=== PATIENT | male | born 1960 | race Caucasian/White ===

== ENCOUNTER 2020-05-02 09:53 | Outpatient (REF) | payer BC, SELFPAY ==
--- NOTE | 2020-05-02 09:58 | CT_ITS ---
EXAMINATION: CT CHEST SCREENING CLINICAL INFORMATION: Nicotine dependence. COMPARISON: None. TECHNIQUE: Multidetector volumetric CT imaging of the chest is performed without contrast using low dose technique. Additional 2D coronal and sagittal reformatted images and axial 3D maximum intensity projection (MIP) images are generated on the CT workstation. This CT examination was performed using dose optimization techniques as appropriate, variously including the following: *Automated exposure control *Adjustment of mA and/or kV according to patient size (this includes techniques or standardized protocols for targeted exams where dose is matched to indication/reason for exam; i.e. extremities or head) *Use of iterative reconstruction technique DLP: 80 mGy-cm FINDINGS: LUNGS: The lungs are well expanded and clear of acute pneumonic process. There is a 3 minute nodule right lower lobe axial image 362/6, punctate scattered 1 mm calcified nodules in the right upper lobe. MEDIASTINUM: The thyroid lobes are symmetrical and normal. The central trachea and bronchi are widely patent. Heart size and the great vessels are normal caliber. No abnormal size mediastinal or hilar lymph nodes seen. There is no pericardial effusion. PLEURA: There is no pleural effusion. No pleural mass or thickening. AXILLA: No lymphadenopathy. UPPER ABDOMEN: Visualized liver, spleen, pancreas and bilateral adrenal glands are unremarkable. OSSEOUS STRUCTURES: There is moderate ventral spondylosis mid and lower dorsal spine. No lytic process seen. CT/CT lung screening IMPRESSION: Small pulmonary nodules. No acute process seen. ASSESSMENT: Lung-RADS category 2: Benign. RECOMMENDATION: Low-dose annual CT chest exam.
== END 2020-05-02 09:54 | disposition home or self-care (01) ==
LOC: HO.CT 09:53
PROVIDERS: PCP Internal Medicine; Visit Provider Physician Assistant Medical
DX: Z12.2 Encounter for screening for malignant neoplasm of respiratory organs (principal); F17.210 Nicotine dependence, cigarettes, uncomplicated
CPT/HCPCS: 71271

== ENCOUNTER 2020-05-02 10:31 | Outpatient (REF) | payer BC, SELFPAY | END 2020-05-02 10:32 | disposition home or self-care (01) | LOC: HO.LAB 10:31 | PROVIDERS: Visit Provider Internal Medicine | DX: Z20.822 Contact with and (suspected) exposure to COVID-19 (principal) | CPT/HCPCS: 36415; C9803; U0003; U0005 ==

== ENCOUNTER 2020-12-09 20:12 | Emergency (ER) | payer BC, SELFPAY ==
[2020-12-09 20:15] VITALS: BP 196/96; PULSE 70; RESP 16; TEMP 37.1; O2SAT 95; BMI 38.0
--- NOTE | 2020-12-09 23:38 | PC.NURSE ---
SPOKE W/PT AT LENGTH RE:WAIT TIME. PT UNABLE TO STAY D/T TRANSPORTATION. PT A/O X 3 SPEAKS IN FULL CLEAR SENTENCES, PUPILS ARE EQUAL AND RESPONSIVE.
== END 2020-12-09 23:54 | disposition left against medical advice (07) ==
PROVIDERS: Emergency Provider Emergency Medicine; PCP Internal Medicine
DX: S00.01XA Abrasion of scalp, initial encounter (principal); G44.309 Post-traumatic headache, unspecified, not intractable; Y29.XXXA Contact with blunt object, undetermined intent, initial encounter; Y93.9 Activity, unspecified; Y92.9 Unspecified place or not applicable; Y99.9 Unspecified external cause status
CPT/HCPCS: 99281; 99282

== ENCOUNTER 2021-02-21 16:01 | Outpatient (REF) | payer BC, SELFPAY | END 2021-02-21 16:02 | disposition home or self-care (01) | LOC: HO.LNP 16:01 | PROVIDERS: Visit Provider Nurse Practitioner Family | DX: R30.0 Dysuria (principal) | CPT/HCPCS: 87086 ==

== ENCOUNTER 2021-02-22 10:49 | Outpatient (REF) | payer BC, SELFPAY ==
[2021-02-22 11:05] LABS: MANUAL DIFF FLAG NO
[2021-02-22 11:49] LABS: Basophils Absolute Auto 0.1 X10*3/uL (0.0-0.2); Eosinophils Absolute Auto 0.1 X10*3/uL (0.0-0.4); Eosinophils Percent Auto 1.8 % (0-4); Hematocrit 36.2 % (42.0-52.0); Hemoglobin 11.7 g/dl (14.0-18.0); Imm Gran Abs Auto 0.01 X10*3/uL (0.00-0.03); Imm Gran Pct Auto 0.2 % (0.0-0.4); Lymphocytes Absolute Auto 1.8 X10*3/uL (1.2-4.9); Lymphocytes Percent Auto 35.3 % (20-40); Mean Corpuscular HGB Conc 32.3 g/dl (31.0-36.0); Mean Corpuscular Hemoglobin 28.3 pg (27.0-33.0); Mean Corpuscular Volume 87.4 fL (80.0-98.0); Mean Platelet Volume 10.1 fL (9.4-12.4); Monocytes Absolute Auto 0.5 X10*3/uL (0.1-1.2); Monocytes Percent Auto 10.5 % (2-11); Neutrophils Absolute Auto 2.6 x10*3/uL (2.0-8.3); Neutrophils Percent Auto 50.2 % (45-73); Platelet Count 186 X10*3/uL (160-400); Red Blood Count 4.14 X10*6/uL (4.60-5.80); Red Cell Distribution Width 18.4 % (11.0-16.0); White Blood Count 5.1 X10*3/uL (4.8-10.8)
[2021-02-22 11:52] LABS: Estimated Average Glucose 103 mg/dL; Hemoglobin A1c % 5.2 %
[2021-02-22 12:29] LABS: INTERNATIONAL NORM RATIO 1.2 (0.9-1.1); Prothrombin Time 13.2 SEC (9.9-13.0)
[2021-02-22 12:31] LABS: Thyroid Stimulating Hormone 5.49 uIU/mL (0.32-4.0); Vitamin D 25-OH Total 10.5 ng/mL (>30)
[2021-02-22 12:43] LABS: Alanine Aminotransferase 76 U/L (0-40); Albumin Level 4.2 g/dL (3.5-5.0); Alkaline Phosphatase 61 U/L (39-117); Anion Gap 16 (12-20); Aspartate Amino Transferase 132 U/L (5-37); Bilirubin Total 1.6 mg/dL (0.0-1.0); Blood Urea Nitrogen 6 mg/dL (9-16); Calcium 9.3 mg/dL (8.4-10.2); Carbon Dioxide 23 mmol/L (22-29); Chloride 100 mmol/L (96-108); Cholesterol 231 mg/dL; Estimated Glomerular Filt Rate > 60; Glucose Random 112 mg/dL (60-115); HDL Cholesterol 14 mg/dL; LDL Cholesterol Calculated 186 mg/dl; Potassium 4.3 mmol/L (3.3-5.1); Sodium 135 mmol/L (135-145); Total Protein 7.5 g/dL (6.5-8.0); Triglycerides 157 mg/dL
[2021-02-22 12:45] LABS: Folate 13.2 ng/mL (> or = 4.0); Vitamin B12 447 pg/mL (200-900)
== END 2021-02-22 10:50 | disposition home or self-care (01) ==
LOC: HO.LAB 10:49
PROVIDERS: PCP Internal Medicine; Visit Provider Nurse Practitioner Family
DX: Z13.29 Encounter for screening for other suspected endocrine disorder (principal); R10.9 Unspecified abdominal pain; R73.02 Impaired glucose tolerance (oral); R58 Hemorrhage, not elsewhere classified; E78.00 Pure hypercholesterolemia, unspecified
CPT/HCPCS: 36415; 80053; 80061; 82306; 82607; 82746; 83036; 84443; 85025; 85610; 85730

== ENCOUNTER 2021-03-20 16:08 | Outpatient (REF) | payer BC, SELFPAY ==
--- NOTE | ~2021-03-20 | US_ITS ---
EXAMINATION: US ABDOMEN COMPLETE CLINICAL INFORMATION: Unspecified abdominal pain. COMPARISON: Ultrasound abdomen 03/04/2018. TECHNIQUE: Real-time imaging of the abdominal viscera. FINDINGS: PANCREAS: Not well visualized due to bowel gas. ABDOMINAL AORTA: Not well visualized due to bowel gas INFERIOR VENA CAVA: Visualized portions are normal. LIVER: Liver is enlarged. Liver echotexture is increased The liver contour is normal. No focal hepatic lesion. There is no intrahepatic biliary duct dilatation seen. GALLBLADDER: Normal. The gallbladder is physiologically distended without evidence of stones, sludge, polyps, wall thickening or pericholecystic fluid. COMMON BILE DUCT: Normal in caliber measuring 0.4 cm in diameter. RIGHT KIDNEY: Normal. No hydronephrosis. No renal calculi or focal parenchymal lesions. The kidney measures 12.1 cm in maximum dimension. LEFT KIDNEY: Normal. No hydronephrosis. No renal calculi or focal parenchymal lesions. The kidney measures 11.9 cm in maximum dimension. SPLEEN: Normal. The spleen measures 10.2 cm in maximum dimension. FREE FLUID: None. US/US abdomen complete IMPRESSION: Enlarged echogenic liver probably representing fatty infiltration. Limited visualization of the pancreas.
== END 2021-03-20 16:09 | disposition home or self-care (01) ==
LOC: HO.US 16:08
PROVIDERS: PCP Internal Medicine; Visit Provider Nurse Practitioner Family
DX: R10.9 Unspecified abdominal pain (principal)
CPT/HCPCS: 76700

== ENCOUNTER 2021-04-27 12:56 | Outpatient (REF) | payer BC, SELFPAY ==
[2021-04-27 13:13] LABS: MANUAL DIFF FLAG NO
[2021-04-27 13:24] LABS: Basophils Absolute Auto 0.1 X10*3/uL (0.0-0.2); Basophils Percent Auto 1.3 % (0-2); Eosinophils Absolute Auto 0.1 X10*3/uL (0.0-0.4); Eosinophils Percent Auto 2.1 % (0-4); Hematocrit 33.7 % (42.0-52.0); Hemoglobin 10.6 g/dl (14.0-18.0); Imm Gran Abs Auto 0.01 X10*3/uL (0.00-0.03); Imm Gran Pct Auto 0.2 % (0.0-0.4); Lymphocytes Absolute Auto 2.4 X10*3/uL (1.2-4.9); Lymphocytes Percent Auto 38.6 % (20-40); Mean Corpuscular HGB Conc 31.5 g/dl (31.0-36.0); Mean Corpuscular Volume 88.9 fL (80.0-98.0); Mean Platelet Volume 9.8 fL (9.4-12.4); Monocytes Absolute Auto 0.7 X10*3/uL (0.1-1.2); Neutrophils Absolute Auto 2.8 x10*3/uL (2.0-8.3); Neutrophils Percent Auto 45.8 % (45-73); Platelet Count 200 X10*3/uL (160-400); Red Blood Count 3.79 X10*6/uL (4.60-5.80); Red Cell Distribution Width 18.4 % (11.0-16.0); White Blood Count 6.2 X10*3/uL (4.8-10.8)
[2021-04-27 13:34] LABS: Estimated Average Glucose 108 mg/dL; Hemoglobin A1c % 5.4 %
[2021-04-27 13:47] LABS: Alanine Aminotransferase 41 U/L (0-40); Albumin Level 4.1 g/dL (3.5-5.0); Alkaline Phosphatase 56 U/L (39-117); Anion Gap 15 (12-20); Aspartate Amino Transferase 73 U/L (5-37); Bilirubin Total 1.1 mg/dL (0.0-1.0); Blood Urea Nitrogen 9 mg/dL (9-16); Calcium 9.5 mg/dL (8.4-10.2); Carbon Dioxide 24 mmol/L (22-29); Chloride 103 mmol/L (96-108); Cholesterol 192 mg/dL; Estimated Glomerular Filt Rate > 60; Glucose Random 108 mg/dL (60-115); HDL Cholesterol 16 mg/dL; LDL Cholesterol Calculated 150 mg/dl; Sodium 138 mmol/L (135-145); Total Protein 7.4 g/dL (6.5-8.0); Triglycerides 133 mg/dL
[2021-04-27 14:07] LABS: Free T4 (Free Thyroxine) 0.85 ng/dL (0.71-1.85); Prostate Specific Antigen Scr 3.48 ng/mL (<0.05-4.0)
[2021-04-27 14:09] LABS: Vitamin D 25-OH Total 16.8 ng/mL (>30)
[2021-04-27 14:29] LABS: Folate 15.9 ng/mL (> or = 4.0); Vitamin B12 549 pg/mL (200-900)
[2021-04-28 08:33] LABS: HBc Num1 0.11 S/CO (0.00-0.79); HBsAGNum1 0.24 S/CO (0.00-0.99); Hepatitis A Antibody IgM 0.17 Index (0-0.79); Hepatitis B Core Antibody Nonreactive (Nonreactive); Hepatitis B Surface Antigen Negative (Negative); ~HepC Num1 0.09 S/CO (0.00-0.79); ~Hepatitis A Antibody IgM Nonreactive (Nonreactive); ~Hepatitis B Surface Antibody NONREACTIVE (Nonreactive); ~Hepatitis C Antibody Nonreactive (Nonreactive)
== END 2021-04-27 12:57 | disposition home or self-care (01) ==
LOC: HO.LAB 12:56
PROVIDERS: Absent Provider Nurse Practitioner Family; PCP Internal Medicine; Visit Provider Internal Medicine
DX: Z12.5 Encounter for screening for malignant neoplasm of prostate (principal); R73.02 Impaired glucose tolerance (oral); R79.89 Other specified abnormal findings of blood chemistry; E78.00 Pure hypercholesterolemia, unspecified
CPT/HCPCS: 36415; 80053; 80061; 82306; 82607; 82746; 83036; 84153; 84439; 84443; 85025; 86704; 86706; 86709; 86803; 87340

== ENCOUNTER 2021-10-16 09:54 | Emergency (ER) | payer BC, SELFPAY ==
--- NOTE | ~2021-10-16 | CT_ITS ---
EXAMINATION: CT ABDOMEN AND PELVIS WITHOUT CONTRAST CLINICAL INFORMATION: Abdominal distention. Ascites. COMPARISON: None TECHNIQUE: Multidetector volumetric imaging was performed from the superior aspect of the liver through the pubic symphysis. Sagittal and coronal reformatted images were obtained on the technologist's workstation. This CT examination was performed using dose optimization techniques as appropriate, variously including the following: *Automated exposure control *Adjustment of mA and/or kV according to patient size (this includes techniques or standardized protocols for targeted exams where dose is matched to indication/reason for exam; i.e. extremities or head) *Use of iterative reconstruction technique DLP: 888 mGy-cm FINDINGS: LUNG BASES: The visualized lung bases are unremarkable. LIVER, GALLBLADDER, AND BILIARY TREE: Liver is normal in size, contour and morphology. Diffuse hepatic steatosis. No focal liver lesions. No intra or extrahepatic biliary dilatation. Gallbladder unremarkable. PANCREAS: Unremarkable. SPLEEN: Unremarkable. ADRENAL GLANDS: Unremarkable. KIDNEYS AND URETERS: The kidneys are normal in size, shape, and attenuation. No hydronephrosis, hydroureter, or calculi seen. No perinephric stranding. BLADDER: Unremarkable. GASTROINTESTINAL TRACT: Scattered left colonic diverticula. No evidence of diverticulitis. Normal appendix. Stomach and small bowel unremarkable. ABDOMINAL WALL: No significant hernia is appreciated. LYMPH NODES: Normal. VASCULAR: Unremarkable. PELVIC VISCERA: Unremarkable. OSSEOUS STRUCTURES: No acute fracture or traumatic malalignment. There is grade 1 anterolisthesis of L5 over S1 related to bilateral L5 spondylolysis. Near-complete obliteration of disc space at L5-S1. CT/CT abdomen pelvis wo con IMPRESSION: * No acute findings within the abdomen or pelvis. * No ascites. * No bowel obstruction. * Diffuse hepatic steatosis. * Scattered left colonic diverticula without evidence of diverticulitis.
--- NOTE | ~2021-10-16 | US_ITS ---
EXAMINATION: US VENOUS ULTRASOUND WITH DOPPLER LOWER EXTREMITY, BILATERAL CLINICAL INFORMATION: Bilateral leg swelling COMPARISON: None TECHNIQUE: Ultrasound of the deep veins is performed from the hip to the calf with compression sonography and color and pulse Doppler assessment. Spectral analysis with color-flow imaging is performed. FINDINGS: RIGHT: There is normal venous compression and respiratory variation and augmented flow. The visualized common femoral vein, superficial femoral vein, profunda femoral vein, popliteal vein, and the trifurcation region shows no evidence of deep venous thrombosis. There is no significant popliteal fossa cyst. LEFT: There is normal venous compression and respiratory variation and augmented flow. The visualized common femoral vein, superficial femoral vein, profunda femoral vein, popliteal vein, and the trifurcation region shows no evidence of deep venous thrombosis. There is no significant popliteal fossa cyst. Left peroneal veins not well delineated but no obvious thrombosis seen If the patient's symptoms persist, followup ultrasound in 5 days 7 days might be of value to exclude proximal propagation from a non-visualized calf vein. US/US venous duplex LE BI IMPRESSION: No DVT demonstrated in the bilateral lower extremity.
--- NOTE | ~2021-10-16 | CT_ITS ---
EXAMINATION: CT HEAD WITHOUT CONTRAST CLINICAL INFORMATION: High blood pressure COMPARISON: None TECHNIQUE: Contiguous axial imaging was performed from the skull base to vertex without intravenous administration of contrast. This CT examination was performed using dose optimization techniques as appropriate, variously including the following: *Automated exposure control *Adjustment of mA and/or kV according to patient size (this includes techniques or standardized protocols for targeted exams where dose is matched to indication/reason for exam; i.e. extremities or head) *Use of iterative reconstruction technique DLP: 839 mGy-cm FINDINGS: There is no evidence of acute intracranial hemorrhage or territorial infarction. No abnormal mass effect or midline shift is seen. Junior to white matter differentiation is well preserved. No extra-axial fluid collections are identified. The ventricles are normal in size. There is no abnormal attenuation within the brain parenchyma. The osseous structures and soft tissues are normal. There is a hyperdense mucous retention cyst within the right maxillary sinus. Chronic bilateral mucoperiosteal thickening of the maxillary sinuses. Status post right medial maxillary antrostomy. Mucosal thickening present throughout the ethmoid air cells. CT/CT head/brain wo con IMPRESSION: No acute intracranial pathology. Chronic sinus disease.
[2021-10-16 10:00] VITALS: BP 185/94; PULSE 78; O2SAT 99
[2021-10-16 10:01] VITALS: BP 217/86; PULSE 80; RESP 20; TEMP 36.5; O2SAT 100; BMI 41.0
[2021-10-16 10:45] LABS: COVID-19 Test Negative (Negative); IDNOW Serial# 16C4AD1C
[2021-10-16 11:00] LABS: MANUAL DIFF FLAG NO
[2021-10-16 11:03] LABS: Basophils Absolute Auto 0.1 X10*3/uL (0.0-0.2); Basophils Percent Auto 1.8 % (0-2); Eosinophils Absolute Auto 0.2 X10*3/uL (0.0-0.4); Hemoglobin 8.6 g/dl (14.0-18.0); Imm Gran Abs Auto 0.02 X10*3/uL (0.00-0.03); Imm Gran Pct Auto 0.3 % (0.0-0.4); Lymphocytes Absolute Auto 2.7 X10*3/uL (1.2-4.9); Lymphocytes Percent Auto 36.9 % (20-40); Mean Corpuscular HGB Conc 28.7 g/dl (31.0-36.0); Mean Corpuscular Hemoglobin 22.3 pg (27.0-33.0); Mean Corpuscular Volume 77.7 fL (80.0-98.0); Mean Platelet Volume 9.4 fL (9.4-12.4); Monocytes Absolute Auto 0.8 X10*3/uL (0.1-1.2); Monocytes Percent Auto 10.1 % (2-11); Neutrophils Absolute Auto 3.6 x10*3/uL (2.0-8.3); Neutrophils Percent Auto 48.9 % (45-73); Platelet Count 154 X10*3/uL (160-400); Red Blood Count 3.86 X10*6/uL (4.60-5.80); Red Cell Distribution Width 18.6 % (11.0-16.0); White Blood Count 7.4 X10*3/uL (4.8-10.8)
[2021-10-16 11:19] LABS: Alanine Aminotransferase 39 U/L (0-40); Albumin Level 4.2 g/dL (3.5-5.0); Alkaline Phosphatase 61 U/L (39-117); Anion Gap 13 (12-20); Aspartate Amino Transferase 52 U/L (5-37); Bilirubin Total 0.5 mg/dL (0.0-1.0); Blood Urea Nitrogen 5 mg/dL (9-16); Calcium 8.6 mg/dL (8.4-10.2); Carbon Dioxide 26 mmol/L (22-29); Chloride 105 mmol/L (96-108); Creatinine Clr Calc Pharmacy 135.4; Estimated Glomerular Filt Rate > 60; Glucose Random 106 mg/dL (60-115); Potassium 4.3 mmol/L (3.3-5.1); Sodium 140 mmol/L (135-145); Total Protein 7.5 g/dL (6.5-8.0)
[2021-10-16 11:22] LABS: B Type Natriuretic Peptide 63 pg/mL (<100)
--- NOTE | 2021-10-16 15:42 | ED_ITS ---
HPI - General Adult General Chief complaint: Abdominal Pain Stated complaint: R FLANK/ABD PAIN X'S MONTHS PER EMS Time Seen by Provider: 10/16/21 13:56 Source: patient Mode of arrival: ambulatory Limitations: no limitations History of Present Illness HPI narrative: 60-year-old male presents to the ED for abdominal distention for the past 6 months and also bilateral lower leg swelling for the past 3-4 weeks. Patient admits to drinking heavy amount of alcohol per day. Patient admits to history of alcohol abuse. She denies any chest pain, shortness of breath, blood in stool, weakness, or dizziness. Patient states he was supposed to get tested for hepatitis for possible cirrhosis, but patient never follow-up with his aeronautical products sales engineer. Related Data Home Medications Medication Instructions Recorded Confirmed omeprazole 20 mg capsule,delayed 20 mg PO BID 04/15/20 02/21/21 release Previous Rx's Medication Instructions Recorded atenolol 50 mg tablet 50 mg PO DAILY #90 tabs 07/11/20 levofloxacin 500 mg tablet 500 mg PO DAILY 7 days #7 tabs 02/21/21 triamcinolone acetonide 0.1 % 1 appl topical DAILY PRN itching 03/01/21 topical cream 14 days #30 grams blood pressure monitor #1 ea 03/07/21 cholecalciferol (vitamin D3) 25 25 mcg PO DAILY #90 tabs 05/22/21 mcg (1,000 unit) tablet pravastatin 10 mg tablet 10 mg PO BEDTIME 90 days #90 tabs 05/22/21 lisinopril 20 mg tablet 20 mg PO DAILY #90 tabs 06/27/21 Allergies Allergy/AdvReac Type Severity Reaction Status Date / Time acetaminophen [From TYLENOL] Allergy Unknown HIVES Verified 05/04/21 14:49 apple [APPLES] Allergy Unknown HIVES Verified 05/04/21 14:49 Review of Systems Review of Systems: Abdominal distension for the past 6 months. bilateral leg swelling. [facility] Past Medical History Medical History Alcohol abuse Anxiety and depression GERD (gastroesophageal reflux disease) Hypercholesterolemia Hypertension Impaired glucose tolerance Obesity (BMI 30-39.9) Post traumatic stress disorder (PTSD) Tobacco abuse Vitamin D deficiency Surgical History History of tonsillectomy Family History Family History Father Renal cancer Other Substance use disorder Social History Social History Housing: House Alcohol intake: current Alcohol intake frequency: 0-2 drinks per day Patient Tobacco Use Status: Current everyday Tobacco user Tobacco use type: Cigarette Cigarette Packs Per Day: 1 Cigarettes Per Day: 20 e-Cigarette/Vaping Use: Never Used Second Hand Smoke Exposure: Yes Substance Use Type: Marijuana Advance Directives: No Advance Directives Information Provided: Yes service: No Current occupational status: retired Cognitive needs: No Hearing needs: No Vision needs: Yes (Reading glasses) Physical Exam ED Vital Signs: Vital Signs - 24 hr 10/16/21 10:01 10/16/21 17:32 Temperature 97.7 F 98.0 F Pulse Rate 80 80 Respiratory Rate 20 18 Blood Pressure 217/86 H 212/105 H Pulse Oximetry 100 99 Oxygen Delivery Method Room Air Room Air BMI result Body Mass Index 41.0 Const General: cooperative, healthy appearing, comfortable, no acute distress, well developed, alert, awake and Physically active Orientation/consciousness: oriented to time and patient oriented x3 HENMT Head: Yes normal to inspection, Yes No palpable skull fracture present, Yes normocephalic, Yes atraumatic and No abrasion Eyes General: appearance normal, both eyes and all related structures Neck Neck: Yes normal visual inspection, Yes full ROM, Yes no lymphadenopathy, Yes no meningeal signs, Yes trachea midline, Yes supple, No anterior neck swelling and No tender Chest Chest palpation & inspection: normal inspection of the chest and normal palpation of entire chest wall Resp Effort & Inspection: normal respiratory effort and able to speak in complete sentences Auscultation: clear to auscultation bilaterally Cardio Jugular venous distension: no JVD Heart sounds: S1 normal heart sound present and S2 normal heart sound present GI Inspection: Yes normal to inspection and Yes distended Palpation (GI): Soft to palpation, not firm, nontender, no guarding and not rigid General: No CVA tenderness and Yes no CVA tenderness Back/Spine/Pelvis Back: no CVA tenderness, No CVA tenderness and No back tenderness Skin General skin exam: no rashes or lesions noted and elasticity normal Neuro General: oriented to time, patient oriented x3, gait normal and no meningeal signs Cranial nerves: Yes CN's II-XII intact bilaterally Extrem Ankle/foot/toe images: 1. positive for ankle swelling but negative for any erythema, tenderness, upper leg swelling, or calf tenderness. Motor/nose/vascular exam intact 2. positive for ankle swelling but negative for any erythema, tenderness, upper leg swelling, or calf tenderness. Motor/nose/vascular exam intact Psych Appearance: grossly normal, well kempt and not disheveled Course Course Course Narrative: patient had labs drawn. BNP was negative. History of alcohol abuse and continuous abdominal distension will send patient for CT scan to check for ascites. Lower extremity does not indicate DVT but suspecting early anasarca from ascites and liver issues. Reevaluation(s) Reevaluation #1: Patient history of high blood pressure and elevated blood pressure in the ED visit. patient alcohol abuse sibling concerned this may be early withdrawal Ativan given. Patient alert oriented x3 mild tremors. Patient is slightly anemic last visit will do rectal exam. Time: 15:54 Reevaluation #2: abdomen negative for ascites. positive for fatty liver. We will do ultrasound of legs to to ensure there is no blood clot. Patient had a drop in H&H so occult stool rectal exam was done and negative for any blood. Stool is brown. Negative for any melena or black stool. Patient anemia and lower plates due to alcohol abuse. Not suspecting GI bleed. Time: 17:25 Reevaluation #3: ultrasound negative for DVT. Repeat blood pressure troponin pending. No need for diuretic. Patient informed to follow-up with primary care and aeronautical products sales engineer. Patient educated on the importance of receiving treatment for alcohol abuse and affects on the liver. Patient informed to get his hepat itis testing done and follow-up with primary care doctor. SIgn out to LILLIAM Time: 19:46 Medical Decision Making MDM Narrative Medical decision making narrative: fatty liver. hypertension Lab Data Result diagrams: 10/16/21 10:56 10/16/21 10:56 Labs: Lab Results 10/16/21 10/16/21 10/16/21 Range/Units 10:13 10:56 10:56 WBC 7.4 (4.8-10.8) X10*3/uL RBC 3.86 L (4.60-5.80) X10*6/uL Hgb 8.6 L (14.0-18.0) g/dl Hct 30.0 L (42.0-52.0) % MCV 77.7 L (80.0-98.0) fL MCH 22.3 L (27.0-33.0) pg MCHC 28.7 L (31.0-36.0) g/dl RDW 18.6 H (11.0-16.0) % Plt Count 154 L (160-400) X10*3/uL MPV 9.4 (9.4-12.4) fL Immature Gran % (Auto) 0.3 (0.0-0.4) % Neut % (Auto) 48.9 (45-73) % Lymph % (Auto) 36.9 (20-40) % [place] % (Auto) 10.1 (2-11) % Eos % (Auto) 2.0 (0-4) % Baso % (Auto) 1.8 (0-2) % Lymph # (Auto) 2.7 (1.2-4.9) X10*3/uL [place] # (Auto) 0.8 (0.1-1.2) X10*3/uL Eos # (Auto) 0.2 (0.0-0.4) X10*3/uL Baso # (Auto) 0.1 (0.0-0.2) X10*3/uL Abs Immat Gran (auto) 0.02 (0.00-0.03) X10*3/uL Absolute Neuts (auto) 3.6 (2.0-8.3) x10*3/uL Absolute Nucleated RBC 0.000 (0.0-0.012) X10*3/uL Nucleated RBC % (auto) 0.0 (0.0-0.2) /100WBC PT (10.0-13.1) SEC INR (0.9-1.1) APTT (24.1-38.0) SEC Sodium 140 (135-145) mmol/L Potassium 4.3 (3.3-5.1) mmol/L Chloride 105 (96-108) mmol/L Carbon Dioxide 26 (22-29) mmol/L Anion Gap 13 (12-20) BUN 5 L (9-16) mg/dL Creatinine 0.72 (0.5-1.4) mg/dL Estim Creat Clear Calc 135.4 Estimated GFR > 60 Random Glucose 106 (60-115) mg/dL Calcium 8.6 D (8.4-10.2) mg/dL Total Bilirubin 0.5 (0.0-1.0) mg/dL AST 52 H (5-37) U/L ALT 39 (0-40) U/L Alkaline Phosphatase 61 (39-117) U/L Troponin I High Sens (<3.5-35.0) ng/L B-Natriuretic Peptide (<100) pg/mL Total Protein 7.5 (6.5-8.0) g/dL Albumin 4.2 (3.5-5.0) g/dL Stool Occult Blood (NEGATIVE) COVID-19 (SANG) Negative (Negative) COVID-19 Clin Com See Note 10/16/21 10/16/21 10/16/21 Range/Units 10:56 16:06 18:16 WBC (4.8-10.8) X10*3/uL RBC (4.60-5.80) X10*6/uL Hgb (14.0-18.0) g/dl Hct (42.0-52.0) % MCV (80.0-98.0) fL MCH (27.0-33.0) pg MCHC (31.0-36.0) g/dl RDW (11.0-16.0) % Plt Count (160-400) X10*3/uL MPV (9.4-12.4) fL Immature Gran % (Auto) (0.0-0.4) % Neut % (Auto) (45-73) % Lymph % (Auto) (20-40) % [place] % (Auto) (2-11) % Eos % (Auto) (0-4) % Baso % (Auto) (0-2) % Lymph # (Auto) (1.2-4.9) X10*3/uL [place] # (Auto) (0.1-1.2) X10*3/uL Eos # (Auto) (0.0-0.4) X10*3/uL Baso # (Auto) (0.0-0.2) X10*3/uL Abs Immat Gran (auto) (0.00-0.03) X10*3/uL Absolute Neuts (auto) (2.0-8.3) x10*3/uL Absolute Nucleated RBC (0.0-0.012) X10*3/uL Nucleated RBC % (auto) (0.0-0.2) /100WBC PT 12.2 (10.0-13.1) SEC INR 1.1 (0.9-1.1) APTT 33.3 (24.1-38.0) SEC Sodium (135-145) mmol/L Potassium (3.3-5.1) mmol/L Chloride (96-108) mmol/L Carbon Dioxide (22-29) mmol/L Anion Gap (12-20) BUN (9-16) mg/dL Creatinine (0.5-1.4) mg/dL Estim Creat Clear Calc Estimated GFR Random Glucose (60-115) mg/dL Calcium (8.4-10.2) mg/dL Total Bilirubin (0.0-1.0) mg/dL AST (5-37) U/L ALT (0-40) U/L Alkaline Phosphatase (39-117) U/L Troponin I High Sens (<3.5-35.0) ng/L B-Natriuretic Peptide 63 (<100) pg/mL Total Protein (6.5-8.0) g/dL Albumin (3.5-5.0) g/dL Stool Occult Blood NEGATIVE (NEGATIVE) COVID-19 ([facility]) (Negative) COVID-19 Clin Com 10/16/21 Range/Units 18:16 WBC (4.8-10.8) X10*3/uL RBC (4.60-5.80) X10*6/uL Hgb (14.0-18.0) g/dl Hct (42.0-52.0) % MCV (80.0-98.0) fL MCH (27.0-33.0) pg MCHC (31.0-36.0) g/dl RDW (11.0-16.0) % Plt Count (160-400) X10*3/uL MPV (9.4-12.4) fL Immature Gran % (Auto) (0.0-0.4) % Neut % (Auto) (45-73) % Lymph % (Auto) (20-40) % [place] % (Auto) (2-11) % Eos % (Auto) (0-4) % Baso % (Auto) (0-2) % Lymph # (Auto) (1.2-4.9) X10*3/uL [place] # (Auto) (0.1-1.2) X10*3/uL Eos # (Auto) (0.0-0.4) X10*3/uL Baso # (Auto) (0.0-0.2) X10*3/uL Abs Immat Gran (auto) (0.00-0.03) X10*3/uL Absolute Neuts (auto) (2.0-8.3) x10*3/uL Absolute Nucleated RBC (0.0-0.012) X10*3/uL Nucleated RBC % (auto) (0.0-0.2) /100WBC PT (10.0-13.1) SEC INR (0.9-1.1) APTT (24.1-38.0) SEC Sodium (135-145) mmol/L Potassium (3.3-5.1) mmol/L Chloride (96-108) mmol/L Carbon Dioxide (22-29) mmol/L Anion Gap (12-20) BUN (9-16) mg/dL Creatinine (0.5-1.4) mg/dL Estim Creat Clear Calc Estimated GFR Random Glucose (60-115) mg/dL Calcium (8.4-10.2) mg/dL Total Bilirubin (0.0-1.0) mg/dL AST (5-37) U/L ALT (0-40) U/L Alkaline Phosphatase (39-117) U/L Troponin I High Sens 8.3 (<3.5-35.0) ng/L B-Natriuretic Peptide (<100) pg/mL Total Protein (6.5-8.0) g/dL Albumin (3.5-5.0) g/dL Stool Occult Blood (NEGATIVE) COVID-19 ([facility]ANG) (Negative) COVID-19 Clin Com ECG Data Interpretation: normal sinus rhythm. Ventricular rate 77. Pr interval 170. QRS 80. QTC 457. Negative STEMI Discharge Plan Discharge Clinical Impression: Fatty liver, Alcoholic fatty liver Patient Disposition: Still a Patient Instructions: Liver Disease Diet (DC), Hypertension (ED) Additional Instructions: recommend follow-up with primary care provider and aeronautical products sales engineer. Recommend receiving treatment for alcohol abuse. Return to the ED for any a bdominal pain, nausea, vomiting, leg swelling, calf pain, coughing up blood, chest pain, shortness of breath, blood in stool, weakness, dizziness, slurred speech, facial droop, paralysis of extremities, loss of vision, or any other concerning symptoms. Prescriptions: No Action atenolol 50 mg tablet 50 mg PO DAILY Qty: 90 3RF levofloxacin 500 mg tablet 500 mg PO DAILY 7 Days Qty: 7 0RF triamcinolone acetonide 0.1 % cream 1 appl topical DAILY PRN (Reason: itching) 14 Days Qty: 30 0RF (DME) blood pressure monitor Kit See Rx Instructions .Route Qty: 1 0RF Rx Instructions: As directed pravastatin 10 mg tablet 10 mg PO BEDTIME 90 Days Qty: 90 1RF cholecalciferol (vitamin D3) 25 mcg (1,000 unit) tablet 25 mcg PO DAILY Qty: 90 3RF lisinopril 20 mg tablet 20 mg PO DAILY Qty: 90 3RF omeprazole 20 mg capsule,delayed release(DR/EC) 20 mg PO BID
[2021-10-16] MEDS: LORazepam 1 MG TABLET 2 MG PO (15:46)
[2021-10-16 16:12] LABS: OBS Int Ctl Valid YES; OBS1 NEGATIVE (NEGATIVE)
--- NOTE | 2021-10-16 16:13 | ECG_ITS ---
Test Reason : abd pain Blood Pressure : / mmHG Vent. Rate : 077 BPM Atrial Rate : 077 BPM P-R Int : 170 ms QRS Dur : 084 ms QT Int : 404 ms P-R-T Axes : 022 003 016 degrees QTc Int : 457 ms Normal sinus rhythm Normal ECG When compared with ECG of 10-MAY-2019 10:31, No significant change was found Referred By: Rc Hood Electronically Signed By:Arvind Jade
[2021-10-16 17:32] VITALS: BP 212/105; PULSE 80; RESP 18; TEMP 36.7; O2SAT 99
[2021-10-16] MEDS: cloNIDine HCL 0.2 MG TABLET PO (18:07)
[2021-10-16 18:31] LABS: INTERNATIONAL NORM RATIO 1.1 (0.9-1.1); Prothrombin Time 12.2 SEC (10.0-13.1)
[2021-10-16 18:33] LABS: Partial Thromboplastin Time 33.3 SEC (24.1-38.0)
[2021-10-16 18:49] LABS: Troponin-I High Sensitivity 8.3 ng/L (<3.5-35.0)
--- NOTE | 2021-10-16 20:21 | PC.NURSE ---
resting comfortably on stretcher, repeat trop to be drawn at 20:56. Denies pain at present, speaking in full sentences. Given food
[2021-10-16 20:22] VITALS: BP 165/72; PULSE 67; RESP 18; O2SAT 96
[2021-10-16 21:34] LABS: Troponin-I High Sensitivity 9.7 ng/L (<3.5-35.0)
== END 2021-10-16 21:57 | disposition home or self-care (01) ==
PROVIDERS: Physician Assistant; Student in an Organized Health Care Education/Training Program; Emergency Provider Emergency Medicine; PCP Internal Medicine
DX: K70.0 Alcoholic fatty liver (principal); R60.0 Localized edema; R10.9 Unspecified abdominal pain; R51.9 Headache, unspecified; R06.02 Shortness of breath; K76.0 Fatty (change of) liver, not elsewhere classified; F17.210 Nicotine dependence, cigarettes, uncomplicated; Z20.822 Contact with and (suspected) exposure to COVID-19; Z71.6 Tobacco abuse counseling; Z79.899 Other long term (current) drug therapy
CPT/HCPCS: 36415; 70450; 74176; 80053; 82272; 83880; 84484; 85025; 85610; 85730; 87635; 93005; 93970; 99284

== ENCOUNTER 2021-10-19 09:26 | Outpatient (REF) | payer BC, SELFPAY ==
[2021-10-19 09:53] LABS: MANUAL DIFF FLAG NO
[2021-10-19 09:58] LABS: Basophils Absolute Auto 0.1 X10*3/uL (0.0-0.2); Basophils Percent Auto 1.8 % (0-2); Eosinophils Absolute Auto 0.2 X10*3/uL (0.0-0.4); Eosinophils Percent Auto 2.9 % (0-4); Hematocrit 29.2 % (42.0-52.0); Hemoglobin 8.4 g/dl (14.0-18.0); Imm Gran Abs Auto 0.03 X10*3/uL (0.00-0.03); Imm Gran Pct Auto 0.5 % (0.0-0.4); Immature Retic Fraction 38.8 % (2.3-13.4); Lymphocytes Absolute Auto 1.9 X10*3/uL (1.2-4.9); Lymphocytes Percent Auto 30.6 % (20-40); Mean Corpuscular HGB Conc 28.8 g/dl (31.0-36.0); Mean Corpuscular Hemoglobin 22.5 pg (27.0-33.0); Mean Corpuscular Volume 78.1 fL (80.0-98.0); Monocytes Absolute Auto 0.8 X10*3/uL (0.1-1.2); Monocytes Percent Auto 12.1 % (2-11); Neutrophils Absolute Auto 3.3 x10*3/uL (2.0-8.3); Neutrophils Percent Auto 52.1 % (45-73); Platelet Count 179 X10*3/uL (160-400); Red Blood Count 3.74 X10*6/uL (4.60-5.80); Red Cell Distribution Width 18.7 % (11.0-16.0); Retic HGB Equivalent 28.5 pg (30.0-35.0); Reticulocyte Percent 1.4 % (0.5-1.8); Reticulocytes Absolute 0.051 X10*6/uL (0.026-0.095); White Blood Count 6.3 X10*3/uL (4.8-10.8)
[2021-10-19 10:03] LABS: Ammonia 28 umol/L (13-55)
[2021-10-19 11:17] LABS: Alanine Aminotransferase 38 U/L (0-40); Albumin Level 4.1 g/dL (3.5-5.0); Alkaline Phosphatase 73 U/L (39-117); Anion Gap 13 (12-20); Aspartate Amino Transferase 52 U/L (5-37); Bilirubin Total 0.4 mg/dL (0.0-1.0); Blood Urea Nitrogen 8 mg/dL (9-16); Carbon Dioxide 26 mmol/L (22-29); Chloride 106 mmol/L (96-108); Estimated Glomerular Filt Rate > 60; Glucose Random 120 mg/dL (60-115); Iron 17 mcg/dL (45-160); Potassium 4.6 mmol/L (3.3-5.1); Sodium 140 mmol/L (135-145); Total Protein 7.4 g/dL (6.5-8.0)
[2021-10-19 11:34] LABS: Ferritin 15 ng/mL (20-250); Free T4 (Free Thyroxine) 0.86 ng/dL (0.71-1.85); Thyroid Stimulating Hormone 3.03 uIU/mL (0.32-4.0)
[2021-10-19 11:36] LABS: Percent Iron Saturation 3 % (15-50); Total Iron Binding Capacity 570 mcg/dL (228-428); Unsaturated Iron Binding 553 ug/dL
[2021-10-19 11:42] LABS: Folate 11.6 ng/mL (> or = 4.0); Vitamin B12 249 pg/mL (200-900)
== END 2021-10-19 09:27 | disposition home or self-care (01) ==
LOC: HO.LAB 09:26
PROVIDERS: PCP Internal Medicine; Visit Provider Internal Medicine
DX: E03.9 Hypothyroidism, unspecified (principal); D64.9 Anemia, unspecified
CPT/HCPCS: 36415; 80053; 82140; 82607; 82728; 82746; 83540; 84439; 84443; 85025; 85045

== ENCOUNTER 2022-02-02 08:41 | Outpatient (REF) | payer BC, SELFPAY ==
[2022-02-02 08:50] LABS: MANUAL DIFF FLAG NO
[2022-02-02 09:45] LABS: Alanine Aminotransferase 49 U/L (0-40); Albumin Level 4.1 g/dL (3.5-5.0); Alkaline Phosphatase 59 U/L (39-117); Anion Gap 20 (12-20); Aspartate Amino Transferase 58 U/L (5-37); Bilirubin Total 2.3 mg/dL (0.0-1.0); Blood Urea Nitrogen 6 mg/dL (9-16); Carbon Dioxide 25 mmol/L (22-29); Chloride 100 mmol/L (96-108); Estimated Glomerular Filt Rate > 60; Glucose Random 171 mg/dL (60-115); Sodium 141 mmol/L (135-145); Total Protein 7.1 g/dL (6.5-8.0)
[2022-02-02 09:48] LABS: Ferritin 395 ng/mL (20-250); Free T4 (Free Thyroxine) 0.97 ng/dL (0.71-1.85)
[2022-02-02 10:03] LABS: Iron 352 mcg/dL (45-160); Total Iron Binding Capacity < 369 mcg/dL (228-428); Unsaturated Iron Binding < 17 ug/dL
[2022-02-02 10:08] LABS: Folate > 20.0 ng/mL (> or = 4.0); Vitamin B12 557 pg/mL (200-900)
[2022-02-02 12:36] LABS: Basophils Absolute Auto 0.1 X10*3/uL (0.0-0.2); Basophils Percent Auto 1.5 % (0-2); Eosinophils Absolute Auto 0.1 X10*3/uL (0.0-0.4); Eosinophils Percent Auto 1.9 % (0-4); Hematocrit 42.1 % (42.0-52.0); Imm Gran Abs Auto 0.01 X10*3/uL (0.00-0.03); Imm Gran Pct Auto 0.1 % (0.0-0.4); Immature Retic Fraction 11.5 % (2.3-13.4); Lymphocytes Percent Auto 28.2 % (20-40); Mean Corpuscular HGB Conc 35.6 g/dl (31.0-36.0); Mean Corpuscular Hemoglobin 35.9 pg (27.0-33.0); Mean Corpuscular Volume 100.7 fL (80.0-98.0); Mean Platelet Volume 9.6 fL (9.4-12.4); Monocytes Absolute Auto 0.7 X10*3/uL (0.1-1.2); Monocytes Percent Auto 9.2 % (2-11); Neutrophils Absolute Auto 4.2 x10*3/uL (2.0-8.3); Neutrophils Percent Auto 59.1 % (45-73); Platelet Count 166 X10*3/uL (160-400); Red Blood Count 4.18 X10*6/uL (4.60-5.80); Red Cell Distribution Width 12.8 % (11.0-16.0); Retic HGB Equivalent 42.1 pg (30.0-35.0); Reticulocyte Percent 1.6 % (0.5-1.8); Reticulocytes Absolute 0.066 X10*6/uL (0.026-0.095); White Blood Count 7.2 X10*3/uL (4.8-10.8)
== END 2022-02-02 08:42 | disposition home or self-care (01) ==
LOC: HO.LAB 08:41
PROVIDERS: PCP Internal Medicine; Visit Provider Internal Medicine
DX: Z13.29 Encounter for screening for other suspected endocrine disorder (principal); I10 Essential (primary) hypertension; E03.9 Hypothyroidism, unspecified; D64.9 Anemia, unspecified
CPT/HCPCS: 36415; 80053; 82607; 82728; 82746; 83540; 84439; 85025; 85045

== ENCOUNTER 2022-04-10 12:51 | Outpatient (REF) | payer BC, SELFPAY ==
--- NOTE | ~2022-04-10 | CT_ITS ---
EXAMINATION: CT SINUS WITHOUT CONTRAST CLINICAL INFORMATION: Recurrent sinusitis. COMPARISON: CT scan of the head 10/16/2021. TECHNIQUE: Multidetector helical imaging was performed in the axial plane with generation of coronal and sagittal reformatted images. This CT examination was performed using dose optimization techniques as appropriate, variously including the following: *Automated exposure control *Adjustment of mA and/or kV according to patient size (this includes techniques or standardized protocols for targeted exams where dose is matched to indication/reason for exam; i.e. extremities or head) *Use of iterative reconstruction technique DLP: 201 mGy-cm. FINDINGS: FRONTAL SINUSES AND DRAINAGE PATHWAYS: The frontal sinuses are well-developed bilaterally. There is moderate mucoperiosteal thickening in the anteromedial frontal sinuses and frontoethmoidal ethmoidal recesses. MAXILLARY SINUSES AND DRAINAGE PATHWAYS: The maxillary sinuses are well-developed bilaterally. There are sequelae of bilateral uncinectomies. There is extensive mucoperiosteal thickening in the maxillary sinuses bilaterally, and there are aerosolized secretions on the right. This is more severe when compared to the prior study. Both maxillary sinuses are patent to the nasal cavities through the uncinectomies. There is opacification of the ostiomeatal complexes bilaterally. ETHMOID SINUSES: The ethmoid sinuses are well-developed bilaterally. There is moderate to severe mucoperiosteal thickening of the bilateral ethmoid sinuses. SPHENOID SINUSES AND DRAINAGE PATHWAYS: Both sphenoid sinuses are relatively small. They both demonstrate circumferential mucoperiosteal thickening. The sphenoethmoidal recesses are patent bilaterally. NASAL CAVITY AND NASAL SEPTUM: As described above there have been bilateral maxillary antrostomies. The nasal septum is slightly deviated to the right and there is a small right-sided bony nasal septal spur. ADDITIONAL RELEVANT FINDINGS: There is a defect in the right lamina papyracea, consistent with sequelae of prior trauma which is unchanged. The carotid canals are normally covered by bone. The ethmoid roofs are symmetric. No periapical disease is seen. The TMJs and orbits are normal. There is trace fluid at the left mastoid tip. There are no acute intracranial findings. CT/CT sinus wo IV con IMPRESSION: 1. There is pansinus opacification, most severe in the bilateral maxillary sinuses. 2. There are sequelae of prior bilateral maxillary uncinectomies. 3. The nasal septum is deviated to the left and there is a left-sided bony nasal septal spur. 4. There is a defect in the right lamina papyracea, most consistent with sequelae of prior trauma.
== END 2022-04-10 12:52 | disposition home or self-care (01) ==
LOC: HO.CT 12:51
PROVIDERS: PCP Internal Medicine; Visit Provider Otolaryngology
DX: J33.0 Polyp of nasal cavity (principal); J01.91 Acute recurrent sinusitis, unspecified
CPT/HCPCS: 70486

== ENCOUNTER 2022-10-02 20:06 | Emergency (ER) | payer BC, SELFPAY | END 2022-10-02 21:05 | disposition left against medical advice (07) | LOC: HO.ED 20:59 | PROVIDERS: Emergency Provider Emergency Medicine; PCP Internal Medicine | DX: Z53.21 Procedure and treatment not carried out due to patient leaving prior to being seen by health care provider (principal) ==

== ENCOUNTER 2022-11-26 13:10 | Outpatient (REF) | payer BC, SELFPAY ==
[2022-11-26 13:21] LABS: MANUAL DIFF FLAG NO
[2022-11-26 13:38] LABS: Basophils Absolute Auto 0.2 X10*3/uL (0.0-0.2); Basophils Percent Auto 1.7 % (0-2); Eosinophils Absolute Auto 0.1 X10*3/uL (0.0-0.4); Eosinophils Percent Auto 1.1 % (0-4); Hematocrit 40.1 % (42.0-52.0); Hemoglobin 14.6 g/dl (14.0-18.0); Imm Gran Abs Auto 0.03 X10*3/uL (0.00-0.03); Imm Gran Pct Auto 0.3 % (0.0-0.4); Lymphocytes Absolute Auto 3.6 X10*3/uL (1.2-4.9); Mean Corpuscular HGB Conc 36.4 g/dl (31.0-36.0); Mean Corpuscular Hemoglobin 36.7 pg (27.0-33.0); Mean Corpuscular Volume 100.8 fL (80.0-98.0); Mean Platelet Volume 9.3 fL (9.4-12.4); Monocytes Absolute Auto 0.9 X10*3/uL (0.1-1.2); Monocytes Percent Auto 9.2 % (2-11); Neutrophils Absolute Auto 4.6 x10*3/uL (2.0-8.3); Neutrophils Percent Auto 48.7 % (45-73); Platelet Count 148 X10*3/uL (160-400); Red Blood Count 3.98 X10*6/uL (4.60-5.80); Red Cell Distribution Width 12.9 % (11.0-16.0); White Blood Count 9.3 X10*3/uL (4.8-10.8)
[2022-11-26 14:11] LABS: Alanine Aminotransferase 30 U/L (0-40); Albumin Level 4.1 g/dL (3.5-5.0); Alkaline Phosphatase 67 U/L (39-117); Amylase 30 U/L (28-100); Aspartate Amino Transferase 44 U/L (5-37); Bilirubin Direct 0.4 mg/dL (0.0-0.5); Bilirubin Total 1.1 mg/dL (0.0-1.0); Lipase 23 U/L (8-78); Total Protein 7.3 g/dL (6.5-8.0)
== END 2022-11-26 13:11 | disposition home or self-care (01) ==
LOC: HO.LAB 13:10
PROVIDERS: PCP Internal Medicine; Visit Provider Internal Medicine
DX: K21.9 Gastro-esophageal reflux disease without esophagitis (principal); R10.84 Generalized abdominal pain
CPT/HCPCS: 36415; 80076; 82150; 83690; 85025

== ENCOUNTER 2023-02-11 10:09 | Day surgery (SDC) | payer BC, SELFPAY ==
[2023-02-07 14:30] VITALS: BMI 35.1
[2023-02-11 10:15] VITALS: BP 186/93; PULSE 65; RESP 20; TEMP 36.9; O2SAT 95
[2023-02-11 10:33] VITALS: BP 174/89
[2023-02-11] MEDS: Lactated Ringers 1,000 ML 50 ML IVCONT (10:43)
--- NOTE | 2023-02-11 11:00 | P.CONAN_ITS ---
[facility] Active Problems Active Problems: All Active Problems (Updated 02/02/22 @ 09:42 by Za Cotton MD) Constipation (Acute) Hemorrhoid (Acute) Epistaxis (Acute) Alcohol abuse (Acute) Anemia (Acute) Elevated LFTs (Acute) Low vitamin D level (Acute) Palpitations (Acute) Impaired glucose tolerance (Acute) Tobacco abuse (Acute) Post traumatic stress disorder (PTSD) (Acute) Obesity (BMI 30-39.9) (Acute) Hypercholesterolemia (Acute) GERD (gastroesophageal reflux disease) (Acute) Hypertension (Acute) Past Medical History Medical History Impaired glucose tolerance Vitamin D deficiency Anxiety and depression Alcohol abuse Tobacco abuse Post traumatic stress disorder (PTSD) Obesity (BMI 30-39.9) Hypercholesterolemia GERD (gastroesophageal reflux disease) Hypertension Functional capacity: independent ambulation Family History Family History Father Renal cancer Other Substance use disorder Family history of problems with anesthesia: Yes Surgical History Surgical History History of esophagogastroduodenoscopy (EGD) Hx of colonoscopy History of tonsillectomy Social History Social History Housing: House Alcohol intake: current Alcohol intake frequency: does not drink Patient Tobacco Use Status: Current everyday Tobacco user Tobacco use type: Cigarette Cigarette Packs Per Day: 1 Cigarettes Per Day: 20 e-Cigarette/Vaping Use: Never Used Second Hand Smoke Exposure: Yes Substance Use Type: Marijuana Are you DNR?: No Advance Directives: No Advance Directives Information Provided: Yes Nutrition Risks: No Nutritional Risk service: No Current occupational status: retired Cognitive needs: No Hearing needs: No Vision needs: Yes (Reading glasses) Meds Allergies Allergy/AdvReac Type Severity Reaction Status Date / Time acetaminophen [From TYLENOL] Allergy Intermediate HIVES Verified 02/07/23 14:28 apple [APPLES] Allergy Intermediate HIVES Verified 02/07/23 14:28 Active Medications: Current Medications Lactated Ringer's (Lr) 1,000 mls @ 50 mls/hr IVCONT .Q20H CECI Last Admin: 02/11/23 10:43 Dose: 50 mls/hr Home Medications Medication Instructions Recorded Confirmed Last Taken Type omeprazole 20 mg capsule,delayed 20 mg PO BID 04/15/20 02/07/23 Unknown History release Exam Exam Date and Time: February 11, 2023 1100 Height,Weight and Vital Signs: Height 5 ft 8 in Weight 104.78 kg Last Vital Signs Temp 98.5 F 02/11/23 10:15 Pulse 65 02/11/23 10:15 Resp 20 02/11/23 10:15 BP 174/89 H 02/11/23 10:33 Pulse Ox 95 02/11/23 10:15 O2 Del Method Room Air 02/11/23 10:15 Airway Mallampati Class: IV TM Dist: >3cm Neck ROM: Full Heart: RRR Lungs: CTA Assessment and Plan Assessment Anesthesia Assessment: Anesthesia Plan Discussed Final Anesthetic Review Family History of Problems with Anesthesia: Yes ASA Class: III Final Preanesthetic Review: Meds/Allgs Chart Reviewed, Consent Obtained/Reviewed and Anes Risks/Benef Reviewed Patient Risk: Intermediate Procedure Risk: Low Anesthetic Plan Anesthetic Plan: MAC: Disposition: Standard PACU
--- NOTE | 2023-02-11 11:25 | HO.ANESPROP2 ---
[facility] Active Problems Active Problems: All Active Problems (Updated 02/02/22 @ 09:42 by Za Cotton MD) Constipation (Acute) Hemorrhoid (Acute) Epistaxis (Acute) Alcohol abuse (Acute) Anemia (Acute) Elevated LFTs (Acute) Low vitamin D level (Acute) Palpitations (Acute) Impaired glucose tolerance (Acute) Tobacco abuse (Acute) Post traumatic stress disorder (PTSD) (Acute) Obesity (BMI 30-39.9) (Acute) Hypercholesterolemia (Acute) GERD (gastroesophageal reflux disease) (Acute) Hypertension (Acute) Past Medical History Medical History Impaired glucose tolerance Vitamin D deficiency Anxiety and depression Alcohol abuse Tobacco abuse Post traumatic stress disorder (PTSD) Obesity (BMI 30-39.9) Hypercholesterolemia GERD (gastroesophageal reflux disease) Hypertension Functional capacity: independent ambulation Family History Family History Father Renal cancer Other Substance use disorder Family history of problems with anesthesia: Yes Surgical History Surgical History History of esophagogastroduodenoscopy (EGD) Hx of colonoscopy History of tonsillectomy Social History Social History Housing: House Alcohol intake: current Alcohol intake frequency: does not drink Patient Tobacco Use Status: Current everyday Tobacco user Tobacco use type: Cigarette Cigarette Packs Per Day: 1 Cigarettes Per Day: 20 e-Cigarette/Vaping Use: Never Used Second Hand Smoke Exposure: Yes Substance Use Type: Marijuana Are you DNR?: No Advance Directives: No Advance Directives Information Provided: Yes Nutrition Risks: No Nutritional Risk service: No Current occupational status: retired Cognitive needs: No Hearing needs: No Vision needs: Yes (Reading glasses) Meds Allergies Allergy/AdvReac Type Severity Reaction Status Date / Time acetaminophen [From TYLENOL] Allergy Intermediate HIVES Verified 02/07/23 14:28 apple [APPLES] Allergy Intermediate HIVES Verified 02/07/23 14:28 Active Medications: Current Medications Lactated Ringer's (Lr) 1,000 mls @ 50 mls/hr IVCONT .Q20H CECI Last Admin: 02/11/23 10:43 Dose: 50 mls/hr Home Medications Medication Instructions Recorded Confirmed Last Taken Type omeprazole 20 mg capsule,delayed 20 mg PO BID 04/15/20 02/07/23 Unknown History release Exam Exam Date and Time: February 11, 2023 1125 Height,Weight and Vital Signs: Height 5 ft 8 in Weight 104.78 kg Last Vital Signs Temp 98.5 F 02/11/23 10:15 Pulse 65 02/11/23 10:15 Resp 20 02/11/23 10:15 BP 174/89 H 02/11/23 10:33 Pulse Ox 95 02/11/23 10:15 O2 Del Method Room Air 02/11/23 10:15 Airway Mallampati Class: IV TM Dist: >3cm Heart: RRR Lungs: CT Assessment and Plan Assessment Anesthesia Assessment: Anesthesia Plan Discussed and Smoking Cess. Discussed Final Anesthetic Review Family History of Problems with Anesthesia: Yes ASA Class: III Final Preanesthetic Review: Meds/Allgs Chart Reviewed, Consent Obtained/Reviewed and Anes Risks/Benef Reviewed Patient Risk: Intermediate Procedure Risk: Low Anesthetic Plan Anesthetic Plan: MAC: Disposition: Standard PACU
--- NOTE | 2023-02-11 11:57 | PM.OP ---
Brief Operative Note Date of Service: 02/11/23 Pre-op diagnosis: GERD Post-op diagnosis: other (Gastritis, R/O Bell's, Gastric antral polyp) Procedure: EGD with biopsies Surgeon: Ryan Norton MD Anesthesia: MAC Was an Warehouse Delivery Manager used for this Procedure?: No Estimated blood loss (mL): 2.0 Pathology: other (A. Gastric antrum B. EG Junction at 38cm C. Gastric antral polyp) Condition: stable Disposition: PACU
[2023-02-11 11:58] VITALS: BP 147/88; PULSE 73; RESP 16; TEMP 36.5; O2SAT 97
[2023-02-11 12:13] VITALS: BP 156/81; PULSE 67; RESP 16; TEMP 36.3; O2SAT 99
--- NOTE | 2023-02-11 12:32 | OP_ITS ---
DATE OF SERVICE: 02/11/2023 SURGEON: Ryan Norton MD INDICATIONS: The patient presents for evaluation of abdominal pain and reflux. Full consent has been obtained from him for this, including risks of bleeding and perforation. PREOPERATIVE DIAGNOSIS: POSTOPERATIVE DIAGNOSIS: PROCEDURE PERFORMED: Esophagogastroduodenoscopy with biopsies. ESTIMATED BLOOD LOSS: COMPLICATIONS: ANESTHESIA: Monitored anesthesia care. ASSISTANTS: SPECIMENS: PREOPERATIVE DIAGNOSES: Abdominal pain and reflux. POSTOPERATIVE DIAGNOSES: Abdominal pain and reflux, gastritis, inflammatory gastric antral polyp, hiatal hernia, and rule out Bell's esophagus. DESCRIPTION OF PROCEDURE: The patient was placed in the left lateral decubitus position. The Olympus video gastroscope was passed in the posterior oropharynx and upper esophagus under direct vision. The scope was passed slowly to the distal esophagus. The gastroesophageal junction appeared at 38 cm. There was evidence of some irregularity and small areas of possible Bell's mucosa. There was no evidence of any esophagitis nor any lesions. The scope entered the stomach. There was a small hiatal hernia. The scope was advanced to the pylorus, and the duodenum was cannulated to the descending portion. The duodenum including the bulb appeared normal without mass or ulceration. The scope was withdrawn back to the stomach. The gastric antrum had areas of erythema, edema, and a single inflammatory appearing gastric polyp along the greater curvature. The scope was retroflexed visualizing the proximal stomach carefully, which appeared normal, without any sign of mass, ulceration, nor varices. The scope was straightened. Biopsies were obtained from the gastric antrum and from the gastric polyp itself. The scope was withdrawn back in the esophagus. Biopsies were obtained from the EG junction at 38 cm. There was no evidence of any esophageal varices. The scope was withdrawn through the esophagus, which otherwise appeared normal. The scope was withdrawn from the patient. He tolerated the procedure well and was returned to the recovery area in stable condition. IMPRESSION: 1. Gastritis. 2. Inflammatory gastric polyp. 3. Hiatal hernia. 4. Gastroesophageal reflux, rule out Bell's esophagus. PLAN: The results of the biopsies will be checked. I did advise him to continue his current regimen of omeprazole twice a day. I did advise him, as well as his sister who I spoke with, of the need for him to eliminate alcohol and tobacco from his lifestyle. He was instructed to avoid all aspirin and NSAIDs long-term as well. He was advised to make an appointment to see me in followup. He was advised not to eat for several hours before bedtime given his history of intermittent vomiting in the middle of the night, as he does describe eating close to bedtime. MD CHOCO Ellison/ALTHEA / [phone] MTDD
--- NOTE | 2023-02-11 12:54 | HO.POSTANES ---
Post Anesthesia Evaluation Post Anesthesia Evaluation Date of Service: 02/11/23 Vital Signs: Vital Signs Temp Pulse Resp BP Pulse Ox O2 Del Method 02/11/23 12:13 97.4 F 67 16 156/81 H 99 Room Air 02/11/23 11:58 97.7 F 73 16 147/88 H 97 Room Air 02/11/23 10:33 174/89 H 02/11/23 10:15 98.5 F 65 20 186/93 H 95 Room Air Anesthesia: Monitored Mental Status: Awake Pain Control: Satisfactory Nausea/Vomiting: None Hydration: Adequate Anesthesia-Related Issues: No Anes. Related Issues
== END 2023-02-11 12:44 | disposition home or self-care (01) ==
PROVIDERS: PCP Internal Medicine; Visit Provider Internal Medicine
PROC: 0DJ08ZZ Inspection of Upper Intestinal Tract, Via Natural or Artificial Opening Endoscopic (ICD-10-PCS; CPT 43235; principal; 2023-02-11 11:30)
DX: K31.7 Polyp of stomach and duodenum (principal); K29.70 Gastritis, unspecified, without bleeding; K44.9 Diaphragmatic hernia without obstruction or gangrene; K21.9 Gastro-esophageal reflux disease without esophagitis; R79.89 Other specified abnormal findings of blood chemistry; F10.10 Alcohol abuse, uncomplicated; I10 Essential (primary) hypertension; E78.00 Pure hypercholesterolemia, unspecified; D64.9 Anemia, unspecified; F17.210 Nicotine dependence, cigarettes, uncomplicated; Z87.442 Personal history of urinary calculi
CPT/HCPCS: 43239; 88305; 88342; J2250; J2704

== ENCOUNTER 2023-06-28 14:03 | Outpatient (AMB) | payer BC, SELFPAY ==
[2023-06-28 14:05] VITALS: BP 160/92; PULSE 62; O2SAT 98; BMI 34.7
--- NOTE | 2023-06-28 14:05 | A.OFFPC_ITS ---
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 Required: No Allergies acetaminophen [From TYLENOL] Allergy (Intermediate, Verified 06/28/23 14:17) HIVES apple [APPLES] Allergy (Intermediate, Verified 06/28/23 14:17) HIVES Medication List - Last Reconciled 06/28/23 by Za Cotton MD ascorbate calcium (vitamin C) 500 mg PO BID 30 days atenolol 100 mg PO DAILY blood pressure monitor As directed cyanocobalamin (vitamin B-12) 1,000 mcg PO DAILY ferrous sulfate 325 mg PO BID folic acid 1 mg PO DAILY hydrochlorothiazide 25 mg PO DAILY hydrocortisone 2.5% (Proctosol HC) 1 appl MO BID-QID PRN lisinopril 40 mg PO DAILY 90 days omeprazole 20 mg PO BID sennosides-docusate sodium 8.6-50 mg (Senna-S) 2 tab-caps (2 x 8.6-50 mg) PO BEDTIME Tobacco use date assessed: 06/28/23 Fall risk assessment: No Falls in past year Last assessed Fall Risk: 06/28/23 Dental Screening Dental Screen Date: 06/28/23 Did you have a dental visit in the last 12 months?: No Did you have a dental problem in the last 6 months where you did not have access to dental care?: No HPI Follow up HTN HPI Details 62-year-old obese male smoker with hyper tension GERD hyperchole sterolemia PTSD coming in for follow-up. Last seen in January 2022. Patient's colonoscopy is up-to-date March 2020. Noted EGD done by Dr. Norton showing gastritis with a gastric polyp and GERD placed on omeprazole this was done in January 2023. April [address] scan of the head showing pansinus opacification most severe in the bilateral maxillary sinuses deviated septum. smoking cigarettes and pot now PFSH Medical History Impaired glucose tolerance Vitamin D deficiency Anxiety and depression Alcohol abuse Tobacco abuse Post traumatic stress disorder (PTSD) Obesity (BMI 30-39.9) Hypercholesterolemia GERD (gastroesophageal reflux disease) Hypertension Surgical History History of esophagogastroduodenoscopy (EGD) Hx of colonoscopy History of tonsillectomy Family History Father Renal cancer Other Substance use disorder Social History Housing: House Alcohol intake: current Alcohol intake frequency: does not drink Patient Tobacco Use Status: Current everyday Tobacco user Tobacco use type: Cigarette Cigarette Packs Per Day: 1 Cigarettes Per Day: 20 e-Cigarette/Vaping Use: Never Used Second Hand Smoke Exposure: Yes Substance Use Type: Marijuana service: No Current occupational status: retired Cognitive needs: No Hearing needs: No Vision needs: Yes (Reading glasses) Questionnaire PHQ-9 Over the last 2 weeks, how often have you been bothered by any of the following problems? 1. Little interest or pleasure in doing things: not at all 2. Feeling down, depressed, or hopeless: not at all 3. Trouble falling or staying asleep, or sleeping too much: not at all 4. Feeling tired or having little energy: not at all 5. Poor appetite or overeating: not at all 6. Feeling bad about yourself - or that you are a failure or have let yourself or your family down: not at all 7. Trouble concentrating on things, such as reading the newspaper or watching television: not at all 8. Moving or speaking so slowly that other people could have noticed. Or the opposite - being so fidgety or restless that you have been moving around a lot more than usual: not at all 9. Thoughts that you would be better off or of hurting yourself in some way: not at all Total score: 0 Depression Screening Interpretation: Negative Depression Screening Done: Yes 20382 - PHQ-9 Billing: Yes Source: Developed by Drs. Ryan Garnica, Kamala Loyola, Joshua Lopez and colleagues, with an educational bridgette from [employer]. Thrive Questionnaire Date Thrive assessed: 06/28/23 AUDIT C Alcohol Use Questionnaire (AUDIT-C) 1. How often do you have a drink containing alcohol?: 4 or more times a week 2. How many drinks containing alcohol do you have on a typical day when you are drinking?: 1 or 2 Total Score: 4 Score Reviewed/Action Taken: No OBINNA-7 AMB Questionnaire OBINNA-7 Date OBINNA - 7 assessed: 06/28/23 Feeling nervous, anxious, or on edge: 0 = Not at all Not being able to stop or control worryin = Not at all Worrying too much about different things: 0 = Not at all Trouble relaxin = Not at all Being so restless that it is hard to sit still: 0 = Not at all Becoming easily annoyed or irritable: 0 = Not at all Feeling afraid as if something awful might happen: 0 = Not at all Total OBINNA-7 score (0-4 normal; 5-9 mild; 10-14 moderate; 15-21 severe): 0 Source: Developed by Drs. Ryan Garnica, Kamala Loyola, Joshua Lopez and colleagues, with an educational bridgette from [employer]. OBINNA-7 Assessment Billing OBINNA-7 Assessment Tool: OBINNA-7 Assessment 46999 Physical exam (Primary Care) Vital Signs: Last Vital Signs Pulse 62 06/28/23 14:05 BP 160/92 H 06/28/23 14:05 Pulse Ox 98 06/28/23 14:05 Oxygen Delivery Method Room Air 06/28/23 14:05 BMI result Body Mass Index 34.7 Tobacco/Smoking Status: Tobacco use Status Tobacco use date assessed 06/28/23 06/28/23 14:06 Patient Tobacco Use Status Current everyday Tobacco 06/28/23 14:06 Tobacco use type Cigarette 06/28/23 14:06 e-Cigarette/Vaping Use Never Used 06/28/23 14:06 PHQ-9: PHQ-9 Score PHQ-9: Total score 0 06/28/23 14:20 Depression Screening Interpretation: Negative Thrive Assessment: Date of Thrive Assessment Date Thrive assessed 06/28/23 06/28/23 14:06 Const General: alert; No acute distress Eyes Conjunctivae: conjunctivae normal Resp Auscultation: clear to auscultation bilaterally Cardio Rate: regular rate Rhythm: regular rhythm GI Inspection: Yes normal to inspection Extrem General: Yes normal to inspection and No edema Assessment and Plan Assessment & Plan (1) Obesity (BMI 30-39.9): Code(s): E66.9 - Obesity, unspecified Plan: Diet and exercise (2) Tobacco abuse: Comment: CT chest May 2020 Code(s): Z72.0 - Tobacco use Plan: Patient is strongly advised to stop smoking! (3) Hypertension: Code(s): I10 - Essential (primary) hypertension Qualifiers: Hypertension type: essential hypertension Qualified Code(s): I10 - Essential (primary) hypertension Plan: Continue with blood pressure medication. Decrease salt intake and exercise presently on atenolol 100 mg once a day lisinopril 40 mg once (4) Hypercholesterolemia: Code(s): E78.00 - Pure hypercholesterolemia, unspecified Plan: Avoid fried foods, chicken skin, eggs, butter margarine, pastries and meat. Be it pork or beef they have a lot of cholesterol LDL goal of less than 130 and triglyceride of less than 150 (5) GERD (gastroesophageal reflux disease): Code(s): K21.9 - Gastro-esophageal reflux disease without esophagitis Qualifiers: Esophagitis presence: without esophagitis Qualified Code(s): K21.9 - Gastro-esophageal reflux disease without esophagitis Plan: Avoid the foods that causes that usually spicy foods, tomato products, juices, coffee, soda and foods that your sensitive to. After eating do not lie down, allow 3-4 hours before in lie down. And keep the head of bed above 30 degrees to avoid the acid from going up. (6) Post traumatic stress disorder (PTSD): Comment: private counsellor presently 01/2022 Code(s): F43.10 - Post-traumatic stress disorder, unspecified Plan: Continue to have counseling and therapy (7) Impaired glucose tolerance: Code(s): R73.02 - Impaired glucose tolerance (oral) Plan: Decrease the amount of carbohydrate intake, pasta, bread, rice and potatoes are all sugar and that is aside from all the sweet stuff, remember that fruits are good but they are Sweet also. (8) Alcohol abuse: Code(s): F10.10 - Alcohol abuse, uncomplicated (9) Left hip pain: Code(s): M25.552 - Pain in left hip Orders: Orders XR hip LT min 2V Today M25.552 - Pain in left hip Lipid Panel Today E78.00 - Pure hypercholesterolemia, unspecified Thyroid Stimulating Hormone Today E78.00 - Pure hypercholesterolemia, unspecified Vitamin B12 and Folate Today E78.00 - Pure hypercholesterolemia, unspecified Prostate Specific Antigen Scr Today E78.00 - Pure hypercholesterolemia, unspecified Complete Blood Count Auto Diff Today E78.00 - Pure hypercholesterolemia, unspecified Comprehensive Met. Panel Today E78.00 - Pure hypercholesterolemia, unspecified Free T4 (Free Thyroxine) Today E78.00 - Pure hypercholesterolemia, unspecified Hemoglobin A1c Today E78.00 - Pure hypercholesterolemia, unspecified Medications: New hydrochlorothiazide 25 mg PO DAILY 30 tabs 5RF I10 - Essential (primary) hypertension Coding Level of Care Code Est Pt Level 4 (96771) Diagnoses Obesity (BMI 30-39.9) E66.9 Tobacco abuse Z72.0 Essential hypertension I10 Hypertension type: essential hypertension Hypercholesterolemia E78.00 Gastroesophageal reflux disease without esophagitis K21.9 Esophagitis presence: without esophagitis Post traumatic stress disorder (PTSD) F43.10 Impaired glucose tolerance R73.02 Alcohol abuse F10.10 Left hip pain M25.552 Additional Codes OBINNA-7 Assessment Billing - OBINNA-7 Assessment Tool: OBINNA-7 Assessment [id number] ([id number])
[2023-06-28 14:43] VITALS: BP 148/80
== END 2023-06-28 14:57 | disposition home or self-care (01) ==
PROVIDERS: PCP Internal Medicine; Visit Provider Internal Medicine
DX: I10 Essential (primary) hypertension (principal); E66.9 Obesity, unspecified; Z72.0 Tobacco use; Z68.34 Body mass index [BMI] 34.0-34.9, adult; E78.00 Pure hypercholesterolemia, unspecified; K21.9 Gastro-esophageal reflux disease without esophagitis; F43.10 Post-traumatic stress disorder, unspecified; R73.02 Impaired glucose tolerance (oral); F10.10 Alcohol abuse, uncomplicated; M25.552 Pain in left hip
CPT/HCPCS: 99214

== ENCOUNTER 2023-12-20 16:22 | Inpatient (IN) | payer MEDICARE, SELFPAY ==
[2023-12-20] VITALS (17 sets, daily range): BP systolic 78–103; BP diastolic 37–57; PULSE 60–67; RESP 12–18; TEMP 36.6–36.9; O2SAT 97–100; BMI 29.3
--- NOTE | ~2023-12-20 | XR_ITS ---
EXAMINATION: XR CHEST 1 VIEW CLINICAL INFORMATION: rule out infection COMPARISON: 2019 TECHNIQUE: Single portable frontal view. Tubes and lines: None Lungs and pleura: Crowding of lung markings at the left base, cannot rule out mild infiltrate and/or atelectasis. Heart and mediastinum: The mediastinum is within normal limits.. Bones/soft tissue: Skeletal structures included are normal for patient's age. XR/XR chest 1V IMPRESSION: 1. Crowding of lung markings at the left base, cannot rule out mild infiltrate and/or atelectasis. Please correlate with patient's clinical symptoms. 2. No pleural effusion. 3. No dense consolidation. Electronically signed by: Kaelyn Patel MD 12/21/2023 12:57 PM EDT
--- NOTE | ~2023-12-20 | NM_ITS ---
EXAMINATION: BILIARY TRACT IMAGING STUDY CLINICAL INDICATION: Abdominal pain. Suspected acute cholecystitis. COMPARISON: Right upper quadrant abdominal ultrasound done on 12/24/[address] of the abdomen and pelvis done also on 12/24/2023. TECHNIQUE: Scintillation camera images were obtained over the abdomen for an observation of 60 minutes following the intravenous administration of 5.0 millicuries technetium 99m mebrofenin. Subsequent delayed images at 4 hours post injection were also obtained. FINDINGS: There is good concentration of activity in the liver by 10 minutes post injection. However, no evidence of any biliary activity or bowel activity on visualization of the gallbladder is seen up to 4 hours post injection images. NM/NM hepatobiliary wo pharm IMPRESSION: Persistent hepatogram and nonvisualization of biliary tree up to 4 hours post injection images, highly suspicious for high-grade biliary obstruction. Correlation with liver function test, follow-up MRCP/ERCP and/or 24 hours delayed images as appropriate may be considered for further clarification. Electronically signed by: Jen Lowery MD 12/25/2023 03:39 PM EDT
--- NOTE | ~2023-12-20 | CT_ITS ---
EXAMINATION: CT HEAD WITHOUT CONTRAST CLINICAL INFORMATION: Headache. COMPARISON: CT head 10/16/2021. TECHNIQUE: Contiguous axial imaging was performed from the skull base to vertex without intravenous administration of contrast. This CT examination was performed using dose optimization techniques as appropriate, variously including the following: *Automated exposure control *Adjustment of mA and/or kV according to patient size (this includes techniques or standardized protocols for targeted exams where dose is matched to indication/reason for exam; i.e. extremities or head) *Use of iterative reconstruction technique DLP: 1328 mGy-cm FINDINGS: There is no acute intracranial hemorrhage or abnormal extra-axial collection. No intracranial mass effect or midline shift. Lateral and third ventricles are normal. No hydrocephalus. Junior-white matter differentiation is preserved and there is no evidence of an acute territorial infarct. The calvarium and skull base are intact. There is a trace right mastoid tip effusion. There is mild mucosal thickening within the maxillary sinuses and ethmoid air cells. A few retention cysts are also visualized within the right maxillary sinus cavity. CT/CT head/brain wo IV con IMPRESSION: Unremarkable examination. No evidence of acute territorial infarct or hemorrhage. Electronically signed by: Ryan Martin MD 12/20/2023 08:12 PM EDT RP
--- NOTE | ~2023-12-20 | MR_ITS ---
EXAMINATION: MRI of abdomen. MR cholangiopancreatography INDICATION: Abdominal pain, bile duct obstruction. COMPARISON: Nuclear medicine hepatobiliary scan on 12/25/2023, ultrasound of abdomen on 12/24/2023 TECHNIQUE: Examination was performed in a high field strength MRI scanner. Multiplanar multisequence MR imaging of the abdomen was performed without IV contrast enhancement. MR cholangiopancreatography was performed with heavily T2 weighted sequences. 3-dimensional reconstruction of image data was performed. This was performed under concurrent direct supervision and monitoring by radiologist. Maximum intensity projection images were constructed. FINDINGS: MR CHOLANGIOPANCREATOGRAPHY: Gallbladder is filled with tumefactive sludge. Cystic duct is unremarkable. Bilateral intra hepatic bile ducts, common hepatic duct and common bile duct are normal in size without filling defects. Pancreatic duct is normal in size, measuring 0.48 cm in diameter. LIVER: The liver shows no focal lesion. Periportal edema is present. The calculated hepatic fat percentage is 4.5%, compatible with normal. PANCREAS: No focal pancreatic lesion with abnormal signal can be seen. SPLEEN: Spleen is normal in size without focal lesion. ADRENAL: Bilateral adrenal glands are normal in shape and size. KIDNEYS: Bilateral kidneys are normal in size without focal lesion. [place] shaped bilateral posterior lung bases dependent atelectasis is present. MR/MR MRCP IMPRESSION: 1. Gallbladder is filled with tumefactive sludge. 2. No evidence of common bile duct dilatation or choledocholithiasis. 3. Periportal edema is present. 4. Bilateral posterior lung bases dependent atelectasis. Electronically signed by: Easton Lora MD 12/27/2023 08:08 AM EDT
--- NOTE | ~2023-12-20 | US_ITS ---
EXAMINATION: US ABDOMEN LIMITED CLINICAL INFORMATION: I epigastric pain. COMPARISON: None available. TECHNIQUE: Real-time imaging of the right upper quadrant abdominal viscera. FINDINGS: LIVER: Diffuse increased echogenicity to the liver parenchyma.. No focal hepatic lesion. There is no intrahepatic biliary duct dilatation seen. GALLBLADDER: Gallbladder is distended measuring 12.6 cm containing sludge versus thickened posterior wall. Tenderness was elicited during study. No gallstones or pericholecystic fluid. COMMON BILE DUCT: Normal in caliber measuring 0.5 cm in diameter. PANCREAS and RIGHT KIDNEY not evaluated. FREE FLUID: None. US/US abdomen limited IMPRESSION: 1. Distended gallbladder with sludge versus thickened posterior wall and positive sonographic Miner's sign. Consider HIDA scan. 2. Hepatic steatosis. Electronically signed by: Brandi Jaimes MD 12/24/2023 10:59 AM EDT
--- NOTE | ~2023-12-20 | CT_ITS ---
EXAMINATION: CT ABDOMEN AND PELVIS WITHOUT CONTRAST CLINICAL INFORMATION: Rule out obstructive uropathy COMPARISON: 10/16/2021 TECHNIQUE: Multidetector volumetric imaging was performed from the superior aspect of the liver through the pubic symphysis. Sagittal and coronal reformatted images were obtained on the technologist's workstation. This CT examination was performed using dose optimization techniques as appropriate, variously including the following: *Automated exposure control *Adjustment of mA and/or kV according to patient size (this includes techniques or standardized protocols for targeted exams where dose is matched to indication/reason for exam; i.e. extremities or head) *Use of iterative reconstruction technique DLP: 573 mGy-cm FINDINGS: LUNG BASES: Unremarkable. ABDOMINAL AND PELVIC WALL: Unremarkable. LIVER AND BILIARY TREE: Hepatic steatosis. GALLBLADDER: Unremarkable. PANCREAS: Unremarkable. SPLEEN: Unremarkable. ADRENAL GLANDS: Unremarkable. KIDNEYS AND URETERS: No hydronephrosis or nephrolithiasis. GASTROINTESTINAL TRACT: Unremarkable. Appendix is not visualized, however no inflammatory changes are seen in the right lower quadrant. VASCULAR: Scattered atherosclerotic calcifications. LYMPH NODES/PERITONEUM: No lymphadenopathy. FREE FLUID: None. BLADDER: Just superficial to the anterolateral aspect of the urinary bladder is a circumscribed hypoechoic focus with central fat likely reflecting a small mesenteric lymph node versus old fat necrosis. PELVIC VISCERA: Mild prostatomegaly. OSSEOUS STRUCTURES: Unremarkable. CT/CT abdomen pelvis wo IV con IMPRESSION: * No hydronephrosis or nephrolithiasis. * Hepatic steatosis. Electronically signed by: Mi Forbes MD 12/20/2023 08:01 PM EDT
--- NOTE | ~2023-12-20 | CT_ITS ---
EXAMINATION: CT ABDOMEN AND PELVIS WITH CONTRAST CLINICAL INFORMATION: Hypotension, Abdominal Pain COMPARISON: 12/20/2023 TECHNIQUE: Multidetector volumetric images were obtained from the superior aspect of the liver through the pubic symphysis following administration 85 mL of Omnipaque 350 intravenous contrast. Sagittal and coronal reformatted images were obtained on the technologist's workstation. Oral contrast: No This CT examination was performed using dose optimization techniques as appropriate, variously including the following: *Automated exposure control *Adjustment of mA and/or kV according to patient size (this includes techniques or standardized protocols for targeted exams where dose is matched to indication/reason for exam; i.e. extremities or head) *Use of iterative reconstruction technique DLP: 975 mGy-cm FINDINGS: LUNG BASES: Small bilateral pleural effusions with adjacent dependent atelectasis. Interlobular septal thickening at the bases. Atherosclerotic calcifications in the coronary arteries. LIVER, GALLBLADDER, AND BILIARY TREE: The liver is normal in size and contour. Hepatic steatosis. No focal hepatic lesion or biliary ductal dilatation is present. The gallbladder is thickened with dependently layering hyperdense material, potentially corresponding to sludge or gallstones. Surrounding pericholecystic fluid is noted. PANCREAS: Unremarkable. SPLEEN: Unremarkable. ADRENAL GLANDS: Unremarkable. KIDNEYS AND URETERS: The kidneys are normal in size, shape, and attenuation. No hydronephrosis, hydroureter, or calculi seen. Mild bilateral perinephric stranding. BLADDER: Bladder is decompressed with wall thickening. GASTROINTESTINAL TRACT: Stomach, small bowel, and colon are normal in caliber. Mild to moderate colonic diverticulosis. No evidence of acute diverticulitis. Appendix is normal. Trace intraperitoneal free fluid. ABDOMINAL WALL: Mild subcutaneous edema at the flanks. No hernias LYMPH NODES: Numerous subcentimeter retroperitoneal lymph nodes are noted. No appreciable pathologic adenopathy by size criteria. VASCULAR: Atherosclerotic calcifications are present in the abdominal aorta and iliac arteries. No aneurysmal dilatation. PELVIC VISCERA: Dystrophic central calcifications in the prostate . Prostate gland is normal in size. OSSEOUS STRUCTURES: Grade 2 anterolisthesis of L5 on S1 with severe degenerative disc disease and bilateral pars defects. Mild multilevel degenerative disc disease cephalad to this. Diffuse etiopathic skeletal hyperostosis in the lower thoracic spine. Severe osteoarthritis in the left hip and more moderate osteoarthritis in the right. Ankylosis is evident at the SI joints. CT/CT abdomen pelvis w IV con IMPRESSION: 1. Thickened gallbladder with pericholecystic fluid and dependently layering hyperdense material, potentially corresponding to sludge or small gallstones. Acute cholecystitis remains possible. 2. Small bilateral pleural effusions with mild interstitial pulmonary edema, new as compared to prior.. 3. Mild to moderate colonic diverticulosis without evidence of acute diverticulitis. 4. Grade 2 anterolisthesis of L5 on S1 with severe degenerative disc disease and bilateral pars defects. Fleischner guidelines were followed. Electronically signed by: Cornelio Robert MD 12/24/2023 05:16 PM EDT RP
--- NOTE | 2023-12-20 16:56 | ECG_ITS ---
Test Reason : weakness Blood Pressure : / mmHG Vent. Rate : 064 BPM Atrial Rate : 064 BPM P-R Int : 216 ms QRS Dur : 096 ms QT Int : 452 ms P-R-T Axes : -14 003 -60 degrees QTc Int : 466 ms Poor data quality, interpretation may be adversely affected Sinus rhythm with 1st degree A-V block Nonspecific T wave abnormality Cannot rule out Anterior infarct , age undetermined Abnormal ECG When compared with ECG of 16-OCT-2021 17:24, WA interval has increased Minimal criteria for Anterior infarct are now Present Nonspecific T wave abnormality, worse in Inferior leads Nonspecific T wave abnormality now evident in Lateral leads Referred By: Donnie Hardy Electronically Signed By:SILVANO VALENTINE
[2023-12-20] MEDS: 0.9 % Sodium Chloride 1,000 ML 999 ML IV (17:25)
[2023-12-20 17:31] LABS: MANUAL DIFF FLAG NO
[2023-12-20 17:47] LABS: Prothrombin Time 11.9 SEC (10.9-12.4)
[2023-12-20 17:53] LABS: Alanine Aminotransferase 13 U/L (0-40); Albumin Level 3.5 g/dL (3.5-5.0); Alkaline Phosphatase 68 U/L (39-117); Anion Gap 22 (12-20); Aspartate Amino Transferase 25 U/L (5-37); Bilirubin Direct 0.7 mg/dL (0.0-0.5); Bilirubin Total 1.2 mg/dL (0.0-1.0); Blood Urea Nitrogen 57 mg/dL (9-16); Carbon Dioxide 19 mmol/L (22-29); Chloride 84 mmol/L (96-108); Creatinine Clr Calc Pharmacy 13.4; Estimated Glomerular Filt Rate 10; Ethanol 31 mg/dL; Glucose Random 93 mg/dL (60-115); Sodium 122 mmol/L (135-145); Total Protein 6.7 g/dL (6.5-8.0)
[2023-12-20 17:55] LABS: Troponin-I High Sensitivity 20.9 ng/L (<3.5-35.0)
[2023-12-20 18:05] LABS: Lactic Acid 2.1 mmol/L (0.5-2.0)
--- NOTE | 2023-12-20 18:26 | PC.NURSE ---
Provider Jc asked to hold off on NS fluids until labs resulted, Patient got 1L from EMS, 50ccs from ordered 2nd liter. Rest of 2nd liter wasted per Jc. TOTAL IV INTAKE 1050ccs.
[2023-12-20 18:29] LABS: Venous Blood Gas Refer to POC result
[2023-12-20 18:30] LABS: VBG Base Excess -1.4 mmol/L; VBG HCO3 22 mmol/L (22-26); VBG pCO2 33 mmHg; VBG pH 7.43 (7.32-7.43); VBG pO2 31 mmHg
[2023-12-20 18:38] LABS: Basophils Absolute Auto 0.1 X10*3/uL (0.0-0.2); Basophils Percent Auto 0.8 % (0-2); Eosinophils Absolute Auto 0.1 X10*3/uL (0.0-0.4); Eosinophils Percent Auto 1.1 % (0-4); Hematocrit 24.9 % (42.0-52.0); Hemoglobin 9.3 g/dl (14.0-18.0); Imm Gran Abs Auto 0.02 X10*3/uL (0.00-0.03); Imm Gran Pct Auto 0.3 % (0.0-0.4); Lymphocytes Percent Auto 32.2 % (20-40); Mean Corpuscular HGB Conc 37.3 g/dl (31.0-36.0); Mean Corpuscular Hemoglobin 36.6 pg (27.0-33.0); Mean Platelet Volume 9.7 fL (9.4-12.4); Monocytes Absolute Auto 0.7 X10*3/uL (0.1-1.2); Monocytes Percent Auto 10.9 % (2-11); Neutrophils Absolute Auto 3.4 x10*3/uL (2.0-8.3); Neutrophils Percent Auto 54.7 % (45-73); Platelet Count 135 X10*3/uL (160-400); Red Blood Count 2.54 X10*6/uL (4.60-5.80); Red Cell Distribution Width 11.1 % (11.0-16.0); White Blood Count 6.2 X10*3/uL (4.8-10.8)
--- NOTE | 2023-12-20 18:45 | ED_ITS ---
HPI - General Adult General Chief complaint: Weakness Stated complaint: weakness,blurred vision earlier today Time Seen by Provider: 12/20/23 16:51 Source: patient, family (Sister), RN notes reviewed and old records reviewed Mode of arrival: EMS Limitations: no limitations History of Present Illness ED Provider: Antony HPI narrative: 63-year-old male past medical history significant for active alcohol abuse, obesity, GERD, hypertension, PTSD, presents for evaluation of weakness and dizziness. Patient reports that he has been feeling weak and dizzy for about 3 weeks now. He reports at least 3 falls in the last 3 weeks due to ?feeling unsteady when walking. ? He denies any pain. He reports he occasionally gets headaches Patient reports drinking a pt of vodka daily but only had about a half a pint this morning around noon was his last drink Patient complains of generalized weakness and ?I am dehydrated. ? The patient reports he has had poor oral intake over last few days because he has not been feeling well. He denies any chest pain, shortness of breath He does not believe he is on any anticoagulation Related Data Home Medications ?Medication ?Instructions ?Recorded ?Confirmed omeprazole 40 mg capsule,delayed 40 mg PO DAILY@0630 12/21/23 12/21/23 release Previous Rx's ?Medication ?Instructions ?Recorded blood pressure monitor #1 ea 10/19/21 ascorbate calcium (vitamin C) 500 500 mg PO BID 30 days #180 tabs 01/15/22 mg tablet ferrous sulfate 325 mg (65 mg 325 mg PO BID #180 tabs 09/10/22 iron) tablet cyanocobalamin (vitamin B-12) 1,000 mcg PO DAILY #90 caps 02/22/23 1,000 mcg capsule hydrochlorothiazide 25 mg tablet 25 mg PO DAILY #30 tabs 06/28/23 lisinopril 40 mg tablet 40 mg PO DAILY 90 days #90 tabs 08/28/23 folic acid 1 mg tablet 1 mg PO DAILY #90 tabs 10/27/23 atenolol 100 mg tablet 100 mg PO DAILY #90 tabs 11/06/23 Allergies Allergy/AdvReac Type Severity Reaction Status Date / Time acetaminophen [From TYLENOL] Allergy Intermediate HIVES Verified 12/20/23 16:40 apple [APPLES] Allergy Intermediate HIVES Verified 12/20/23 16:40 Review of Systems 2 Constitutional: Constitutional: Denies body ache(s), Denies chills, Denies fever(s), Reports frequent falls, Reports lethargy, Reports malaise and Reports weakness Eyes: Eyes: Denies blurry vision ENT: Reports dizziness and Denies sore throat Cardiovascular: Cardiovascular: Denies chest pain, Denies syncope and Denies dyspnea Respiratory: Respiratory: Denies cough and Denies dyspnea Gastrointestinal: Gastrointestinal: Denies abdominal pain, Reports diarrhea, Reports nausea and Reports vomiting Musculoskeletal: Musculoskeletal: Denies back pain Integumentary/Breasts: Skin/Breast: Denies rash Neurologic: Reports dizziness, Denies syncope, Reports frequent falls and Reports weakness Psychiatric: Psychiatric: Denies anxiety PMFSH Past Medical History Medical History Impaired glucose tolerance Vitamin D deficiency Anxiety and depression Alcohol abuse Tobacco abuse Post traumatic stress disorder (PTSD) Obesity (BMI 30-39.9) Hypercholesterolemia GERD (gastroesophageal reflux disease) Hypertension Surgical History History of esophagogastroduodenoscopy (EGD) Hx of colonoscopy History of tonsillectomy Family History Family History Father Renal cancer Other Substance use disorder Social History Social History Household Members: None Housing: House Do you presently have visiting nurse or other home services: No Alcohol intake: current Alcohol intake frequency: 3 or more drinks per day Alcohol type: hard liquor Patient Tobacco Use Status: Current everyday Tobacco user Tobacco use type: Cigarette Cigarette Packs Per Day: 1 Cigarettes Per Day: 15 Years Smoked: 50 Smoked in Last 30 Days: Yes e-Cigarette/Vaping Use: Never Used Patient Interested in Nicotine Replacement: No Patient Given Instructions on How to Stop Smoking: No Second Hand Smoke Exposure: Yes Use of substances other than those prescribed or required for medical reasons: No Substance Use Type: Marijuana Currently Displaying Signs/Symptoms of Drug Intoxication Withdrawal: No Any prior treatment program specific to substance use: No Have you been hit, kicked, punched, or otherwise hurt by someone within the past year? If so, by whom?: No Do you feel safe in your current relationship?: No Current Relationship Is there a partner from a previous relationship who is making you feel unsafe now?: No Are you made to feel afraid or neglected: No [employer] Healthcare Practices: [facility] Advance Directives: No Advance Directives Information Provided: No Do you have a plan to hurt others: No Plan Recently lost weight without trying: Yes How much weight loss: 34pounds or more Eating poorly because of decreased appetite: Yes Nutrition screen score: 7 Nutrition Risks: Poor intake 0-25% >4 days service: No Current occupational status: retired Cognitive needs: No Hearing needs: No Vision needs: Yes (Reading glasses) Physical Exam ED Vital Signs: Vital Signs - 24 hr 12/20/23 16:34 12/20/23 17:26 12/20/23 18:40 Temperature 98.0 F Pulse Rate 67 63 61 Respiratory Rate 18 14 16 Blood Pressure 85/51 L 90/37 L 83/45 L Pulse Oximetry 100 100 Oxygen Delivery Method Room Air Room Air 12/20/23 19:00 12/20/23 19:58 12/20/23 20:36 Temperature 98.4 F Pulse Rate 61 61 65 Respiratory Rate 12 14 16 Blood Pressure 90/40 L 79/39 L 79/38 L Pulse Oximetry 100 98 100 Oxygen Delivery Method Room Air Room Air Room Air 12/20/23 21:01 12/20/23 21:37 12/20/23 21:54 Temperature 98.1 F Pulse Rate 63 64 64 Respiratory Rate 14 14 Blood Pressure 82/42 L 78/50 L 78/50 L Pulse Oximetry 97 Oxygen Delivery Method Room Air 12/20/23 22:05 12/20/23 22:22 12/20/23 22:33 Temperature Pulse Rate 64 66 65 Respiratory Rate 16 14 Blood Pressure 94/53 L 96/40 L 87/43 L Pulse Oximetry 99 100 Oxygen Delivery Method Room Air Room Air 12/20/23 22:37 12/20/23 22:53 12/20/23 23:14 Temperature Pulse Rate 64 64 64 Respiratory Rate 14 14 Blood Pressure 94/52 L 100/55 L 96/57 L Pulse Oximetry 100 100 Oxygen Delivery Method Room Air Room Air 12/20/23 23:42 Temperature 97.9 F Pulse Rate 65 Respiratory Rate 14 Blood Pressure 103/56 L Pulse Oximetry 100 Oxygen Delivery Method Room Air BMI result Body Mass Index 29.3 Const Other: Patient is pale-appearing, but awake and answering questions General: comfortable, no acute distress, alert, awake and ill appearing Nutritional Appearance: well nourished Orientation/consciousness: patient oriented x3 HENMT Head: Yes normocephalic and Yes atraumatic Eyes Eyelids: Yes eyelids normal Conjunctivae: conjunctivae normal Sclerae: sclerae normal Corneas: corneas normal Pupils: Equal, round and reactive pupils present EOM: EOMs intact bilaterally Neck Neck: Yes full ROM Resp Effort & Inspection: normal respiratory effort, able to speak in complete sentences, no audible wheezes and not labored Auscultation: clear to auscultation bilaterally Cardio Rate: regular rate Rhythm: regular rhythm GI Inspection: No distended Palpation (GI): Soft to palpation, not firm, nontender, no guarding and not rigid Skin General skin exam: elasticity normal Neuro General: patient oriented x3 Cranial nerves: Yes CN's II-XII intact bilaterally, Yes Equal, round and reactive pupils present and Yes Bilaterally intact EOM present Cognition (Neuro): normal cognition Motor exam (neuro): 5/5 motor strength present throughout and no tremor noted Extrem Other: Moving all extremities well without any obvious deformities Course Reevaluation(s) Reevaluation #1: The patient remains hypotensive currently 79/39. At this time I think this is most likely due to hypovolemia, I do not suspect sepsis. The patient has no source of infection, no white count, no fever. His VBG shows no evidence of acidosis. We will continue gentle hydration given his hyponatremia Time: 20:11 Reevaluation #2: Patient remains hypotensive at 79 over 40. He is mentating appropriately on re- evaluation. We will administer albumin 25 g to help with oncotic pressure and hopefully increased blood pressure. His heart rate is 66 Time: 20:40 Reevaluation #3: Patient's blood pressure is not responding to gentle hydration at this time. We will start peripheral vasoactive medication with Levophed while he is receiving gentle hydration Time: 21:45 Additional Reevaluation(s): 10:41 p.m.. The patient is on peripheral Levophed at 0.07 mcg per kg per hour. I discussed with ICU attending, Dr. Mancuso, he agrees with current management but also recommends lactated ringer 500 cc bolus and like to see if we can wean the patient off the pressors after this. The patient has so far received a total of 1.5 L of normal saline, 1 L pre-hospital and 500 cc in the ER Medications Administered Generic Name Dose Route Start Last Admin Trade Name Lito PRN Reason Stop Dose Admin Folic Acid 1 mg 12/21/23 09:00 12/22/23 08:23 Folic Acid 1 Mg Tablet PO 1 mg DAILY CECI Administration Heparin Sodium (Porcine) 5,000 unit 12/21/23 09:00 12/21/23 22:08 Heparin Sodium,Porcine 5,000 Unit/Ml Vial SUBCUT 5,000 unit TID CECI Administration Norepinephrine Bitartrate 8 mg in 250 mls @ 0 mls/hr 12/20/23 21:45 12/23/23 01:32 Levophed IVCONT 0.03 mcg/kg/min .Q0M CECI 4.92 mls/hr Titration Protocol Per Protocol Dextrose 1,000 mls @ 80 mls/hr 12/22/23 02:45 12/22/23 11:18 D5w IVCONT Infused .[id number] CECI Infusion Midodrine 5 mg 12/21/23 21:00 12/22/23 20:04 Midodrine Hcl 5 Mg Tablet PO 5 mg TID CECI Administration Phenobarbital 45 mg 12/21/23 21:00 12/22/23 20:04 Phenobarbital 15 Mg Tablet PO 12/23/23 09:01 45 mg BID CECI Administration Sodium Chloride 3 ml 12/21/23 08:00 12/22/23 20:10 0.9 % Sodium Chloride Flush 3 Ml Syringe IVFLUSH 3 ml QSHIFT CECI Administration Thiamine HCl 100 mg 12/21/23 09:00 12/22/23 20:04 Thiamine Hcl 100 Mg Tablet PO 100 mg BID CECI Administration Discontinued Medications Generic Name Dose Route Start Last Admin Trade Name Lito PRN Reason Stop Dose Admin Folic Acid 1 mg 12/20/23 18:53 12/20/23 19:40 Folic Acid 1 Mg/0.2 Ml Syringe SUBCUT 12/20/23 18:54 Not Given ONCE ONE Folic Acid 1 mg 12/20/23 19:45 12/20/23 19:43 Folic Acid 1 Mg Tablet PO 12/20/23 19:46 1 mg ONCE ONE Administration Sodium Chloride 1,000 mls @ 999 mls/hr 12/20/23 17:30 12/20/23 18:20 Ns IV 12/20/23 18:30 Infused .Q1H1M CECI Infusion Sodium Chloride 1,000 mls @ 125 mls/hr 12/20/23 19:00 12/21/23 02:19 Ns IVCONT Infused .Q8H CECI Infusion Albumin Human 100 mls @ 100 mls/hr 12/20/23 20:40 12/20/23 21:44 Kedbumin 25 % IV 12/20/23 21:39 Infused ONCE ONE Infusion Magnesium Sulfate 2 gm in 50 mls @ 25 mls/hr 12/20/23 22:32 12/21/23 01:00 Magnesium Sulfate/H2o IV 12/21/23 00:31 Infused ONCE ONE Infusion Lactated Ringer's 500 mls @ 999 mls/hr 12/20/23 22:45 12/20/23 23:39 Lr IV 12/20/23 23:15 Infused .Q31M CECI Infusion Potassium Chloride/Sodium Chloride 40 meq in 1,000 mls @ 150 mls/hr 12/21/23 02:00 12/21/23 17:00 Kcl 40 Meq In 0.9 % Sodium Chl IVCONT Infused .Q6H40M CECI Infusion Albumin Human 100 mls @ 133.333 mls/hr 12/21/23 11:15 12/21/23 13:34 Kedbumin 25 % IV 12/21/23 12:59 Infused Q1H CECI Infusion Potassium Phosphate 15 mmol in 250 mls @ 62.5 mls/hr 12/21/23 22:47 12/22/23 03:17 Kphos IV 12/22/23 02:46 Infused ONCE ONE Infusion Albumin Human 100 mls @ 100 mls/hr 12/21/23 23:00 12/22/23 06:24 Kedbumin 25 % IV 12/22/23 05:59 Infused Q6H CECI Infusion Lactated Ringer's 1,000 mls @ 999 mls/hr 12/22/23 11:00 12/22/23 12:19 Lr IV 12/22/23 12:00 Infused .Q1H1M CECI Infusion Albumin Human 100 mls @ 100 mls/hr 12/22/23 20:54 12/22/23 22:24 Kedbumin 25 % IV 12/22/23 21:53 Infused ONCE ONE Infusion Influenza Virus Vaccine 0.5 ml 12/21/23 01:20 12/21/23 02:09 Flu Vacc [id number](6mos Up)/Pf 0.5 Ml Syringe IM 12/21/23 01:21 0.5 ml .ONCE ONE Administration Ondansetron HCl 4 mg 12/20/23 18:53 12/20/23 19:23 Ondansetron Hcl 4 Mg/2 Ml Vial IVPUSH 12/20/23 18:54 4 mg ONCE ONE Administration Phenobarbital 2 mg/ 5 mg 12/21/23 01:15 12/21/23 02:06 Phenobarbital 2 mg/ PO 12/21/23 01:16 Not Given Phenobarbital 1 mg ONCE ONE Phenobarbital 100 mg/ 205 mg 12/21/23 04:45 12/21/23 09:01 Phenobarbital 90 mg/ PO 12/21/23 07:46 205 mg Phenobarbital 15 mg Q3H CECI Administration Phenobarbital 200 mg/ 275 mg 12/21/23 01:45 12/21/23 02:06 Phenobarbital 60 mg/ PO 12/21/23 01:46 275 mg Phenobarbital 15 mg ONCE ONE Administration Phenobarbital 200 mg 12/21/23 02:00 12/21/23 02:20 Phenobarbital 100 Mg Tablet PO 12/21/23 02:01 Not Given ONCE ONE Potassium Chloride 40 meq 12/20/23 18:52 12/20/23 19:23 Potassium Chloride Er 20 Meq Tab.Er.Prt PO 12/20/23 18:53 40 meq ONCE ONE Administration Potassium Chloride 40 meq 12/20/23 22:42 12/20/23 22:47 Potassium Chloride Er 20 Meq Tab.Er.Prt PO 12/20/23 22:43 40 meq ONCE ONE Administration Potassium Chloride 60 meq 12/21/23 01:48 12/21/23 02:08 Potassium Chloride Er 20 Meq Tab.Er.Prt PO 12/21/23 01:49 60 meq ONCE ONE Administration Potassium Phos/Sodium Phos 2 packet 12/22/23 20:48 12/22/23 21:21 Sodium,Potassium Phosphates Powd.Pack PO 12/22/23 20:49 2 packet ONCE ONE Administration Thiamine HCl 100 mg 12/20/23 18:53 12/20/23 19:23 Thiamine Hcl 100 Mg Tablet PO 12/20/23 18:54 100 mg ONCE ONE Administration Medical Decision Making Medical Decision Making [facility] Narrative: 63-year-old male with past medical history as documented above presents for evaluation of weakness and dizziness over the last few weeks. The patient received 1 L of IV fluids prior to arrival the ED from EMS. I received a call from the lab the patient's creatinine was critical at 5.88. Additionally, he was found to be hyponatremic at 1:22 a.m., his potassium was 3.0, chloride of 84, CO2 of 19 and an anion gap of 22. These electrolytes are likely multifactorial due to alcohol abuse, poor oral intake and he reports diarrhea on and off over the last 3 weeks. I discussed with renal, Dr. Chavarria who recommends continuing normal saline at 125cc an hour given the patient's hypovolemic state. He recommends replaced with oral potassium. I did order a CT brain given the recent falls and reported dizziness. I ordered a CT abdomen pelvis to evaluate for obstructive uropathy given the new onset renal failure Differential Diagnosis Differential Diagnoses: The differential diagnosis associated with the presentation includes Hypovolemia Alcohol intoxication Alcoholic acidosis Hyponatremia Hypokalemia Dehydration Alcohol withdrawal Admission/Observation Consideration of admission/observation: Escalation of care including admission/observation considered Consult Healthcare Provider Management of the patient was discussed with: [employer] (Nephrology, Dr. Chavarria) Dr Mancuso, ICU Lab Data [facility] Lab Attestation statement: I reviewed the patient's lab results. Please see above 12/22/23 20:09 12/22/23 20:09 Labs: Lab Results 12/20/23 12/20/23 12/20/23 Range/Units 17:22 17:45 18:25 WBC 6.2 (4.8-10.8) X10*3/uL RBC 2.54 L D (4.60-5.80) X10*6/uL Hgb 9.3 L D (14.0-18.0) g/dl Hct 24.9 L D (42.0-52.0) % MCV 98.0 (80.0-98.0) fL MCH 36.6 H (27.0-33.0) pg MCHC 37.3 H (31.0-36.0) g/dl RDW 11.1 (11.0-16.0) % Plt Count 135 L (160-400) X10*3/uL MPV 9.7 (9.4-12.4) fL Immature Gran % (Auto) 0.3 (0.0-0.4) % Neut % (Auto) 54.7 (45-73) % Lymph % (Auto) 32.2 (20-40) % [place] % (Auto) 10.9 (2-11) % Eos % (Auto) 1.1 (0-4) % Baso % (Auto) 0.8 (0-2) % Lymph # (Auto) 2.0 (1.2-4.9) X10*3/uL [place] # (Auto) 0.7 (0.1-1.2) X10*3/uL Eos # (Auto) 0.1 (0.0-0.4) X10*3/uL Baso # (Auto) 0.1 (0.0-0.2) X10*3/uL Abs Immat Gran (auto) 0.02 (0.00-0.03) X10*3/uL Absolute Neuts (auto) 3.4 (2.0-8.3) x10*3/uL Absolute Nucleated RBC 0.000 (0.0-0.012) X10*3/uL Nucleated RBC % (auto) 0.0 (0.0-0.2) /100WBC PT 11.9 (10.9-12.4) SEC INR 1.0 (0.9-1.1) VBG pH 7.43 (7.32-7.43) VBG pCO2 33 mmHg VBG pO2 31 mmHg VBG HCO3 22 (22-26) mmol/L VBG O2 Saturation 46.0 % VBG Base Excess -1.4 mmol/L Sodium 122 L (135-145) mmol/L Potassium 3.0 L (3.3-5.1) mmol/L Chloride 84 L (96-108) mmol/L Carbon Dioxide 19 L (22-29) mmol/L Anion Gap 22 H (12-20) BUN 57 H (9-16) mg/dL Creatinine 5.88 H* (0.5-1.4) mg/dL Estim Creat Clear Calc 13.4 Estimated GFR 10 Random Glucose 93 (60-115) mg/dL Lactic Acid 2.1 H* (0.5-2.0) mmol/L Lactic Acid F/U @ 2Hr (0.5-2.0) mmol/L Calcium 9.0 (8.4-10.2) mg/dL Magnesium 2.0 (1.6-2.6) mg/dL Total Bilirubin 1.2 H (0.0-1.0) mg/dL Direct Bilirubin 0.7 H (0.0-0.5) mg/dL AST 25 (5-37) U/L ALT 13 (0-40) U/L Alkaline Phosphatase 68 (39-117) U/L Troponin I High Sens 20.9 (<3.5-35.0) ng/L Total Protein 6.7 (6.5-8.0) g/dL Albumin 3.5 (3.5-5.0) g/dL Urine Color Urine Appearance Urine pH (5.0-9.0) Ur Specific [place] (1.005-1.025) Urine Protein (Neg-Trace) mg/dL Urine Glucose (UA) (Negative) mg/dL Urine Ketones (Negative) mg/dL Urine Blood (Negative) Urine Nitrite (Negative) Ur Leukocyte Esterase (Negative) Urine RBC (0-2) /HPF Urine WBC (0-5) /HPF Ur Squamous Epith Cells (0-2) /HPF Urine Bacteria (None Seen) Hyaline Casts (0-2) /LPF Urine Osmolality (373-1093) mosm/kg Ur Random Sodium mmol/L Urine Creatinine mg/dL Stl C. cayetanensis PCR (Not Detect.) Stool Rotavirus A PCR (Not Detect.) Stl Adenov F 40/41 PCR (Not Detect.) Stool Astrovirus (PCR) (Not Detect.) Stool Campylobacter PCR (Not Detect.) Stool Cryptosporidium PCR (Not Detect.) Stl Sh Tox Pr E STEC PCR (Not Detect.) Stool E coli O157 PCR (Not Detect.) Stl Enterotoxigenic E PCR (Not Detect.) Stool EPEC (PCR) (Not Detect.) Stool EAEC (PCR) (Not Detect.) Stl E. histolytica PCR (Not Detect.) Stool Giardia Lamblia PCR (Not Detect.) Stl P. shigelloides PCR (Not Detect.) Stool Salmonella PCR (Not Detect.) Stool Sapovirus (PCR) (Not Detect.) Stl Shigella/EIEC PCR (Not Detect.) St Y.enterocolitica PCR (Not Detect.) Stool Vibrio (PCR) (Not Detect.) Stl Vibrio cholerae PCR (Not Detect.) Stl Norovirus GI/GII PCR (Not Detect.) Ethyl Alcohol 31 mg/dL C. difficile Tox B Gene (Negative) 12/20/23 12/20/23 12/20/23 Range/Units 18:41 19:12 19:55 WBC (4.8-10.8) X10*3/uL RBC (4.60-5.80) X10*6/uL Hgb (14.0-18.0) g/dl Hct (42.0-52.0) % MCV (80.0-98.0) fL MCH (27.0-33.0) pg MCHC (31.0-36.0) g/dl RDW (11.0-16.0) % Plt Count (160-400) X10*3/uL MPV (9.4-12.4) fL Immature Gran % (Auto) (0.0-0.4) % Neut % (Auto) (45-73) % Lymph % (Auto) (20-40) % [place] % (Auto) (2-11) % Eos % (Auto) (0-4) % Baso % (Auto) (0-2) % Lymph # (Auto) (1.2-4.9) X10*3/uL [place] # (Auto) (0.1-1.2) X10*3/uL Eos # (Auto) (0.0-0.4) X10*3/uL Baso # (Auto) (0.0-0.2) X10*3/uL Abs Immat Gran (auto) (0.00-0.03) X10*3/uL Absolute Neuts (auto) (2.0-8.3) x10*3/uL Absolute Nucleated RBC (0.0-0.012) X10*3/uL Nucleated RBC % (auto) (0.0-0.2) /100WBC PT (10.9-12.4) SEC INR (0.9-1.1) VBG pH (7.32-7.43) VBG pCO2 mmHg VBG pO2 mmHg VBG HCO3 (22-26) mmol/L VBG O2 Saturation % VBG Base Excess mmol/L Sodium (135-145) mmol/L Potassium (3.3-5.1) mmol/L Chloride (96-108) mmol/L Carbon Dioxide (22-29) mmol/L Anion Gap (12-20) BUN (9-16) mg/dL Creatinine (0.5-1.4) mg/dL Estim Creat Clear Calc Estimated GFR Random Glucose (60-115) mg/dL Lactic Acid (0.5-2.0) mmol/L Lactic Acid F/U @ 2Hr 1.5 (0.5-2.0) mmol/L Calcium (8.4-10.2) mg/dL Magnesium (1.6-2.6) mg/dL Total Bilirubin (0.0-1.0) mg/dL Direct Bilirubin (0.0-0.5) mg/dL AST (5-37) U/L ALT (0-40) U/L Alkaline Phosphatase (39-117) U/L Troponin I High Sens (<3.5-35.0) ng/L Total Protein (6.5-8.0) g/dL Albumin (3.5-5.0) g/dL Urine Color Dark Yellow Urine Appearance Clear Urine pH 5.5 (5.0-9.0) Ur Specific [place] 1.010 (1.005-1.025) Urine Protein 30 (1+) H (Neg-Trace) mg/dL Urine Glucose (UA) Negative (Negative) mg/dL Urine Ketones Trace (Negative) mg/dL Urine Blood Negative (Negative) Urine Nitrite Negative (Negative) Ur Leukocyte Esterase Negative (Negative) Urine RBC 0-2 (0-2) /HPF Urine WBC 0-5 (0-5) /HPF Ur Squamous Epith Cells 0-2 (0-2) /HPF Urine Bacteria None Seen (None Seen) Hyaline Casts 3-5 (0-2) /LPF Urine Osmolality 242 L (373-1093) mosm/kg Ur Random Sodium 20.0 mmol/L Urine Creatinine 199.59 mg/dL Stl C. cayetanensis PCR (Not Detect.) Stool Rotavirus A PCR (Not Detect.) Stl Adenov F 40/41 PCR (Not Detect.) Stool Astrovirus (PCR) (Not Detect.) Stool Campylobacter PCR (Not Detect.) Stool Cryptosporidium PCR (Not Detect.) Stl Sh Tox Pr E STEC PCR (Not Detect.) Stool E coli O157 PCR (Not Detect.) Stl Enterotoxigenic E PCR (Not Detect.) Stool EPEC (PCR) (Not Detect.) Stool EAEC (PCR) (Not Detect.) Stl E. histolytica PCR (Not Detect.) Stool Giardia Lamblia PCR (Not Detect.) Stl P. shigelloides PCR (Not Detect.) Stool Salmonella PCR (Not Detect.) Stool Sapovirus (PCR) (Not Detect.) Stl Shigella/EIEC PCR (Not Detect.) St Y.enterocolitica PCR (Not Detect.) Stool Vibrio (PCR) (Not Detect.) Stl Vibrio cholerae PCR (Not Detect.) Stl Norovirus GI/GII PCR (Not Detect.) Ethyl Alcohol mg/dL C. difficile Tox B Gene (Negative) 12/20/23 12/20/23 Range/Units 21:58 23:33 WBC (4.8-10.8) X10*3/uL RBC (4.60-5.80) X10*6/uL Hgb (14.0-18.0) g/dl Hct (42.0-52.0) % MCV (80.0-98.0) fL MCH (27.0-33.0) pg MCHC (31.0-36.0) g/dl RDW (11.0-16.0) % Plt Count (160-400) X10*3/uL MPV (9.4-12.4) fL Immature Gran % (Auto) (0.0-0.4) % Neut % (Auto) (45-73) % Lymph % (Auto) (20-40) % [place] % (Auto) (2-11) % Eos % (Auto) (0-4) % Baso % (Auto) (0-2) % Lymph # (Auto) (1.2-4.9) X10*3/uL [place] # (Auto) (0.1-1.2) X10*3/uL Eos # (Auto) (0.0-0.4) X10*3/uL Baso # (Auto) (0.0-0.2) X10*3/uL Abs Immat Gran (auto) (0.00-0.03) X10*3/uL Absolute Neuts (auto) (2.0-8.3) x10*3/uL Absolute Nucleated RBC (0.0-0.012) X10*3/uL Nucleated RBC % (auto) (0.0-0.2) /100WBC PT (10.9-12.4) SEC INR (0.9-1.1) VBG pH (7.32-7.43) VBG pCO2 mmHg VBG pO2 mmHg VBG HCO3 (22-26) mmol/L VBG O2 Saturation % VBG Base Excess mmol/L Sodium 122 L (135-145) mmol/L Potassium 2.8 L* (3.3-5.1) mmol/L Chloride 85 L (96-108) mmol/L Carbon Dioxide 20 L (22-29) mmol/L Anion Gap 20 (12-20) BUN 56 H (9-16) mg/dL Creatinine 5.05 H* (0.5-1.4) mg/dL Estim Creat Clear Calc 15.6 Estimated GFR 12 Random Glucose 91 (60-115) mg/dL Lactic Acid (0.5-2.0) mmol/L Lactic Acid F/U @ 2Hr (0.5-2.0) mmol/L Calcium 8.4 D (8.4-10.2) mg/dL Magnesium (1.6-2.6) mg/dL Total Bilirubin (0.0-1.0) mg/dL Direct Bilirubin (0.0-0.5) mg/dL AST (5-37) U/L ALT (0-40) U/L Alkaline Phosphatase (39-117) U/L Troponin I High Sens (<3.5-35.0) ng/L Total Protein (6.5-8.0) g/dL Albumin (3.5-5.0) g/dL Urine Color Urine Appearance Urine pH (5.0-9.0) Ur Specific [place] (1.005-1.025) Urine Protein (Neg-Trace) mg/dL Urine Glucose (UA) (Negative) mg/dL Urine Ketones (Negative) mg/dL Urine Blood (Negative) Urine Nitrite (Negative) Ur Leukocyte Esterase (Negative) Urine RBC (0-2) /HPF Urine WBC (0-5) /HPF Ur Squamous Epith Cells (0-2) /HPF Urine Bacteria (None Seen) Hyaline Casts (0-2) /LPF Urine Osmolality (373-1093) mosm/kg Ur Random Sodium mmol/L Urine Creatinine mg/dL Stl C. cayetanensis PCR Not Detected (Not Detect.) Stool Rotavirus A PCR Not Detected (Not Detect.) Stl Adenov F 40/41 PCR Not Detected (Not Detect.) Stool Astrovirus (PCR) Not Detected (Not Detect.) Stool Campylobacter PCR Not Detected (Not Detect.) Stool Cryptosporidium PCR Not Detected (Not Detect.) Stl Sh Tox Pr E STEC PCR Not Detected (Not Detect.) Stool E coli O157 PCR Not applicable (Not Detect.) Stl Enterotoxigenic E PCR Not Detected (Not Detect.) Stool EPEC (PCR) Not Detected (Not Detect.) Stool EAEC (PCR) Not Detected (Not Detect.) Stl E. histolytica PCR Not Detected (Not Detect.) Stool Giardia Lamblia PCR Not Detected (Not Detect.) Stl P. shigelloides PCR Not Detected (Not Detect.) Stool Salmonella PCR Not Detected (Not Detect.) Stool Sapovirus (PCR) Not Detected (Not Detect.) Stl Shigella/EIEC PCR Not Detected (Not Detect.) St Y.enterocolitica PCR Not Detected (Not Detect.) Stool Vibrio (PCR) Not Detected (Not Detect.) Stl Vibrio cholerae PCR Not Detected (Not Detect.) Stl Norovirus GI/GII PCR Not Detected (Not Detect.) Ethyl Alcohol mg/dL C. difficile Tox B Gene NEGATIVE (Negative) Critical Care Time Critical Care Time Critical Care Time: Yes Total Critical Care Time: 60 Attestation: 63-year-old male presents for evaluation of dizziness, falls. He had an extensive workup finding numerous electrolyte abnormalities, the patient remained hypotensive upon vasoactive medications. He required multiple specialist consultations including Nephrology, cash management officer. The patient ultimately be admitted to the ICU Discharge Plan Discharge Clinical Impression: Acute renal failure, Alcohol abuse, Acute hyponatremia, Acute hypotension Patient Disposition: Still a Patient Interventions: Admission Worksheet (ED) Last Done: 12/21/23 01:07 Discharge Date/Time: 12/21/23 01:09
[2023-12-20 18:48] LABS: Appearance Urine Clear; Color Urine Dark Yellow; Glucose Urine UA Negative (Negative); Leukocyte Esterase Urine Negative (Negative); Nitrite Urine Negative (Negative); PH 5.5 (5.0-9.0); UMIC TRIGGER UACC YES; Urine Blood Negative (Negative); Urine Ketones Trace mg/dL (Negative); Urine Protein 30 (1+) mg/dL (Neg-Trace)
[2023-12-20 18:58] LABS: Bacteria Urine None Seen (None Seen); RBC Urine 0-2 /HPF (0-2); Squamous Epithelial Cell Urine 0-2 /HPF (0-2); WBC Urine 0-5 /HPF (0-5)
[2023-12-20] MEDS: ondansetron HCL 4 MG/2 ML VIAL IVPUSH (19:23)
[2023-12-20] MEDS: Potassium Chloride ER 20 MEQ TAB.ER.PRT 40 MEQ PO ×2 (19:23→22:47)
[2023-12-20] MEDS: Thiamine HCL 100 MG TABLET PO (19:23)
--- NOTE | 2023-12-20 19:30 | PC.NURSE ---
Addendum entered by Trinidad Mack RN 12/20/23 19:33: Pharmacy called back, subq not stocked, will reach out to provider for alternate order Original Note: Folic acid not available in pyxis, pharmacy called, will send down dose.
[2023-12-20 19:36] LABS: Creatinine Urine 199.59 mg/dL
[2023-12-20] MEDS: 0.9 % Sodium Chloride 1,000 ML 125 ML IVCONT (19:43)
[2023-12-20] MEDS: Folic Acid 1 MG TABLET PO (19:43)
[2023-12-20 19:48] LABS: Reflex Lactate? Lactic Acid Added
[2023-12-20 19:56] LABS: Osmolality Urine 242 mosm/kg (373-1093)
--- NOTE | 2023-12-20 19:59 | MHC.EDTECH ---
This tech took over care of patient at 1900,repeat lactic drawn and sent to lab,vitals and rounds completed,BP is low 79/39,RN is aware,patient was repositioned to comfort,call croft in reach
[2023-12-20 20:15] LABS: ~Lactic Acid-LAB USE ONLY 1.5 mmol/L (0.5-2.0)
--- NOTE | 2023-12-20 20:37 | MHC.EDTECH ---
Vitals taken and is 79/38,RN/provider/charge are aware
--- NOTE | 2023-12-20 20:38 | PC.NURSE ---
T/w speaking to GALLO regarding hypotension @ 78/34, reports difficulty fluid resuscitating due to hypovolemia and a sodium level of 122. T/w suggesting to try vasopressors as pt has been hypotensive since 1629. Per GALLO, pt is mentating well at this time, reports no need for vasopressors unless pt becomes altered.
--- NOTE | 2023-12-20 20:38 | PC.NURSE ---
Patient's BP continues to trend low. NS running @ 125/hr per order. Provider Jc aware, reassess patient at bedside. Plan to start pressors if patient's mentation status changes, patient alert and oriented at this time, complaining about being in trendelenburg. Requested patient stay trended for a few more minutes to try and have BP improved. certified lactation educator Trista also aware.
[2023-12-20] MEDS: Albumin Human 25 % 100 ML IV (20:47)
--- NOTE | 2023-12-20 21:03 | PC.NURSE ---
Spoke with patient's sister Kim, updated on plan of care, Kim will call again in the AM for update on patient's admission status.
--- NOTE | 2023-12-20 21:39 | MHC.EDTECH ---
Hourly rounds and vitals completed,manual BP taking and is 78/50,RN/PA are aware,belongings list completed and copy placed in chart.
[2023-12-20] MEDS: Norepinephrine Bitartrate/D5W 8 MG/250 ML PLAST..BAG 8.19 MG IVCONT (21:54)
--- NOTE | 2023-12-20 22:10 | PC.NURSE ---
Spoke w/ patient's sister Meeta [phone], plan of care updated, informed Meeta pressors have been started, will be admitted to ICU, all questions answered.
[2023-12-20 22:30] LABS: Anion Gap 20 (12-20); Blood Urea Nitrogen 56 mg/dL (9-16); Calcium 8.4 mg/dL (8.4-10.2); Carbon Dioxide 20 mmol/L (22-29); Chloride 85 mmol/L (96-108); Creatinine Clr Calc Pharmacy 15.6; Estimated Glomerular Filt Rate 12; Glucose Random 91 mg/dL (60-115); Potassium 2.8 mmol/L (3.3-5.1); Sodium 122 mmol/L (135-145)
[2023-12-20] MEDS: Lactated Ringers 500 ML 999 ML IV (22:43)
[2023-12-20] MEDS: Magnesium Sulfate/H2O 2 GM/50 ML PIGGYBACK IV (22:47)
--- NOTE | 2023-12-20 23:19 | PC.NURSE ---
GALLO contacting ICU @ [phone]. Pt not accepted at this time. Per ICU to infuse 500 of LR and to call back.
--- NOTE | 2023-12-20 23:41 | PC.NURSE ---
This headline writer assumed care of this Pt at 2300. Pt A&Ox3, denies any pain. Levo running per MAY, BP 96/57, levo increased to 0.09 mcg/kg. Pt reports having diarrhea for a while . Pt was able to give us a sample using the bedpan. Sample collected and sent to lab. Plan of care ongoing.
--- NOTE | 2023-12-20 23:47 | MHC.EDTECH ---
Hourly rounds and vitals completed,patient urinated 175MLS in urinal,patient is resting quietly,call croft in reach
[2023-12-21] VITALS (34 sets, daily range): BP systolic 86–131; BP diastolic 15–79; PULSE 55–67; RESP 12–19; TEMP 36.2–36.8; O2SAT 94–100; BMI 29.4
--- NOTE | 2023-12-21 00:38 | PC.NURSE ---
Reports given to Addis LAND, Pt will be transported to [facility]. Pt aware of plan.
[2023-12-21 00:40] LABS: CDiff Gene PCR NEGATIVE (Negative)
--- NOTE | 2023-12-21 00:51 | P.HPCC_ITS ---
History of Present Illness Date of Service: 12/21/23 Attending physician on admission: Roscoe Mancuso Chief Complaint: Weakness The patient is a 63? year old male with a past medical history of alcohol abuse, hypertension, GERD, hypercholesteremia, obesity,? PTSD, anxiety, and tobacco use who presented to the emergency department? via EMS with weakness. Patient reported feeling weak and dizzy for about 3 weeks,? has reported multiple falls due to feeling ? unsteady when walking?,? denied hitting his head, headaches or any pain.? He reports drinking a pt of vodka daily, but only had? half a pint around 6 hours prior to going to the emergency department. He also reports multiple episodes of diarrhea.? In the emergency department, ? patient hypotensive? to 79/38,? mentating well, all other vital signs stable. Laboratory data was significant for? platelets of 135, serum sodium 122, potassium 3, chloride 84, serum bicarb 19, anion gap 22, BUN 57, creatinine 5.88, lactic 2.1 IMAGING:? ?Head CT:? no acute findings ?Abdominal/pelvis CT:? no acute findings ED Course:? ?Patient received a 1L bolus of normal saline prior to arrival to the emergency department,? and received an additional 500 mL on arrival to ED.? Nephrology,? Dr. Chavarria, was consulted by ED provider, who advised? potassium replacement and continue normal saline at 125 mL/hour.? ?Patient also received a total of 80 mEq of potassium, folic acid 1 mg,? thiamine 100mg, and albumin? 100 mL and additional 500Ml LR bolus.? ? Despite fluid administration and due to underlying hyponatremia patient continued to be hypotensive requiring initiation of vasopressors.? ? Patient will be admitted to ICU for management of acute hyponatremia? and hypotension requiring pressors Review of Systems 2 Review of Systems: Yes all other systems are reviewed and are negative PMFSH Past Medical History Medical History Impaired glucose tolerance Vitamin D deficiency Anxiety and depression Alcohol abuse Tobacco abuse Post traumatic stress disorder (PTSD) Obesity (BMI 30-39.9) Hypercholesterolemia GERD (gastroesophageal reflux disease) Hypertension Family History Family History Father Renal cancer Other Substance use disorder Surgical History Surgical History History of esophagogastroduodenoscopy (EGD) Hx of colonoscopy History of tonsillectomy Social History Social History Household Members: None Housing: House Do you presently have visiting nurse or other home services: No Alcohol intake: current Alcohol intake frequency: 3 or more drinks per day Alcohol type: hard liquor Patient Tobacco Use Status: Current everyday Tobacco user Tobacco use type: Cigarette Cigarette Packs Per Day: 1 Cigarettes Per Day: 15 Years Smoked: 50 Smoked in Last 30 Days: Yes e-Cigarette/Vaping Use: Never Used Patient Interested in Nicotine Replacement: No Patient Given Instructions on How to Stop Smoking: No Second Hand Smoke Exposure: Yes Use of substances other than those prescribed or required for medical reasons: No Substance Use Type: Marijuana Currently Displaying Signs/Symptoms of Drug Intoxication Withdrawal: No Any prior treatment program specific to substance use: No Have you been hit, kicked, punched, or otherwise hurt by someone within the past year? If so, by whom?: No Do you feel safe in your current relationship?: No Current Relationship Is there a partner from a previous relationship who is making you feel unsafe now?: No Are you made to feel afraid or neglected: No Adventism Healthcare Practices: Jainism Advance Directives: No Advance Directives Information Provided: No Do you have a plan to hurt others: No Plan Recently lost weight without trying: Yes How much weight loss: 34pounds or more Eating poorly because of decreased appetite: Yes Nutrition screen score: 7 Nutrition Risks: Poor intake 0-25% >4 days service: No Current occupational status: retired Cognitive needs: No Hearing needs: No Vision needs: Yes (Reading glasses) Meds Allergies Allergy/AdvReac Type Severity Reaction Status Date / Time acetaminophen [From TYLENOL] Allergy Intermediate HIVES Verified 12/20/23 16:40 apple [APPLES] Allergy Intermediate HIVES Verified 12/20/23 16:40 Active Medications: Current Medications Folic Acid (Folic Acid 1 Mg Tablet) 1 mg PO DAILY CECI Heparin Sodium (Porcine) (Heparin Sodium,Porcine 5,000 Unit/Ml Vial) 5,000 unit SUBCUT TID CECI Sodium Chloride (Ns) 1,000 mls @ 125 mls/hr IVCONT .Q8H [facility] Last Admin: 12/20/23 19:43 Dose: 125 mls/hr Norepinephrine Bitartrate (Levophed) 8 mg in 250 mls @ 0 mls/hr IVCONT .Q0M [facility]; Protocol Last Titration: 12/20/23 23:14 Dose: 0.09 mcg/kg/min, 14.75 mls/hr Pharmacy Consult (Consult Rx Etoh Phenob Po Only) 1 each MISCELLANE ONCE PRN; Protocol PRN Reason: Consult order Thiamine HCl (Thiamine Hcl 100 Mg Tablet) 100 mg PO BID [facility] Home Medications ?Medication ?Instructions ?Recorded ?Confirmed ?Last Taken ?Type omeprazole 40 mg capsule,delayed 40 mg PO DAILY@0630 12/21/23 12/21/23 12/20/23 History release Physical Exam 2 Vital Signs: Vital Signs: Last Vital Signs Temp 97.9 F 12/20/23 23:42 Pulse 59 12/21/23 00:21 Resp 14 12/21/23 00:21 BP 99/58 L 12/21/23 00:21 Pulse Ox 100 12/21/23 00:21 O2 Del Method Room Air 12/21/23 00:21 BMI result Body Mass Index 29.3 ?General:? Alert oriented x3 no acute distress.? Speaking full sentences.? Speech is well articulated, thought process is coherent.? Following all commands. ?HEENT:? Head is normocephalic, atraumatic, pupils equal round reactive to light accommodation bilaterally.? Extraocular movements appear intact.? Buccal mucosa is dry, Neck is supple ?Cardiac:? Clear S1-S2, no murmurs rubs or gallops. ?Pulmonary:? Clear to auscultation, no wheezes, rales or rhonchi. ?Abdomen:? ?Abdomen soft, non-tender, non-distended. Normal bowel sounds. No pulsatile mass. No hepatosplenomegaly. ?Musculoskeletal:? Moving all 4 extremities upon request a major joints, there is no crepitus or tenderness.? The strength is 5/5 bilaterally and throughout all 4 extremities.? Gait not assessed at this point. ?Neurologic:? No focal deficits noted.Motor strength as above.?? ?Skin:? Intact, very dry, no lesions, edema, erythema, clubbing or cyanosis.? No ulcers. Vascular:? 2+ pulses upper and lower extremities distally.? Results Labs 12/21/23 06:43 12/21/23 06:43 Labs: Laboratory Results - last 24 hr 12/20/23 12/20/23 12/20/23 17:22 17:45 18:25 MCV 98.0 MCH 36.6 H MCHC 37.3 H RDW 11.1 Plt Count 135 L MPV 9.7 Immature Gran % (Auto) 0.3 Neut % (Auto) 54.7 Lymph % (Auto) 32.2 Burt % (Auto) 10.9 Eos % (Auto) 1.1 Baso % (Auto) 0.8 Lymph # (Auto) 2.0 Burt # (Auto) 0.7 Eos # (Auto) 0.1 Baso # (Auto) 0.1 Abs Immat Gran (auto) 0.02 Absolute Neuts (auto) 3.4 Absolute Nucleated RBC 0.000 Nucleated RBC % (auto) 0.0 PT 11.9 INR 1.0 VBG pH 7.43 VBG pCO2 33 VBG pO2 31 VBG HCO3 22 VBG O2 Saturation 46.0 VBG Base Excess -1.4 Anion Gap 22 H Estim Creat Clear Calc 13.4 Estimated GFR 10 Random Glucose 93 Lactic Acid 2.1 H* Lactic Acid F/U @ 2Hr Calcium 9.0 Magnesium 2.0 Total Bilirubin 1.2 H Direct Bilirubin 0.7 H AST 25 ALT 13 Alkaline Phosphatase 68 Troponin I High Sens 20.9 Total Protein 6.7 Albumin 3.5 Urine Color Urine Appearance Urine pH Ur Specific Troy Urine Protein Urine Glucose (UA) Urine Ketones Urine Blood Urine Nitrite Ur Leukocyte Esterase Urine RBC Urine WBC Ur Squamous Epith Cells Urine Bacteria Hyaline Casts Urine Osmolality Ur Random Sodium Urine Creatinine Ethyl Alcohol 31 C. difficile Tox B Gene 12/20/23 12/20/23 12/20/23 18:41 19:12 19:55 MCV MCH MCHC RDW Plt Count MPV Immature Gran % (Auto) Neut % (Auto) Lymph % (Auto) Burt % (Auto) Eos % (Auto) Baso % (Auto) Lymph # (Auto) Burt # (Auto) Eos # (Auto) Baso # (Auto) Abs Immat Gran (auto) Absolute Neuts (auto) Absolute Nucleated RBC Nucleated RBC % (auto) PT INR VBG pH VBG pCO2 VBG pO2 VBG HCO3 VBG O2 Saturation VBG Base Excess Anion Gap Estim Creat Clear Calc Estimated GFR Random Glucose Lactic Acid Lactic Acid F/U @ 2Hr 1.5 Calcium Magnesium Total Bilirubin Direct Bilirubin AST ALT Alkaline Phosphatase Troponin I High Sens Total Protein Albumin Urine Color Dark Yellow Urine Appearance Clear Urine pH 5.5 Ur Specific Troy 1.010 Urine Protein 30 (1+) H Urine Glucose (UA) Negative Urine Ketones Trace Urine Blood Negative Urine Nitrite Negative Ur Leukocyte Esterase Negative Urine RBC 0-2 Urine WBC 0-5 Ur Squamous Epith Cells 0-2 Urine Bacteria None Seen Hyaline Casts 3-5 Urine Osmolality 242 L Ur Random Sodium 20.0 Urine Creatinine 199.59 Ethyl Alcohol C. difficile Tox B Gene 12/20/23 12/20/23 21:58 23:33 MCV MCH MCHC RDW Plt Count MPV Immature Gran % (Auto) Neut % (Auto) Lymph % (Auto) Burt % (Auto) Eos % (Auto) Baso % (Auto) Lymph # (Auto) Burt # (Auto) Eos # (Auto) Baso # (Auto) Abs Immat Gran (auto) Absolute Neuts (auto) Absolute Nucleated RBC Nucleated RBC % (auto) PT INR VBG pH VBG pCO2 VBG pO2 VBG HCO3 VBG O2 Saturation VBG Base Excess Anion Gap 20 Estim Creat Clear Calc 15.6 Estimated GFR 12 Random Glucose 91 Lactic Acid Lactic Acid F/U @ 2Hr Calcium 8.4 D Magnesium Total Bilirubin Direct Bilirubin AST ALT Alkaline Phosphatase Troponin I High Sens Total Protein Albumin Urine Color Urine Appearance Urine pH Ur Specific Troy Urine Protein Urine Glucose (UA) Urine Ketones Urine Blood Urine Nitrite Ur Leukocyte Esterase Urine RBC Urine WBC Ur Squamous Epith Cells Urine Bacteria Hyaline Casts Urine Osmolality Ur Random Sodium Urine Creatinine Ethyl Alcohol C. difficile Tox B Gene NEGATIVE Imaging Radiologist's Impressions: Impressions Head CT 12/20/23 17:36 IMPRESSION: Unremarkable examination. No evidence of acute territorial infarct or hemorrhage. Electronically signed by: Ryan Martin MD 12/20/2023 08:12 PM [employer] Abdomen/Pelvis CT 12/20/23 17:54 IMPRESSION: * No hydronephrosis or nephrolithiasis. * Hepatic steatosis. Electronically signed by: Mi Forbes MD 12/20/2023 08:01 PM [employer]T [employer] Assessment and Plan (1) Acute hyponatremia: Status: Acute (2) Acute hypotension: Status: Acute (3) Alcohol abuse: Status: Acute (4) Acute renal failure: Status: Acute (5) Hypokalemia: Status: Acute (6) Diarrhea: Status: Acute Plan 63 year old male with a past medical history of alcohol abuse, hypertension, GERD, hypercholesterolemia, obesity,? PTSD, anxiety, and tobacco use admitted to ICU for management of acute hyponatremia and hypotension requiring vasopressors.? ? Plan:? Neuro:? ?No acute issues Cardiac:? ?Hypotension:? no evidence of septic shock,? lactate was slightly elevated? initially but quickly trended down, no elevated white count and no signs of infection.? Hypotension is likely related to severe dehydration,? as patient admits to? not having an appetite lately, multiple episodes diarrhea and only been drinking alcohol.? Received? a total of 2 L bolus, due to underlying hyponatremia,? unable to give more.? Will wean off levophed as tolerated? Underlying HTN hx:? hold hypertensive medications Pulmonary:? No acute issues Renal:? Acute hyponatremia? -? patient admits to drinking a pint of vodka daily,? reports in the past few weeks he has had lack of appetite and has had couple episodes of diarrhea.? This is likely the cause of acute hyponatremia.? Nephrology,? Dr. Chavarria, was consulted by ED provider, who recommended? potassium replacement and continue normal saline at 125 mL/hour.? Cont NS at 125ml/Hr, Water restriction.? Frequent neuro checks. Serial serum sodiums.? ?Acute kidney injury: ? nonoliguric, patient?s BUN 57 and creatinine 5.88 has a normal baseline creatinine.? This is likely due to severe dehydration,? patient is making urine.? We will continue to monitor renal indices.? Closely monitor? intake and output Hypokalemia:? potassium down to 2.8,? no acute changes on EKG.? we will continue to replace Endo:? No acute issues.?? GI:?? Diarrhea:? GI panel sent and pending.? Abdominal CT with no acute findings.? ID: no acute issues Heme/Onc:? No acute issues. Psych:? Alcohol abuse:? ? patient reports he has not gone long without alcohol consumption,? on my exam already reports mild withdrawal symptoms . ? will initiate phenobarb protocol. Will start folic/thiamine Miscellaneous: ? no acute issues Diet: Cardiac Prophylaxis:? subcut Heparin Critical care time:? X 90 minutes of critical care time Code? status:? FULL CODE? Case discussed with attending Dr Mancuso
[2023-12-21 01:40] LABS: Anion Gap 18 (12-20)
[2023-12-21 01:47] LABS: Blood Urea Nitrogen 57 mg/dL (9-16); Calcium 8.4 mg/dL (8.4-10.2); Carbon Dioxide 18 mmol/L (22-29); Chloride 84 mmol/L (96-108); Creatinine Clr Calc Pharmacy 15.7; Estimated Glomerular Filt Rate 12; Glucose Random 309 mg/dL (60-115); Magnesium 2.6 mg/dL (1.6-2.6); Phosphorus 3.8 mg/dL (2.7-4.5); Potassium 2.9 mmol/L (3.3-5.1); Sodium 117 mmol/L (135-145)
[2023-12-21] MEDS: PHENobarbitaL 200 MG, PHENobarbitaL 60 MG, PHENobarbitaL 15 MG 275 MG PO (02:06)
[2023-12-21] MEDS: Potassium Chloride ER 20 MEQ TAB.ER.PRT 60 MEQ PO (02:08)
[2023-12-21] MEDS: Flu Vacc TS2024-25(6mos up)/PF 0.5 ML SYRINGE IM (02:09)
[2023-12-21] MEDS: KCl 40 mEq in 0.9 % Sodium Chl 40 MEQ/1,000 ML IV.SOLN 150 MEQ IVCONT ×3 (02:15→14:46)
[2023-12-21 06:48] LABS: MANUAL DIFF FLAG NO
[2023-12-21 07:06] LABS: Basophils Absolute Auto 0.1 X10*3/uL (0.0-0.2); Eosinophils Absolute Auto 0.1 X10*3/uL (0.0-0.4); Eosinophils Percent Auto 0.8 % (0-4); Hematocrit 24.3 % (42.0-52.0); Hemoglobin 9.1 g/dl (14.0-18.0); Imm Gran Abs Auto 0.05 X10*3/uL (0.00-0.03); Imm Gran Pct Auto 0.7 % (0.0-0.4); Lymphocytes Absolute Auto 1.7 X10*3/uL (1.2-4.9); Lymphocytes Percent Auto 23.8 % (20-40); Mean Corpuscular HGB Conc 37.4 g/dl (31.0-36.0); Mean Corpuscular Hemoglobin 37.6 pg (27.0-33.0); Mean Corpuscular Volume 100.4 fL (80.0-98.0); Monocytes Percent Auto 13.1 % (2-11); Neutrophils Absolute Auto 4.4 x10*3/uL (2.0-8.3); Neutrophils Percent Auto 60.6 % (45-73); Platelet Count 115 X10*3/uL (160-400); Red Blood Count 2.42 X10*6/uL (4.60-5.80); White Blood Count 7.3 X10*3/uL (4.8-10.8)
[2023-12-21 07:22] LABS: Alanine Aminotransferase 11 U/L (0-40); Albumin Level 3.4 g/dL (3.5-5.0); Alkaline Phosphatase 61 U/L (39-117); Anion Gap 19 (12-20); Aspartate Amino Transferase 23 U/L (5-37); Bilirubin Total 1.1 mg/dL (0.0-1.0); Blood Urea Nitrogen 56 mg/dL (9-16); Calcium 8.6 mg/dL (8.4-10.2); Carbon Dioxide 16 mmol/L (22-29); Chloride 94 mmol/L (96-108); Creatinine Clr Calc Pharmacy 17.2; Estimated Glomerular Filt Rate 13; Glucose Random 146 mg/dL (60-115); Magnesium 2.4 mg/dL (1.6-2.6); Potassium 4.5 mmol/L (3.3-5.1); Sodium 124 mmol/L (135-145); Total Protein 6.1 g/dL (6.5-8.0)
[2023-12-21] MEDS: Heparin Sodium,Porcine 5,000 UNIT/ML VIAL 5000 UNIT SUBCUT ×3 (08:30→22:08)
[2023-12-21] MEDS: Thiamine HCL 100 MG TABLET PO ×2 (08:30→22:08)
[2023-12-21] MEDS: Folic Acid 1 MG TABLET PO (08:31)
[2023-12-21] MEDS: 0.9 % Sodium Chloride Flush 3 ML SYRINGE IVFLUSH ×3 (08:35→23:08)
--- NOTE | 2023-12-21 09:37 | PHA.MEDREC ---
Addendum entered by Lauren Flores RPh 12/21/23 10:57: checked by [facility] Original Note: Pharmacy Consult ? Medication Reconciliation Pharmacy has completed the medication reconciliation. Spoke to family member (Loida).
[2023-12-21] MEDS: Albumin Human 25 % 100 ML 133.33 ML IV ×2 (11:35→12:46)
--- NOTE | 2023-12-21 11:42 | MHC.CM.PN ---
EMR REVIEWED, PT ADMITTED TO ICU HYPONATREMIA/HYPOTENSIVE,CM MET W/PT WHO IS A&OX3, PT REPORTS HE LIVES ALONE AT [address] [place] [address] IN [place] HOWEVER ADDRESS ON FILE IS PT'S MAILING ADDRESS, PT DENIES USE OF DME/HOME SERVICES, PT MAY BE AGREEABLE TO [facility] WHEN MEDICALLY CLEARED. PT VERIFIES PCP ON FILE AND WILL COMPLETE A HCP NAMING HIS SISTER GUY SOLIZ [phone] HIS [facility] AND HIS SON REHAN MARIA [phone] HIS ALTERNATE, COPY UPLOADED TO [facility] AND PLACED IN CHART.
[2023-12-21 11:47] LABS: Adenovirus F 40/41 Not Detected (Not Detect.); Astrovirus Not Detected (Not Detect.); Campylobacter Not Detected (Not Detect.); Cryptosporidium Not Detected (Not Detect.); Cyclospora cayetanensis Not Detected (Not Detect.); E. coli EAEC Not Detected (Not Detect.); E. coli EPEC Not Detected (Not Detect.); E. coli ETEC Not Detected (Not Detect.); E. coli STEC Not Detected (Not Detect.); Entamoeba histolytica Not Detected (Not Detect.); Giardia lamblia Not Detected (Not Detect.); Norovirus GI/GII Not Detected (Not Detect.); Plesiomonas shigelloides Not Detected (Not Detect.); Rotavirus A Not Detected (Not Detect.); Salmonella Not Detected (Not Detect.); Sapovirus Not Detected (Not Detect.); Shigella sp./EIEC Not Detected (Not Detect.); Vibrio Not Detected (Not Detect.); Vibrio Cholerae Not Detected (Not Detect.); Yersinia enterocolitica Not Detected (Not Detect.)
[2023-12-21 12:14] LABS: Anion Gap 15 (12-20); Blood Urea Nitrogen 50 mg/dL (9-16); Calcium 8.3 mg/dL (8.4-10.2); Carbon Dioxide 21 mmol/L (22-29); Chloride 96 mmol/L (96-108); Creatinine Clr Calc Pharmacy 18.7; Estimated Glomerular Filt Rate 14; Glucose Random 184 mg/dL (60-115); Potassium 4.2 mmol/L (3.3-5.1); Sodium 128 mmol/L (135-145)
--- NOTE | 2023-12-21 12:46 | ECG_ITS ---
Test Reason : HR maintaining 40's Blood Pressure : / mmHG Vent. Rate : 050 BPM Atrial Rate : 050 BPM P-R Int : 242 ms QRS Dur : 094 ms QT Int : 464 ms P-R-T Axes : 037 013 011 degrees QTc Int : 423 ms Sinus bradycardia with marked sinus arrhythmia with 1st degree A-V block Otherwise normal ECG When compared with ECG of 20-DEC-2023 16:57, Nonspecific T wave abnormality, improved in Inferior leads Nonspecific T wave abnormality no longer evident in Anterolateral leads Referred By: Roscoe Mancuso Electronically Signed By:SILVANO VALENTINE
[2023-12-21] MEDS: Norepinephrine Bitartrate/D5W 8 MG/250 ML PLAST..BAG 14.75 MG IVCONT (16:57)
[2023-12-21 17:11] LABS: Anion Gap 19 (12-20); Blood Urea Nitrogen 52 mg/dL (9-16); Calcium 8.8 mg/dL (8.4-10.2); Carbon Dioxide 15 mmol/L (22-29); Chloride 101 mmol/L (96-108); Estimated Glomerular Filt Rate 16; Glucose Random 141 mg/dL (60-115); Potassium 5.5 mmol/L (3.3-5.1); Sodium 129 mmol/L (135-145)
[2023-12-21] MEDS: Midodrine HCl 5 MG TABLET PO (22:08)
[2023-12-21] MEDS: PHENobarbitaL 15 MG TABLET 45 MG PO (22:08)
[2023-12-21 22:45] LABS: Anion Gap 15 (12-20); Blood Urea Nitrogen 44 mg/dL (9-16); Calcium 8.3 mg/dL (8.4-10.2); Carbon Dioxide 16 mmol/L (22-29); Chloride 101 mmol/L (96-108); Creatinine Clr Calc Pharmacy 24.3; Estimated Glomerular Filt Rate 19; Glucose Random 140 mg/dL (60-115); Magnesium 2.3 mg/dL (1.6-2.6); Phosphorus 1.4 mg/dL (2.7-4.5); Potassium 4.9 mmol/L (3.3-5.1); Sodium 127 mmol/L (135-145)
[2023-12-21] MEDS: Potassium Phosphate/NS 15 MMOL/250 ML PLAST..BAG 62.5 MMOL IV (23:07)
[2023-12-21] MEDS: Albumin Human 25 % 100 ML IV (23:07)
[2023-12-22] VITALS (33 sets, daily range): BP systolic 78–130; BP diastolic 43–79; PULSE 53–78; RESP 12–20; TEMP 36.1–36.8; O2SAT 92–100; BMI 30.7
[2023-12-22 02:34] LABS: Anion Gap 15 (12-20); Blood Urea Nitrogen 47 mg/dL (9-16); Calcium 8.9 mg/dL (8.4-10.2); Carbon Dioxide 20 mmol/L (22-29); Chloride 100 mmol/L (96-108); Creatinine Clr Calc Pharmacy 25.4; Estimated Glomerular Filt Rate 20; Glucose Random 122 mg/dL (60-115); Potassium 4.9 mmol/L (3.3-5.1); Sodium 130 mmol/L (135-145)
[2023-12-22] MEDS: Dextrose 5 % 1,000 ML 80 ML IVCONT (02:51)
[2023-12-22] MEDS: Albumin Human 25 % 100 ML IV ×2 (04:50→21:21)
[2023-12-22 05:26] LABS: VBG Base Excess -4.5 mmol/L; VBG HCO3 18 mmol/L (22-26); VBG pCO2 28 mmHg; VBG pH 7.42 (7.32-7.43); VBG pO2 38 mmHg
[2023-12-22 05:28] LABS: Venous Blood Gas Refer to POC result
[2023-12-22 06:09] LABS: Basophils Absolute Auto 0.1 X10*3/uL (0.0-0.2); Basophils Percent Auto 1.3 % (0-2); Eosinophils Absolute Auto 0.1 X10*3/uL (0.0-0.4); Hematocrit 22.2 % (42.0-52.0); Hemoglobin 7.3 g/dl (14.0-18.0); Imm Gran Abs Auto 0.04 X10*3/uL (0.00-0.03); Imm Gran Pct Auto 0.6 % (0.0-0.4); Lymphocytes Absolute Auto 2.4 X10*3/uL (1.2-4.9); Lymphocytes Percent Auto 34.2 % (20-40); MANUAL DIFF FLAG SCAN; Mean Corpuscular HGB Conc 32.9 g/dl (31.0-36.0); Mean Corpuscular Hemoglobin 37.1 pg (27.0-33.0); Mean Corpuscular Volume 112.7 fL (80.0-98.0); Mean Platelet Volume 10.7 fL (9.4-12.4); Monocytes Absolute Auto 0.8 X10*3/uL (0.1-1.2); Monocytes Percent Auto 11.6 % (2-11); Neutrophils Absolute Auto 3.7 x10*3/uL (2.0-8.3); Neutrophils Percent Auto 51.3 % (45-73); PLT CLUMP 1; Red Blood Count 1.97 X10*6/uL (4.60-5.80); Red Cell Distribution Width 11.7 % (11.0-16.0); SCAN SMEAR FLAG 1
[2023-12-22 06:11] LABS: Platelet Count 72 X10*3/uL (160-400); White Blood Count 7.1 X10*3/uL (4.8-10.8)
[2023-12-22 06:25] LABS: Alanine Aminotransferase 10 U/L (0-40); Albumin Level 3.8 g/dL (3.5-5.0); Alkaline Phosphatase 54 U/L (39-117); Anion Gap 16 (12-20); Aspartate Amino Transferase 17 U/L (5-37); Blood Urea Nitrogen 45 mg/dL (9-16); Calcium 8.7 mg/dL (8.4-10.2); Carbon Dioxide 16 mmol/L (22-29); Chloride 101 mmol/L (96-108); Creatinine Clr Calc Pharmacy 28.3; Estimated Glomerular Filt Rate 22; Glucose Random 127 mg/dL (60-115); Magnesium 2.4 mg/dL (1.6-2.6); Phosphorus 2.5 mg/dL (2.7-4.5); Potassium 4.5 mmol/L (3.3-5.1); SLIDE REVIEW VERIFIED; Sodium 128 mmol/L (135-145); Total Protein 6.3 g/dL (6.5-8.0)
[2023-12-22 06:39] LABS: Bilirubin Total 0.7 mg/dL (0.0-1.0)
[2023-12-22] MEDS: Midodrine HCl 5 MG TABLET PO ×3 (08:23→20:04)
[2023-12-22] MEDS: Folic Acid 1 MG TABLET PO (08:23)
[2023-12-22] MEDS: PHENobarbitaL 15 MG TABLET 45 MG PO ×2 (08:23→20:04)
[2023-12-22] MEDS: Thiamine HCL 100 MG TABLET PO ×2 (08:23→20:04)
[2023-12-22] MEDS: 0.9 % Sodium Chloride Flush 3 ML SYRINGE IVFLUSH ×3 (08:25→20:10)
--- NOTE | 2023-12-22 10:26 | P.PNCC_ITS ---
Subjective Subjective Date of Service: 12/22/23 Critical Care Time (minutes): 35 Comment: Remains on a small dose of Levophed support Bedside echo showed RV normal size, IVC 1.6 cm not fluctuating Sodium had bumped up to 130 overnight was started on D5 water, repeat sodium is 128 this morning. Small amount of blood in stool noted possibly from hemorrhoids, drop in hemoglobin to 7.3 from 9 Physical Exam 2 Vital Signs: Vital Signs: Last Vital Signs Temp 98.3 F 12/22/23 08:00 Pulse 58 12/22/23 10:25 Resp 14 12/22/23 09:07 BP 79/43 L 12/22/23 10:25 Pulse Ox 99 12/22/23 09:07 O2 Del Method Room Air 12/22/23 09:07 BMI result Body Mass Index 30.7 General: Not in acute distress, ill appearing and tired appearing Nutritional Appearance: well nourished and overweight Eyes: appearance normal, both eyes and all related structures; Alignment and Position: alignment normal and position normal Neck: No lymphadenopathy, no thyromegaly Resp: bilateral air entry equal, no added sounds present Cardio: Regular rate, regular rhythm; Heart sounds: S1 normal heart sound present and S2 normal heart sound present GI: soft, nontender, no guarding, no hepatosplenomegaly : bladder normal to inspection, bladder normal to palpation, no renal angle tenderness Skin: no rashes or lesions noted and elasticity normal Neuro: oriented to person, oriented to place, oriented to time and moves all extremities Objective Data Labs 12/22/23 05:17 12/22/23 05:17 Labs: Laboratory Results - last 24 hr 12/20/23 12/21/23 12/21/23 23:33 11:30 16:49 WBC RBC Hgb Hct MCV MCH MCHC RDW Plt Count MPV Immature Gran % (Auto) Neut % (Auto) Lymph % (Auto) [place] % (Auto) Eos % (Auto) Baso % (Auto) Lymph # (Auto) [place] # (Auto) Eos # (Auto) Baso # (Auto) Abs Immat Gran (auto) Absolute Neuts (auto) Absolute Nucleated RBC Nucleated RBC % (auto) Smear Tech's Comments VBG pH VBG pCO2 VBG pO2 VBG HCO3 VBG O2 Saturation VBG Base Excess Sodium 128 L 129 L Potassium 4.2 5.5 H D Chloride 96 101 Carbon Dioxide 21 L 15 L Anion Gap 15 19 BUN 50 H 52 H Creatinine 4.22 H* 3.76 H Estim Creat Clear Calc 18.7 21.0 Estimated GFR 14 16 Random Glucose 184 H 141 H Calcium 8.3 L 8.8 D Phosphorus Magnesium Total Bilirubin AST ALT Alkaline Phosphatase Total Protein Albumin Stl C. cayetanensis PCR Not Detected Stool Rotavirus A PCR Not Detected Stl Adenov F 40/ PCR Not Detected Stool Astrovirus (PCR) Not Detected Stool Campylobacter PCR Not Detected Stool Cryptosporidium PCR Not Detected Stl Sh Tox Pr E STEC PCR Not Detected Stool E coli O157 PCR Not applicable Stl Enterotoxigenic E PCR Not Detected Stool EPEC (PCR) Not Detected Stool EAEC (PCR) Not Detected Stl E. histolytica PCR Not Detected Stool Giardia Lamblia PCR Not Detected Stl P. shigelloides PCR Not Detected Stool Salmonella PCR Not Detected Stool Sapovirus (PCR) Not Detected Stl Shigella/EIEC PCR Not Detected St Y.enterocolitica PCR Not Detected Stool Vibrio (PCR) Not Detected Stl Vibrio cholerae PCR Not Detected Stl Norovirus GI/GII PCR Not Detected 12/21/23 12/22/23 12/22/23 22:15 02:04 05:15 WBC RBC Hgb Hct MCV MCH MCHC RDW Plt Count MPV Immature Gran % (Auto) Neut % (Auto) Lymph % (Auto) [place] % (Auto) Eos % (Auto) Baso % (Auto) Lymph # (Auto) [place] # (Auto) Eos # (Auto) Baso # (Auto) Abs Immat Gran (auto) Absolute Neuts (auto) Absolute Nucleated RBC Nucleated RBC % (auto) Smear Tech's Comments VBG pH 7.42 VBG pCO2 28 VBG pO2 38 VBG HCO3 18 L VBG O2 Saturation 68.0 VBG Base Excess -4.5 Sodium 127 L 130 L Potassium 4.9 4.9 Chloride 101 100 Carbon Dioxide 16 L 20 L Anion Gap 15 15 BUN 44 H 47 H Creatinine 3.25 H 3.11 H Estim Creat Clear Calc 24.3 25.4 Estimated GFR 19 20 Random Glucose 140 H 122 H Calcium 8.3 L 8.9 D Phosphorus 1.4 L Magnesium 2.3 Total Bilirubin AST ALT Alkaline Phosphatase Total Protein Albumin Stl C. cayetanensis PCR Stool Rotavirus A PCR Stl Adenov F 40/41 PCR Stool Astrovirus (PCR) Stool Campylobacter PCR Stool Cryptosporidium PCR Stl Sh Tox Pr E STEC PCR Stool E coli O157 PCR Stl Enterotoxigenic E PCR Stool EPEC (PCR) Stool EAEC (PCR) Stl E. histolytica PCR Stool Giardia Lamblia PCR Stl P. shigelloides PCR Stool Salmonella PCR Stool Sapovirus (PCR) Stl Shigella/EIEC PCR St Y.enterocolitica PCR Stool Vibrio (PCR) Stl Vibrio cholerae PCR Stl Norovirus GI/GII PCR 12/22/23 05:17 WBC 7.1 RBC 1.97 L Hgb 7.3 L Hct 22.2 L MCV 112.7 H D MCH 37.1 H MCHC 32.9 RDW 11.7 Plt Count 72 L D MPV 10.7 Immature Gran % (Auto) 0.6 H Neut % (Auto) 51.3 Lymph % (Auto) 34.2 [place] % (Auto) 11.6 H Eos % (Auto) 1.0 Baso % (Auto) 1.3 Lymph # (Auto) 2.4 [place] # (Auto) 0.8 Eos # (Auto) 0.1 Baso # (Auto) 0.1 Abs Immat Gran (auto) 0.04 H Absolute Neuts (auto) 3.7 Absolute Nucleated RBC 0.000 Nucleated RBC % (auto) 0.0 Smear Tech's Comments VERIFIED VBG pH VBG pCO2 VBG pO2 VBG HCO3 VBG O2 Saturation VBG Base Excess Sodium 128 L Potassium 4.5 Chloride 101 Carbon Dioxide 16 L Anion Gap 16 BUN 45 H Creatinine 2.85 H Estim Creat Clear Calc 28.3 Estimated GFR 22 Random Glucose 127 H Calcium 8.7 Phosphorus 2.5 L Magnesium 2.4 Total Bilirubin 0.7 AST 17 ALT 10 Alkaline Phosphatase 54 Total Protein 6.3 L Albumin 3.8 Stl C. cayetanensis PCR Stool Rotavirus A PCR Stl Adenov F PCR Stool Astrovirus (PCR) Stool Campylobacter PCR Stool Cryptosporidium PCR Stl Sh Tox Pr E STEC PCR Stool E coli O157 PCR Stl Enterotoxigenic E PCR Stool EPEC (PCR) Stool EAEC (PCR) Stl E. histolytica PCR Stool Giardia Lamblia PCR Stl P. shigelloides PCR Stool Salmonella PCR Stool Sapovirus (PCR) Stl Shigella/EIEC PCR St Y.enterocolitica PCR Stool Vibrio (PCR) Stl Vibrio cholerae PCR Stl Norovirus GI/GII PCR Microbiology Microbiology Results: Microbiology 12/20/23 17:56 Blood - Venous Blood Culture - Preliminary No growth after 24 hours. 12/20/23 17:45 Blood - Venous Blood Culture - Preliminary No growth after 24 hours. Progress Note: A&P Assessment and plan (1) Diarrhea: Status: Acute (2) Hypokalemia: Status: Acute (3) Acute hypotension: Status: Acute (4) Acute hyponatremia: Status: Acute (5) Alcohol abuse: Status: Acute (6) Acute renal failure: Status: Acute (7) Left hip pain: Status: Acute Plan 63-year-old male with past medical history of chronic alcoholism, hypertension, hyperlipidemia presented to the ED with weakness. Apparently he is on alcohol only diet drinking vodka supplemented by multiple beers every day. In the ED he was found to be hypotensive, hyponatremic and having JC so MICU was consulted for admission. Aggressive fluid resuscitation has been hindered by hyponatremia, so hyponatremia slowly corrected and fluid resuscitation is slowly done. Hypotension: Possibly hypovolemic shock from diarrhea and very poor oral intake Continue Levophed support to keep the map above 65 mm Hg Aggressive fluid replacement has been hindered by hyponatremia, sodium is slowly improving Bedside echo showing EF close to normal, RV normal in size, IVC 1.6 cm non fluctuating We will give him 1 L of LR again today Hyponatremia: Presented with a sodium of 122 at 36 hours ago which dropped to 118 but slowly picked up to 130 this morning was started on D5 water currently is 128 Low urine sodium, low urine osmolality suggestive poor solute intake leading to hyponatremia We will stop the D5 water, we will repeat a BMP Acute kidney injury: Secondary to hypovolemia Creatinine slowly trending down, down to 2.8 this morning Acute blood loss anemia: Hemoglobin hemoglobin dropped from 9-7.2 Lower GI bleeding as we saw some streaks of fresh blood in the castro possibly from hemorrhoids We will continue to closely monitor Transfuse if hemoglobin less than 7 grams/deciliter At risk for alcohol withdrawal: On phenobarbital withdrawal protocol Prophylaxis: Pantoprazole, holding heparin due to drop in hemoglobin Quality Stroke Does the patient have a stroke diagnosis?: No VTE Prior VTE?: No VTE Risk Level:: Medical - moderate - high VTE Device Contraindication: N/A - Device Ordered VTE Drug Contraindication: N/A - Med Ordered
[2023-12-22] MEDS: Lactated Ringers 1,000 ML 999 ML IV (11:16)
[2023-12-22 11:27] LABS: Anion Gap 14 (12-20); Blood Urea Nitrogen 43 mg/dL (9-16); Calcium 8.9 mg/dL (8.4-10.2); Carbon Dioxide 21 mmol/L (22-29); Chloride 98 mmol/L (96-108); Creatinine Clr Calc Pharmacy 29.8; Estimated Glomerular Filt Rate 24; Glucose Random 146 mg/dL (60-115); Potassium 4.1 mmol/L (3.3-5.1); Sodium 129 mmol/L (135-145)
[2023-12-22] MEDS: Norepinephrine Bitartrate/D5W 8 MG/250 ML PLAST..BAG 4.92 MG IVCONT (15:46)
[2023-12-22 20:18] LABS: MANUAL DIFF FLAG NO
[2023-12-22 20:20] LABS: Basophils Absolute Auto 0.1 X10*3/uL (0.0-0.2); Basophils Percent Auto 1.4 % (0-2); Eosinophils Absolute Auto 0.1 X10*3/uL (0.0-0.4); Eosinophils Percent Auto 1.5 % (0-4); Hematocrit 24.3 % (42.0-52.0); Hemoglobin 8.6 g/dl (14.0-18.0); Imm Gran Abs Auto 0.04 X10*3/uL (0.00-0.03); Imm Gran Pct Auto 0.5 % (0.0-0.4); Lymphocytes Absolute Auto 2.3 X10*3/uL (1.2-4.9); Lymphocytes Percent Auto 31.2 % (20-40); Mean Corpuscular HGB Conc 35.4 g/dl (31.0-36.0); Mean Corpuscular Hemoglobin 37.9 pg (27.0-33.0); Mean Platelet Volume 9.7 fL (9.4-12.4); Monocytes Absolute Auto 0.7 X10*3/uL (0.1-1.2); Monocytes Percent Auto 9.7 % (2-11); Neutrophils Absolute Auto 4.1 x10*3/uL (2.0-8.3); Neutrophils Percent Auto 55.7 % (45-73); Platelet Count 121 X10*3/uL (160-400); Red Blood Count 2.27 X10*6/uL (4.60-5.80); Red Cell Distribution Width 11.7 % (11.0-16.0); White Blood Count 7.3 X10*3/uL (4.8-10.8)
[2023-12-22 20:37] LABS: Anion Gap 16 (12-20); Blood Urea Nitrogen 39 mg/dL (9-16); Calcium 9.4 mg/dL (8.4-10.2); Carbon Dioxide 20 mmol/L (22-29); Chloride 99 mmol/L (96-108); Creatinine Clr Calc Pharmacy 34.8; Estimated Glomerular Filt Rate 28; Glucose Random 105 mg/dL (60-115); Magnesium 1.8 mg/dL (1.6-2.6); Sodium 130 mmol/L (135-145)
[2023-12-22] MEDS: Sodium,Potassium Phosphates POWD.PACK 2 PACKET PO (21:21)
[2023-12-23] VITALS (31 sets, daily range): BP systolic 87–126; BP diastolic 43–88; PULSE 57–87; RESP 12–18; TEMP 36.2–36.6; O2SAT 93–100; BMI 30.7
[2023-12-23 05:07] LABS: VBG Base Excess 0.2 mmol/L; VBG HCO3 21 mmol/L (22-26); VBG pCO2 24 mmHg; VBG pH 7.54 (7.32-7.43); VBG pO2 33 mmHg
[2023-12-23 05:08] LABS: Basophils Absolute Auto 0.1 X10*3/uL (0.0-0.2); Basophils Percent Auto 1.2 % (0-2); Eosinophils Absolute Auto 0.1 X10*3/uL (0.0-0.4); Eosinophils Percent Auto 1.2 % (0-4); Hemoglobin 8.1 g/dl (14.0-18.0); Imm Gran Abs Auto 0.03 X10*3/uL (0.00-0.03); Imm Gran Pct Auto 0.5 % (0.0-0.4); Lymphocytes Absolute Auto 1.6 X10*3/uL (1.2-4.9); Lymphocytes Percent Auto 27.4 % (20-40); MANUAL DIFF FLAG SCAN; Mean Corpuscular HGB Conc 33.8 g/dl (31.0-36.0); Mean Corpuscular Hemoglobin 36.3 pg (27.0-33.0); Mean Corpuscular Volume 107.6 fL (80.0-98.0); Mean Platelet Volume 10.2 fL (9.4-12.4); Monocytes Absolute Auto 0.5 X10*3/uL (0.1-1.2); Monocytes Percent Auto 9.1 % (2-11); Neutrophils Absolute Auto 3.6 x10*3/uL (2.0-8.3); Neutrophils Percent Auto 60.6 % (45-73); PLT CLUMP 1; Red Blood Count 2.23 X10*6/uL (4.60-5.80); Red Cell Distribution Width 11.7 % (11.0-16.0); SCAN SMEAR FLAG 1
[2023-12-23 05:09] LABS: Platelet Count 92 X10*3/uL (160-400); White Blood Count 5.9 X10*3/uL (4.8-10.8)
[2023-12-23 05:14] LABS: Venous Blood Gas Refer to POC result
[2023-12-23 05:23] LABS: Alanine Aminotransferase 12 U/L (0-40); Albumin Level 4.2 g/dL (3.5-5.0); Alkaline Phosphatase 57 U/L (39-117); Anion Gap 16 (12-20); Aspartate Amino Transferase 23 U/L (5-37); Bilirubin Total 0.8 mg/dL (0.0-1.0); Blood Urea Nitrogen 35 mg/dL (9-16); Calcium 9.5 mg/dL (8.4-10.2); Carbon Dioxide 19 mmol/L (22-29); Chloride 101 mmol/L (96-108); Creatinine Clr Calc Pharmacy 41.9; Estimated Glomerular Filt Rate 35; Glucose Random 103 mg/dL (60-115); Magnesium 1.6 mg/dL (1.6-2.6); Phosphorus 2.1 mg/dL (2.7-4.5); Potassium 4.8 mmol/L (3.3-5.1); Sodium 131 mmol/L (135-145); Total Protein 6.9 g/dL (6.5-8.0)
[2023-12-23 05:26] LABS: SLIDE REVIEW VERIFIED
--- NOTE | 2023-12-23 07:40 | P.PNCC_ITS ---
Subjective Subjective Date of Service: 12/23/23 Critical Care Time (minutes): 60 Physical Exam 2 Vital Signs: Vital Signs: Last Vital Signs Temp 97.3 F 12/23/23 05:00 Pulse 68 12/23/23 07:00 Resp 14 12/23/23 07:00 BP 102/64 12/23/23 07:00 Pulse Ox 99 12/23/23 07:00 O2 Del Method Room Air 12/23/23 07:00 BMI result Body Mass Index 30.7 Const: General: cooperative, comfortable, no acute distress, well developed, alert, awake and Physically active Orientation/consciousness: patient oriented x3 HEENT: Head: Yes normal to inspection, Yes normocephalic and Yes atraumatic Eyes: General: appearance normal, both eyes and all related structures Neck: Neck: Yes normal visual inspection, Yes full ROM, Yes no meningeal signs, Yes trachea midline and Yes supple Chest: Chest palpation & inspection: normal inspection of the chest Resp: Other: no appreciable rales, rhonchi, wheezing Effort & Inspection: normal respiratory effort Cardio: Rate: regular rate Rhythm: regular rhythm GI: Inspection: Yes normal to inspection, No Abdominal wall edema and No distended Palpation (GI): Soft to palpation, not firm, nontender, no guarding and not rigid : Male General Exam: Yes normal external exam Skin: General skin exam: no rashes or lesions noted Neuro: General: patient oriented x3, tone normal, moves all extremities, no meningeal signs and no focal motor deficits Extrem: Other: appreciable 1+ pitting edema to bilateral knees General: Yes full ROM and Yes capillary refill normal Psych: Appearance: grossly normal Objective Data Labs 12/23/23 04:58 12/23/23 04:58 Labs: Laboratory Results - last 24 hr 12/22/23 12/22/23 12/23/23 10:48 20:09 04:55 WBC 7.3 RBC 2.27 L Hgb 8.6 L Hct 24.3 L MCV 107.0 H D MCH 37.9 H MCHC 35.4 RDW 11.7 Plt Count 121 L D MPV 9.7 Immature Gran % (Auto) 0.5 H Neut % (Auto) 55.7 Lymph % (Auto) 31.2 [place] % (Auto) 9.7 Eos % (Auto) 1.5 Baso % (Auto) 1.4 Lymph # (Auto) 2.3 [place] # (Auto) 0.7 Eos # (Auto) 0.1 Baso # (Auto) 0.1 Abs Immat Gran (auto) 0.04 H Absolute Neuts (auto) 4.1 Absolute Nucleated RBC 0.000 Nucleated RBC % (auto) 0.0 Smear Tech's Comments VBG pH 7.54 H VBG pCO2 24 VBG pO2 33 VBG HCO3 21 L VBG O2 Saturation 68.0 VBG Base Excess 0.2 Sodium 129 L 130 L Potassium 4.1 5.0 D Chloride 98 99 Carbon Dioxide 21 L 20 L Anion Gap 14 16 BUN 43 H 39 H Creatinine 2.71 H 2.32 H Estim Creat Clear Calc 29.8 34.8 Estimated GFR 24 28 Random Glucose 146 H 105 Calcium 8.9 9.4 Phosphorus 2.0 L Magnesium 1.8 Total Bilirubin AST ALT Alkaline Phosphatase Total Protein Albumin 12/23/23 04:58 WBC 5.9 RBC 2.23 L Hgb 8.1 L Hct 24.0 L MCV 107.6 H MCH 36.3 H MCHC 33.8 RDW 11.7 Plt Count 92 L MPV 10.2 Immature Gran % (Auto) 0.5 H Neut % (Auto) 60.6 Lymph % (Auto) 27.4 [place] % (Auto) 9.1 Eos % (Auto) 1.2 Baso % (Auto) 1.2 Lymph # (Auto) 1.6 [place] # (Auto) 0.5 Eos # (Auto) 0.1 Baso # (Auto) 0.1 Abs Immat Gran (auto) 0.03 Absolute Neuts (auto) 3.6 Absolute Nucleated RBC 0.000 Nucleated RBC % (auto) 0.0 Smear Tech's Comments VERIFIED VBG pH VBG pCO2 VBG pO2 VBG HCO3 VBG O2 Saturation VBG Base Excess Sodium 131 L Potassium 4.8 Chloride 101 Carbon Dioxide 19 L Anion Gap 16 BUN 35 H Creatinine 1.93 H Estim Creat Clear Calc 41.9 Estimated GFR 35 Random Glucose 103 Calcium 9.5 Phosphorus 2.1 L Magnesium 1.6 Total Bilirubin 0.8 AST 23 ALT 12 Alkaline Phosphatase 57 Total Protein 6.9 Albumin 4.2 Microbiology Microbiology Results: Microbiology 12/20/23 17:56 Blood - Venous Blood Culture - Preliminary No growth after 48 hours. 12/20/23 17:45 Blood - Venous Blood Culture - Preliminary No growth after 48 hours. Progress Note: A&P Assessment and plan (1) Acute hypotension: Status: Acute (2) Acute renal insufficiency: Status: Acute (3) Acute hyponatremia: Status: Acute (4) Alcohol abuse: Status: Acute Plan Patient is a 63 Y M with hypertension, hyperlipidemia, alcohol misuse, presenting initially to emergency department on 12/20 w/ diarrhea, weakness, found to be hyponatremic, hypotensive, admitted for hypovolemia; N: no acute issues CV: hypotension; likely d/t hypovolemia; norepinephrine gtt; wean as tolerated R: no acute issues GI: diarrhea; stool panel unrevealing; some appreciable bright red blood per rectum, thought to be d/t hemorrhoids; to closely monitor : hyponatremia, improved; acute renal insufficiency, improved H: anemia, thrombocytopenia; to hold chemical DVT prophylaxis; to closely monitor ID: no overt stigmata of infection; to closely monitor E: no acute issues P: no acute issues S: alcohol misuse; on phenobarbital protocol Quality Stroke Does the patient have a stroke diagnosis?: No VTE Prior VTE?: No VTE Risk Level:: Medical - moderate - high VTE Device Contraindication: N/A - Device Ordered VTE Drug Contraindication: N/A - Med Ordered
[2023-12-23] MEDS: Folic Acid 1 MG TABLET PO (09:00)
[2023-12-23] MEDS: Thiamine HCL 100 MG TABLET PO ×2 (09:00→20:16)
[2023-12-23] MEDS: Midodrine HCl 10 MG TABLET PO ×3 (09:00→17:47)
[2023-12-23] MEDS: PHENobarbitaL 15 MG TABLET 45 MG PO (09:01)
[2023-12-23] MEDS: 0.9 % Sodium Chloride Flush 3 ML SYRINGE IVFLUSH ×3 (09:01→20:16)
--- NOTE | 2023-12-23 10:54 | PHA.PROG ---
Admission Date/Time: December 21, 2023 00:16 Indication: Bacteremia Weight in k.6 kg Adjusted body weight in Kg: [place] body weight in Kg: Obesity Dosing Indication % IBW: Serum Creatinine - Last 168 Hours 12/20/23 12/20/23 12/21/23 17:22 21:58 01:24 Creatinine 5.88 H* 5.05 H* 5.05 H* 12/21/23 12/21/23 12/21/23 06:43 11:30 16:49 Creatinine 4.60 H* 4.22 H* 3.76 H 12/21/23 12/22/23 12/22/23 22:15 02:04 05:17 Creatinine 3.25 H 3.11 H 2.85 H 12/22/23 12/22/23 12/23/23 10:48 20:09 04:58 Creatinine 2.71 H 2.32 H 1.93 H Estimated CrCl and GFR - Last 168 Hours 12/20/23 12/20/23 12/21/23 17:22 21:58 01:24 Estim Creat Clear Calc 13.4 15.6 15.7 Estimated GFR 10 12 12 12/21/23 12/21/23 12/21/23 06:43 11:30 16:49 Estim Creat Clear Calc 17.2 18.7 21.0 Estimated GFR 13 14 16 12/21/23 12/22/23 12/22/23 22:15 02:04 05:17 Estim Creat Clear Calc 24.3 25.4 28.3 Estimated GFR 19 20 22 12/22/23 12/22/23 12/23/23 10:48 20:09 04:58 Estim Creat Clear Calc 29.8 34.8 41.9 Estimated GFR 24 28 35 Vancomycin Loading Dose: 2g x1 Current Vancomycin Dosing Regimen: 1.25g Q24H Vancomycin Monitoring using AUC goal of 400 - 600 range with trough as surrogate marker: 527 mg/L, trough of 16.9 mg/L Date and Time for next Vancomycin Level to be drawn: 12/24 @0900 Pharmacist Comments on Vancomycin Plan: Will give a 2g load x 1 (21 mg/kg), tomorrow 12/23 start 1.25g q24h and check a trough on 12/24 before 3rd infusion. Vancomycin dosing will take advantage of [employer] as a clinical decision support tool that uses Bayesian modeling to calculate individual patient's pharmacokinetic parameters and forecast the patient's drug concentration time course with the target goal AUC 24 range of 400 - 600 mg/L/hr.
[2023-12-23] MEDS: vancomycin/NS 2,000 MG/500 ML PLAST..BAG 250 MG IV (11:41)
--- NOTE | 2023-12-23 14:40 | MHC.CM.PN ---
Met w/pt in ICU to review d/c planning needs: pt not forthcoming with information and kept eyes closed during assessment: Pt resides alone, has no DME or services and declines needing medical oversight. Pt verified PCP and declined HCP completion. Pt states he may call family for transportation to home but may need assistance. CM to follow up when pt is feeling improved.
[2023-12-23 15:04] LABS: Appearance Urine Clear; Color Urine Yellow; Glucose Urine UA Negative (Negative); Leukocyte Esterase Urine Trace (Negative); Nitrite Urine Negative (Negative); PH 5.5 (5.0-9.0); UMIC TRIGGER UACC YES; Urine Blood Negative (Negative); Urine Ketones Negative (Negative); Urine Protein Trace mg/dL (Neg-Trace)
[2023-12-23 15:07] LABS: Bacteria Urine None Seen (None Seen); Hyaline Casts Urine 0-2 /LPF (0-2); RBC Urine 0-2 /HPF (0-2); Squamous Epithelial Cell Urine 0-2 /HPF (0-2); WBC Urine 0-5 /HPF (0-5)
[2023-12-23 18:48] LABS: Cortisol Random 11.9 ug/dL; TSH reflex Free T4 4.61 uIU/mL (0.32-4.0)
--- NOTE | 2023-12-23 19:12 | PC.NURSE ---
Pt alert, oriented and appropriate. VS as noted. Levophed drip changed from R/U arm to R a/c as after site flushed and checked for blood return which was good. It was reflushed and started leaking with second flush. Flushing was immediately stopped and pt denied symptoms. Line was removed and saline soak applied. site checked and no redness, swelling, pain noted. Positive blood culture result immediately reported to Dr. Anna in her office. Vanco given as ordered once 2nd line placed by U/S. Pt denied any complaint most of day. He did move his bowels x4 small, soft. Pt reports hemorrhoids and barrier cream applied. ROAD PACKER OPERATOR Lesli tenorio and oncoming RN aware.
[2023-12-23 20:05] LABS: Free T4 (Free Thyroxine) 0.97 ng/dL (0.71-1.85)
[2023-12-23] MEDS: PHENobarbitaL 15 MG TABLET PO (20:16)
--- NOTE | 2023-12-23 20:46 | PC.NURSE ---
Addendum entered by Zuly Mcgee RN 12/24/23 06:06: 06:00 hour: BP trend discussed with SUPERVISOR GLYCERIN. SUPERVISOR GLYCERIN orders to continue levophed gtt at current rate. Magnesium back critical at 1.4 per lab this morning. SUPERVISOR GLYCERIN notified, verbalized plan for repletion to sheet writer. Addendum entered by Zuly Mcgee RN 12/24/23 03:08: Levophed gtt restarted for map less than 65 per SUPERVISOR GLYCERIN Yash verbal orders. Gtt titrated per MAR parameters with +effect. See MAR and associated vitals for full details. Original Note: Assumed care of patient at 19:00. Pt continues/seen in ICU. Attempting to wean/discontinue levo gtt as tolerated. Pt continues on CIWA protocol. Seizure precautions in place. Pt on scheduled phenobarbital. Pt with frequent BMs per report. Pt had BM on commode for sheet writer brown, mushy soft tonight. External hemorrhoids visible and palpable on providing toileting care. Pt has hx of hemorrhoids, known to MD per chart review, as well as to covering SUPERVISOR GLYCERIN per discussion. [employer] asked patient if they are currently bothering him or causing discomfort, and if he uses any topical treatments or other interventions at home. [employer] offered to speak with SUPERVISOR GLYCERIN for orders though patient denies using anything for hemorrhoids at home and declined sheet writer offer to speak with SUPERVISOR GLYCERIN for prn interventions. No bleeding noted. This was discussed with SUPERVISOR GLYCERIN. Pt continues with in-room camera, bed and chair alarms in addition to other high fall measures. Call croft within reach and frequently educated on use. Plan of care continues.
[2023-12-23] MEDS: Melatonin 3 MG TABLET 6 MG PO (22:05)
[2023-12-24] VITALS (32 sets, daily range): BP systolic 90–133; BP diastolic 40–78; PULSE 58–88; RESP 14–22; TEMP 36.9–37.8; O2SAT 91–100; BMI 31.4
[2023-12-24] MEDS: Norepinephrine Bitartrate/D5W 8 MG/250 ML PLAST..BAG 3.28 MG IVCONT (00:25)
[2023-12-24 06:01] LABS: Anion Gap 16 (12-20); Blood Urea Nitrogen 26 mg/dL (9-16); Calcium 9.5 mg/dL (8.4-10.2); Carbon Dioxide 19 mmol/L (22-29); Chloride 103 mmol/L (96-108); Creatinine Clr Calc Pharmacy 55.6; Estimated Glomerular Filt Rate 48; Glucose Random 104 mg/dL (60-115); Magnesium 1.4 mg/dL (1.6-2.6); Phosphorus 2.6 mg/dL (2.7-4.5); Potassium 4.7 mmol/L (3.3-5.1); Sodium 133 mmol/L (135-145)
[2023-12-24 06:13] LABS: Basophils Absolute Auto 0.1 X10*3/uL (0.0-0.2); Basophils Percent Auto 1.2 % (0-2); Eosinophils Absolute Auto 0.1 X10*3/uL (0.0-0.4); Eosinophils Percent Auto 1.7 % (0-4); Hematocrit 21.9 % (42.0-52.0); Hemoglobin 7.6 g/dl (14.0-18.0); Imm Gran Abs Auto 0.02 X10*3/uL (0.00-0.03); Imm Gran Pct Auto 0.3 % (0.0-0.4); Lymphocytes Absolute Auto 1.6 X10*3/uL (1.2-4.9); Lymphocytes Percent Auto 26.1 % (20-40); Mean Corpuscular HGB Conc 34.7 g/dl (31.0-36.0); Mean Corpuscular Hemoglobin 37.1 pg (27.0-33.0); Mean Corpuscular Volume 106.8 fL (80.0-98.0); Mean Platelet Volume 9.5 fL (9.4-12.4); Monocytes Absolute Auto 0.7 X10*3/uL (0.1-1.2); Monocytes Percent Auto 11.2 % (2-11); Neutrophils Absolute Auto 3.6 x10*3/uL (2.0-8.3); Neutrophils Percent Auto 59.5 % (45-73); Platelet Count 125 X10*3/uL (160-400); Red Blood Count 2.05 X10*6/uL (4.60-5.80); Red Cell Distribution Width 11.8 % (11.0-16.0)
[2023-12-24] MEDS: Magnesium Sulfate/H2O 2 GM/50 ML PIGGYBACK IV (06:19)
[2023-12-24 06:27] LABS: MANUAL DIFF FLAG NO
--- NOTE | 2023-12-24 07:47 | P.PNCC_ITS ---
Subjective Subjective Date of Service: 12/24/23 Interval History: no significant overnight events Critical Care Time (minutes): 60 Physical Exam 2 Vital Signs: Vital Signs: Last Vital Signs Temp 98.5 F 12/24/23 03:46 Pulse 69 12/24/23 07:00 Resp 15 12/24/23 07:00 BP 114/78 12/24/23 07:00 Pulse Ox 99 12/24/23 07:00 O2 Del Method Room Air 12/24/23 07:00 BMI result Body Mass Index 31.4 Const: General: cooperative, healthy appearing, comfortable, no acute distress, well developed, alert, awake and Physically active O rientation/consciousness: patient oriented x3 HEENT: Head: Yes normal to inspection, Yes normocephalic and Yes atraumatic Eyes: General: appearance normal, both eyes and all related structures Neck: Neck: Yes normal visual inspection, Yes full ROM, Yes no meningeal signs, Yes trachea midline and Yes supple Chest: Chest palpation & inspection: normal inspection of the chest Resp: Other: no appreciable rales, rhonchi, wheezing Effort & Inspection: normal respiratory effort Cardio: Rate: regular rate Rhythm: regular rhythm GI: Inspection: Yes normal to inspection, No Abdominal wall edema and No distended Palpation (GI): Soft to palpation, not firm, nontender, no guarding and not rigid Skin: General skin exam: no rashes or lesions noted Neuro: General: patient oriented x3, tone normal, moves all extremities, no meningeal signs and no focal motor deficits Extrem: General: Yes normal to inspection, Yes full ROM, Yes capillary refill normal and Yes no clubbing, cyanosis or edema Psych: Appearance: grossly normal Objective Data Labs 12/24/23 06:06 12/24/23 05:01 Labs: Laboratory Results - last 24 hr 12/23/23 12/23/23 12/23/23 08:23 17:55 18:05 WBC RBC Hgb Hct MCV MCH MCHC RDW Plt Count MPV Immature Gran % (Auto) Neut % (Auto) Lymph % (Auto) [place] % (Auto) Eos % (Auto) Baso % (Auto) Lymph # (Auto) [place] # (Auto) Eos # (Auto) Baso # (Auto) Abs Immat Gran (auto) Absolute Neuts (auto) Absolute Nucleated RBC Nucleated RBC % (auto) Hold Purple Top SEE NOTE Sodium Potassium Chloride Carbon Dioxide Anion Gap BUN Creatinine Estim Creat Clear Calc Estimated GFR Random Glucose Lactic Acid 2.0 Calcium Phosphorus Magnesium TSH 4.61 H Free T4 0.97 Random Cortisol 11.9 Urine Color Urine Appearance Urine pH Ur Specific [place] Urine Protein Urine Glucose (UA) Urine Ketones Urine Blood Urine Nitrite Ur Leukocyte Esterase Urine RBC Urine WBC Ur Squamous Epith Cells Urine Bacteria Hyaline Casts Blood Type O Positive Antibody Screen NEGATIVE 12/23/23 12/24/23 12/24/23 Unknown 05:01 06:06 WBC 6.0 RBC 2.05 L Hgb 7.6 L Hct 21.9 L MCV 106.8 H MCH 37.1 H MCHC 34.7 RDW 11.8 Plt Count 125 L D MPV 9.5 Immature Gran % (Auto) 0.3 Neut % (Auto) 59.5 Lymph % (Auto) 26.1 [place] % (Auto) 11.2 H Eos % (Auto) 1.7 Baso % (Auto) 1.2 Lymph # (Auto) 1.6 [place] # (Auto) 0.7 Eos # (Auto) 0.1 Baso # (Auto) 0.1 Abs Immat Gran (auto) 0.02 Absolute Neuts (auto) 3.6 Absolute Nucleated RBC 0.000 Nucleated RBC % (auto) 0.0 Hold Purple Top Sodium 133 L Potassium 4.7 Chloride 103 Carbon Dioxide 19 L Anion Gap 16 BUN 26 H Creatinine 1.47 H Estim Creat Clear Calc 55.6 Estimated GFR 48 Random Glucose 104 Lactic Acid Calcium 9.5 Phosphorus 2.6 L Magnesium 1.4 L* TSH Free T4 Random Cortisol Urine Color Yellow Urine Appearance Clear Urine pH 5.5 Ur Specific [place] 1.010 Urine Protein Trace Urine Glucose (UA) Negative Urine Ketones Negative Urine Blood Negative Urine Nitrite Negative Ur Leukocyte Esterase Trace H Urine RBC 0-2 Urine WBC 0-5 Ur Squamous Epith Cells 0-2 Urine Bacteria None Seen Hyaline Casts 0-2 Blood Type Antibody Screen Microbiology Microbiology Results: Microbiology 12/20/23 17:45 Blood - Venous Blood Culture - Preliminary Prelim: GPC Gram Stain only 12/20/23 17:56 Blood - Venous Blood Culture - Preliminary No growth after 48 hours. Progress Note: A&P Assessment and plan (1) Diarrhea: Status: Acute (2) Acute hypotension: Status: Acute (3) Acute hyponatremia: Status: Acute (4) Alcohol abuse: Status: Acute Plan Patient is a 63 Y M with hypertension, hyperlipidemia, alcohol misuse, presenting initially to emergency department on 12/20 w/ diarrhea, weakness, found to be hyponatremic, hypotensive, admitted for hypovolemia; N: no acute issues CV: hypotension; likely d/t hypovolemia; norepinephrine gtt; wean as tolerated; stated midodrine, fludrocortisone R: no acute issues GI: diarrhea, resolved; stool panel unrevealing; some appreciable bright red blood per rectum, thought to be d/t hemorrhoids; to closely monitor : hyponatremia, improved; acute renal insufficiency, improved H: anemia, thrombocytopenia; to hold chemical DVT prophylaxis; to closely monitor ID: no overt stigmata of infection; to closely monitor; BCx demonstrating gram positive cocci; empiric vancomycin; to follow-up BCx E: no acute issues P: no acute issues S: alcohol misuse; on phenobarbital protocol Quality Stroke Does the patient have a stroke diagnosis?: No VTE Prior VTE?: No VTE Risk Level:: Medical - moderate - high VTE Device Contraindication: N/A - Device Ordered VTE Drug Contraindication: Treatment Not Tolerated
[2023-12-24] MEDS: Potassium Phosphate/NS 15 MMOL/250 ML PLAST..BAG 62.5 MMOL IV (08:04)
[2023-12-24] MEDS: 0.9 % Sodium Chloride Flush 3 ML SYRINGE IVFLUSH ×3 (08:04→20:42)
[2023-12-24] MEDS: Folic Acid 1 MG TABLET PO (08:05)
[2023-12-24] MEDS: PHENobarbitaL 15 MG TABLET PO ×2 (08:05→20:42)
[2023-12-24] MEDS: Thiamine HCL 100 MG TABLET PO ×2 (08:05→20:42)
[2023-12-24] MEDS: Midodrine HCl 10 MG TABLET PO ×3 (08:05→16:00)
[2023-12-24] MEDS: Fludrocortisone Acetate 0.1 MG TABLET PO (10:23)
[2023-12-24 11:20] LABS: Lipase 140 U/L (8-78)
--- NOTE | 2023-12-24 14:28 | MHC.CM.PN ---
Pt remains on vasopressors: med adjustment for BP optimization: D/C plan remains for pt to return to home - referred to [facility] for BP monitoring and medication teaching upon d/c. Family to transport. CM to follow for d/c planning needs.
[2023-12-24] MEDS: iohexoL 350 MG/ML 75 ML INFUS..BTL 85 ML IV (15:07)
[2023-12-24 22:10] LABS: MANUAL DIFF FLAG NO
[2023-12-24 22:11] LABS: Basophils Percent Auto 0.2 % (0-2); Eosinophils Percent Auto 0.1 % (0-4); Hematocrit 23.5 % (42.0-52.0); Hemoglobin 8.2 g/dl (14.0-18.0); Imm Gran Abs Auto 0.03 X10*3/uL (0.00-0.03); Imm Gran Pct Auto 0.3 % (0.0-0.4); Lymphocytes Absolute Auto 0.7 X10*3/uL (1.2-4.9); Lymphocytes Percent Auto 8.5 % (20-40); Mean Corpuscular HGB Conc 34.9 g/dl (31.0-36.0); Mean Corpuscular Hemoglobin 37.3 pg (27.0-33.0); Mean Corpuscular Volume 106.8 fL (80.0-98.0); Mean Platelet Volume 8.8 fL (9.4-12.4); Monocytes Absolute Auto 0.5 X10*3/uL (0.1-1.2); Monocytes Percent Auto 6.1 % (2-11); Neutrophils Absolute Auto 7.4 x10*3/uL (2.0-8.3); Neutrophils Percent Auto 84.8 % (45-73); Platelet Count 112 X10*3/uL (160-400); Red Cell Distribution Width 12.1 % (11.0-16.0); White Blood Count 8.8 X10*3/uL (4.8-10.8)
[2023-12-25] VITALS (28 sets, daily range): BP systolic 86–135; BP diastolic 47–74; PULSE 63–91; RESP 12–20; TEMP 36.6–38.8; O2SAT 95–100; BMI 29.9
--- NOTE | 2023-12-25 05:01 | PC.NURSE ---
Pt AOx3, forgetful at times. He has been incontinent at times of urine. Pt has been lethargic/drowsy. He has been NPO since midnight for HIDA scan. He denies any pain at this time. His sister, Kim called earlier in this RN's shift and spoke to the provider. Kim was concerned about pt's labs, provider had labs drawn see lab results. Around 1999 pt's temp was 99.1f, at 0152 it was 101.8f. Provider notified, lactic and blood cultures drawn. Lactic came back at 1.0. At 0455 temp was 100.0f. Call croft within reach, bed alarm on, camera on.
[2023-12-25 05:54] LABS: MANUAL DIFF FLAG NO
[2023-12-25 05:57] LABS: Basophils Percent Auto 0.3 % (0-2); Eosinophils Percent Auto 0.3 % (0-4); Hematocrit 21.2 % (42.0-52.0); Hemoglobin 7.5 g/dl (14.0-18.0); Imm Gran Abs Auto 0.04 X10*3/uL (0.00-0.03); Imm Gran Pct Auto 0.6 % (0.0-0.4); Lymphocytes Absolute Auto 0.9 X10*3/uL (1.2-4.9); Lymphocytes Percent Auto 13.5 % (20-40); Mean Corpuscular HGB Conc 35.4 g/dl (31.0-36.0); Mean Corpuscular Hemoglobin 37.7 pg (27.0-33.0); Mean Corpuscular Volume 106.5 fL (80.0-98.0); Mean Platelet Volume 9.5 fL (9.4-12.4); Monocytes Absolute Auto 0.5 X10*3/uL (0.1-1.2); Monocytes Percent Auto 8.1 % (2-11); Neutrophils Absolute Auto 5.2 x10*3/uL (2.0-8.3); Neutrophils Percent Auto 77.2 % (45-73); Platelet Count 119 X10*3/uL (160-400); Red Blood Count 1.99 X10*6/uL (4.60-5.80); Red Cell Distribution Width 12.1 % (11.0-16.0); White Blood Count 6.7 X10*3/uL (4.8-10.8)
[2023-12-25 06:40] LABS: Anion Gap 15 (12-20); Blood Urea Nitrogen 21 mg/dL (9-16); Calcium 9.2 mg/dL (8.4-10.2); Carbon Dioxide 21 mmol/L (22-29); Chloride 104 mmol/L (96-108); Creatinine Clr Calc Pharmacy 55.4; Estimated Glomerular Filt Rate 49; Glucose Random 97 mg/dL (60-115); Magnesium 1.4 mg/dL (1.6-2.6); Sodium 136 mmol/L (135-145)
[2023-12-25] MEDS: Magnesium Sulfate/H2O 2 GM/50 ML PIGGYBACK IV (07:23)
--- NOTE | 2023-12-25 07:24 | PM.CCPN ---
Subjective Subjective Date of Service: 12/25/23 Interval History: intermittent hypotension overnight, though clincially stable; lactic reassuring; blood cultures repeated; upon assessment, patient hemodynamically, clinically stable; abdominal pain resolved Critical Care Time (minutes): 0 Physical Exam Vital Signs: Vital Signs: Last Vital Signs Temp 101.0 F H 12/25/23 05:00 Pulse 74 12/25/23 05:55 Resp 15 12/25/23 05:55 BP 97/58 L 12/25/23 05:55 Pulse Ox 98 12/25/23 05:55 O2 Del Method Room Air 12/25/23 05:55 BMI result Body Mass Index 29.9 Const: General: cooperative, healthy appearing, comfortable, no acute distress, well developed, alert, awake and Physically active Orientation/consciousness: patient oriented x3 HEENT: Head: Yes normal to inspection, Yes normocephalic and Yes atraumatic Eyes: General: appearance normal, both eyes and all related structures Neck: Neck: Yes normal visual inspection, Yes full ROM, Yes no meningeal signs, Yes trachea midline and Yes supple Chest: Chest palpation & inspection: normal inspection of the chest Resp: Other: no appreciable rales, rhonchi, wheezing Effort & Inspection: normal respiratory effort Cardio: Rate: regular rate Rhythm: regular rhythm GI: Other: no appreciable guarding, rebound; no appreciable tenderness to palpation throughout Inspection: Yes normal to inspection, No Abdominal wall edema and No distended Palpation (GI): Soft to palpation, not firm, nontender, no guarding and not rigid Skin: General skin exam: no rashes or lesions noted Neuro: General: patient oriented x3, tone normal, moves all extremities, no meningeal signs and no focal motor deficits Extrem: Other: appreciable trace pitting edema to bilateral shins General: Yes normal to inspection, Yes full ROM and Yes capillary refill normal Psych: Appearance: grossly normal Objective Data Labs 12/25/23 05:24 12/25/23 05:24 Labs: Laboratory Results - last 24 hr 12/24/23 12/24/23 12/25/23 10:59 22:05 02:35 WBC 8.8 RBC 2.20 L Hgb 8.2 L Hct 23.5 L MCV 106.8 H MCH 37.3 H MCHC 34.9 RDW 12.1 Plt Count 112 L MPV 8.8 L Immature Gran % (Auto) 0.3 Neut % (Auto) 84.8 H Lymph % (Auto) 8.5 L [place] % (Auto) 6.1 Eos % (Auto) 0.1 Baso % (Auto) 0.2 Lymph # (Auto) 0.7 L [place] # (Auto) 0.5 Eos # (Auto) 0.0 Baso # (Auto) 0.0 Abs Immat Gran (auto) 0.03 Absolute Neuts (auto) 7.4 Absolute Nucleated RBC 0.000 Nucleated RBC % (auto) 0.0 Hold Purple Top SEE NOTE Sodium Potassium Chloride Carbon Dioxide Anion Gap BUN Creatinine Estim Creat Clear Calc Estimated GFR Random Glucose Lactic Acid Calcium Phosphorus Magnesium Lipase 140 H 12/25/23 12/25/23 02:37 05:24 WBC 6.7 RBC 1.99 L Hgb 7.5 L Hct 21.2 L MCV 106.5 H MCH 37.7 H MCHC 35.4 RDW 12.1 Plt Count 119 L MPV 9.5 Immature Gran % (Auto) 0.6 H Neut % (Auto) 77.2 H Lymph % (Auto) 13.5 L [place] % (Auto) 8.1 Eos % (Auto) 0.3 Baso % (Auto) 0.3 Lymph # (Auto) 0.9 L [place] # (Auto) 0.5 Eos # (Auto) 0.0 Baso # (Auto) 0.0 Abs Immat Gran (auto) 0.04 H Absolute Neuts (auto) 5.2 Absolute Nucleated RBC 0.000 Nucleated RBC % (auto) 0.0 Hold Purple Top Sodium 136 Potassium 4.0 Chloride 104 Carbon Dioxide 21 L Anion Gap 15 BUN 21 H Creatinine 1.44 H Estim Creat Clear Calc 55.4 Estimated GFR 49 Random Glucose 97 Lactic Acid 1.0 Calcium 9.2 Phosphorus 4.0 Magnesium 1.4 L* Lipase Microbiology Microbiology Results: Microbiology 12/20/23 17:45 Blood - Venous Blood Culture - Final Coag negative Staphylococcus 12/20/23 17:56 Blood - Venous Blood Culture - Preliminary No growth after 48 hours. Progress Note: A&P Assessment and plan (1) Diarrhea: Status: Acute (2) Acute hypotension: Status: Acute (3) Acute renal insufficiency: Status: Acute (4) Acute hyponatremia: Status: Acute Plan Patient is a 63 Y M with hypertension, hyperlipidemia, alcohol misuse, presenting initially to emergency department on 12/20 w/ diarrhea, weakness, found to be hyponatremic, hypotensive, admitted for hypovolemia; N: no acute issues CV: hypotension, improved; likely d/t hypovolemia; s/p norepinephrine gtt; started on midodrine, fludrocortisone R: no acute issues GI: diarrhea, resolved; stool panel unrevealing; some appreciable bright red blood per rectum, thought to be d/t hemorrhoids; to closely monitor : hyponatremia, improved; acute renal insufficiency, improved H: anemia, thrombocytopenia; to hold chemical DVT prophylaxis; to closely monitor ID: abdominal pain, resolved; US A, CT A/P demonstrating possible cholecystitis; to follow-up HIDA today E: no acute issues P: no acute issues S: alcohol misuse; on phenobarbital protocol Quality Stroke Does the patient have a stroke diagnosis?: No VTE Prior VTE?: No VTE Risk Level:: Medical - moderate - high VTE Device Contraindication: N/A - Device Ordered VTE Drug Contraindication: Treatment Not Tolerated
[2023-12-25] MEDS: 0.9 % Sodium Chloride Flush 3 ML SYRINGE IVFLUSH ×3 (07:28→23:38)
--- NOTE | 2023-12-25 07:44 | PC.NURSE ---
Patient off the unit for Hida scan
[2023-12-25] MEDS: Fludrocortisone Acetate 0.1 MG TABLET PO (10:10)
[2023-12-25] MEDS: Thiamine HCL 100 MG TABLET PO ×2 (10:10→20:20)
[2023-12-25] MEDS: Midodrine HCl 10 MG TABLET PO ×3 (10:10→17:08)
[2023-12-25] MEDS: PHENobarbitaL 15 MG TABLET PO (10:10)
[2023-12-25] MEDS: Folic Acid 1 MG TABLET PO (10:10)
[2023-12-25] MEDS: Lactated Ringers 500 ML IVCONT (12:47)
[2023-12-25 13:53] LABS: Vancomycin Random 9.2 mcg/mL (15-20)
--- NOTE | 2023-12-25 15:00 | MHC.CM.PN ---
Pt may transfer to medical floor: broad [facility] referrals made - [facility] accepted pt should he return to home. CM to follow.
--- NOTE | 2023-12-25 15:31 | P.CONGS_ITS ---
History of Present Illness Consult details Consult date: 12/25/23 Narrative: 63-year-old male with multiple medical problems including morbid obesity, alcohol abuse, tobacco abuse, impaired glucose tolerance, admitted 5 days ago because of weakness, and overall sense of being ill. He has had multiple falls at home as well. He describes being dizzy at that time. He had a lot of diarrhea as well prior to admission. He was noted to be very hypotensive with a systolic in the 70s so he was admitted the the ICU. He was hyponatremic as well He had been slowly improving. Stool panel was unremarkable. He complained of some transient abdominal pain yesterday afternoon. This has since resolved. He also had another episode of some hypotension last night. He was therefore sent for a CT scan of the abdomen. This was suggestive of acute cholecystitis with thickening of the gallbladder wall. He currently denies abdominal pain. He says he feels better. Review of Systems 2 Constitutional: Constitutional: Denies chills, Denies fever(s) and Reports weakness Cardiovascular: Cardiovascular: Denies chest pain Respiratory: Respiratory: Denies cough Gastrointestinal: Gastrointestinal: Reports diarrhea Genitourinary: Genitourinary: Denies difficulty urinating Neurologic: Reports weakness PMFSH Past Medical History Medical History (Updated 12/25/23 @ 15:37 by Carlton Glynn MD) Cholecystitis Impaired glucose tolerance Vitamin D deficiency Anxiety and depression Alcohol abuse Tobacco abuse Post traumatic stress disorder (PTSD) Obesity (BMI 30-39.9) Hypercholesterolemia GERD (gastroesophageal reflux disease) Hypertension Family History Family History Father Renal cancer Other Substance use disorder Surgical History Surgical History History of esophagogastroduodenoscopy (EGD) Hx of colonoscopy History of tonsillectomy Social History Social History Household Members: None Housing: House Do you presently have visiting nurse or other home services: No Alcohol intake: current Alcohol intake frequency: 3 or more drinks per day Alcohol type: hard liquor Patient Tobacco Use Status: Current everyday Tobacco user Tobacco use type: Cigarette Cigarette Packs Per Day: 1 Cigarettes Per Day: 15 Years Smoked: 50 Smoked in Last 30 Days: Yes e-Cigarette/Vaping Use: Never Used Patient Interested in Nicotine Replacement: No Patient Given Instructions on How to Stop Smoking: No Second Hand Smoke Exposure: Yes Use of substances other than those prescribed or required for medical reasons: No Substance Use Type: Marijuana Currently Displaying Signs/Symptoms of Drug Intoxication Withdrawal: No Any prior treatment program specific to substance use: No Have you been hit, kicked, punched, or otherwise hurt by someone within the past year? If so, by whom?: No Do you feel safe in your current relationship?: No Current Relationship Is there a partner from a previous relationship who is making you feel unsafe now?: No Are you made to feel afraid or neglected: No Christianity Healthcare Practices: Christian Advance Directives: No Advance Directives Information Provided: No Do you have a plan to hurt others: No Plan Recently lost weight without trying: Yes How much weight loss: 34pounds or more Eating poorly because of decreased appetite: Yes Nutrition screen score: 7 Nutrition Risks: Poor intake 0-25% >4 days service: No Current occupational status: retired Cognitive needs: No Hearing needs: No Vision needs: Yes (Reading glasses) Meds Allergies Allergy/AdvReac Type Severity Reaction Status Date / Time acetaminophen [From TYLENOL] Allergy Intermediate HIVES Verified 12/20/23 16:40 apple [APPLES] Allergy Intermediate HIVES Verified 12/20/23 16:40 Active Medications: Current Medications Fludrocortisone Acetate (Fludrocortisone Acetate 0.1 Mg Tablet) 0.1 mg PO DAILY [facility] Last Admin: 12/25/23 10:10 Dose: 0.1 mg Folic Acid (Folic Acid 1 Mg Tablet) 1 mg PO DAILY [facility] Last Admin: 12/25/23 10:10 Dose: 1 mg Heparin Sodium (Porcine) (Heparin Sodium,Porcine 5,000 Unit/Ml Vial) 5,000 unit SUBCUT TID [facility] Last Admin: 12/21/23 22:08 Dose: 5,000 unit Piperacillin Sod/Tazobactam (Sod 3.375 gm/ Sodium Chloride) 50 mls @ 100 mls/hr IV Q6H [facility] Norepinephrine Bitartrate (Levophed) 8 mg in 250 mls @ 0 mls/hr IVCONT .Q0M [facility]; Protocol Midodrine (Midodrine Hcl 10 Mg Tablet) 10 mg PO TID@0900,1300,1700 [facility] Last Admin: 12/25/23 12:47 Dose: 10 mg Pharmacy Consult (Consult Rx Etoh Phenob Po Only) 1 each MISCELLANE ONCE PRN; Protocol PRN Reason: Consult order Phenobarbital (Phenobarbital 15 Mg Tablet) 15 mg PO DAILY [facility] Stop: 12/27/23 09:01 Sodium Chloride (0.9 % Sodium Chloride Flush 3 Ml Syringe) 3 ml IVFLUSH QSHIFT [facility] Last Admin: 12/25/23 07:28 Dose: 3 ml Thiamine HCl (Thiamine Hcl 100 Mg Tablet) 100 mg PO BID [facility] Last Admin: 12/25/23 10:10 Dose: 100 mg Home Medications ?Medication ?Instructions ?Recorded ?Confirmed ?Last Taken ?Type omeprazole 40 mg capsule,delayed 40 mg PO DAILY@0630 12/21/23 12/21/23 12/20/23 History release Physical Exam 2 Vital Signs: Vital Signs: Last Vital Signs Temp 98.7 F 12/25/23 13:18 Pulse 74 12/25/23 15:00 Resp 14 12/25/23 15:00 BP 120/62 12/25/23 15:00 Pulse Ox 100 12/25/23 15:00 O2 Del Method Room Air 12/25/23 15:00 BMI result Body Mass Index 29.9 Const: General: comfortable and no acute distress Eyes: Other: Nonicteric Resp: Effort & Inspection: normal respiratory effort Cardio: Rate: regular rate GI: Palpation (GI): Soft to palpation, not firm, nontender and no guarding Results Labs 12/27/23 06:32 12/27/23 06:32 Labs: Abnormal lab results 12/23/23 12/24/23 12/25/23 Range/Units 08:23 22:05 05:24 RBC 2.20 L 1.99 L (4.60-5.80) X10*6/uL Hgb 8.2 L 7.5 L (14.0-18.0) g/dl Hct 23.5 L 21.2 L (42.0-52.0) % MCV 106.8 H 106.5 H (80.0-98.0) fL MCH 37.3 H 37.7 H (27.0-33.0) pg Plt Count 112 L 119 L (160-400) X10*3/uL MPV 8.8 L (9.4-12.4) fL Immature Gran % (Auto) 0.6 H (0.0-0.4) % Neut % (Auto) 84.8 H 77.2 H (45-73) % Lymph % (Auto) 8.5 L 13.5 L (20-40) % Lymph # (Auto) 0.7 L 0.9 L (1.2-4.9) X10*3/uL Abs Immat Gran (auto) 0.04 H (0.00-0.03) X10*3/uL Carbon Dioxide 21 L (22-29) mmol/L BUN 21 H (9-16) mg/dL Creatinine 1.44 H (0.5-1.4) mg/dL Magnesium 1.4 L* (1.6-2.6) mg/dL Random Vancomycin (15-20) mcg/mL Crossmatch See Detail 12/25/23 Range/Units 13:26 RBC (4.60-5.80) X10*6/uL Hgb (14.0-18.0) g/dl Hct (42.0-52.0) % MCV (80.0-98.0) fL MCH (27.0-33.0) pg Plt Count (160-400) X10*3/uL MPV (9.4-12.4) fL Immature Gran % (Auto) (0.0-0.4) % Neut % (Auto) (45-73) % Lymph % (Auto) (20-40) % Lymph # (Auto) (1.2-4.9) X10*3/uL Abs Immat Gran (auto) (0.00-0.03) X10*3/uL Carbon Dioxide (22-29) mmol/L BUN (9-16) mg/dL Creatinine (0.5-1.4) mg/dL Magnesium (1.6-2.6) mg/dL Random Vancomycin 9.2 L (15-20) mcg/mL Crossmatch Short CBC 12/24/23 12/25/23 Range/Units 22:05 05:24 WBC 8.8 6.7 (4.8-10.8) X10*3/uL Hgb 8.2 L 7.5 L (14.0-18.0) g/dl Hct 23.5 L 21.2 L (42.0-52.0) % Plt Count 112 L 119 L (160-400) X10*3/uL BMP 12/25/23 05:24 Sodium 136 Potassium 4.0 Chloride 104 Carbon Dioxide 21 L BUN 21 H Creatinine 1.44 H Calcium 9.2 Urine 12/20/23 12/23/23 Range/Units 18:41 Unknown Urine Color Dark Yellow Yellow Urine Appearance Clear Clear Urine pH 5.5 5.5 (5.0-9.0) Ur Specific Humble 1.010 1.010 (1.005-1.025) Urine Protein 30 (1+) H Trace (Neg-Trace) mg/dL Urine Glucose (UA) Negative Negative (Negative) mg/dL All other labs normal. Laboratory Results WBC 6.7 X10*3/uL (4.8-10.8) 12/25/23 05:24 RBC 1.99 X10*6/uL (4.60-5.80) L 12/25/23 05:24 Hgb 7.5 g/dl (14.0-18.0) L 12/25/23 05:24 Hct 21.2 % (42.0-52.0) L 12/25/23 05:24 MCV 106.5 fL (80.0-98.0) H 12/25/23 05:24 MCH 37.7 pg (27.0-33.0) H 12/25/23 05:24 MCHC 35.4 g/dl (31.0-36.0) 12/25/23 05:24 RDW 12.1 % (11.0-16.0) 12/25/23 05:24 Plt Count 119 X10*3/uL (160-400) L 12/25/23 05:24 MPV 9.5 fL (9.4-12.4) 12/25/23 05:24 Immature Gran % (Auto) 0.6 % (0.0-0.4) H 12/25/23 05:24 Neut % (Auto) 77.2 % (45-73) H 12/25/23 05:24 Lymph % (Auto) 13.5 % (20-40) L 12/25/23 05:24 Rolette % (Auto) 8.1 % (2-11) 12/25/23 05:24 Eos % (Auto) 0.3 % (0-4) 12/25/23 05:24 Baso % (Auto) 0.3 % (0-2) 12/25/23 05:24 Lymph # (Auto) 0.9 X10*3/uL (1.2-4.9) L 12/25/23 05:24 Rolette # (Auto) 0.5 X10*3/uL (0.1-1.2) 12/25/23 05:24 Eos # (Auto) 0.0 X10*3/uL (0.0-0.4) 12/25/23 05:24 Baso # (Auto) 0.0 X10*3/uL (0.0-0.2) 12/25/23 05:24 Abs Immat Gran (auto) 0.04 X10*3/uL (0.00-0.03) H 12/25/23 05:24 Absolute Neuts (auto) 5.2 x10*3/uL (2.0-8.3) 12/25/23 05:24 Absolute Nucleated RBC 0.000 X10*3/uL (0.0-0.012) 12/25/23 05:24 Nucleated RBC % (auto) 0.0 /100WBC (0.0-0.2) 12/25/23 05:24 Smear Tech's Comments VERIFIED 12/23/23 04:58 Hold Purple Top SEE NOTE 12/25/23 02:35 PT 11.9 SEC (10.9-12.4) 12/20/23 17:22 INR 1.0 (0.9-1.1) 12/20/23 17:22 VBG pH 7.54 (7.32-7.43) H 12/23/23 04:55 VBG pCO2 24 mmHg 12/23/23 04:55 VBG pO2 33 mmHg 12/23/23 04:55 VBG HCO3 21 mmol/L (22-26) L 12/23/23 04:55 VBG O2 Saturation 68.0 % 12/23/23 04:55 VBG Base Excess 0.2 mmol/L 12/23/23 04:55 Sodium 136 mmol/L (135-145) 12/25/23 05:24 Potassium 4.0 mmol/L (3.3-5.1) 12/25/23 05:24 Chloride 104 mmol/L (96-108) 12/25/23 05:24 Carbon Dioxide 21 mmol/L (22-29) L 12/25/23 05:24 Anion Gap 15 (12-20) 12/25/23 05:24 BUN 21 mg/dL (9-16) H 12/25/23 05:24 Creatinine 1.44 mg/dL (0.5-1.4) H 12/25/23 05:24 Estim Creat Clear Calc 55.4 12/25/23 05:24 Estimated GFR 49 12/25/23 05:24 Random Glucose 97 mg/dL (60-115) 12/25/23 05:24 Lactic Acid 1.0 mmol/L (0.5-2.0) 12/25/23 02:37 Lactic Acid F/U @ 2Hr 1.5 mmol/L (0.5-2.0) 12/20/23 19:55 Calcium 9.2 mg/dL (8.4-10.2) 12/25/23 05:24 Phosphorus 4.0 mg/dL (2.7-4.5) 12/25/23 05:24 Magnesium 1.4 mg/dL (1.6-2.6) L* 12/25/23 05:24 Total Bilirubin 0.8 mg/dL (0.0-1.0) 12/23/23 04:58 Direct Bilirubin 0.7 mg/dL (0.0-0.5) H 12/20/23 17:22 AST 23 U/L (5-37) 12/23/23 04:58 ALT 12 U/L (0-40) 12/23/23 04:58 Alkaline Phosphatase 57 U/L (39-117) 12/23/23 04:58 Troponin I High Sens 20.9 ng/L (<3.5-35.0) 12/20/23 17:22 Total Protein 6.9 g/dL (6.5-8.0) 12/23/23 04:58 Albumin 4.2 g/dL (3.5-5.0) 12/23/23 04:58 Lipase 140 U/L (8-78) H 12/24/23 10:59 TSH 4.61 uIU/mL (0.32-4.0) H 12/23/23 17:55 Free T4 0.97 ng/dL (0.71-1.85) 12/23/23 17:55 Random Cortisol 11.9 ug/dL 12/23/23 17:55 Urine Color Yellow 12/23/23 Unknown Urine Appearance Clear 12/23/23 Unknown Urine pH 5.5 (5.0-9.0) 12/23/23 Unknown Ur Specific Humble 1.010 (1.005-1.025) 12/23/23 Unknown Urine Protein Trace mg/dL (Neg-Trace) 12/23/23 Unknown Urine Glucose (UA) Negative mg/dL (Negative) 12/23/23 Unknown Urine Ketones Negative mg/dL (Negative) 12/23/23 Unknown Urine Blood Negative (Negative) 12/23/23 Unknown Urine Nitrite Negative (Negative) 12/23/23 Unknown Ur Leukocyte Esterase Trace (Negative) H 12/23/23 Unknown Urine RBC 0-2 /HPF (0-2) 12/23/23 Unknown Urine WBC 0-5 /HPF (0-5) 12/23/23 Unknown Ur Squamous Epith Cells 0-2 /HPF (0-2) 12/23/23 Unknown Urine Bacteria None Seen (None Seen) 12/23/23 Unknown Hyaline Casts 0-2 /LPF (0-2) 12/23/23 Unknown Urine Osmolality 242 mosm/kg (373-1093) L 12/20/23 18:41 Ur Random Sodium 20.0 mmol/L 12/20/23 19:12 Urine Creatinine 199.59 mg/dL 12/20/23 19:12 Stl C. cayetanensis PCR Not Detected (Not Detect.) 12/20/23 23:33 Stool Rotavirus A PCR Not Detected (Not Detect.) 12/20/23 23:33 Stl Adenov F 40/41 PCR Not Detected (Not Detect.) 12/20/23 23:33 Stool Astrovirus (PCR) Not Detected (Not Detect.) 12/20/23 23:33 Stool Campylobacter PCR Not Detected (Not Detect.) 12/20/23 23:33 Stool Cryptosporidium PCR Not Detected (Not Detect.) 12/20/23 23:33 Stl Sh Tox Pr E STEC PCR Not Detected (Not Detect.) 12/20/23 23:33 Stool E coli O157 PCR Not applicable (Not Detect.) 12/20/23 23:33 Stl Enterotoxigenic E PCR Not Detected (Not Detect.) 12/20/23 23:33 Stool EPEC (PCR) Not Detected (Not Detect.) 12/20/23 23:33 Stool EAEC (PCR) Not Detected (Not Detect.) 12/20/23 23:33 Stl E. histolytica PCR Not Detected (Not Detect.) 12/20/23 23:33 Stool Giardia Lamblia PCR Not Detected (Not Detect.) 12/20/23 23:33 Stl P. shigelloides PCR Not Detected (Not Detect.) 12/20/23 23:33 Stool Salmonella PCR Not Detected (Not Detect.) 12/20/23 23:33 Stool Sapovirus (PCR) Not Detected (Not Detect.) 12/20/23 23:33 Stl Shigella/EIEC PCR Not Detected (Not Detect.) 12/20/23 23:33 St Y.enterocolitica PCR Not Detected (Not Detect.) 12/20/23 23:33 Stool Vibrio (PCR) Not Detected (Not Detect.) 12/20/23 23:33 Stl Vibrio cholerae PCR Not Detected (Not Detect.) 12/20/23 23:33 Stl Norovirus GI/GII PCR Not Detected (Not Detect.) 12/20/23 23:33 Random Vancomycin 9.2 mcg/mL (15-20) L 12/25/23 13:26 Ethyl Alcohol 31 mg/dL 12/20/23 17:22 C. difficile Tox B Gene NEGATIVE (Negative) 12/20/23 23:33 Blood Type O Positive 12/23/23 08:23 Antibody Screen NEGATIVE 12/23/23 08:23 Crossmatch See Detail 12/23/23 08:[address] 12/20/23 17:36 IMPRESSION: Unremarkable examination. No evidence of acute territorial infarct or hemorrhage. Electronically signed by: Ryan Martin MD 12/20/2023 08:12 PM EDT Chest X-Ray 12/21/23 11:15 IMPRESSION: 1. Crowding of lung markings at the left base, cannot rule out mild infiltrate and/or atelectasis. Please correlate with patient's clinical symptoms. 2. No pleural effusion. 3. No dense consolidation. Electronically signed by: Kaelyn Patel MD 12/21/2023 12:57 PM EDT RP Abdomen Ultrasound 12/24/23 08:53 IMPRESSION: 1. Distended gallbladder with sludge versus thickened posterior wall and positive sonographic Miner's sign. Consider HIDA scan. 2. Hepatic steatosis. Electronically signed by: Brandi Jaimes MD 12/24/2023 10:59 AM EDT RP Abdomen/Pelvis CT 12/24/23 15:01 IMPRESSION: 1. Thickened gallbladder with pericholecystic fluid and dependently layering hyperdense material, potentially corresponding to sludge or small gallstones. Acute cholecystitis remains possible. 2. Small bilateral pleural effusions with mild interstitial pulmonary edema, new as compared to prior.. 3. Mild to moderate colonic diverticulosis without evidence of acute diverticulitis. 4. Grade 2 anterolisthesis of L5 on S1 with severe degenerative disc disease and bilateral pars defects. Fleischner guidelines were followed. Electronically signed by: Cornelio Robert MD 12/24/2023 05:16 PM EDT RP Imaging Abdomen CT scan report/results: report reviewed and image reviewed CT scan - pelvis: report reviewed and image reviewed Assessment and Plan (1) Cholecystitis: Status: Acute He had been admitted for multiple vague symptoms along with hypotension as described in the H and P. He had an episode of abdominal pain yesterday. Therefore had a CT scan this morning which suggested acute cholecystitis. There were no gallstones seen on ultrasound. Acute cholecystitis may be secondary to his hypotension. He has abdominal exam is currently benign. He is nontender His LFTs have been normal He does have multiple medical issues at this time that appears to be still unclear with regards to etiology. He has anemia currently as well I would recommend proceeding with IR tube cholecystostomy for now. He is otherwise hemodynamically stable and does not appear to be septic. His lactate is within normal I had discussed the above with the nutrition director. We will follow along while he is in the hospital. Procedures Date of Service Date of Service: 12/27/23
[2023-12-25] MEDS: Piperacillin Sodium/Tazobactam 3.375 GM in 0.9 % Sodium Chloride 50 ML IV ×2 (15:33→20:20)
[2023-12-25] MEDS: Omeprazole 40 MG CAPSULE.DR PO (16:00)
[2023-12-25 17:24] LABS: Alanine Aminotransferase 75 U/L (0-40); Alkaline Phosphatase 88 U/L (39-117); Aspartate Amino Transferase 135 U/L (5-37)
[2023-12-25] MEDS: Simethicone 80 MG TAB.CHEW PO (20:57)
[2023-12-26] VITALS (24 sets, daily range): BP systolic 108–141; BP diastolic 55–99; PULSE 53–82; RESP 12–20; TEMP 36.6–37.6; O2SAT 95–100; BMI 30.1
[2023-12-26 06:12] LABS: MANUAL DIFF FLAG NO
[2023-12-26] MEDS: Piperacillin Sodium/Tazobactam 3.375 GM in 0.9 % Sodium Chloride 50 ML IV ×4 (06:28→20:32)
[2023-12-26 06:32] LABS: Anion Gap 14 (12-20); Blood Urea Nitrogen 18 mg/dL (9-16); Calcium 8.8 mg/dL (8.4-10.2); Carbon Dioxide 20 mmol/L (22-29); Chloride 103 mmol/L (96-108); Creatinine Clr Calc Pharmacy 65.7; Estimated Glomerular Filt Rate 60; Glucose Random 94 mg/dL (60-115); Magnesium 1.5 mg/dL (1.6-2.6); Phosphorus 4.1 mg/dL (2.7-4.5); Potassium 3.4 mmol/L (3.3-5.1); Sodium 134 mmol/L (135-145)
[2023-12-26] MEDS: Omeprazole 40 MG CAPSULE.DR PO (06:46)
[2023-12-26 07:10] LABS: Basophils Percent Auto 0.5 % (0-2); Eosinophils Absolute Auto 0.1 X10*3/uL (0.0-0.4); Hematocrit 23.4 % (42.0-52.0); Hemoglobin 8.3 g/dl (14.0-18.0); Imm Gran Abs Auto 0.02 X10*3/uL (0.00-0.03); Imm Gran Pct Auto 0.5 % (0.0-0.4); Lymphocytes Absolute Auto 0.7 X10*3/uL (1.2-4.9); Lymphocytes Percent Auto 15.9 % (20-40); Mean Corpuscular HGB Conc 35.5 g/dl (31.0-36.0); Mean Corpuscular Hemoglobin 35.8 pg (27.0-33.0); Mean Corpuscular Volume 100.9 fL (80.0-98.0); Mean Platelet Volume 9.7 fL (9.4-12.4); Monocytes Absolute Auto 0.4 X10*3/uL (0.1-1.2); Neutrophils Absolute Auto 3.1 x10*3/uL (2.0-8.3); Neutrophils Percent Auto 70.1 % (45-73); Platelet Count 100 X10*3/uL (160-400); Red Blood Count 2.32 X10*6/uL (4.60-5.80); Red Cell Distribution Width 14.7 % (11.0-16.0); White Blood Count 4.4 X10*3/uL (4.8-10.8)
[2023-12-26] MEDS: 0.9 % Sodium Chloride Flush 3 ML SYRINGE IVFLUSH ×3 (07:44→20:33)
--- NOTE | 2023-12-26 09:02 | PM.CCPN ---
Subjective Subjective Date of Service: 12/26/23 Interval History: HIDA c/f high-grade obstruction; general surgery, IR, and gastroenterology consulted; otherwise hemodynamically stable, albeit on midodrine and fludrocortisone; continued resolution of abdominal pain Critical Care Time (minutes): 0 Physical Exam Vital Signs: Vital Signs: Last Vital Signs Temp 97.8 F 12/26/23 08:00 Pulse 72 12/26/23 08:00 Resp 14 12/26/23 08:00 BP 132/72 12/26/23 08:00 Pulse Ox 97 12/26/23 08:00 O2 Del Method Room Air 12/26/23 08:00 BMI result Body Mass Index 30.1 Const: General: cooperative, healthy appearing, comfortable, no acute distress, well developed, alert, awake and Physically active Orientation/consciousness: patient oriented x3 HEENT: Head: Yes normal to inspection, Yes normocephalic and Yes atraumatic Eyes: General: appearance normal, both eyes and all related structures Neck: Neck: Yes normal visual inspection, Yes full ROM, Yes no meningeal signs, Yes trachea midline and Yes supple Chest: Chest palpation & inspection: normal inspection of the chest Resp: Other: no appreciable rales, rhonchi, wheezing Effort & Inspection: normal respiratory effort Cardio: Rate: regular rate Rhythm: regular rhythm GI: Inspection: Yes normal to inspection, No Abdominal wall edema and No distended Palpation (GI): Soft to palpation, not firm, nontender, no guarding and not rigid Skin: General skin exam: no rashes or lesions noted Neuro: General: patient oriented x3, tone normal, moves all extremities, no meningeal signs and no focal motor deficits Extrem: Other: appreciable trace pitting edema to bilateral knees General: Yes normal to inspection, Yes full ROM and Yes capillary refill normal Psych: Appearance: grossly normal Objective Data Labs 12/26/23 05:34 12/26/23 05:34 Labs: Laboratory Results - last 24 hr 12/23/23 12/25/23 12/25/23 08:23 13:26 17:02 WBC RBC Hgb Hct MCV MCH MCHC RDW Plt Count MPV Immature Gran % (Auto) Neut % (Auto) Lymph % (Auto) Story % (Auto) Eos % (Auto) Baso % (Auto) Lymph # (Auto) Story # (Auto) Eos # (Auto) Baso # (Auto) Abs Immat Gran (auto) Absolute Neuts (auto) Absolute Nucleated RBC Nucleated RBC % (auto) Sodium Potassium Chloride Carbon Dioxide Anion Gap BUN Creatinine Estim Creat Clear Calc Estimated GFR Random Glucose Calcium Phosphorus Magnesium AST 135 H ALT 75 H Alkaline Phosphatase 88 Random Vancomycin 9.2 L Blood Type O Positive Antibody Screen NEGATIVE Crossmatch See Detail 12/26/23 05:34 WBC 4.4 L RBC 2.32 L Hgb 8.3 L Hct 23.4 L MCV 100.9 H D MCH 35.8 H MCHC 35.5 RDW 14.7 Plt Count 100 L MPV 9.7 Immature Gran % (Auto) 0.5 H Neut % (Auto) 70.1 Lymph % (Auto) 15.9 L Story % (Auto) 10.0 Eos % (Auto) 3.0 Baso % (Auto) 0.5 Lymph # (Auto) 0.7 L Story # (Auto) 0.4 Eos # (Auto) 0.1 Baso # (Auto) 0.0 Abs Immat Gran (auto) 0.02 Absolute Neuts (auto) 3.1 Absolute Nucleated RBC 0.000 Nucleated RBC % (auto) 0.0 Sodium 134 L Potassium 3.4 Chloride 103 Carbon Dioxide 20 L Anion Gap 14 BUN 18 H Creatinine 1.22 Estim Creat Clear Calc 65.7 Estimated GFR 60 Random Glucose 94 Calcium 8.8 Phosphorus 4.1 Magnesium 1.5 L AST ALT Alkaline Phosphatase Random Vancomycin Blood Type Antibody Screen Crossmatch Microbiology Microbiology Results: Microbiology 12/25/23 02:37 Blood - Venous Blood Culture - Preliminary Gram negative tiffani 12/25/23 02:37 Blood - Venous Blood Culture - Preliminary Gram negative tiffani 12/20/23 17:56 Blood - Venous Blood Culture - Final No growth after 5 days. 12/20/23 17:45 Blood - Venous Blood Culture - Final Coag negative Staphylococcus Progress Note: A&P Assessment and plan (1) Cholecystitis: Status: Acute (2) Acute hypotension: Status: Acute Plan Patient is a 63 Y M with hypertension, hyperlipidemia, alcohol misuse, presenting initially to emergency department on 12/20 w/ diarrhea, weakness, found to be hyponatremic, hypotensive, admitted for hypovolemia; on 12/24 found to have GNR bacteremia and imaging c/f high-grade biliary obstruction N: no acute issues CV: hypotension, improved; likely d/t hypovolemia; s/p norepinephrine gtt; started on midodrine, fludrocortisone this admission R: no acute issues GI: episode of abdominal pain on 12/23, HIDA c/f high-grade biliary obstruction; appreciable GI, general surgery, and IR recommendations; diarrhea, resolved; stool panel unrevealing; some appreciable bright red blood per rectum, thought to be d/t hemorrhoids; to closely monitor : hyponatremia, improved; acute renal insufficiency, improved H: anemia, thrombocytopenia; to hold chemical DVT prophylaxis; to closely monitor ID: abdominal pain, resolved; US A, CT A/P, HIDA c/f high-grade biliary obstruction/cholecystitis; empric zosyn E: no acute issues P: no acute issues S: alcohol misuse; on phenobarbital protocol Quality Stroke Does the patient have a stroke diagnosis?: No VTE Prior VTE?: No VTE Risk Level:: Medical - moderate - high VTE Device Contraindication: N/A - Device Ordered VTE Drug Contraindication: Treatment Not Tolerated
--- NOTE | 2023-12-26 09:17 | PM.PNGS ---
Subjective Subjective Date of Service: 12/26/23 Interval history: Denies any abdominal pain Feels well overall No fever Looks well and sitting up on chair Physical Exam Vital Signs: Vital Signs: Last Vital Signs Temp 97.8 F 12/26/23 08:00 Pulse 72 12/26/23 08:00 Resp 14 12/26/23 08:00 BP 132/72 12/26/23 08:00 Pulse Ox 97 12/26/23 08:00 O2 Del Method Room Air 12/26/23 08:00 BMI result Body Mass Index 30.1 Const: General: comfortable and no acute distress Resp: Other: Mild shortness of breath Cardio: Rate: regular rate GI: Other: Soft, no tenderness, no Miner's sign, no guarding, no rebound Objective Data Active Medications Fludrocortisone Acetate (Fludrocortisone Acetate 0.1 Mg Tablet) 0.1 mg PO DAILY [facility] Last Admin: 12/25/23 10:10 Dose: 0.1 mg Documented By: LYNN Folic Acid (Folic Acid 1 Mg Tablet) 1 mg PO DAILY [facility] Last Admin: 12/25/23 10:10 Dose: 1 mg Documented By: LYNN Heparin Sodium (Porcine) (Heparin Sodium,Porcine 5,000 Unit/Ml Vial) 5,000 unit SUBCUT TID [facility] Last Admin: 12/21/23 22:08 Dose: 5,000 unit Documented By: KRISTIE Piperacillin Sod/Tazobactam (Sod 3.375 gm/ Sodium Chloride) 50 mls @ 100 mls/hr IV Q6H [facility] Last Infusion: 12/26/23 07:00 Dose: Infused Documented By: DUANE Norepinephrine Bitartrate (Levophed) 8 mg in 250 mls @ 0 mls/hr IVCONT .Q0M [facility]; Protocol Magnesium Sulfate/Dextrose (Magnesium Sulfate/D5w) 1 gm in 100 mls @ 100 mls/hr IV ONCE ONE Stop: 12/26/23 09:49 Midodrine (Midodrine Hcl 10 Mg Tablet) 10 mg PO TID@0900,1300,1700 [facility] Last Admin: 12/25/23 17:08 Dose: 10 mg Documented By: LYNN Omeprazole (Omeprazole 40 Mg Capsule.Dr) 40 mg PO DAILY@0630 [facility] Last Admin: 12/26/23 06:46 Dose: 40 mg Documented By: SENAIT Pharmacy Consult (Consult Rx Etoh Phenob Po Only) 1 each MISCELLANE ONCE PRN; Protocol PRN Reason: Consult order Phenobarbital (Phenobarbital 15 Mg Tablet) 15 mg PO DAILY [facility] Stop: 12/27/23 09:01 Sodium Chloride (0.9 % Sodium Chloride Flush 3 Ml Syringe) 3 ml IVFLUSH QSHIFT [facility] Last Admin: 12/26/23 07:44 Dose: 3 ml Documented By: ALEJANDROTC Thiamine HCl (Thiamine Hcl 100 Mg Tablet) 100 mg PO BID [facility] Last Admin: 12/25/23 20:20 Dose: 100 mg Documented By: SENAIT Labs 12/26/23 05:34 12/26/23 05:34 Labs: Laboratory Results - last 24 hr 12/23/23 12/25/23 12/25/23 08:23 13:26 17:02 MCV MCH MCHC RDW Plt Count MPV Immature Gran % (Auto) Neut % (Auto) Lymph % (Auto) [place] % (Auto) Eos % (Auto) Baso % (Auto) Lymph # (Auto) [place] # (Auto) Eos # (Auto) Baso # (Auto) Abs Immat Gran (auto) Absolute Neuts (auto) Absolute Nucleated RBC Nucleated RBC % (auto) Anion Gap Estim Creat Clear Calc Estimated GFR Random Glucose Calcium Phosphorus Magnesium AST 135 H ALT 75 H Alkaline Phosphatase 88 Random Vancomycin 9.2 L Blood Type O Positive Antibody Screen NEGATIVE Crossmatch See Detail 12/26/23 05:34 MCV 100.9 H D MCH 35.8 H MCHC 35.5 RDW 14.7 Plt Count 100 L MPV 9.7 Immature Gran % (Auto) 0.5 H Neut % (Auto) 70.1 Lymph % (Auto) 15.9 L [place] % (Auto) 10.0 Eos % (Auto) 3.0 Baso % (Auto) 0.5 Lymph # (Auto) 0.7 L [place] # (Auto) 0.4 Eos # (Auto) 0.1 Baso # (Auto) 0.0 Abs Immat Gran (auto) 0.02 Absolute Neuts (auto) 3.1 Absolute Nucleated RBC 0.000 Nucleated RBC % (auto) 0.0 Anion Gap 14 Estim Creat Clear Calc 65.7 Estimated GFR 60 Random Glucose 94 Calcium 8.8 Phosphorus 4.1 Magnesium 1.5 L AST ALT Alkaline Phosphatase Random Vancomycin Blood Type Antibody Screen Crossmatch Microbiology Microbiology Results: Microbiology 12/25/23 02:37 Blood Culture - Preliminary Blood - Venous Gram negative tiffani 12/25/23 02:37 Blood Culture - Preliminary Blood - Venous Gram negative tiffani 12/20/23 17:56 Blood Culture - Final Blood - Venous No growth after 5 days. 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 Quality Stroke Does the patient have a stroke diagnosis?: No VTE Prior VTE?: No VTE Risk Level:: Medical - moderate - high VTE Device Contraindication: N/A - Device Ordered VTE Drug Contraindication: Treatment Not Tolerated
[2023-12-26] MEDS: PHENobarbitaL 15 MG TABLET PO (09:36)
[2023-12-26] MEDS: Thiamine HCL 100 MG TABLET PO ×2 (09:36→20:33)
[2023-12-26] MEDS: Midodrine HCl 10 MG TABLET PO ×3 (09:36→16:38)
[2023-12-26] MEDS: Folic Acid 1 MG TABLET PO (09:37)
[2023-12-26] MEDS: Fludrocortisone Acetate 0.1 MG TABLET PO (09:37)
[2023-12-26] MEDS: Magnesium Sulfate/D5W 1 GM/100 ML PIGGYBACK IV (09:46)
[2023-12-26 11:08] LABS: INTERNATIONAL NORM RATIO 1.3 (0.9-1.1); Prothrombin Time 15.4 SEC (10.9-12.4)
[2023-12-26 11:11] LABS: Partial Thromboplastin Time 31.8 SEC (26.0-36.8)
[2023-12-26 11:19] LABS: Alanine Aminotransferase 73 U/L (0-40); Alkaline Phosphatase 91 U/L (39-117); Aspartate Amino Transferase 104 U/L (5-37)
[2023-12-26 12:37] LABS: Albumin Level 3.6 g/dL (3.5-5.0); Bilirubin Direct 2.4 mg/dL (0.0-0.5); Bilirubin Total 3.3 mg/dL (0.0-1.0); Total Protein 6.5 g/dL (6.5-8.0)
[2023-12-26] MEDS: Midazolam HCl/PF 2 MG/2 ML VIAL 4 MG IVPUSH (13:15)
--- NOTE | 2023-12-26 14:20 | MHC.CM.PN ---
Pt making clinical gains: OOB to chair. Pt has been accepted by [facility] and broad referrals for STR have been made.
--- NOTE | 2023-12-26 15:25 | PM.EVENT ---
Event Note Date of Service: 12/26/23 Event Note: Seen on afternoon rounds He continues to feel well Denies any pain or tenderness Stable vital signs Tolerating oral intake Abdomen is soft, benign, nontender After discussions with IR, have held off on putting in a cholecystostomy tube in view of significant clinical improvement, absence of symptoms Continue current care Discussed with lead printer Time Spent With Patient Time: Total time managing care of this patient today ____ minutes.
--- NOTE | 2023-12-26 17:56 | P.EN_ITS ---
Event Note Date of Service: 12/26/23 Event Note: GI Consult-Full note dictated-History from the patient, the EMR, and the ICU staff. Imp: Given his clinical history, he has underlying EtOH-related liver disease and a probable component of cholestatic liver disase on that basis. His GNR sepsis could also be making his cholestasis worse and could account for the abnormal HIDA scan in which there is no isotope leaving the liver nor emptying into the bile duct and small intestine. His imaging studies do not seem c/w a biliary obstruction, including the MRCP that I reviewed. The bile ducts appear normal and there are no definitive gallstones. His blood cultures with the GNR's were from yesterday and his admission blood cultures were negative. A stool GI panel was negative and a urinalysis was negative. The etiology of the GNR's is unclear. It does not appear to be related to a biliary source given no part icular GI symptoms and the negative imaging studies in that regard. I don't think he has acalculous cholecystitis given his benign abdomen at the present time. Other possibilites include a pulmonary source based on the questionable admission CXR. Rec: Observe, F/U LFT's in AM, agree with advancing his diet, and check the final reports of the MRCP and the blood cultures. I don't think an ERCP is p resently needed. Will follow as needed. Thanks Time Spent With Patient Time: Total time managing care of this patient today ____ minutes.
[2023-12-27] VITALS (19 sets, daily range): BP systolic 102–129; BP diastolic 56–78; PULSE 60–98; RESP 12–20; TEMP 36.2–37.2; O2SAT 94–100; BMI 30.4
[2023-12-27] MEDS: Piperacillin Sodium/Tazobactam 3.375 GM in 0.9 % Sodium Chloride 50 ML IV ×2 (02:50→08:05)
--- NOTE | 2023-12-27 04:51 | CONS_ITS ---
DATE OF SERVICE: 12/26/2023 REASON FOR CONSULTATION: Elevated LFTs, abnormal HIDA scan, and gram-negative tiffani sepsis. HISTORY OF PRESENT ILLNESS: This has been obtained from the patient, the medical record, and the ICU staff. The patient is a 63-year-old male with a longstanding history of alcohol abuse up until coming in the hospital on this admission. I met with the patient in the summer of 2022 and at that time, he admitted to having between 1 and 1-1/2 pints of vodka almost every day of the month. He underwent an upper endoscopy with me in January 2023 that described some gastritis, inflammatory gastric polyp, hiatal hernia, and some changes of reflux. Biopsies from that day revealed some gastritis but no H pylori, reflux but no changes of Bell esophagus, and a mucosal gastric polyp that was inflamed and again without H pylori. I have not seen him since that endoscopy, but he has been on omeprazole. Unfortunately, patient continued to drink alcohol up until the day of this admission. He describes coming in the hospital primarily for weakness in relation to his diarrhea that he had been having prior to admission along with his daily alcohol use. He describes some possible red blood in the loose stools, but no melena. He denies any particular abdominal pain. He denies any preceding history of travel, nor antibiotic use. On admission here, he was hypotensive and monitored in the ICU. Over the past few days, things have improved significantly and he is feeling better. He denies any ongoing diarrhea. There have been no signs of jaundice. His most recent colonoscopy in March 2020 in [place] revealed only a tubular adenoma. The patient's clinical course in the ICU has steadily improved. He did have negative blood cultures on admission on December 19, but as of blood cultures that were just drawn yesterday, he has developed gram-negative tiffani bacterial infection. He presently reports that he feels well. He denies any abdominal pain whatsoever. He has had no vomiting and there has been no further diarrhea. The patient denies any preceding history of jaundice as an outpatient nor any hospitalizations in relation to his chronic alcohol abuse. The patient has undergone multiple imaging studies of the abdomen including an ultrasound, CT scan, HIDA scan, and MRI. His ultrasound and CT scan do not show any signs of definitive gallstones nor any signs of biliary obstruction. His HIDA scan showed no emptying of the liver in regard to the isotope and no filling of the bile duct or duodenum. His initial LFTs on admission revealed a total bilirubin of 0.8 and normal liver enzymes. His liver enzymes did increase with an AST of 135 and ALT of 75 on December 24. Laboratories today showed a total bilirubin of 3.3, direct bilirubin 2.4, AST 104, and ALT 73. PRESENT MEDICATIONS: Include IV Zosyn, fludrocortisone, folic acid, subcu heparin, midodrine, omeprazole, phenobarbital, thiamin. PAST MEDICAL HISTORY: He denies any significant surgeries. Chronic alcohol abuse. PTSD. Kidney stones. Hypertension. He denies history of MO, diabetes, or stroke. 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 He does smoke. Alcohol abuse as above. He denies any drug use. FAMILY HISTORY: Negative for GI malignancy nor liver disease. REVIEW OF SYSTEMS: CONSTITUTIONAL: He has been feeling very poorly at home in relation to diarrhea and his alcohol abuse. CARDIAC: No chest pain. PULMONARY: No coughing or hemoptysis. GI: As above. URINARY: No dysuria, no hematuria. PHYSICAL EXAMINATION: GENERAL: The patient is a pleasant, alert male, sitting up in a chair, in no distress. SKIN: Warm and dry. Nonjaundiced. CARDIAC: Normal S1, S2. ABDOMEN: Soft, nondistended, nontender without organomegaly or mass. There is no obvious ascites. NEUROLOGIC: He is alert and oriented without any obvious asterixis nor confusion. Laboratories and imaging studies as above. I did review his MRCP and to my interpretation, there does not appear to be any biliary obstruction nor common duct stones. His LFTs today did show increases as mentioned above with a total bilirubin of 3.3. His white count is 4.4 with a hemoglobin 8.3, MCV 101, and platelet count of 100,000. His PT is 15.4 with INR 1.1. Again, his blood cultures on admission were negative on December 19. Other than 1 blood culture with E coli negative staph species. However, blood cultures from yesterday are now both positive for gram-negative rods. IMPRESSION: Given the patient's clinical history in regard to his not having any abdominal pain, no sign of biliary obstruction on the imaging studies, and his long-standing history of alcohol abuse, I suspect the abnormal HIDA scan and rising LFTs in relation to some cholestasis both from the chronic liver disease from alcohol abuse, as well as from his gram-negative tiffani sepsis on yesterday's blood cultures. There does not appear to be a biliary obstruction based on the imaging studies. The gram-negative tiffani sepsis could certainly be making his baseline cholestasis worse as well. Based on that, I do not think an ERCP is required. The source of the gram-negative rods is not clear but could be related either to his previous diarrhea even though the GI panel was negative, or possibly related to his admission chest x-ray that describes some questionable infiltrate in the left lower lobe. However at this point, it does not appear to be related to a biliary source. I do not think he has acalculous cholecystitis given his benign abdomen at the present time. At this point, I will continue observation and supportive care. I will continue to follow his LFTs and PT with INR. I would advance his diet as long as he is not having any localizing GI complaints. Checking the final report, the MRCP will be important to be sure the radiologist does not think there is any biliary abnormality that might require ERCP. However at this point, I do not think an ERCP is currently required. The final blood culture reports will be important to see exactly what bacteria has been found as that may help to localize the source of infection as well. I did have a detailed discussion with him today regarding the need to remain abstinent on a long-term basis from alcohol. Thank you for the consultation. MD CHOCO Ellison/ALTHEA / [phone]
[2023-12-27] MEDS: Omeprazole 40 MG CAPSULE.DR PO (06:32)
[2023-12-27 06:47] LABS: Mean Corpuscular Volume 101.2 fL (80.0-98.0); PLT CLUMP 1; SCAN SMEAR FLAG 1
[2023-12-27 06:49] LABS: Basophils Percent Auto 0.8 % (0-2); Eosinophils Absolute Auto 0.1 X10*3/uL (0.0-0.4); Eosinophils Percent Auto 3.4 % (0-4); Hemoglobin 8.9 g/dl (14.0-18.0); Imm Gran Abs Auto 0.01 X10*3/uL (0.00-0.03); Imm Gran Pct Auto 0.3 % (0.0-0.4); Lymphocytes Absolute Auto 0.8 X10*3/uL (1.2-4.9); Lymphocytes Percent Auto 19.7 % (20-40); MANUAL DIFF FLAG SCAN; Mean Corpuscular HGB Conc 35.6 g/dl (31.0-36.0); Monocytes Absolute Auto 0.4 X10*3/uL (0.1-1.2); Neutrophils Absolute Auto 2.5 x10*3/uL (2.0-8.3); Neutrophils Percent Auto 65.8 % (45-73); Red Blood Count 2.47 X10*6/uL (4.60-5.80); Red Cell Distribution Width 14.2 % (11.0-16.0)
[2023-12-27 06:52] LABS: INTERNATIONAL NORM RATIO 1.3 (0.9-1.1); Prothrombin Time 15.6 SEC (10.9-12.4)
[2023-12-27 06:59] LABS: Alanine Aminotransferase 59 U/L (0-40); Albumin Level 3.5 g/dL (3.5-5.0); Alkaline Phosphatase 85 U/L (39-117); Anion Gap 14 (12-20); Aspartate Amino Transferase 64 U/L (5-37); Bilirubin Direct 1.6 mg/dL (0.0-0.5); Bilirubin Total 2.2 mg/dL (0.0-1.0); Blood Urea Nitrogen 16 mg/dL (9-16); Calcium 9.1 mg/dL (8.4-10.2); Carbon Dioxide 21 mmol/L (22-29); Chloride 103 mmol/L (96-108); Creatinine Clr Calc Pharmacy 67.4; Estimated Glomerular Filt Rate > 60; Glucose Random 101 mg/dL (60-115); Magnesium 1.6 mg/dL (1.6-2.6); Phosphorus 3.1 mg/dL (2.7-4.5); Potassium 3.1 mmol/L (3.3-5.1); Sodium 135 mmol/L (135-145); Total Protein 6.5 g/dL (6.5-8.0)
[2023-12-27 07:17] LABS: Platelet Count 127 X10*3/uL (160-400); White Blood Count 3.8 X10*3/uL (4.8-10.8)
[2023-12-27 07:18] LABS: SLIDE REVIEW VERIFIED
[2023-12-27] MEDS: Potassium Chloride Packet 20 MEQ PACKET 40 MEQ PO (07:26)
[2023-12-27] MEDS: 0.9 % Sodium Chloride Flush 3 ML SYRINGE IVFLUSH ×2 (07:26→17:10)
--- NOTE | 2023-12-27 07:34 | P.PNCC_ITS ---
Subjective Subjective Date of Service: 12/27/23 Interval History: no significant overnight events Critical Care Time (minutes): 0 Physical Exam 2 Vital Signs: Vital Signs: Last Vital Signs Temp 98.9 F 12/27/23 04:00 Pulse 98 12/27/23 06:00 Resp 19 12/27/23 06:00 BP 115/74 12/27/23 06:00 Pulse Ox 97 12/27/23 06:00 O2 Del Method Room Air 12/27/23 06:00 BMI result Body Mass Index 30.4 Const: General: cooperative, healthy appearing, comfortable, no acute distress, well developed, alert, awake and Physically active O rientation/consciousness: patient oriented x3 HEENT: Head: Yes normal to inspection, Yes normocephalic and Yes atraumatic Eyes: General: appearance normal, both eyes and all related structures Neck: Neck: Yes normal visual inspection, Yes full ROM, Yes no meningeal signs, Yes trachea midline and Yes supple Chest: Chest palpation & inspection: normal inspection of the chest Resp: Other: no appreciable rales, rhonchi, wheezing Effort & Inspection: normal respiratory effort Cardio: Rate: regular rate Rhythm: regular rhythm GI: Other: no appreciable tenderness to palpation throughout; no appreciable guarding, rebound Inspection: Yes normal to inspection, No Abdominal wall edema and No distended Palpation (GI): Soft to palpation, not firm, nontender, no guarding and not rigid Skin: General skin exam: no rashes or lesions noted Neuro: General: patient oriented x3, tone normal, moves all extremities, no meningeal signs and no focal motor deficits Extrem: Other: appreciable 1+ pitting edema to bilateral shins General: Yes normal to inspection, Yes full ROM and Yes capillary refill normal Psych: Appearance: grossly normal Objective Data Labs 12/27/23 06:32 12/27/23 06:32 Labs: Laboratory Results - last 24 hr 12/26/23 12/27/23 10:52 06:32 WBC 3.8 L RBC 2.47 L Hgb 8.9 L Hct 25.0 L MCV 101.2 H MCH 36.0 H MCHC 35.6 RDW 14.2 Plt Count 127 L D MPV 10.0 Immature Gran % (Auto) 0.3 Neut % (Auto) 65.8 Lymph % (Auto) 19.7 L [place] % (Auto) 10.0 Eos % (Auto) 3.4 Baso % (Auto) 0.8 Lymph # (Auto) 0.8 L [place] # (Auto) 0.4 Eos # (Auto) 0.1 Baso # (Auto) 0.0 Abs Immat Gran (auto) 0.01 Absolute Neuts (auto) 2.5 Absolute Nucleated RBC 0.000 Nucleated RBC % (auto) 0.0 Smear Tech's Comments VERIFIED PT 15.4 H D 15.6 H INR 1.3 H 1.3 H APTT 31.8 Sodium 135 Potassium 3.1 L Chloride 103 Carbon Dioxide 21 L Anion Gap 14 BUN 16 Creatinine 1.19 Estim Creat Clear Calc 67.4 Estimated GFR > 60 Random Glucose 101 Calcium 9.1 Phosphorus 3.1 Magnesium 1.6 Total Bilirubin 3.3 H 2.2 H Direct Bilirubin 2.4 H 1.6 H AST 104 H 64 H ALT 73 H 59 H Alkaline Phosphatase 91 85 Total Protein 6.5 6.5 Albumin 3.6 3.5 Microbiology Microbiology Results: Microbiology 12/25/23 02:37 Blood - Venous Blood Culture - Preliminary Gram negative tiffani 12/25/23 02:37 Blood - Venous Blood Culture - Preliminary Gram negative tiffani 12/20/23 17:56 Blood - Venous Blood Culture - Final No growth after 5 days. 12/20/23 17:45 Blood - Venous Blood Culture - Final Coag negative Staphylococcus Progress Note: A&P Assessment and plan (1) Cholecystitis: Status: Acute (2) Acute hypotension: Status: Acute Plan Patient is a 63 Y M with hypertension, hyperlipidemia, alcohol misuse, presenting initially to emergency department on 12/20 w/ diarrhea, weakness, found to be hyponatremic, hypotensive, admitted for hypovolemia; on 12/24 found to have GNR bacteremia and imaging c/f high-grade biliary obstruction N: no acute issues CV: hypotension, improved; likely d/t hypovolemia; s/p norepinephrine gtt; started on midodrine, fludrocortisone this admission R: no acute issues GI: episode of abdominal pain on 12/23, HIDA c/f high-grade biliary obstruction; appreciate GI, general surgery, and IR recommendations; diarrhea, resolved; stool panel unrevealing; some appreciable bright red blood per rectum, thought to be d/t hemorrhoids; to closely monitor : hyponatremia, improved; acute renal insufficiency, improved H: anemia, thrombocytopenia; to hold chemical DVT prophylaxis; to closely monitor ID: abdominal pain, resolved; US A, CT A/P, HIDA c/f high-grade biliary obstruction/cholecystitis; to follow-up MRCP; BCx 12/24 demonstrating gram negative rods; to follow-up BCx; empiric zosyn E: no acute issues P: no acute issues S: alcohol misuse; on phenobarbital protocol Quality Stroke Does the patient have a stroke diagnosis?: No VTE Prior VTE?: No VTE Risk Level:: Medical - moderate - high VTE Device Contraindication: N/A - Device Ordered VTE Drug Contraindication: Treatment Not Tolerated
[2023-12-27] MEDS: Folic Acid 1 MG TABLET PO (08:02)
[2023-12-27] MEDS: Midodrine HCl 10 MG TABLET PO ×3 (08:02→17:10)
[2023-12-27] MEDS: PHENobarbitaL 15 MG TABLET PO (08:02)
[2023-12-27] MEDS: Thiamine HCL 100 MG TABLET PO ×2 (08:02→19:58)
[2023-12-27] MEDS: Fludrocortisone Acetate 0.1 MG TABLET PO (08:03)
--- NOTE | 2023-12-27 09:01 | PM.PNGS ---
Subjective Subjective Date of Service: 12/27/23 Interval history: Denies abdominal pain Feels well Tolerating regular diet Blood pressure has been stable Physical Exam Vital Signs: Vital Signs: Last Vital Signs Temp 97.9 F 12/27/23 08:00 Pulse 75 12/27/23 08:00 Resp 14 12/27/23 08:00 BP 113/69 12/27/23 08:02 Pulse Ox 99 12/27/23 08:00 O2 Del Method Room Air 12/27/23 08:00 BMI result Body Mass Index 30.4 Const: General: comfortable and no acute distress Resp: Other: Mild shortness of breath Cardio: Rate: regular rate GI: Other: No Imner's sign Palpation (GI): Soft to palpation, not firm, nontender and no guarding Objective Data Active Medications Fludrocortisone Acetate (Fludrocortisone Acetate 0.1 Mg Tablet) 0.1 mg PO DAILY [facility] BEDS AT [facility] Last Admin: 12/27/23 08:03 Dose: 0.1 mg Documented By: ERWIN Folic Acid (Folic Acid 1 Mg Tablet) 1 mg PO DAILY [facility] 234 BEDS AT [facility] Last Admin: 12/27/23 08:02 Dose: 1 mg Documented By: ERWIN Heparin Sodium (Porcine) (Heparin Sodium,Porcine 5,000 Unit/Ml Vial) 5,000 unit SUBCUT TID [facility]S [facility]CLUDE 234 BEDS AT [facility] Last Admin: 12/21/23 22:08 Dose: 5,000 unit Documented By: KRISTIE Piperacillin Sod/Tazobactam (Sod 3.375 gm/ Sodium Chloride) 50 mls @ 100 mls/hr IV Q6H COUNTS [facility]CLUDE 234 BEDS AT [facility] Last Infusion: 12/27/23 08:41 Dose: Infused Documented By: ERWIN Norepinephrine Bitartrate (Levophed) 8 mg in 250 mls @ 0 mls/hr IVCONT .Q0M COUNTS INCLUDE 234 BEDS AT [facility]; Protocol Midodrine (Midodrine Hcl 10 Mg Tablet) 10 mg PO TID@0900,1300,1700 COUNTS INCLUDE 234 BEDS AT [facility] Last Admin: 12/27/23 08:02 Dose: 10 mg Documented By: ERWIN Omeprazole (Omeprazole 40 Mg Capsule.) 40 mg PO DAILY@0630 COUNTS INCLUDE 234 BEDS AT [facility] Last Admin: 12/27/23 06:32 Dose: 40 mg Documented By: CAYETANO Pharmacy Consult (Consult Rx Etoh Phenob Po Only) 1 each MISCELLANE ONCE PRN; Protocol PRN Reason: Consult order Sodium Chloride (0.9 % Sodium Chloride Flush 3 Ml Syringe) 3 ml IVFLUSH QSHIFT COUNTS INCLUDE 234 BEDS AT [facility] Last Admin: 12/27/23 07:26 Dose: 3 ml Documented By: DUANE Thiamine HCl (Thiamine Hcl 100 Mg Tablet) 100 mg PO BID [facility]S INCLUDE 234 BEDS AT [facility] Last Admin: 12/27/23 08:02 Dose: 100 mg Documented By: ALEJANDROTC Labs 12/27/23 06:32 12/27/23 06:32 Labs: Laboratory Results - last 24 hr 12/26/23 12/27/23 10:52 06:32 MCV 101.2 H MCH 36.0 H MCHC 35.6 RDW 14.2 Plt Count 127 L D MPV 10.0 Immature Gran % (Auto) 0.3 Neut % (Auto) 65.8 Lymph % (Auto) 19.7 L [place] % (Auto) 10.0 Eos % (Auto) 3.4 Baso % (Auto) 0.8 Lymph # (Auto) 0.8 L [place] # (Auto) 0.4 Eos # (Auto) 0.1 Baso # (Auto) 0.0 Abs Immat Gran (auto) 0.01 Absolute Neuts (auto) 2.5 Absolute Nucleated RBC 0.000 Nucleated RBC % (auto) 0.0 Smear Tech's Comments VERIFIED PT 15.4 H D 15.6 H INR 1.3 H 1.3 H APTT 31.8 Anion Gap 14 Estim Creat Clear Calc 67.4 Estimated GFR > 60 Random Glucose 101 Calcium 9.1 Phosphorus 3.1 Magnesium 1.6 Total Bilirubin 3.3 H 2.2 H Direct Bilirubin 2.4 H 1.6 H AST 104 H 64 H ALT 73 H 59 H Alkaline Phosphatase 91 85 Total Protein 6.5 6.5 Albumin 3.6 3.5 Microbiology Microbiology Results: Microbiology 12/25/23 02:37 Blood Culture - Final Blood - Venous Klebsiella pneumoniae 12/25/23 02:37 Blood Culture - Final Blood - Venous Klebsiella pneumoniae Procedures Date of Service Date of Service: 12/27/23 Progress Note: A&P Assessment and plan (1) Cholecystitis: Status: Acute Assessment and Plan: Actually has had no symptoms No Miner's sign, no tenderness Tolerating regular diet Has had elevated bilirubin likely from chronic liver disease with acute insult MRCP does not show CBD obstruction No surgical intervention at this time The rest of the instrument as per the medical ulcer Time Spent With Patient Time: Total time managing care of this patient today ____ minutes. Quality Stroke Does the patient have a stroke diagnosis?: No VTE Prior VTE?: No VTE Risk Level:: Medical - moderate - high VTE Device Contraindication: N/A - Device Ordered VTE Drug Contraindication: Treatment Not Tolerated
[2023-12-27] MEDS: cefTRIAXone sodium 2 GM in 0.9 % Sodium Chloride 50 ML IV (13:11)
--- NOTE | 2023-12-27 16:22 | PM.EVENT ---
Event Note Date of Service: 12/27/23 Event Note: Patient is a 63 Y M with hypertension, hyperlipidemia, alcohol use disorder, presenting initially to emergency department on 12/20 w/ diarrhea, weakness, found to be hyponatremic, hypotensive, admitted for hypovolemia and hypotension requiring vasopressor support; on 12/24 found to have GNR bacteremia and imaging c/f high-grade biliary obstruction however imaging negative and GI, general surgery due not feel ERCP required at this time. follow LFTs. weaned off of vasopressors but started on midodrine and fludrocortisone, bp stable. downgraded to medical floor on 12/26 abnormal HIDA scan and rising LFTs in relation to some cholestasis both from the chronic liver disease from alcohol abuse, as well as from his gram-negative tiffani sepsis The source of the gram-negative rods is not clear but could be related either to his previous diarrhea even though the GI panel was negative, or possibly related to his admission chest x-ray that describes some questionable infiltrate in the left lower lobe follow LFTs, INR tolerating reglar diet Klebsiella pneumonia bacteremia - continue IV ceftriaxone likely transition to oral Ceftin to complete 14 day course anemia/thrombocytopenia follow CBC diarrhea gi panel negative resolved etoh use disorder Phenobarb protocol Hypokalemia Replace Follow BMP Hyponatremia Resolved Acute renal failure Resolved Time Spent With Patient Time: Total time managing care of this patient today ____ minutes.
[2023-12-28] MEDS: 0.9 % Sodium Chloride Flush 3 ML SYRINGE IVFLUSH ×4 (00:28→20:31)
[2023-12-28 03:10] VITALS: BP 111/71; PULSE 75; RESP 18; TEMP 36.6; O2SAT 99
[2023-12-28] MEDS: Omeprazole 40 MG CAPSULE.DR PO (06:11)
[2023-12-28 07:04] LABS: Basophils Percent Auto 0.7 % (0-2); Eosinophils Absolute Auto 0.1 X10*3/uL (0.0-0.4); Hematocrit 24.4 % (42.0-52.0); Hemoglobin 8.3 g/dl (14.0-18.0); Imm Gran Abs Auto 0.01 X10*3/uL (0.00-0.03); Imm Gran Pct Auto 0.2 % (0.0-0.4); Lymphocytes Absolute Auto 1.3 X10*3/uL (1.2-4.9); Lymphocytes Percent Auto 31.3 % (20-40); MANUAL DIFF FLAG SCAN; Mean Corpuscular Hemoglobin 35.5 pg (27.0-33.0); Mean Corpuscular Volume 104.3 fL (80.0-98.0); Mean Platelet Volume 10.6 fL (9.4-12.4); Monocytes Absolute Auto 0.5 X10*3/uL (0.1-1.2); Monocytes Percent Auto 12.7 % (2-11); Neutrophils Absolute Auto 2.1 x10*3/uL (2.0-8.3); Neutrophils Percent Auto 52.1 % (45-73); PLT CLUMP 1; Red Blood Count 2.34 X10*6/uL (4.60-5.80); SCAN SMEAR FLAG 1
[2023-12-28 07:06] LABS: Platelet Count 116 X10*3/uL (160-400)
[2023-12-28 07:09] LABS: Alanine Aminotransferase 41 U/L (0-40); Albumin Level 3.2 g/dL (3.5-5.0); Alkaline Phosphatase 78 U/L (39-117); Anion Gap 12 (12-20); Aspartate Amino Transferase 40 U/L (5-37); Bilirubin Direct 0.7 mg/dL (0.0-0.5); Bilirubin Total 1.3 mg/dL (0.0-1.0); Blood Urea Nitrogen 11 mg/dL (9-16); Calcium 8.7 mg/dL (8.4-10.2); Carbon Dioxide 18 mmol/L (22-29); Chloride 106 mmol/L (96-108); Creatinine Clr Calc Pharmacy 92.5; Estimated Glomerular Filt Rate > 60; Glucose Random 90 mg/dL (60-115); Magnesium 1.5 mg/dL (1.6-2.6); Phosphorus 2.9 mg/dL (2.7-4.5); Potassium 3.3 mmol/L (3.3-5.1); Sodium 133 mmol/L (135-145)
[2023-12-28 07:25] VITALS: BP 121/70; PULSE 72; RESP 18; TEMP 36.2; O2SAT 100
[2023-12-28] MEDS: Midodrine HCl 10 MG TABLET PO ×3 (07:53→16:32)
[2023-12-28] MEDS: Folic Acid 1 MG TABLET PO (07:53)
[2023-12-28] MEDS: Thiamine HCL 100 MG TABLET PO ×2 (07:53→20:34)
[2023-12-28] MEDS: Fludrocortisone Acetate 0.1 MG TABLET PO (07:53)
[2023-12-28 08:01] LABS: SLIDE REVIEW VERIFIED
[2023-12-28] MEDS: Magnesium Sulfate/H2O 2 GM/50 ML PIGGYBACK IV (09:52)
[2023-12-28 11:47] VITALS: BP 119/67; PULSE 68; RESP 19; TEMP 36.7; O2SAT 97
[2023-12-28] MEDS: cefTRIAXone sodium 2 GM in 0.9 % Sodium Chloride 50 ML IV (13:00)
[2023-12-28 15:45] VITALS: BP 132/76; PULSE 68; RESP 16; TEMP 36.3; O2SAT 99
--- NOTE | 2023-12-28 15:57 | HO.PM.IMPN ---
Subjective Subjective Date of Service: 12/28/23 Physical Exam Vital Signs: Vital Signs: Last Vital Signs Temp 97.3 F 12/28/23 15:45 Pulse 68 12/28/23 15:45 Resp 16 12/28/23 15:45 BP 132/76 12/28/23 15:45 Pulse Ox 99 12/28/23 15:45 O2 Del Method Room Air 12/28/23 15:45 BMI result Body Mass Index 30.4 Objective Data Active Medications Fludrocortisone Acetate (Fludrocortisone Acetate 0.1 Mg Tablet) 0.1 mg PO DAILY [facility] Last Admin: 12/28/23 07:53 Dose: 0.1 mg Documented By: RALEIGH Folic Acid (Folic Acid 1 Mg Tablet) 1 mg PO DAILY [facility] Last Admin: 12/28/23 07:53 Dose: 1 mg Documented By: RALEIGH Heparin Sodium (Porcine) (Heparin Sodium,Porcine 5,000 Unit/Ml Vial) 5,000 unit SUBCUT TID [facility] Last Admin: 12/21/23 22:08 Dose: 5,000 unit Documented By: KRISTIE Ceftriaxone Sodium 2 gm/ (Sodium Chloride) 50 mls @ 100 mls/hr IV Q24H [facility] Last Infusion: 12/28/23 13:30 Dose: Infused Documented By: RALEIGH Midodrine (Midodrine Hcl 10 Mg Tablet) 10 mg PO TID@0900,1300,1700 [facility] Last Admin: 12/28/23 13:00 Dose: 10 mg Documented By: RALEIGH Omeprazole (Omeprazole 40 Mg Capsule.) 40 mg PO DAILY@0630 [facility] Last Admin: 12/28/23 06:11 Dose: 40 mg Documented By: GAVINO Pharmacy Consult (Consult Rx Etoh Phenob Po Only) 1 each MISCELLANE ONCE PRN; Protocol PRN Reason: Consult order Sodium Chloride (0.9 % Sodium Chloride Flush 3 Ml Syringe) 3 ml IVFLUSH QSHIFT [facility] Last Admin: 12/28/23 07:54 Dose: 3 ml Documented By: RALEIGH Thiamine HCl (Thiamine Hcl 100 Mg Tablet) 100 mg PO BID [facility] Last Admin: 12/28/23 07:53 Dose: 100 mg Documented By: RALEIGH Labs 12/28/23 06:41 12/28/23 06:41 Labs: Laboratory Results - last 24 hr 12/28/23 06:41 MCV 104.3 H MCH 35.5 H MCHC 34.0 RDW 14.0 Plt Count 116 L MPV 10.6 Immature Gran % (Auto) 0.2 Neut % (Auto) 52.1 Lymph % (Auto) 31.3 [place] % (Auto) 12.7 H Eos % (Auto) 3.0 Baso % (Auto) 0.7 Lymph # (Auto) 1.3 [place] # (Auto) 0.5 Eos # (Auto) 0.1 Baso # (Auto) 0.0 Abs Immat Gran (auto) 0.01 Absolute Neuts (auto) 2.1 Absolute Nucleated RBC 0.000 Nucleated RBC % (auto) 0.0 Smear Tech's Comments VERIFIED Anion Gap 12 Estim Creat Clear Calc 92.5 Estimated GFR > 60 Random Glucose 90 Calcium 8.7 Phosphorus 2.9 Magnesium 1.5 L Total Bilirubin 1.3 H Direct Bilirubin 0.7 H AST 40 H ALT 41 H Alkaline Phosphatase 78 Total Protein 6.0 L Albumin 3.2 L Assessment and Plan (1) Cholecystitis: Status: Acute (2) Acute renal insufficiency: Status: Acute Plan 63 Y M with hypertension, hyperlipidemia, alcohol use disorder, presenting initially to emergency department on 12/20 w/ diarrhea, weakness, found to be hyponatremic, hypotensive, admitted for hypovolemia and hypotension requiring vasopressor support; on 12/24 found to have GNR bacteremia and imaging c/f high-grade biliary obstruction however imaging negative and GI, general surgery due not feel ERCP required at this time. follow LFTs. weaned off of vasopressors but started on midodrine and fludrocortisone, bp stable. downgraded to medical floor on 12/26 abnormal HIDA scan and rising LFTs in relation to some cholestasis both from the chronic liver disease from alcohol abuse, as well as from his gram-negative tiffani sepsis The source of the gram-negative rods is not clear but could be related either to his previous diarrhea even though the GI panel was negative, or possibly related to his admission chest x-ray that describes some questionable infiltrate in the left lower lobe follow LFTs, INR tolerating regular diet Klebsiella pneumonia bacteremia - continue IV ceftriaxone likely transition to oral Ceftin to complete 14 day course anemia/thrombocytopenia follow CBC diarrhea gi panel negative resolved etoh use disorder completed Phenobarb protocol Hypokalemia Replace Follow BMP Hyponatremia Resolved Acute renal failure Resolved DVT prophylaxis with SCD boots Full code Quality Stroke Does the patient have a stroke diagnosis?: No VTE Prior VTE?: No VTE Risk Level:: Medical - moderate - high VTE Device Contraindication: N/A - Device Ordered VTE Drug Contraindication: Treatment Not Tolerated
[2023-12-28 19:25] VITALS: BP 117/67; PULSE 70; RESP 18; TEMP 36.3; O2SAT 98
[2023-12-28 23:43] VITALS: BP 109/61; PULSE 73; RESP 18; TEMP 37.3; O2SAT 98
[2023-12-29 03:36] VITALS: BP 119/66; PULSE 72; RESP 18; TEMP 37.3; O2SAT 98
[2023-12-29] MEDS: Omeprazole 40 MG CAPSULE.DR PO (05:43)
[2023-12-29 06:59] LABS: Basophils Absolute Auto 0.1 X10*3/uL (0.0-0.2); Eosinophils Absolute Auto 0.1 X10*3/uL (0.0-0.4); Eosinophils Percent Auto 2.3 % (0-4); Hemoglobin 8.1 g/dl (14.0-18.0); Imm Gran Abs Auto 0.02 X10*3/uL (0.00-0.03); Imm Gran Pct Auto 0.4 % (0.0-0.4); Lymphocytes Absolute Auto 1.5 X10*3/uL (1.2-4.9); Lymphocytes Percent Auto 29.8 % (20-40); MANUAL DIFF FLAG SCAN; Mean Corpuscular HGB Conc 35.2 g/dl (31.0-36.0); Mean Corpuscular Volume 102.2 fL (80.0-98.0); Mean Platelet Volume 10.1 fL (9.4-12.4); Monocytes Absolute Auto 0.5 X10*3/uL (0.1-1.2); Monocytes Percent Auto 10.9 % (2-11); Neutrophils Absolute Auto 2.7 x10*3/uL (2.0-8.3); Neutrophils Percent Auto 55.6 % (45-73); Platelet Count 135 X10*3/uL (160-400); Red Blood Count 2.25 X10*6/uL (4.60-5.80); Red Cell Distribution Width 13.8 % (11.0-16.0); SCAN SMEAR FLAG 1; White Blood Count 4.9 X10*3/uL (4.8-10.8)
[2023-12-29 07:05] LABS: Anion Gap 12 (12-20); Blood Urea Nitrogen 6 mg/dL (9-16); Calcium 8.9 mg/dL (8.4-10.2); Carbon Dioxide 20 mmol/L (22-29); Chloride 107 mmol/L (96-108); Creatinine Clr Calc Pharmacy 104.5; Estimated Glomerular Filt Rate > 60; Glucose Random 105 mg/dL (60-115); Magnesium 1.7 mg/dL (1.6-2.6); Phosphorus 2.9 mg/dL (2.7-4.5); Potassium 3.2 mmol/L (3.3-5.1); Sodium 136 mmol/L (135-145)
[2023-12-29 07:20] LABS: SLIDE REVIEW VERIFIED
[2023-12-29] MEDS: Fludrocortisone Acetate 0.1 MG TABLET PO (07:47)
[2023-12-29] MEDS: Potassium Chloride ER 20 MEQ TAB.ER.PRT 40 MEQ PO (07:47)
[2023-12-29] MEDS: Midodrine HCl 10 MG TABLET PO ×3 (07:47→16:29)
[2023-12-29] MEDS: Thiamine HCL 100 MG TABLET PO ×2 (07:47→21:25)
[2023-12-29] MEDS: Folic Acid 1 MG TABLET PO (07:47)
[2023-12-29] MEDS: 0.9 % Sodium Chloride Flush 3 ML SYRINGE IVFLUSH ×3 (07:51→21:25)
[2023-12-29 08:00] VITALS: BP 125/69; PULSE 75; RESP 18; TEMP 36.7; O2SAT 99
--- NOTE | 2023-12-29 09:09 | HO.PM.IMPN ---
Subjective Subjective Date of Service: 12/29/23 Review of Systems Follow up ICU downgrade for Hypotension feeling better, no pain good appetite Physical Exam Vital Signs: Vital Signs: Last Vital Signs Temp 98.1 F 12/29/23 08:00 Pulse 75 12/29/23 08:00 Resp 18 12/29/23 08:00 BP 125/69 12/29/23 08:00 Pulse Ox 99 12/29/23 08:00 O2 Del Method Room Air 12/29/23 08:00 BMI result Body Mass Index 30.4 Appearing in no acute distress lung sounds are clear to auscultation heart regular rate rhythm, clear S1, S2 positive bowel sounds, abdomen is soft, nontender neuro patient is alert x3, no focal deficits Objective Data Active Medications Fludrocortisone Acetate (Fludrocortisone Acetate 0.1 Mg Tablet) 0.1 mg PO DAILY [facility] Last Admin: 12/29/23 07:47 Dose: 0.1 mg Documented By: RALEIGH Folic Acid (Folic Acid 1 Mg Tablet) 1 mg PO DAILY [facility] Last Admin: 12/29/23 07:47 Dose: 1 mg Documented By: RALEIGH Heparin Sodium (Porcine) (Heparin Sodium,Porcine 5,000 Unit/Ml Vial) 5,000 unit SUBCUT TID [facility] Last Admin: 12/21/23 22:08 Dose: 5,000 unit Documented By: KRISTIE Ceftriaxone Sodium 2 gm/ (Sodium Chloride) 50 mls @ 100 mls/hr IV Q24H [facility] Last Infusion: 12/28/23 13:30 Dose: Infused Documented By: RALEIGH Midodrine (Midodrine Hcl 10 Mg Tablet) 10 mg PO TID@0900,1300,1700 [facility] Last Admin: 12/29/23 07:47 Dose: 10 mg Documented By: RALEIGH Omeprazole (Omeprazole 40 Mg Capsule.) 40 mg PO DAILY@0630 [facility] Last Admin: 12/29/23 05:43 Dose: 40 mg Documented By: ANU Omeprazole (Omeprazole 40 Mg Capsule.) 40 mg PO DAILY@0630 [facility] Last Admin: 12/29/23 06:49 Dose: Not Given Documented By: ANU Non-Admin Reason: Duplicate Order Pharmacy Consult (Consult Rx Etoh Phenob Po Only) 1 each MISCELLANE ONCE PRN; Protocol PRN Reason: Consult order Sodium Chloride (0.9 % Sodium Chloride Flush 3 Ml Syringe) 3 ml IVFLUSH QSHIFT [facility] Last Admin: 12/29/23 07:51 Dose: 3 ml Documented By: RALEIGH Thiamine HCl (Thiamine Hcl 100 Mg Tablet) 100 mg PO BID [facility] Last Admin: 12/29/23 07:47 Dose: 100 mg Documented By: RALEIGH Labs 12/29/23 06:41 12/29/23 06:42 Labs: Laboratory Results - last 24 hr 12/29/23 12/29/23 06:41 06:42 MCV 102.2 H MCH 36.0 H MCHC 35.2 RDW 13.8 Plt Count 135 L MPV 10.1 Immature Gran % (Auto) 0.4 Neut % (Auto) 55.6 Lymph % (Auto) 29.8 [place] % (Auto) 10.9 Eos % (Auto) 2.3 Baso % (Auto) 1.0 Lymph # (Auto) 1.5 [place] # (Auto) 0.5 Eos # (Auto) 0.1 Baso # (Auto) 0.1 Abs Immat Gran (auto) 0.02 Absolute Neuts (auto) 2.7 Absolute Nucleated RBC 0.000 Nucleated RBC % (auto) 0.0 Smear Tech's Comments VERIFIED Anion Gap 12 Estim Creat Clear Calc 104.5 Estimated GFR > 60 Random Glucose 105 Calcium 8.9 Phosphorus 2.9 Magnesium 1.7 Assessment and Plan (1) Cholecystitis: Status: Acute (2) Acute renal insufficiency: Status: Acute Plan 63 Y M with hypertension, hyperlipidemia, alcohol use disorder, presenting initially to emergency department on 12/20 w/ diarrhea, weakness, found to be hyponatremic, hypotensive, admitted for hypovolemia and hypotension requiring vasopressor support; on 12/24 found to have GNR bacteremia and imaging c/f high-grade biliary obstruction however imaging negative and GI, general surgery due not feel ERCP required at this time. follow LFTs. weaned off of vasopressors but started on midodrine and fludrocortisone, bp stable. downgraded to medical floor on 12/26 Klebsiella pneumonia bacteremia source unclear, MRCP neg for CBD dilatation, no obvious infection Seen by GI LFT trending down continue IV ceftriaxone likely transition to oral Ceftin to complete 14 day course Anemia/thrombocytopenia stable HH follow CBC Diarrhea. Resolved GI panel negative ETOH use disorder completed Phenobarb protocol Hypotension . Resolved secondary to hypovolemia s/p pressors in ICU midodrine and florinef started Hypokalemia Replace Follow BMP Hyponatremia Resolved Acute renal failure Resolved DVT prophylaxis with SCD boots Attending Dr. Irizarry Full code Quality Stroke Does the patient have a stroke diagnosis?: No VTE Prior VTE?: No VTE Risk Level:: Medical - moderate - high VTE Device Contraindication: N/A - Device Ordered VTE Drug Contraindication: Treatment Not Tolerated
[2023-12-29 12:00] VITALS: BP 134/80; PULSE 68; RESP 18; TEMP 36.7; O2SAT 100
[2023-12-29] MEDS: cefTRIAXone sodium 2 GM in 0.9 % Sodium Chloride 50 ML IV (13:06)
[2023-12-29 15:57] VITALS: BP 113/64; PULSE 71; RESP 18; TEMP 36.6; O2SAT 100
[2023-12-29 19:32] VITALS: BP 132/72; PULSE 65; RESP 19; TEMP 36.6; O2SAT 99
[2023-12-30] VITALS: BP 123/66; PULSE 73; RESP 20; TEMP 37.2; O2SAT 99
[2023-12-30 04:00] VITALS: BP 104/62; PULSE 79; RESP 18; TEMP 37.1; O2SAT 98
[2023-12-30] MEDS: Omeprazole 40 MG CAPSULE.DR PO (05:06)
[2023-12-30 06:25] LABS: Basophils Absolute Auto 0.1 X10*3/uL (0.0-0.2); Basophils Percent Auto 1.2 % (0-2); Eosinophils Absolute Auto 0.1 X10*3/uL (0.0-0.4); Eosinophils Percent Auto 2.8 % (0-4); Hematocrit 22.7 % (42.0-52.0); Hemoglobin 7.7 g/dl (14.0-18.0); Imm Gran Abs Auto 0.02 X10*3/uL (0.00-0.03); Imm Gran Pct Auto 0.4 % (0.0-0.4); Lymphocytes Absolute Auto 1.8 X10*3/uL (1.2-4.9); Lymphocytes Percent Auto 35.9 % (20-40); MANUAL DIFF FLAG SCAN; Mean Corpuscular HGB Conc 33.9 g/dl (31.0-36.0); Mean Corpuscular Hemoglobin 35.2 pg (27.0-33.0); Mean Corpuscular Volume 103.7 fL (80.0-98.0); Monocytes Absolute Auto 0.5 X10*3/uL (0.1-1.2); Monocytes Percent Auto 10.6 % (2-11); Neutrophils Absolute Auto 2.5 x10*3/uL (2.0-8.3); Neutrophils Percent Auto 49.1 % (45-73); Platelet Count 147 X10*3/uL (160-400); Red Blood Count 2.19 X10*6/uL (4.60-5.80); Red Cell Distribution Width 13.5 % (11.0-16.0); SCAN SMEAR FLAG 1
[2023-12-30 07:15] LABS: Anion Gap 11 (12-20); Blood Urea Nitrogen 6 mg/dL (9-16); Calcium 8.9 mg/dL (8.4-10.2); Carbon Dioxide 21 mmol/L (22-29); Chloride 108 mmol/L (96-108); Creatinine Clr Calc Pharmacy 99.3; Estimated Glomerular Filt Rate > 60; Glucose Random 92 mg/dL (60-115); Magnesium 1.7 mg/dL (1.6-2.6); Potassium 3.9 mmol/L (3.3-5.1); Sodium 136 mmol/L (135-145)
[2023-12-30 07:17] LABS: SLIDE REVIEW VERIFIED
[2023-12-30 07:37] VITALS: BP 124/72; PULSE 72; RESP 18; TEMP 36.2; O2SAT 99
[2023-12-30] MEDS: Thiamine HCL 100 MG TABLET PO (07:39)
[2023-12-30] MEDS: Midodrine HCl 10 MG TABLET PO ×3 (07:39→16:40)
[2023-12-30] MEDS: Folic Acid 1 MG TABLET PO (07:40)
[2023-12-30] MEDS: Fludrocortisone Acetate 0.1 MG TABLET PO (07:40)
[2023-12-30] MEDS: 0.9 % Sodium Chloride Flush 3 ML SYRINGE IVFLUSH ×2 (07:40→16:42)
--- NOTE | 2023-12-30 09:17 | MHC.RECOVRN ---
AUDIT-C Brief Intervention Pt had positive screen for unhealthy alcohol use on admission. Attempted to meet with pt to discuss alcohol use and offer resources, pt declined.
[2023-12-30 10:14] LABS: Iron 95 mcg/dL (45-160); Percent Iron Saturation 70 % (15-50); Total Iron Binding Capacity 136 mcg/dL (228-428); Unsaturated Iron Binding 41 ug/dL
[2023-12-30 10:50] VITALS: BP 113/66; PULSE 92; RESP 18; TEMP 36.2; O2SAT 99
--- NOTE | 2023-12-30 11:12 | HO.PM.IMPN ---
Subjective Subjective Date of Service: 12/30/23 Review of Systems Follow up ICU downgrade for Hypotension feeling better, no pain good appetite Physical Exam Vital Signs: Vital Signs: Last Vital Signs Temp 97.2 F 12/30/23 10:50 Pulse 92 12/30/23 10:50 Resp 18 12/30/23 10:50 BP 113/66 12/30/23 10:50 Pulse Ox 99 12/30/23 10:50 O2 Del Method Room Air 12/30/23 10:50 BMI result Body Mass Index 30.4 Appearing in no acute distress lung sounds are clear to auscultation heart regular rate rhythm, clear S1, S2 positive bowel sounds, abdomen is soft, nontender neuro patient is alert x3, no focal deficits Objective Data Active Medications Fludrocortisone Acetate (Fludrocortisone Acetate 0.1 Mg Tablet) 0.1 mg PO DAILY [facility] Last Admin: 12/30/23 07:40 Dose: 0.1 mg Documented By: RALEIGH Folic Acid (Folic Acid 1 Mg Tablet) 1 mg PO DAILY [facility] Last Admin: 12/30/23 07:40 Dose: 1 mg Documented By: RALEIGH Ceftriaxone Sodium 2 gm/ (Sodium Chloride) 50 mls @ 100 mls/hr IV Q24H [facility] Last Infusion: 12/29/23 13:36 Dose: Infused Documented By: RALEIGH Midodrine (Midodrine Hcl 10 Mg Tablet) 10 mg PO TID@0900,1300,1700 [facility] Last Admin: 12/30/23 07:39 Dose: 10 mg Documented By: RALEIGH Omeprazole (Omeprazole 40 Mg Capsule.) 40 mg PO DAILY@0630 [facility] Last Admin: 12/30/23 05:06 Dose: 40 mg Documented By: DANIEL Omeprazole (Omeprazole 40 Mg Capsule.) 40 mg PO DAILY@0630 [facility] Last Admin: 12/30/23 05:06 Dose: Not Given Documented By: DANIEL Non-Admin Reason: Duplicate Order Pharmacy Consult (Consult Rx Etoh Phenob Po Only) 1 each MISCELLANE ONCE PRN; Protocol PRN Reason: Consult order Sodium Chloride (0.9 % Sodium Chloride Flush 3 Ml Syringe) 3 ml IVFLUSH QSHIFT [facility] Last Admin: 12/30/23 07:40 Dose: 3 ml Documented By: RALEIGH Thiamine HCl (Thiamine Hcl 100 Mg Tablet) 100 mg PO BID [facility] Last Admin: 12/30/23 07:39 Dose: 100 mg Documented By: RALEIGH Labs 12/30/23 06:06 12/30/23 06:06 Labs: Laboratory Results - last 24 hr 12/30/23 06:06 MCV 103.7 H MCH 35.2 H MCHC 33.9 RDW 13.5 Plt Count 147 L MPV 10.0 Immature Gran % (Auto) 0.4 Neut % (Auto) 49.1 Lymph % (Auto) 35.9 [place] % (Auto) 10.6 Eos % (Auto) 2.8 Baso % (Auto) 1.2 Lymph # (Auto) 1.8 [place] # (Auto) 0.5 Eos # (Auto) 0.1 Baso # (Auto) 0.1 Abs Immat Gran (auto) 0.02 Absolute Neuts (auto) 2.5 Absolute Nucleated RBC 0.000 Nucleated RBC % (auto) 0.0 Smear Tech's Comments VERIFIED Anion Gap 11 L Estim Creat Clear Calc 99.3 Estimated GFR > 60 Random Glucose 92 Calcium 8.9 Phosphorus 3.0 Magnesium 1.7 Iron 95 TIBC 136 L % Saturation 70 H Unsat Iron Binding 41 Assessment and Plan (1) Cholecystitis: Status: Acute (2) Acute renal insufficiency: Status: Acute Plan 63 Y M with hypertension, hyperlipidemia, alcohol use disorder, presenting initially to emergency department on 12/20 w/ diarrhea, weakness, found to be hyponatremic, hypotensive, admitted for hypovolemia and hypotension requiring vasopressor support; on 12/24 found to have GNR bacteremia and imaging c/f high-grade biliary obstruction however imaging negative and GI, general surgery due not feel ERCP required at this time. follow LFTs. weaned off of vasopressors but started on midodrine and fludrocortisone, bp stable. downgraded to medical floor on 12/26 Klebsiella pneumonia bacteremia source unclear, MRCP neg for CBD dilatation, no obvious infection Seen by GI LFT trending down continue IV ceftriaxone. transition to oral Ceftin to complete 14 day course Anemia/thrombocytopenia stable HH follow CBC Diarrhea. Resolved GI panel negative ETOH use disorder completed Phenobarb protocol Hypotension . Resolved secondary to hypovolemia s/p pressors in ICU midodrine and florinef started Hypokalemia Replace Follow BMP Hyponatremia Resolved Acute renal failure Resolved DISPO PT rec acute rehab DVT prophylaxis with SCD boots Attending Dr. Irizarry Full code Quality Stroke Does the patient have a stroke diagnosis?: No VTE Prior VTE?: No VTE Risk Level:: Medical - moderate - high VTE Device Contraindication: N/A - Device Ordered VTE Drug Contraindication: Treatment Not Tolerated
[2023-12-30 11:21] VITALS: BP 113/66; PULSE 92; O2SAT 99
--- NOTE | 2023-12-30 11:50 | MHC.CM.PN ---
This CM met with pt to discuss discharge plan, PT is recommending [facility], pt is in agreement with going to [facility], [facility] have offered pt a bed, and pt accepted, they will pursue insurance auth.
[2023-12-30] MEDS: cefTRIAXone sodium 2 GM in 0.9 % Sodium Chloride 50 ML IV (13:00)
--- NOTE | 2023-12-30 13:53 | MHC.CM.PN ---
Second IMM given 12/29. Pt is medically cleared for discharge to [facility] today, insurance auth was obtained. Pt will transport via [facility]. Per pts request, HCP/sister Loida was called and notified of his discharge today.
--- NOTE | 2023-12-30 14:21 | PM.DS ---
DS: Providers Provider Date of Service: 12/30/23 Date of admission: 12/21/23 00:16 Primary care physician: Za Cotton MD Consults: 12/25/23 15:01 Consult to General Surgery Routine Consulting Provider: Carlton Glynn Reason for consultation: ?Acute Cholecystitis 12/26/23 09:01 Consult to Gastroenterology Routine Consulting Provider: Ryan Norton Reason for consultation: Biliary Obstruction, ?MRCP 12/27/23 17:09 Addiction Medicine Routine Consulting Provider: Addiction Covering Reason for consultation: etoh abuse Has provider been notified: No DS: Diagnosis Discharge Diagnosis (1) Cholecystitis: Status: Acute (2) Acute renal insufficiency: Status: Acute DS: Summary Hospital Course Hospital Course: History and physical as per admitting provider. The patient is a 63? year old male with a past medical history of alcohol abuse, hypertension, GERD, hypercholesteremia, obesity,? PTSD, anxiety, and tobacco use who presented to the emergency department? via EMS with weakness. Patient reported feeling weak and dizzy for about 3 weeks,? has reported multiple falls due to feeling ? unsteady when walking?,? denied hitting his head, headaches or any pain.? He reports drinking a pt of vodka daily, but only had? half a pint around 6 hours prior to going to the emergency department. He also reports multiple episodes of diarrhea.?In the emergency department, ? patient hypotensive? to 79/38,? mentating well, all other vital signs stable. Laboratory data was significant for? platelets of 135, serum sodium 122, potassium 3, chloride 84, serum bicarb 19, anion gap 22, BUN 57, creatinine 5.88, lactic 2.1 IMAGING:?Head CT:? no acute findings Abdominal/pelvis CT:? no acute findings ED Course:?Patient received a 1L bolus of normal saline prior to arrival to the emergency department,? and received an additional 500 mL on arrival to ED.? Nephrology,? Dr. Chavarria, was consulted by ED provider, who advised? potassium replacement and continue normal saline at 125 mL/hour.?Patient also received a total of 80 mEq of potassium, folic acid 1 mg,? thiamine 100mg, and albumin? 100 mL and additional 500Ml LR bolus.?Despite fluid administration and due to underlying hyponatremia patient continued to be hypotensive requiring initiation of vasopressors.?Patient will be admitted to ICU for management of acute hyponatremia? and hypotension requiring pressors 63 Y M with hypertension, hyperlipidemia, alcohol use disorder, presenting initially to emergency department on 12/20 w/ diarrhea, weakness, found to be hyponatremic, hypotensive, admitted for hypovolemia and hypotension requiring vasopressor support; on 12/24 found to have GNR bacteremia and imaging c/f high-grade biliary obstruction however imaging negative and GI, general surgery due not feel ERCP required at this time. follow LFTs. weaned off of vasopressors but started on midodrine and fludrocortisone, bp stable. downgraded to medical floor on 12/26 Klebsiella pneumonia bacteremia source unclear, MRCP neg for CBD dilatation, no obvious infection Seen by GI LFT trended down Treated with IV ceftriaxone and transition to oral Ceftin for a total of 14 day treatment Anemia/thrombocytopenia stable HH Above transfusion threshold during hospitalization Diarrhea. Resolved GI panel negative ETOH use disorder completed Phenobarb protocol Educated on alcohol cessation Hypotension . Resolved secondary to hypovolemia s/p pressors in ICU Continue midodrine and florinef Hypokalemia Replaced and resolved Hyponatremia Resolved Acute renal failure Resolved Time Attestation Discharge Coordination Time (in mins): 35 Quality: Safe Use of Opioids Does Pt have an Active Cancer Diagnosis on the Problem List?: No Quality: Stroke Does the patient have a stroke diagnosis?: No Physical Exam Vital Signs: Vital Signs: Last Vital Signs Temp 97.2 F 12/30/23 10:50 Pulse 92 12/30/23 11:21 Resp 18 12/30/23 10:50 BP 113/66 12/30/23 11:21 Pulse Ox 99 12/30/23 11:21 O2 Del Method Room Air 12/30/23 10:50 BMI result Body Mass Index 30.4 Appearing in no acute distress head is normocephalic atraumatic eyes pupils are PERRLA sclera is anicteric mouth throat mucous membranes are intact and moist neck is supple no lymphadenopathy, no JVD noted lung sounds are clear to auscultation heart regular rate rhythm, clear S1, S2 positive bowel sounds, abdomen is soft, nontender neuro patient is alert x3, no focal deficits DS: Data Data Completed and Pending Labs on day of discharge: Laboratory Results - last 24 hr 12/30/23 06:06 WBC 5.0 RBC 2.19 L Hgb 7.7 L Hct 22.7 L MCV 103.7 H MCH 35.2 H MCHC 33.9 RDW 13.5 Plt Count 147 L MPV 10.0 Immature Gran % (Auto) 0.4 Neut % (Auto) 49.1 Lymph % (Auto) 35.9 [place] % (Auto) 10.6 Eos % (Auto) 2.8 Baso % (Auto) 1.2 Lymph # (Auto) 1.8 [place] # (Auto) 0.5 Eos # (Auto) 0.1 Baso # (Auto) 0.1 Abs Immat Gran (auto) 0.02 Absolute Neuts (auto) 2.5 Absolute Nucleated RBC 0.000 Nucleated RBC % (auto) 0.0 Smear Tech's Comments VERIFIED Sodium 136 Potassium 3.9 D Chloride 108 Carbon Dioxide 21 L Anion Gap 11 L BUN 6 L Creatinine 0.81 Estim Creat Clear Calc 99.3 Estimated GFR > 60 Random Glucose 92 Calcium 8.9 Phosphorus 3.0 Magnesium 1.7 Iron 95 TIBC 136 L % Saturation 70 H Unsat Iron Binding 41 Discharge Plan Discharge Anticipated Discharge Date/Time: 12/30/23 14:16 Patient Disposition: Xfer SNF Discharge Diagnosis: Klebsiella pneumonia bacteremia Anemia Diarrhea Alcohol use disorder Hypotension Hypokalemia Hyponatremia Acute renal failure Referrals: [facility] [Outside] - 1 Week Po,Za Boucher MD [Primary Care Provider] - 1 Week Discharge Medications: New fludrocortisone 0.1 mg Tablet 0.1 mg PO DAILY Qty: 30 0RF midodrine 10 mg Tablet 10 mg PO TID@0900,1300,1700 Qty: 30 0RF cefuroxime axetil 500 mg tablet 500 mg PO Q12H Qty: 16 0RF Continued ascorbate calcium (vitamin C) 500 mg tablet 500 mg PO BID 30 Days Qty: 180 2RF ferrous sulfate 325 mg (65 mg iron) tablet 325 mg PO BID Qty: 180 0RF cyanocobalamin (vitamin B-12) 1,000 mcg capsule 1,000 mcg PO DAILY Qty: 90 1RF lisinopril 40 mg tablet 40 mg PO DAILY 90 Days Qty: 90 1RF folic acid 1 mg tablet 1 mg PO DAILY Qty: 90 0RF atenolol 100 mg tablet 100 mg PO DAILY Qty: 90 0RF omeprazole 40 mg capsule,delayed release(DR/EC) 40 mg PO DAILY@0630 (DME) blood pressure monitor Kit See Rx Instructions .Route Qty: 1 0RF Rx Instructions: As directed hydrochlorothiazide 25 mg tablet 25 mg PO DAILY Qty: 30 5RF Discharge Orders: Discharge Order (Routine); Ordered 12/30/23 Ordered By: Nicci Robertson Diet: Advance to usual diet Activity on Discharge: As tolerated Stand Alone Forms: Patient Portal Discharge page Print Language: [place] Care Plan Goals: Transfer to short-term rehab for physical therapy Stop drinking alcohol Health Concerns: Klebsiella pneumonia bacteremia Anemia Diarrhea Alcohol use disorder Hypotension Hypokalemia Hyponatremia Acute renal failure Plan of Treatment: Follow-up with primary care provider as needed Take all medications as prescribed Assessment: See discharge summary
[2023-12-30 15:55] VITALS: BP 123/72; PULSE 80; RESP 18; TEMP 36.4; O2SAT 100
--- NOTE | 2024-01-20 10:18 | P.CDIM_ITS ---
PROVIDER RESPONSE TEXT: To clarify, the appropriate diagnosis supported by the clinical indicators: Hypovolemic shock QUERY TEXT: PHYSICIAN'S DOCUMENTATION REQUEST Date of Query: 01/16/2024 08:55 AM EDT Patient Name: Maurice Tripathi Admit Date: 12/21/2023 Dear Nicci Robertson FOOD TECHNICIAN, A review of the medical record indicates additional documentation may be needed. Please review below and update the documentation accordingly. Clinical Indicators: Per Critical Care Progress Note 12/22/23: Hypotension: Possibly hypovolemic shock from diarrhea and very poor oral intake Continue Levophed support to keep the map above 65 mm Hg Aggressive fluid replacement has been hindered by hyponatremia, sodium is slowly improving Per Discharge Summary 12/30/23: Hypotension . Resolved secondary to hypovolemia s/p pressors in ICU Continue midodrine and florinef Discharge Summary does not state Hypovolemic shock Based on the above, could you clarify the appropriate diagnosis, if significant, that supports the ab ove abnormalities and additional evaluation, monitoring, and/or treatment rendered: Hypovolemic shock No Hypovolemic shock Other (explain) Clinically unable to determine (explain) Thank you, Kailee Merritt RN Use of terms such as suspected, likely, concern for, or probable (associated with a specific diagnosi s that is being evaluated, monitored, or treated as if it exists) are acceptable and can be coded in the inpatient se tting, when documented at the time of discharge. Please use your independent medical judgment in providing your response. THIS QUERY IS PART OF THE PERMANENT MEDICAL RECORD
== END 2023-12-30 17:39 | disposition skilled nursing facility (03) | DRG 314 ==
LOC: HO.ED 22:36 → HO.ICU 12-21 00:29 → HO.IMC 12-27 13:00
PROVIDERS: Internal Medicine; Internal Medicine Critical Care Medicine; Nurse Practitioner Family; Physician Assistant; Admitting Provider Registered Nurse Community Health; Emergency Provider Emergency Medicine; PCP Internal Medicine; Visit Provider Nurse Practitioner Acute Care
DX: I95.9 Hypotension, unspecified (principal); R57.1 Hypovolemic shock; D62 Acute posthemorrhagic anemia; E87.1 Hypo-osmolality and hyponatremia; N17.9 Acute kidney failure, unspecified; K81.0 Acute cholecystitis; K92.1 Melena; R78.81 Bacteremia; B96.1 Klebsiella pneumoniae [K. pneumoniae] as the cause of diseases classified elsewhere; F17.210 Nicotine dependence, cigarettes, uncomplicated; E66.01 Morbid (severe) obesity due to excess calories; K70.9 Alcoholic liver disease, unspecified; I10 Essential (primary) hypertension; Y90.1 Blood alcohol level of 20-39 mg/100 ml; D69.6 Thrombocytopenia, unspecified; Z68.30 Body mass index [BMI] 30.0-30.9, adult; F10.20 Alcohol dependence, uncomplicated; E86.1 Hypovolemia; E87.6 Hypokalemia; Z79.899 Other long term (current) drug therapy
CPT/HCPCS: 36415; 70450; 71045; 74176; 74177; 74181; 76705; 78226; 80048; 80053; 80076; 80202; 80307; 81001; 82248; 82533; 82570; 82803; 83540; 83605; 83690; 83735; 83935; 84075; 84100; 84300; 84439; 84443; 84450; 84460; 84484; 85025; 85610; 85730; 86850; 86900; 86901; 86923; 87040; 87077; 87147; 87186; 87205; 87493; 87507; 90656; 93005; 97162; 97530; 99285; A9537; J0696; J1644; J2250; J2405; J2543; J3370; J3475; J3480; J7120; P9016; P9047; Q9967

== ENCOUNTER → 2023-12-21 00:16 | Outpatient (BNV) | payer MEDICARE, SELFPAY | PROVIDERS: Admitting Provider Registered Nurse Community Health; Emergency Provider Emergency Medicine; PCP Internal Medicine; Visit Provider Surgery | DX: K81.9 Cholecystitis, unspecified (principal) | CPT/HCPCS: 99222; 99232; 99499 ==

== ENCOUNTER → 2023-12-21 00:16 | Outpatient (BNV) | payer MEDICARE, SELFPAY | PROVIDERS: Admitting Provider Registered Nurse Community Health; Emergency Provider Emergency Medicine; PCP Internal Medicine; Visit Provider Registered Nurse Community Health | DX: I95.9 Hypotension, unspecified (principal); R19.7 Diarrhea, unspecified; E87.1 Hypo-osmolality and hyponatremia; F10.10 Alcohol abuse, uncomplicated | CPT/HCPCS: 99232; 99233; 99291; 99292 ==

== ENCOUNTER → 2023-12-21 00:16 | Outpatient (BNV) | payer MEDICARE, SELFPAY | PROVIDERS: Admitting Provider Registered Nurse Community Health; Emergency Provider Emergency Medicine; PCP Internal Medicine; Visit Provider Physician Assistant Medical | DX: K81.9 Cholecystitis, unspecified (principal); N28.9 Disorder of kidney and ureter, unspecified | CPT/HCPCS: 99232; 99239; 99499 ==

== ENCOUNTER 2023-12-31 05:20 | Outpatient (REF) | payer MEDICARE, SELFPAY ==
[2023-12-31 05:28] LABS: Basophils Absolute Auto 0.1 X10*3/uL (0.0-0.2); Basophils Percent Auto 1.4 % (0-2); Eosinophils Absolute Auto 0.1 X10*3/uL (0.0-0.4); Hematocrit 23.1 % (42.0-52.0); Hemoglobin 7.8 g/dl (14.0-18.0); Imm Gran Abs Auto 0.01 X10*3/uL (0.00-0.03); Imm Gran Pct Auto 0.2 % (0.0-0.4); Lymphocytes Absolute Auto 1.8 X10*3/uL (1.2-4.9); Lymphocytes Percent Auto 35.7 % (20-40); MANUAL DIFF FLAG SCAN; Mean Corpuscular HGB Conc 33.8 g/dl (31.0-36.0); Mean Corpuscular Hemoglobin 35.3 pg (27.0-33.0); Mean Corpuscular Volume 104.5 fL (80.0-98.0); Monocytes Absolute Auto 0.4 X10*3/uL (0.1-1.2); Monocytes Percent Auto 8.2 % (2-11); Neutrophils Absolute Auto 2.7 x10*3/uL (2.0-8.3); Neutrophils Percent Auto 52.5 % (45-73); Platelet Count 181 X10*3/uL (160-400); Red Blood Count 2.21 X10*6/uL (4.60-5.80); Red Cell Distribution Width 13.9 % (11.0-16.0); SCAN SMEAR FLAG 1; White Blood Count 5.1 X10*3/uL (4.8-10.8)
[2023-12-31 05:47] LABS: Anion Gap 14 (12-20); Blood Urea Nitrogen 5 mg/dL (9-16); Calcium 8.5 mg/dL (8.4-10.2); Carbon Dioxide 18 mmol/L (22-29); Chloride 108 mmol/L (96-108); Estimated Glomerular Filt Rate > 60; Glucose Random 92 mg/dL (60-115); Potassium 3.2 mmol/L (3.3-5.1); Sodium 137 mmol/L (135-145)
[2023-12-31 05:54] LABS: SLIDE REVIEW VERIFIED
== END 2023-12-31 05:21 | disposition home or self-care (01) ==
LOC: HO.MMNH1L 05:20
PROVIDERS: Visit Provider Hospitalist
DX: K81.9 Cholecystitis, unspecified (principal); N28.9 Disorder of kidney and ureter, unspecified
CPT/HCPCS: 36415; 80048; 85025

== ENCOUNTER 2024-01-03 06:03 | Outpatient (REF) | payer MEDICARE, SELFPAY ==
[2024-01-03 06:08] LABS: MANUAL DIFF FLAG NO
[2024-01-03 06:14] LABS: Basophils Percent Auto 0.7 % (0-2); Eosinophils Absolute Auto 0.1 X10*3/uL (0.0-0.4); Eosinophils Percent Auto 2.9 % (0-4); Hematocrit 22.5 % (42.0-52.0); Hemoglobin 7.6 g/dl (14.0-18.0); Imm Gran Abs Auto 0.02 X10*3/uL (0.00-0.03); Imm Gran Pct Auto 0.4 % (0.0-0.4); Lymphocytes Absolute Auto 1.2 X10*3/uL (1.2-4.9); Lymphocytes Percent Auto 26.9 % (20-40); Mean Corpuscular HGB Conc 33.8 g/dl (31.0-36.0); Mean Corpuscular Hemoglobin 34.9 pg (27.0-33.0); Mean Corpuscular Volume 103.2 fL (80.0-98.0); Mean Platelet Volume 10.1 fL (9.4-12.4); Monocytes Absolute Auto 0.3 X10*3/uL (0.1-1.2); Monocytes Percent Auto 6.4 % (2-11); Neutrophils Absolute Auto 2.8 x10*3/uL (2.0-8.3); Neutrophils Percent Auto 62.7 % (45-73); Platelet Count 261 X10*3/uL (160-400); Red Blood Count 2.18 X10*6/uL (4.60-5.80); Red Cell Distribution Width 13.8 % (11.0-16.0); White Blood Count 4.5 X10*3/uL (4.8-10.8)
[2024-01-03 06:26] LABS: Anion Gap 12 (12-20); Blood Urea Nitrogen 5 mg/dL (9-16); Calcium 8.9 mg/dL (8.4-10.2); Carbon Dioxide 19 mmol/L (22-29); Chloride 111 mmol/L (96-108); Estimated Glomerular Filt Rate > 60; Glucose Random 80 mg/dL (60-115); Potassium 3.3 mmol/L (3.3-5.1); Sodium 139 mmol/L (135-145)
== END 2024-01-03 06:04 | disposition home or self-care (01) ==
LOC: HO.MMNH1L 06:03
PROVIDERS: Visit Provider Hospitalist
DX: R78.81 Bacteremia (principal)
CPT/HCPCS: 36415; 80048; 85025

== ENCOUNTER 2024-01-09 05:43 | Outpatient (REF) | payer MEDICARE, SELFPAY ==
[2024-01-09 05:45] LABS: MANUAL DIFF FLAG NO
[2024-01-09 05:55] LABS: Basophils Absolute Auto 0.1 X10*3/uL (0.0-0.2); Basophils Percent Auto 1.6 % (0-2); Eosinophils Absolute Auto 0.1 X10*3/uL (0.0-0.4); Eosinophils Percent Auto 2.8 % (0-4); Hematocrit 21.9 % (42.0-52.0); Hemoglobin 7.3 g/dl (14.0-18.0); Imm Gran Abs Auto 0.01 X10*3/uL (0.00-0.03); Imm Gran Pct Auto 0.2 % (0.0-0.4); Lymphocytes Absolute Auto 2.2 X10*3/uL (1.2-4.9); Lymphocytes Percent Auto 43.6 % (20-40); Mean Corpuscular HGB Conc 33.3 g/dl (31.0-36.0); Mean Corpuscular Hemoglobin 34.6 pg (27.0-33.0); Mean Corpuscular Volume 103.8 fL (80.0-98.0); Mean Platelet Volume 10.1 fL (9.4-12.4); Monocytes Absolute Auto 0.5 X10*3/uL (0.1-1.2); Monocytes Percent Auto 9.7 % (2-11); Neutrophils Absolute Auto 2.1 x10*3/uL (2.0-8.3); Neutrophils Percent Auto 42.1 % (45-73); Platelet Count 273 X10*3/uL (160-400); Red Blood Count 2.11 X10*6/uL (4.60-5.80); Red Cell Distribution Width 13.9 % (11.0-16.0)
[2024-01-09 06:14] LABS: Anion Gap 11 (12-20); Blood Urea Nitrogen 7 mg/dL (9-16); Calcium 8.7 mg/dL (8.4-10.2); Carbon Dioxide 21 mmol/L (22-29); Chloride 111 mmol/L (96-108); Estimated Glomerular Filt Rate > 60; Glucose Random 92 mg/dL (60-115); Potassium 4.1 mmol/L (3.3-5.1); Sodium 139 mmol/L (135-145)
== END 2024-01-09 05:44 | disposition home or self-care (01) ==
LOC: HO.MMNH1L 05:43
PROVIDERS: Visit Provider Internal Medicine
DX: R78.81 Bacteremia (principal); N17.9 Acute kidney failure, unspecified
CPT/HCPCS: 36415; 80048; 85025

== ENCOUNTER 2024-01-16 08:25 | Outpatient (AMB) | payer MEDICARE, SELFPAY ==
--- NOTE | 2024-01-16 08:27 | A.OFFPC_ITS ---
Vital Signs 01/16/24 08:28 Height 5 ft 8 in Weight 201 lb 0.4 oz BMI 30.6 BP 124/68 Blood Pressure Location Lt brachial Position Sitting Pulse 82 Pulse Source Pulse Oximeter Pulse Oximetry (%) 97 Oxygen Delivery Method Room Air Intake Visit Reasons: [facility] 01/08 Intake Note: Patient is here for hospital discharge follow up. Patient was discharged from [facility] on 01/09/2024 Correctional Classification Counselor Required: No Allergies acetaminophen [From TYLENOL] Allergy (Intermediate, Verified 01/16/24 08:43) HIVES apple [APPLES] Allergy (Intermediate, Verified 01/16/24 08:43) HIVES Medication List - Last Reconciled 01/16/24 by Winsome Subramanian PA-C ascorbate calcium (vitamin C) 500 mg PO BID 30 days atenolol 100 mg PO DAILY blood pressure monitor As directed cyanocobalamin (vitamin B-12) 1,000 mcg PO DAILY ferrous sulfate 325 mg PO BID fludrocortisone 0.1 mg PO DAILY folic acid 1 mg PO DAILY furosemide 20 mg PO DAILY hydrochlorothiazide 25 mg PO DAILY lisinopril 40 mg PO DAILY 90 days omeprazole 40 mg PO DAILY@0630 Tobacco use date assessed: 06/28/23 Fall risk assessment: No Falls in past year Last assessed Fall Risk: 01/16/24 Dental Screening Dental Screen Date: 06/28/23 [facility] 01/08 HPI Details 63-year-old male with past medical histo ry of alcohol abuse, hypertension, GERD, hypercholesterolemia, obesity, PTSD, anxiety, and tobacco abuse coming in for hospital discharge follow up.? In review of the notes, patient was seen in [facility] 12/21/2023 with diarrhea and weakness found to be hyponatremic, hypotensive and admitted for hypovolemia requiring vasopressor support.? On 12/25/2023 found to have GNR bacteremia and imaging concerning for high-grade biliary obstruction however imaging was negative and general surgery did not feel ERCP was required at this time.? Patient was discharged 12/30/2023 to correction facility [facility]? And started on fludrocortisone, midodrine, and cefuroxime. Patient was discharged from [facility] re[facility] last week. Since being home he has been having VNA services. He was referred for PT/OT and will begin in home therapy in the coming weeks. He has been abstaining from alcohol and denies any cravings at this time. He has been ambulating at home with a walker and has seen an improvement in his mobility. He was discharged from correction facility with a prescription for furosemide and potassium and is unclear on the directions of these. He does mentioned his legs have been swollen last couple of days but they do resolve with elevation and when he can tolerate them compression stockings. [facility] Medical History (Updated 01/16/24 @ 12:41 by Winsome Subramanian PA-C) Alcohol abuse Cholecystitis Impaired glucose tolerance Vitamin D deficiency Anxiety and depression Alcohol abuse Tobacco abuse Post traumatic stress disorder (PTSD) Obesity (BMI 30-39.9) Hypercholesterolemia GERD (gastroesophageal reflux disease) Hypertension Surgical History History of esophagogastroduodenoscopy (EGD) Hx of colonoscopy History of tonsillectomy Family History Father Renal cancer Other Substance use disorder Social History Household Members: None Housing: House Do you presently have visiting nurse or other home services: No Alcohol intake: current Alcohol intake frequency: 3 or more drinks per day Alcohol type: hard liquor Patient Tobacco Use Status: Current everyday Tobacco user Tobacco use type: Cigarette Cigarette Packs Per Day: 1 Cigarettes Per Day: 15 Years Smoked: 50 e-Cigarette/Vaping Use: Never Used Second Hand Smoke Exposure: Yes Substance Use Type: Marijuana service: No Current occupational status: retired Cognitive needs: No Hearing needs: No Vision needs: Yes (Reading glasses) Questionnaire Thrive Questionnaire Date Thrive assessed: 12/23/23 AUDIT C Alcohol Use Questionnaire (AUDIT-C) 1. How often do you have a drink containing alcohol?: 4 or more times a week 2. How many drinks containing alcohol do you have on a typical day when you are drinking?: 1 or 2 3. How often do you have six or more drinks on one occasion?: Never Total Score: 4 Score Reviewed/Action Taken: No OBINNA-7 AMB Questionnaire OBINNA-7 Date OBINNA - 7 assessed: 06/28/23 Source: Developed by Drs. Ryan Garnica, Kamala Loyola, Joshua Lopez and colleagues, with an educational bridgette from [email or web address]. Physical exam (Primary Care) Vital Signs: Last Vital Signs Pulse 82 01/16/24 08:28 BP 124/68 01/16/24 08:28 Pulse Ox 97 01/16/24 08:28 Oxygen Delivery Method Room Air 01/16/24 08:28 BMI result Body Mass Index 30.6 Tobacco/Smoking Status: Tobacco use Status Tobacco use date assessed 06/28/23 01/16/24 08:27 Patient Tobacco Use Status Current everyday Tobacco 01/16/24 08:27 Tobacco use type Cigarette 01/16/24 08:27 e-Cigarette/Vaping Use Never Used 01/16/24 08:27 Thrive Assessment: Date of Thrive Assessment Date Thrive assessed 12/23/23 01/16/24 08:27 Const General: cooperative, healthy appearing, comfortable and no acute distress Orientation/consciousness: patient oriented x3 HENMT Head: Yes normocephalic Ears: hearing grossly normal bilaterally General nose exam: Normal external nose present Eyes General: appearance normal, both eyes and all related structures Conjunctivae: conjunctivae normal Neck Neck: Yes full ROM and Yes no lymphadenopathy Resp Effort & Inspection: normal respiratory effort Auscultation: clear to auscultation bilaterally, no crackles, no rales, no rhonchi and no wheezes Cardio Rate: regular rate Rhythm: regular rhythm Skin General skin exam: no rashes or lesions noted Neuro General: patient oriented x3 Gait exam (Neuro): Normal gait present Extrem Other: Bilateral lower extremity edema without overlying skin changes General: Yes normal to inspection, Yes full ROM and Yes edema (2+ pitting ) Psych Affect: normal affect Attitude: cooperative Insight: Good insight present (Psych) Judgement: Good judgement present (Psych) Coding Level of Care Code Est Pt Level 4 (46314) Diagnoses Anemia D64.9 Alcohol abuse F10.10 Impaired glucose tolerance R73.02 Essential hypertension I10 Hypertension type: essential hypertension Hypercholesterolemia E78.00 Gastroesophageal reflux disease without esophagitis K21.9 Esophagitis presence: without esophagitis Leg weakness, bilateral R29.898 Bilateral leg edema R60.0 Assessment & Plan Assessment & Plan (1) Anemia: Code(s): D64.9 - Anemia, unspecified Category: Medical Plan: Patient was anemic on last labs ordered for updated blood work to trend levels. (2) Alcohol abuse: Code(s): F10.10 - Alcohol abuse, uncomplicated Category: Social Hx Plan: Strongly advised to abstain from alcohol use. Discuss possible resources for the patient which were declined at this time. (3) Impaired glucose tolerance: Code(s): R73.02 - Impaired glucose tolerance (oral) Category: Medical Plan: Decrease the amount of carbohydrates such as pasta, bread, rice, and potatoes and limit the amount of sweets. Although fruits are generally healthy they should be eaten in moderation as they are still high in sugar. Ordered for updated blood work. (4) Hypertension: Code(s): I10 - Essential (primary) hypertension Category: Medical Qualifiers: Hypertension type: essential hypertension Qualified Code(s): I10 - Essential (primary) hypertension Plan: Continue on current blood pressure medication. Avoid salt intake and encourage healthy diet and regular exercise. Patient currently taking hydrochlorothiazide and lisinopril advised to continue to monitor the blood pressures as he was hypotensive while in the hospital. If blood pressures become abnormal, too high/too low please reach out to the office. (5) Hypercholesterolemia: Code(s): E78.00 - Pure hypercholesterolemia, unspecified Category: Medical Plan: Avoid foods that are high in cholesterol such as red meat, fried foods, eggs and baked goods. Ordered for updated blood work. (6) GERD (gastroesophageal reflux disease): Code(s): K21.9 - Gastro-esophageal reflux disease without esophagitis Category: Medical Qualifiers: Esophagitis presence: without esophagitis Qualified Code(s): K21.9 - Gastro-esophageal reflux disease without esophagitis Plan: Avoid trigger foods such as citrus, tomato products, soda, caffeine, spicy foods and other foods that may be irritating to your stomach. Avoid laying flat 3-4 hours after eating and elevate the head of the bed 30 degrees to prevent acid from moving into the esophagus. (7) Leg weakness, bilateral: Code(s): R29.898 - Other symptoms and signs involving the musculoskeletal system Category: Medical Plan: Patient's weakness has improved since discharge from the correction facility he is currently ambulating with a walker. Recommend physical therapy and occupational therapy in home. (8) Bilateral leg edema: Code(s): R60.0 - Localized edema Category: Medical Plan: Patient has bilateral 2+ pitting edema in lower extremities. No swelling, warmth, redness of bilateral lower extremities or in the calf area and low suspicion for DVT at this time. Recommend using furosemide for 3-4 additional days to help with the swelling as well as elevating the legs and use of compression stockings. Discussed with patient he must stay well hydrated to prevent hypovolemia. Plan This note was constructed using voice recognition software. While every effort has been made to ensure accuracy and plumber maintenance, still areas may have been included sometimes these areas may affect the content or meeting of the given symptoms. Total time spent caring for the patient today was 30 minutes. This includes time spent before the visit reviewing the chart, time spent during the visit, and time spent after the visit and documentation. Orders: Orders Complete Blood Count Auto Diff Today E78.00 - Pure hypercholesterolemia, unspecified Comprehensive Met. Panel Today E78.00 - Pure hypercholesterolemia, unspecified Vitamin B12 and Folate Today E78.00 - Pure hypercholesterolemia, unspecified IRON PROFILE Today D64.9 - Anemia, unspecified Hemoglobin A1c Today Z00.00 - Encounter for general adult medical examination without abnormal findings
[2024-01-16 08:28] VITALS: BP 124/68; PULSE 82; O2SAT 97; BMI 30.6
== END 2024-01-16 09:13 | disposition home or self-care (01) ==
PROVIDERS: PCP Internal Medicine
DX: D64.9 Anemia, unspecified (principal); F10.10 Alcohol abuse, uncomplicated; R73.02 Impaired glucose tolerance (oral); I10 Essential (primary) hypertension; E78.00 Pure hypercholesterolemia, unspecified; K21.9 Gastro-esophageal reflux disease without esophagitis; R29.898 Other symptoms and signs involving the musculoskeletal system; R60.0 Localized edema

== ENCOUNTER → 2024-01-16 08:25 | Outpatient (BNVA) | payer MEDICARE, SELFPAY | PROVIDERS: PCP Internal Medicine | DX: D64.9 Anemia, unspecified (principal); F10.10 Alcohol abuse, uncomplicated; R73.02 Impaired glucose tolerance (oral); I10 Essential (primary) hypertension; E78.00 Pure hypercholesterolemia, unspecified; K21.9 Gastro-esophageal reflux disease without esophagitis; R29.898 Other symptoms and signs involving the musculoskeletal system; R60.0 Localized edema | CPT/HCPCS: 99212 ==

== ENCOUNTER 2024-01-17 08:34 | Outpatient (REF) | payer MEDICARE, SELFPAY ==
[2024-01-17 08:57] LABS: MANUAL DIFF FLAG NO
[2024-01-17 09:06] LABS: Basophils Absolute Auto 0.1 X10*3/uL (0.0-0.2); Basophils Percent Auto 0.6 % (0-2); Eosinophils Absolute Auto 0.1 X10*3/uL (0.0-0.4); Eosinophils Percent Auto 1.3 % (0-4); Hematocrit 23.6 % (42.0-52.0); Hemoglobin 8.3 g/dl (14.0-18.0); Imm Gran Abs Auto 0.03 X10*3/uL (0.00-0.03); Imm Gran Pct Auto 0.4 % (0.0-0.4); Lymphocytes Absolute Auto 1.9 X10*3/uL (1.2-4.9); Lymphocytes Percent Auto 23.9 % (20-40); Mean Corpuscular HGB Conc 35.2 g/dl (31.0-36.0); Mean Corpuscular Hemoglobin 33.7 pg (27.0-33.0); Mean Corpuscular Volume 95.9 fL (80.0-98.0); Mean Platelet Volume 9.3 fL (9.4-12.4); Monocytes Absolute Auto 0.7 X10*3/uL (0.1-1.2); Monocytes Percent Auto 8.5 % (2-11); Neutrophils Absolute Auto 5.2 x10*3/uL (2.0-8.3); Neutrophils Percent Auto 65.3 % (45-73); Platelet Count 217 X10*3/uL (160-400); Red Blood Count 2.46 X10*6/uL (4.60-5.80); Red Cell Distribution Width 12.7 % (11.0-16.0); White Blood Count 7.9 X10*3/uL (4.8-10.8)
[2024-01-17 09:13] LABS: Estimated Average Glucose 85 mg/dL; Hemoglobin A1c % 4.6 % (<6.0); Total Hemoglobin (HGBA1C) 2205.1897 umol/L
[2024-01-17 10:13] LABS: Alanine Aminotransferase 13 U/L (0-40); Albumin Level 3.3 g/dL (3.5-5.0); Alkaline Phosphatase 63 U/L (39-117); Anion Gap 16 (12-20); Aspartate Amino Transferase 22 U/L (5-37); Bilirubin Total 0.9 mg/dL (0.0-1.0); Blood Urea Nitrogen 8 mg/dL (9-16); Calcium 8.7 mg/dL (8.4-10.2); Carbon Dioxide 24 mmol/L (22-29); Chloride 90 mmol/L (96-108); Cholesterol 125 mg/dL (<200); Estimated Glomerular Filt Rate > 60; Glucose Random 103 mg/dL (60-115); HDL Cholesterol 15 mg/dL (>40); Iron 92 mcg/dL (45-160); LDL Cholesterol Calculated 86 mg/dL (<100); Percent Iron Saturation 55 % (15-50); Potassium 4.8 mmol/L (3.3-5.1); Sodium 125 mmol/L (135-145); Total Iron Binding Capacity 166 mcg/dL (228-428); Total Protein 6.6 g/dL (6.5-8.0); Triglycerides 123 mg/dL (<150); Unsaturated Iron Binding 74 ug/dL
[2024-01-17 10:22] LABS: Free T4 (Free Thyroxine) 1.08 ng/dL (0.71-1.85); Thyroid Stimulating Hormone 3.73 uIU/mL (0.32-4.0)
[2024-01-17 10:37] LABS: Folate 16.8 ng/mL (> or = 4.0); Prostate Specific Antigen Scr 6.99 ng/mL (<0.05-4.0); Vitamin B12 711 pg/mL (200-900)
== END 2024-01-17 08:35 | disposition home or self-care (01) ==
LOC: HO.LAB 08:34
PROVIDERS: Absent Provider Internal Medicine; PCP Internal Medicine
DX: E78.00 Pure hypercholesterolemia, unspecified (principal); D64.9 Anemia, unspecified; Z12.5 Encounter for screening for malignant neoplasm of prostate; Z13.1 Encounter for screening for diabetes mellitus
CPT/HCPCS: 36415; 80053; 80061; 82607; 82746; 83036; 83540; 84153; 84439; 84443; 85025

== ENCOUNTER 2024-01-31 10:35 | Outpatient (REF) | payer MEDICARE, SELFPAY ==
[2024-01-31 11:43] LABS: Estimated Average Glucose 82 mg/dL; Hemoglobin A1C 60.9934 umol/L; Hemoglobin A1c % 4.5 % (<6.0); Total Hemoglobin (HGBA1C) 2385.0596 umol/L
[2024-01-31 12:29] LABS: Free T4 (Free Thyroxine) 0.93 ng/dL (0.71-1.85)
[2024-01-31 12:30] LABS: Thyroid Stimulating Hormone 4.02 uIU/mL (0.32-4.0)
[2024-01-31 12:47] LABS: Anion Gap 14 (12-20)
[2024-01-31 12:52] LABS: Uric Acid 5.8 mg/dL (3.4-7.0)
[2024-01-31 12:54] LABS: Alanine Aminotransferase < 6 U/L (0-40); Albumin Level 3.5 g/dL (3.5-5.0); Alkaline Phosphatase 49 U/L (39-117); Aspartate Amino Transferase 17 U/L (5-37); Bilirubin Total 0.7 mg/dL (0.0-1.0); Blood Urea Nitrogen 5 mg/dL (9-16); Carbon Dioxide 24 mmol/L (22-29); Chloride 101 mmol/L (96-108); Estimated Glomerular Filt Rate > 60; Glucose Random 98 mg/dL (60-115); Sodium 135 mmol/L (135-145); Total Protein 7.1 g/dL (6.5-8.0)
== END 2024-01-31 10:36 | disposition home or self-care (01) ==
LOC: HO.LAB 10:35
PROVIDERS: PCP Internal Medicine; Visit Provider Internal Medicine
DX: Z00.00 Encounter for general adult medical examination without abnormal findings (principal); F10.10 Alcohol abuse, uncomplicated; R97.20 Elevated prostate specific antigen [PSA]; Z12.5 Encounter for screening for malignant neoplasm of prostate; Z13.1 Encounter for screening for diabetes mellitus
CPT/HCPCS: 36415; 80053; 83036; 84153; 84439; 84443; 84550

== ENCOUNTER 2024-03-02 14:42 | Outpatient (AMB) | payer MEDICARE, SELFPAY ==
--- NOTE | 2024-03-02 14:46 | MHC.OFFVIS ---
Intake Visit Reasons: elevated PSA Intake Note: Patient is present for ELEVATED PSA Urology Medication:NONE Antibiotic Allergy:NONE Blood Thinner:NONE TODAY'S PVR: 0ML'S Industrial Staff Nurse Required: No Allergies acetaminophen [From TYLENOL] Allergy (Intermediate, Verified 03/02/24 21:40) HIVES apple [APPLES] Allergy (Intermediate, Verified 03/02/24 21:40) HIVES Medication List - Last Reconciled 03/02/24 by LELAND Lemons- ascorbate calcium (vitamin C) 500 mg PO BID 30 days atenolol 100 mg PO DAILY blood pressure monitor As directed cyanocobalamin (vitamin B-12) 1,000 mcg PO DAILY ferrous sulfate 325 mg PO BID fludrocortisone 0.1 mg PO DAILY folic acid 1 mg PO DAILY furosemide 20 mg PO DAILY hydrochlorothiazide 25 mg PO DAILY lisinopril 40 mg PO DAILY 90 days omeprazole 40 mg PO DAILY@0630 HPI Comments Details: Maurice is a 63-year-old male patient of . He has a past medical history of alcohol abuse, vitamin-D deficiency, anxiety, depression, nicotine dependence, PTSD, obesity, hypercholesteremia, GERD, and hypertension. He presents to the office today as a new patient for an elevated PSA. In discussion with the patient today he reports to be doing and feeling well. He reports having followed up with his PCP at which time his blood work for his prostate was noted to be elevated and recommendation was made for urology referral for further assessment evaluation. When asked he denies any known family history of prostate cancer. He does report noting weak urinary stream and episodes of nocturia. He otherwise denies urinary urgency, urinary frequency, incontinence, hematuria, dysuria, foul smelling urine, changes to urinary stream, flank pain, fever, and or chills. He is happy with his current voiding parameters. YAMEL offered however deferred. He reports having had YAMEL with PCP and does not feel this is necessary at this time. We discussed at length potential causes of elevated PSA as well as further workup. In office urinalysis results reviewed with the patient today. He otherwise offers no other issues or concerns at this time. PSAs are as follows: 11/18 1.7, 04/22 3.5, 01/22 7.0, 02/22 10.6 [facility] Medical History (Updated 03/02/24 @ 21:[address] [facility]) Alcohol abuse Cholecystitis Impaired glucose tolerance Vitamin D deficiency Anxiety and depression Alcohol abuse Tobacco abuse Post traumatic stress disorder (PTSD) Obesity (BMI 30-39.9) Hypercholesterolemia GERD (gastroesophageal reflux disease) Hypertension Surgical History History of esophagogastroduodenoscopy (EGD) Hx of colonoscopy History of tonsillectomy Family History Father Renal cancer Other Substance use disorder Social History Household Members: None Housing: House Do you presently have visiting nurse or other home services: No Alcohol intake: current Alcohol intake frequency: 3 or more drinks per day Alcohol type: hard liquor Patient Tobacco Use Status: Current everyday Tobacco user Tobacco use type: Cigarette Cigarette Packs Per Day: 1 Cigarettes Per Day: 15 Years Smoked: 50 e-Cigarette/Vaping Use: Never Used Second Hand Smoke Exposure: Yes Substance Use Type: Marijuana service: No Current occupational status: retired Cognitive needs: No Hearing needs: No Vision needs: Yes (Reading glasses) Review of Systems Eyes Reports no additional complaints ENT Reports no additional complaints Card Reports as per HPI Resp Reports as per HPI GI Reports as per HPI Reports as per HPI Musc Reports as per HPI Neuro Reports as per HPI Psych Reports as per HPI Endo Reports no additional complaints Nathaniel/Lymph Reports no additional complaints Aller/Immun Reports no additional complaints Physical Exam Const General: cooperative, comfortable, no acute distress, well developed, alert, awake and poor hygiene Orientation/consciousness: patient oriented x3 Limitations: no limitations HEENT Head: Yes normal to inspection, Yes normocephalic and Yes atraumatic Ears: hearing grossly normal bilaterally Eyes General: appearance normal, both eyes and all related structures Neck Neck: Yes normal visual inspection and Yes trachea midline Chest Chest palpation & inspection: normal inspection of the chest Resp Effort & Inspection: normal respiratory effort and able to speak in complete sentences Cardio Rate: regular rate GI Inspection: Yes normal to inspection General: Yes no CVA tenderness Back/Spine/Pelvis Back: no CVA tenderness Skin General skin exam: no rashes or lesions noted Neuro General: patient oriented x3 Extrem General: Yes normal to inspection Psych Appearance: grossly normal and well kempt Mental Status: mental status grossly normal Speech and movement: Normal speech and movement present and Clear speech present Affect: normal affect Attitude: cooperative Thought process: Normal thought process present Thought content: Normal thought content present Insight: Fair insight present (Psych) Judgement: Fair judgement present (Psych) Office Procedures Post Void Residual Post Residual Void Post Void Residual (PVR): 0 [id number]-Xrli Void Residual by ultrasound Assessment & Plan Assessment & Plan (1) Elevated PSA: Code(s): R97.20 - Elevated prostate specific antigen [PSA] Category: Medical (2) Weak urinary stream: Code(s): R39.12 - Poor urinary stream Category: Medical (3) Nocturia: Code(s): R35.1 - Nocturia Category: Medical Plan In office urinalysis results reviewed the patient today; as noted above. PVR 0 mL Recent PSA results reviewed with the patient today; as noted above. We discussed redraw of PSA with no sex the night before, no caffeine morning of, and no heavy lifting 1-2 days prior. Will obtain retroperitoneal ultrasound for further assessment evaluation. Discussed at length potential causes of elevated PSA as well as further treatment options and risks and benefits of these treatment options. Patient reports be happy with current voiding parameters. YAMEL offered however deferred. Follow-up in 1-2 months with imaging and labs; or sooner with any issues, concerns, and or questions. Orders: Orders AMB Urinalysis Automated Today Z13.9 - Encounter for screening, unspecified US retroperitoneal comp Today R39.12 - Poor urinary stream, R97.20 - Elevated prostate specific antigen [PSA] PSA,Total (Free>4and<10) Today R97.20 - Elevated prostate specific antigen [PSA] Patient Instructions: The patient had an opportunity to ask questions regarding the treatment plan. All questions were answered. Physical exam, labs, and imaging were discussed and reviewed in detail. As well as risks, benefits, and discussion of treatment choices. No major barriers to understanding were identified. The patient expressed understanding and agreement with the above treatment plan. The patient was made aware they should contact our office by phone for worsening of their current condition, the appearance of new symptoms, or with any questions or concerns. Compliance is encouraged with any medications and follow up testing that is ordered. It is a privilege to be allowed the opportunity to participate in? your urological care.? Again, if you have any questions or concerns If you have any questions or concerns please do not hesitate to contact me. The office is [phone]. This note is constructed using voice recognition software. While every effort has been made to ensure accuracy roving can tender errors may have been included. Yours sincerely, YUDELKA Lemons Coding Level of Care Code New Pt Level 3 (15741) Diagnoses Elevated PSA R97.20 Weak urinary stream R39.12 Nocturia R35.1 CPT Codes Post Residual Void - PVR CPT Code: 39616-Ntvs Void Residual by ultrasound ([id number])
== END 2024-03-02 15:32 | disposition home or self-care (01) ==
PROVIDERS: PCP Internal Medicine; Visit Provider Nurse Practitioner Family
DX: R97.20 Elevated prostate specific antigen [PSA] (principal); R39.12 Poor urinary stream; R35.1 Nocturia
CPT/HCPCS: 99203

== ENCOUNTER → 2024-03-02 14:42 | Outpatient (BNVA) | payer MEDICARE, SELFPAY | PROVIDERS: PCP Internal Medicine; Visit Provider Nurse Practitioner Family | DX: R97.20 Elevated prostate specific antigen [PSA] (principal); R39.12 Poor urinary stream; R35.1 Nocturia | CPT/HCPCS: 51798; 99202 ==

== ENCOUNTER 2024-03-11 08:42 | Outpatient (REF) | payer MEDICARE, SELFPAY ==
[2024-03-11 09:10] LABS: MANUAL DIFF FLAG NO
[2024-03-11 10:07] LABS: Basophils Absolute Auto 0.1 X10*3/uL (0.0-0.2); Basophils Percent Auto 0.9 % (0-2); Eosinophils Absolute Auto 0.2 X10*3/uL (0.0-0.4); Eosinophils Percent Auto 2.4 % (0-4); Hematocrit 33.5 % (42.0-52.0); Hemoglobin 11.4 g/dl (14.0-18.0); Imm Gran Abs Auto 0.02 X10*3/uL (0.00-0.03); Imm Gran Pct Auto 0.2 % (0.0-0.4); Lymphocytes Absolute Auto 3.2 X10*3/uL (1.2-4.9); Lymphocytes Percent Auto 33.6 % (20-40); Mean Corpuscular Volume 94.1 fL (80.0-98.0); Mean Platelet Volume 9.7 fL (9.4-12.4); Monocytes Absolute Auto 0.8 X10*3/uL (0.1-1.2); Monocytes Percent Auto 7.8 % (2-11); Neutrophils Absolute Auto 5.3 x10*3/uL (2.0-8.3); Neutrophils Percent Auto 55.1 % (45-73); Platelet Count 216 X10*3/uL (160-400); Red Blood Count 3.56 X10*6/uL (4.60-5.80); Red Cell Distribution Width 13.4 % (11.0-16.0); White Blood Count 9.6 X10*3/uL (4.8-10.8)
[2024-03-11 11:02] LABS: PSA,Total (Free>4and<10) 20.11 ng/mL (0.00-4.00)
--- OUTSIDE RECORDS SUMMARY | 2024-03-11 23:08 | XMS_ITS ---
Author Organization [facility] Address [address] [place] [address] Care Team Providers Care Food Analyst Name Role Phone Za Cotton MD Primary Care Provider Ryan Genao Unavailable [phone] REASON FOR VISIT Patient presents today for GERD Encounters Encounter Location Date Provider Diagnosis [facility] [address] [place] [address] 10/16/2023 Ryan Norton PLAN OF TREATMENT Next Appt Details Provider Name:Ryan Norton , 04/21/2024 01:20:00 PM, [address], [address], [place], [address],
--- OUTSIDE RECORDS SUMMARY | 2024-03-11 23:08 | XMS_ITS | Clinical Summary ---
Author Organization Unknown Care Team Providers Care Travel Journalist Name Role Phone GHANSHYAM ROBERTSON, BERNADETTE Unavailable Unavailable RUTHY OT, JM Unavailable Unavailable LEANDRO RN, DOUG Unavailable Unavailable [place] ([facility]) [facility], COR[place] Unavailable Unavailable Payers Payer Name Policy Type Policy Number Effective Date Expira tion Date [employer] MEDICARE ADVANTAGE FFS [id number] MEDICARE - [facility] - PDGM [id number] Problems Condition Name Condition Details Condition Category Status Onset Date Resolution Date Last Treatment Date Treating Clinician Comments ALCOHOL USE, UNSPECIFIED, UNCOMPLICATE D Active 2023-04 00:00: 00 POST-TRAUMAT IC STRESS DISORDER, UNSPECIFIED Active 2023-04 00:00: 00 GASTRO-ESOPH AGEAL REFLUX DISEASE WITHOUT ESOPHAGITIS Active 2023-04 00:00: 00 Allergies, Adverse Reactions, Alerts Allergy Name Allergy Type Status Severity Reaction(s) Onset Date Inactive Date Treating Clinician Comments EGGS -APPLES - OATS (ALIMENTUM) Propensity to adverse reactions Inactive 2023-04 0-15 09:14: 25 2023-12-31 6 09:23:16 ACETAMINOPH EN Propensity to adverse reactions Active 2023-04 0-16 09:23: 16 APPLES Propensity to adverse reactions Active 2023-04 0-16 09:23: 16 Medications Ordered Medication Name Filled Medication Name Start Date Stop Date Current Medication? Ordering Clinician Indication Dosage Frequency Signature (SIG) Comments Components atenolol 100 mg tablet 2023-04 00:00: 00 01-14 23:59 :00 No [id number] 1 tablet DAILY 1 tablet DAILY (route: oral) Med Classific ation: Cardiovas cular Therapy Agents furosemide 20 mg tablet 2023-04 00:00: 00 01-14 23:59 :00 No [id number] 1 tablet 2 TIMES DAILY 1 tablet 2 TIMES DAILY (route: oral) Med Classific ation: Cardiovas cular Therapy Agents potassium chloride ER 20 mEq tablet,exte nded release 2023-04 0-10 00:00: 00 01-13 00:00 :00 No [id number] 1 tablet DAILY 1 tablet DAILY (route: oral) Med Classific ation: Electroly te Balance-N utritiona l Products omeprazole 40 mg capsule,del ayed release - 00:00: 00 01-13 00:00 :00 No [id number] 1 capsule 2 TIMES DAILY 1 capsule 2 TIMES DAILY (route: oral) Med Classific ation: Gastroint estinal Therapy Agents ascorbic acid (vitamin C) 500 mg capsule 2023-04 00:00: 00 01-14 23:59 :00 No [id number] 1 capsule 2 TIMES DAILY 1 capsule 2 TIMES DAILY (route: oral) Med Classific ation: Electroly te Balance-N utritiona l Products cyanocobala min (vit B-12) 1,000 mcg tablet 2023-04 00:00: 00 Yes [id number] 1 tablet EVERY AM 1 tablet EVERY AM (route: oral) Med Classific ation: Electroly te Balance-N utritiona l Products lisinopril 40 mg tablet 2023-04 00:00: 00 Yes [id number] 1 tablet EVERY AM 1 tablet EVERY AM (route: oral) Med Classific ation: Cardiovas cular Therapy Agents ascorbic acid (vitamin C) 500 mg tablet 2023-0416 00:00: 00 Yes [id number] 1 tablet 2 TIMES DAILY 1 tablet 2 TIMES DAILY (route: oral) Med Classific ation: Electroly te Balance-N utritiona l Products atenolol 100 mg tablet 2023-0416 00:00: 00 Yes [id number] 1 tablet EVERY AM 1 tablet EVERY AM (route: oral) Med Classific ation: Cardiovas cular Therapy Agents midodrine 10 mg tablet 2023-0416 00:00: 00 Yes [id number] Give for SBP < 100 (hypotensio n). Sister to measure BP prior to administrat ion. 1 tablet EVERY 8 HOURS 1 tablet EVERY 8 HOURS (route: oral) Med Classific ation: Cardiovas cular Therapy Agents ferrous sulfate 325 mg (65 mg iron) tablet,jesica yed release 2023-04 016 00:00: 00 Yes [id number] 1 tablet 2 TIMES DAILY 1 tablet 2 TIMES DAILY (route: oral) Med Classific ation: Electroly te Balance-N utritiona l Products folic acid 1 mg tablet 2023-04 016 00:00: 00 Yes [id number] 1 tablet EVERY AM 1 tablet EVERY AM (route: oral) Med Classific ation: Electroly te Balance-N utritiona l Products Vital Signs Vital Name Observation Time Observation Value Commen ts Temperature 2024-02-24 13:10:00.000 97.6 [degF] Temperature 2024-02-22 12:50:00.000 99.3 [degF] Temperature 2024-02-13 14:54:00.000 97.6 [degF] Temperature 2024-02-11 15:30:00.000 97.4 [degF] Temperature 2024-02-06 13:15:00.000 97.4 [degF] Temperature 2024-01-30 14:40:00.000 97.6 [degF] Temperature 2024-01-22 14:25:00.000 98.1 [degF] Temperature 2024-01-22 11:40:00.000 97.9 [degF] Temperature 2024-01-17 10:38:00.000 97.7 [degF] Temperature 2024-01-14 11:00:00.000 98.6 [degF] BMI (%) 2024-01-14 09:08:10.000 29 kg/m2 Height 2024-01-14 09:07:57.000 69 [in_us] Pulse 2024-02-24 13:10:00.000 72 /min Pulse 2024-02-22 12:50:00.000 67 /min Pulse 2024-02-13 14:54:00.000 68 /min Pulse 2024-02-11 15:30:00.000 68 /min Pulse 2024-02-06 13:15:00.000 64 /min Pulse 2024-01-30 14:40:00.000 68 /min Pulse 2024-01-22 14:25:00.000 59 /min Pulse 2024-01-22 11:40:00.000 64 /min Pulse 2024-01-18 09:45:00.000 50 /min Pulse 2024-01-17 10:38:00.000 61 /min Pulse 2024-01-14 11:00:00.000 77 /min O2 Saturation (%) 2024-01-22 11:40:00.000 96 % O2 Saturation (%) 2024-01-18 09:45:00.000 100 % O2 Saturation (%) 2024-01-17 10:38:00.000 100 % O2 Saturation (%) 2024-01-14 11:01:00.000 98 % Respirations 2024-02-24 13:10:00.000 18 /min Respirations 2024-02-22 12:50:00.000 16 /min Respirations 2024-02-13 14:54:00.000 16 /min Respirations 2024-02-11 15:30:00.000 18 /min Respirations 2024-02-06 13:15:00.000 18 /min Respirations 2024-01-30 14:40:00.000 18 /min Respirations 2024-01-22 14:25:00.000 17 /min Respirations 2024-01-22 11:40:00.000 18 /min Respirations 2024-01-17 10:38:00.000 18 /min Respirations 2024-01-14 11:00:00.000 20 /min Weight (lbs) 2024-01-14 09:08:10.000 200 [lb_av] Systolic Blood Pressure 2024-02-24 13:10:00.000 124 mm [Hg] Systolic Blood Pressure 2024-02-22 12:50:00.000 132 mm [Hg] Systolic Blood Pressure 2024-02-13 14:54:00.000 118 mm [Hg] Systolic Blood Pressure 2024-02-11 15:30:00.000 122 mm [Hg] Systolic Blood Pressure 2024-02-06 13:15:00.000 124 mm [Hg] Systolic Blood Pressure 2024-01-30 14:40:00.000 116 mm [Hg] Systolic Blood Pressure 2024-01-22 14:25:00.000 93 mm[ Hg] Systolic Blood Pressure 2024-01-22 11:40:00.000 110 mm [Hg] Systolic Blood Pressure 2024-01-18 09:50:00.000 122 mm [Hg] Systolic Blood Pressure 2024-01-17 10:38:00.000 110 mm [Hg] Systolic Blood Pressure 2024-01-14 11:00:00.000 140 mm [Hg] Diastolic Blood Pressure 2024-02-24 13:10:00.000 70 mm [Hg] Diastolic Blood Pressure 2024-02-22 12:50:00.000 77 mm [Hg] Diastolic Blood Pressure 2024-02-13 14:54:00.000 60 mm [Hg] Diastolic Blood Pressure 2024-02-11 15:30:00.000 68 mm [Hg] Diastolic Blood Pressure 2024-02-06 13:15:00.000 66 mm [Hg] Diastolic Blood Pressure 2024-01-30 14:40:00.000 62 mm [Hg] Diastolic Blood Pressure 2024-01-22 14:25:00.000 50 mm [Hg] Diastolic Blood Pressure 2024-01-22 11:40:00.000 60 mm [Hg] Diastolic Blood Pressure 2024-01-18 09:50:00.000 64 mm [Hg] Diastolic Blood Pressure 2024-01-17 10:38:00.000 70 mm [Hg] Diastolic Blood Pressure 2024-01-14 11:00:00.000 70 mm [Hg] Plan of Treatment Planned Activity Planned Date Details Comments Future Scheduled Test SKILLED NU RSE TO EVALUATE PATIENT, IDENTIFY PRIMARY AND CO-MORBID CONDITIONS CODED PER CODING GUIDELINES, AND DEVELOP PATIENT SPECIFIC PLAN OF CARE THAT INCLUDES PATIENT GOAL FOR HOME HEALTH. [code = SKILLED NURSE TO EVALUATE PATIENT, IDENTIFY PRIMARY AND CO-MORBID CONDITIONS CODED PER CODING GUIDELINES, AND DEVELOP PATIENT SPECIFIC PLAN OF CARE THAT INCLUDES PATIENT GOAL FOR HOME HEALTH.] Future Scheduled Test SKILLED NU RSE TO PRE-POUR MEDICATION PER MEDICATION LIST 3WK8 [code = SKILLED NURSE TO PRE-POUR MEDICATION PER MEDICATION LIST 3WK8 ] Future Scheduled Test PATIENT MA Y HAVE ONE SET OF EMERGENCY MEDICATION NOT TO BE PRE-POURED ANY SOONER THAN 24 HOURS BEFORE SEVERE INCLEMENT WEATHER OR EMERGENT EVENT AND FOLLOWING SKILLED NURSE EVALUATION OF PATIENT SAFETY. [code = PATIENT MAY HAVE ONE SET OF EMERGENCY MEDICATION NOT TO BE PRE-POURED ANY SOONER THAN 24 HOURS BEFORE SEVERE INCLEMENT WEATHER OR EMERGENT EVENT AND FOLLOWING SKILLED NURSE EVALUATION OF PATIENT SAFETY.] Future Scheduled Test SKILLED NU RSE TO O/A OF PATIENTS MENTAL/BEHAVIORAL STATUS, ASSESS VITAL SIGNS 3WK8 ALLOW 2 PRNS FOR MEDICATION MANAGEMENT. [code = SKILLED NURSE TO O/A OF PATIENTS MENTAL/BEHAVIORAL STATUS, ASSESS VITAL SIGNS 3WK8 ALLOW 2 PRNS FOR MEDICATION MANAGEMENT.] Future Scheduled Test SKILLED NU RSE MAY PICKUP AND TRANSPORT MEDICATIONS [code = SKILLED NURSE MAY PICKUP AND TRANSPORT MEDICATIONS] Future Scheduled Test SKILLED NU RSE FOR O/A OF GENERAL HEALTH STATUS OF PAIN, CARDIAC, RESPIRATORY, GASTROINTESTINAL, GENITOURINARY, SKIN, NEUROLOGIC, ENDOCRINE SYSTEMS TO IDENTIFY CHANGES ASSOCIATED WITH EXACERBATION FOR EARLY INTERVENTION OF COMPLICATIONS 3WK8 [code = SKILLED NURSE FOR O/A OF GENERAL HEALTH STATUS OF PAIN, CARDIAC, RESPIRATORY, GASTROINTESTINAL, GENITOURINARY, SKIN, NEUROLOGIC, ENDOCRINE SYSTEMS TO IDENTIFY CHANGES ASSOCIATED WITH EXACERBATION FOR EARLY INTERVENTION OF COMPLICATIONS 3WK8 ] Future Scheduled Test SKILLED NU RSE FOR O/A AND SKILLED TEACHING OF COPING SKILLS TO MANAGE ANXIETY AND MAINTAIN SAFETY. [code = SKILLED NURSE FOR O/A AND SKILLED TEACHING OF COPING SKILLS TO MANAGE ANXIETY AND MAINTAIN SAFETY.] Future Scheduled Test SKILLED NU RSE FOR O/A AND SKILLED TEACHING RELATED TO MANAGEMENT OF DEPRESSIVE SYMPTOMS AND/OR DEPRESSION. SN TO REPORT SIGNIFICANT CHANGE IN DEPRESSIVE SYMPTOMS TO CLINICAL PROVIDER FOR EARLY INTERVENTION. [code = SKILLED NURSE FOR O/A AND SKILLED TEACHING RELATED TO MANAGEMENT OF DEPRESSIVE SYMPTOMS AND/OR DEPRESSION. SN TO REPORT SIGNIFICANT CHANGE IN DEPRESSIVE SYMPTOMS TO CLINICAL PROVIDER FOR EARLY INTERVENTION.] Future Scheduled Test SKILLED NU RSE FOR O/A OF SIGNS AND SYMPTOMS OF SUBSTANCE USE INCLUDING PARTICIPATION IN [facility] SPECIALTY PROGRAM. NURSE TO COLLABORATE WITH PATIENT AND COMMUNITY PROVIDERS IN THE DEVELOPMENT AND IMPLEMENTATION OF A TARGETED RECOVERY PLAN. [code = SKILLED NURSE FOR O/A OF SIGNS AND SYMPTOMS OF SUBSTANCE USE INCLUDING PARTICIPATION IN [facility] SPECIALTY PROGRAM. NURSE TO COLLABORATE WITH PATIENT AND COMMUNITY PROVIDERS IN THE DEVELOPMENT AND IMPLEMENTATION OF A TARGETED RECOVERY PLAN.] Future Scheduled Test SKILLED NU RSE FOR O/A OF SELF-CARE DEFICITS AND TO PROVIDE TEACHING RELATED TO SAFE PROVISION OF ADLS. [code = SKILLED NURSE FOR O/A OF SELF-CARE DEFICITS AND TO PROVIDE TEACHING RELATED TO SAFE PROVISION OF ADLS.] Future Scheduled Test SKILLED NU RSE TO PERFORM HOME SAFETY AND FALL ASSESSMENT AND PROVIDE INSTRUCTION TO IMPLEMENT HOME SAFETY AND FALL PREVENTION STRATEGIES. [code = SKILLED NURSE TO PERFORM HOME SAFETY AND FALL ASSESSMENT AND PROVIDE INSTRUCTION TO IMPLEMENT HOME SAFETY AND FALL PREVENTION STRATEGIES.] Future Scheduled Test SKILLED NU RSE FOR OBSERVATION AND ASSESSMENT OF PATIENTS PAIN LEVEL AND EFFECTIVENESS OF PAIN MANAGEMENT REGIMEN. SKILLED NURSE TO INSTRUCT PATIENT/CAREGIVER REGARDING PHARMACOLOGIC AND NON-PHARMACOLOGIC PAIN CONTROL MEASURES. SKILLED NURSE TO REPORT TO PHYSICIAN IF PAIN IS UNCONTROLLED WITH CURRENT PAIN MANAGEMENT REGIMEN. [code = SKILLED NURSE FOR OBSERVATION AND ASSESSMENT OF PATIENTS PAIN LEVEL AND EFFECTIVENESS OF PAIN MANAGEMENT REGIMEN. SKILLED NURSE TO INSTRUCT PATIENT/CAREGIVER REGARDING PHARMACOLOGIC AND NON-PHARMACOLOGIC PAIN CONTROL MEASURES. SKILLED NURSE TO REPORT TO PHYSICIAN IF PAIN IS UNCONTROLLED WITH CURRENT PAIN MANAGEMENT REGIMEN.] Future Scheduled Test SKILLED NU RSE FOR O/A RELATED TO SIGNS AND SYMPTOMS OF INFECTION AND TO PROVIDE TEACHING REGARDING INFECTION CONTROL MEASURES. [code = SKILLED NURSE FOR O/A RELATED TO SIGNS AND SYMPTOMS OF INFECTION AND TO PROVIDE TEACHING REGARDING INFECTION CONTROL MEASURES.] Future Scheduled Test PHYSICAL T HERAPIST TO EVALUATE PATIENT FOR WEAKNESS/STRENGTHENING [code = PHYSICAL THERAPIST TO EVALUATE PATIENT FOR WEAKNESS/STRENGTHENING] Future Scheduled Test OCCUPATION AL THERAPIST TO EVALUATE PATIENT FOR NEED OF ADAPTIVE EQUIPMENT [code = OCCUPATIONAL THERAPIST TO EVALUATE PATIENT FOR NEED OF ADAPTIVE EQUIPMENT] Future Scheduled Test MEDICAL SO CIAL WORKER TO EVALUATE PATIENT FOR REFERRAL TO COMMUNITY RESOURCES. [code = CLOTH MEASURER TO EVALUATE PATIENT FOR REFERRAL TO COMMUNITY RESOURCES.] Future Scheduled Test SKILLED NU RSE FOR O/A AND SKILLED TEACHING RELATED TO ALTERED SKIN INTEGRITY RIGHT POSTERIOR FOOT BLISTER [code = SKILLED NURSE FOR O/A AND SKILLED TEACHING RELATED TO ALTERED SKIN INTEGRITY RIGHT POSTERIOR FOOT BLISTER ] Future Scheduled Test SKILLED NU RSE TO REVIEW PATIENT MEDICATIONS. INSTRUCT PATIENT/CAREGIVER ON MONITORING OF EFFECTIVENESS, ADVERSE DRUG REACTIONS, SIDE EFFECTS OF ALL MEDICATIONS (PRESCRIPTION/-OTC), AND HOW AND WHEN TO REPORT PROBLEMS. [code = SKILLED NURSE TO REVIEW PATIENT MEDICATIONS. INSTRUCT PATIENT/CAREGIVER ON MONITORING OF EFFECTIVENESS, ADVERSE DRUG REACTIONS, SIDE EFFECTS OF ALL MEDICATIONS (PRESCRIPTION/-OTC), AND HOW AND WHEN TO REPORT PROBLEMS.] Future Scheduled Test SKILLED NU RSE FOR O/A OF CLIENT'S CURRENT DEGREE OF HOPELESSNESS AND PROVIDE THERAPEUTIC INTERVENTIONS AND TEACHING DESIGNED TO ENHANCE THE CLIENT'S WELL BEING. [code = SKILLED NURSE FOR O/A OF CLIENT'S CURRENT DEGREE OF HOPELESSNESS AND PROVIDE THERAPEUTIC INTERVENTIONS AND TEACHING DESIGNED TO ENHANCE THE CLIENT'S WELL BEING.] Future Scheduled Test SKILLED NU RSE TO ASSESS PATIENTS PSYCHOSOCIAL STATUS TO IDENTIFY POTENTIAL ISSUES THAT MAY COMPLICATE THE PROVISION OF THE PLAN OF CARE INCLUDING THE PATIENTS ABILITY TO ACCESS COMMUNITY RESOURCES AND PSYCHOSOCIAL SUPPORT SERVICES. [code = SKILLED NURSE TO ASSESS PATIENTS PSYCHOSOCIAL STATUS TO IDENTIFY POTENTIAL ISSUES THAT MAY COMPLICATE THE PROVISION OF THE PLAN OF CARE INCLUDING THE PATIENTS ABILITY TO ACCESS COMMUNITY RESOURCES AND PSYCHOSOCIAL SUPPORT SERVICES.] Future Scheduled Test SKILLED NU RSE WILL MAINTAIN SITUATIONAL AWARENESS FOR SAFETY AND WILL NOTIFY CLINICAL SSDS MK 2 ADVANCED OPERATOR AND PHYSICIAN/PROVIDER WITH ANY CHANGE IN CONDITION. [code = SKILLED NURSE WILL MAINTAIN SITUATIONAL AWARENESS FOR SAFETY AND WILL NOTIFY CLINICAL SSDS MK 2 ADVANCED OPERATOR AND PHYSICIAN/PROVIDER WITH ANY CHANGE IN CONDITION.] Future Scheduled Test OCCUPATION AL THERAPY TO EVALUATE AND TREAT. OCCUPATIONAL THERAPY EVALUATION COMPLETED. NO ADDITIONAL VISITS RECOMMENDED AT THIS TIME. [code = OCCUPATIONAL THERAPY TO EVALUATE AND TREAT. OCCUPATIONAL THERAPY EVALUATION COMPLETED. NO ADDITIONAL VISITS RECOMMENDED AT THIS TIME.] Goal Patient Goal - W OULD LIKE TO GET SOCIAL ACTIVITY BACK, AND BECOME ACTIVE MEMBER OF COMMUNITY. Goal Provider Goal - A PLAN OF CARE WILL BE ESTABLISHED THAT MEETS PATIENT'S SNF NEEDS AND INCLUDES PATIENT GOAL FOR HOME HEALTH. Goal Provider Goal - PATIENT WILL COMPLY WITH MEDICATION WHEN SKILLED NURSE PRE-POURS MEDICATION THROUGHOUT CERTIFICATION PERIOD. Goal Provider Goal - MEDICATION WILL BE AVAILABLE DURING INCLEMENT WEATHER OR EMERGENT EVENT THROUGHOUT CERTIFICATION PERIOD. Goal Provider Goal - ALTERED MENTAL/BEHAVIORAL STATUS WILL BE IDENTIFIED PROMPTLY AND INTERVENTION INITIATED QUICKLY TO MINIMIZE ASSOCIATED RISKS THROUGHOUT CERTIFICATION PERIOD. Goal Provider Goal - SKILLED NURSE PICKED UP AND TRANSPORTED MEDICATIONS FOR SAFETY. Goal Provider Goal - CHANGE IN GENERAL HEALTH STATUS WILL BE IDENTIFIED AND REPORTED TO PHYSICIAN FOR PROMPT INTERVENTION TO MINIMIZE ASSOCIATED RISKS THROUGHOUT CERTIFICATION PERIOD. Goal Provider Goal - PATIENT WILL BE ABLE TO PERFORM DAILY FUNCTIONS AND HAVE OPTIMAL IMPROVEMENT IN LEVEL OF ANXIETY THROUGHOUT CERTIFICATION PERIOD. Goal Provider Goal - PATIENT WILL REMAIN SAFE WITHOUT DECOMPENSATION IN DEPRESSIVE CONDITION, WHILE MAINTAINING OPTIMAL LEVEL OF MENTAL HEALTH AND WELL BEING THROUGHOUT CERTIFICATION PERIOD. Goal Provider Goal - PATIENT WILL ACTIVELY PARTICIPATE IN AN ONGOING TARGETED RECOVERY PLAN THROUGHOUT CERTIFICATION PERIOD. Goal Provider Goal - PATIENT/CAREGIVER WILL VERBALIZE/DEMONSTRATE UNDERSTANDING OF SAFE PROVISION OF ADLS BY THE END OF THE CERTIFICATION PERIOD. Goal Provider Goal - PATIENT/CAREGIVER WILL VERBALIZE/DEMONSTRATE EFFECTIVE HOME SAFETY AND FALL PREVENTION STRATEGIES THROUGHOUT CERTIFICATION PERIOD. Goal Provider Goal - PATIENT/CAREGIVER WILL DEMONSTRATE UNDERSTANDING OF PHARMACOLOGIC AND NONPHARMACOLOGIC PAIN CONTROL MEASURES AND PATIENT WILL HAVE IMPROVEMENT IN PAIN INTERFERING WITH ACTIVITY EVIDENCED BY PAIN CONTROLLED AT LEVEL OF 7 OR LESS BY END OF CERTIFICATION PERIOD. Goal Provider Goal - PATIENT/CAREGIVER WILL VERBALIZE/DEMONSTRATE UNDERSTANDING OF S/S OF INFECTION AND INFECTION CONTROL MEASURES. SIGNS AND SYMPTOMS OF INFECTION WILL BE IDENTIFIED AND PHYSICIAN NOTIFIED FOR PROMPT INTERVENTION THROUGHOUT THE CERTIFICATION PERIOD. Goal Provider Goal - A PHYSICAL THERAPY EVALUATION TO BE COMPLETED WITH RECOMMENDATIONS AND/OR WRITTEN PLAN OF TREATMENT ESTABLISHED FOR PHYSICIANS SIGNATURE. Goal Provider Goal - OCCUPATIONAL THERAPY EVALUATION TO BE COMPLETED WITH RECOMMENDATIONS AND WRITTEN PLAN OF TREATMENT ESTABLISHED FOR THE PHYSICIANS SIGNATURE. Goal Provider Goal - CLOTH MEASURER TO COMPLETE EVALUATION TO ADDRESS THE PATIENTS SOCIAL AND EMOTIONAL FACTORS AND/OR WRITTEN PLAN OF TREATMENT ESTABLISHED FOR THE PHYSICIAN'S SIGNATURE. Goal Provider Goal - PATIENT/CAREGIVER WILL VERBALIZE/DEMONSTRATE UNDERSTANDING OF TEACHING RELATED TO ALTERED SKIN INTEGRITY BLISTER BY END OF CERTIFICATION PERIOD. Goal Provider Goal - PATIENT/CAREGIVER WILL VERBALIZE UNDERSTANDING OF EDUCATION PROVIDED ON MEDICATIONS BY THE END OF THE CERTIFICATION PERIOD. Goal Provider Goal - PATIENT WILL VERBALIZE OWN ASSOCIATION OF FEELINGS OF HOPELESSNESS, AND 3 THERAPEUTIC TECHNIQUES TO DECREASE THESE FEELINGS BY THE END OF THIS CERTIFICATION. Goal Provider Goal - PSYCHOSOCIAL NEEDS WILL BE IDENTIFIED AND PLAN IMPLEMENTED TO MINIMIZE RISK THROUGHOUT CERTIFICATION PERIOD. Goal Provider Goal - PATIENT WILL REMAIN SAFE IN THE COMMUNITY AND WILL BE FREE OF DANGER TO SELF AND OTHERS THROUGHOUT THE CERTIFICATION PERIOD. Goal Provider Goal - OCCUPATIONAL THERAPY EVALUATION PATIENT IS A 63-YEAR-OLD MALE REFERRED FOR AN OCCUPATIONAL THERAPY EVALUATION TO ASSESS HOME SAFETY AND I/ADL PERFORMANCE SINCE RETURNING HOME. HE RECEIVED REHAB SERVICES AT [facility] TO WEAKNESS, MULTIPLE FALLS, AND FEELING DIZZY OVER THE COURSE OF A FEW WEEKS. 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 PAIN AT 5/10 ON R ANTERIOR FOOT. PATIENT CURRENTLY HAS A BLISTER ON R FOOT. PATIENT UTILIZES CANNABIS AND SMOKES CIGARETTES. HE ALSO HAS A HISTORY OF FALLS. PRIOR LEVEL OF FUNCTION: PATIENT REPORTS USING A FWW FOR THE PAST SEVERAL MONTHS. PRIOR TO THAT, HE DID NOT UTILIZE A MOBILITY DEVICE. PATIENT REPORTS HE WAS INDEPENDENT IN I/ADLS AND RECEIVED SUPPORT FROM HIS ADULT CHILDREN WHEN NEEDED. CURRENT LEVEL OF FUNCTION: PATIENT LIVES ALONE IN A ONE STORY HOME. HE WAS PLEASANT AND COOPERATIVE THROUGHOUT THE EVALUATION PRESENTING WITH A CALM DEAMEANOR. ALERT AND ORITENEDX3. HE UTILIZES A FWW FOR FUNCTIONAL MOBILITY. NO RECENT FALLS SINCE RETURNING HOME. HE RECEIVES MEALS ON WHEELS AND IS ABLE TO ENGAGE IN SIMPLE MEAL PREP. HE REPORTS HIS CHILDREN BRING HIM FOOD DURING THE WEEK WELL. CLUTTER WAS PRESENT IN HIS LAUNDRY ROOM AREA (CLOTHES PILED UP TO BE WASHED) AND IN HIS BEDROOM ON THE SIDE OF THE BED THERE WERE CLOTHES, WHICH MAY IMPACT HIS ABILITY TO SAFELY TRANSFER INTO HIS BED IN THE FUTURE. HOWEVER, HE WAS ABLE TO DEMONSTRATE HOW HE INDEPENDENTLY TRANSFERS IN/OUT OF BED WITH THE CURRENT SET-UP IN HIS ROOM. HE REPORTS HIS LAUNDRY HAS BUILT UP HE BECOMES FATIGUE AND IS UNABLE TO COMPLETE HIS LAUNDRY. HE REPORTED HIS SON WOULD BE ASSISTING LATER TODAY AND THIS THERAPIST RECOMMENDED HE REQUEST BOX NAILER OR LAUNDRY SERVICES THROUGH [facility] AND SEE IF HE QUALIFIES. HE WAS ALSO EDUCATED ON ENERGY CONSERVATION STRATEGIES INCLUDING: COMPLETING SMALL LOADS OF LAUNDRY THROUGHOUT THE WEEK, USING A WANIGAN CLERK TO REDUCE THE AMOUNT OF BENDING, ETC. ALSO RECOMMENDED TO REMOVE TRASH CAN AND THE THREE DRAWER MEDIUM CART NEAR HIS RECLINER THAT HE USES A COFFEE TABLE IN ORDER TO INCREASE THE PATHWAY WHEN ENGAGING IN FUNCTIONAL MOBILITY AND TO ALLOW ENOUGH ROOM FOR CLEARANCE OF HIS FWW. HOWEVER, HE STATED, I HAVE MY OWN SYSTEM WITH HOW I GET THROUGH HERE AND IT WORKS. INDEPENDENT IN ALL ADLS AND CURRENTLY COMPLETES SPONGE BATHING VERSUS BATHING IN HIS SHOWER AREA. HE REPORTS SPONGE BATHING IS HIS PREFERENCE AT THE MOMENT AND REPORTED NO DIFFICULTIES. RECOMMENDED GRAB BARS BE INSTALLED IN WALL STUDS OF TUB AREA (DISCUSSED PLACEMENT OF BARS WELL) HE CURRENTLY HAS SUCTION GRAB BARS. EDUCATED HIM ON THE SAFETY RISKS OF USING SUCTION GRAB BARS. RECOMMENDED SHOWER CHAIR AND WHERE HE CAN OBTAIN ONE FROM (LOCAL [employer] EQUIPMENT LOAN CLOSET CURRENT INSURANCE DOES NOT COVER IT). INDEPENDENT IN BED MOBILITY, SIT>STAND AND TOILET TRANSFERS. B UE STRENGTH INCLUDING CONVERTIBLE SOFA BEDSPRING TESTER STRENGTH AND AROM ARE WFL. [facility] ALSO WFL. ASSESSMENT/POC: OCCUPATIONAL THERAPY EVALUATION COMPLETED THIS DATE WITH NO FURTHER SKILLED OT SERVICES INDICATED AT THIS TIME ([id number]). PATIENT WOULD BENEFIT FROM BOX NAILER OR LAUNDRY SERVICES TO ASSIST WITH THIS AREA AND THIS IS HIS ONLY CONCERN AT THIS TIME AND WANTS TO RECEIVE BOX NAILER/LAUNDRY ASSISTANCE TO REDUCE BURDEN ON HIS FAMILY (CHILDREN) WHO CURRENTLY ASSIST. PATIENT IS AT MAX FUNCTIONING WITH ADLS (HE REPORTS BEING CONTENT WITH SPONGE BATHING); HOWEVER, DME RECOMMENDATIONS PROVIDED SHOULD HIS DESIRE TO BATHE IN THE SHOWER AREA CHANGE. EDUCATION ON THEREX HE CAN COMPLETE WITHIN HIS HOME ALSO PROVIDED TO ASSIST WITH MAINTAINING UB STRENGTH AND ROM. SN CAN PUT NEW REFERRAL IN SHOULD HIS STATUS CHANGE. MD AWARE OF EVAL. Encounters Start Date/Time End Date/Time Encounter Type Admission Type Attending [facility] Care Facility Care Department Encounter ID Discharge Date Discharge Status Discharge Condition Discharge Reason Percent Goals Met 2024-01-14 00:00:00 2024-03-13 00:00:00 Outpatient NEW ADMISSION [facility] [id number] 28.81
--- OUTSIDE RECORDS SUMMARY | 2024-03-11 23:08 | XMS_ITS ---
Author Organization [facility] Address [address] [place] [address] Care Team Providers Care Hand Therapist Name Role Phone Za Cotton MD Primary Care Provider Ryan Genao [phone] REASON FOR VISIT refill ompeprazole MEDICATIONS Medication SIG (Take, Route, Fr equency, Duration) Notes Start Date End Date Status Omeprazole 40 MG 1 capsule 30 minutes before morning meal Orally Once a day for 90 days 12/13/2023 Active Encounters Encounter Location Date Provider Diagnosis [facility] [address] [place] [phone] 12/12/2023 Ryan Norton PLAN OF TREATMENT Medication Medication Name Sig Start Date Stop Date Notes Omeprazole 40 MG 1 capsule 30 minutes before morning meal Orally Once a day for 90 days 12/13/2023 Next Appt Details Provider Name:Ryan Norton , 04/21/2024 01:20:00 PM, [address], [address], [place], [address],
--- OUTSIDE RECORDS SUMMARY | 2024-03-11 23:08 | XMS_ITS | Patient Health Record ---
Author Organization [facility] Address [address] [place] [address] Care Team Providers Care Steel Erector Name Role Phone Za Cotton MD Primary Care Provider Ryan Genao Unavailable [phone] ALLERGIES Allergen (clinical drug ingredient) Drug/Non Drug Allergy documented on EMR Reaction Allergy Type Onset Date Status acetaminophen Acetaminophen hives Drug Allergy Active apple allergenic extract Apple (Diagnostic) hives Drug Allergy Active RESULTS Component Value Reference Range Notes Complete Blood Count Auto Di ff Reviewed date:12/28/2023 08:15:26 PM Interpretation: Performing Lab:[facility], [address] [place] [phone] Notes/Report: White Blood Count 3.8 4.8-10.8 X10*3/uL Red Blood Count 2.47 4.60-5.80 X10*6/uL Hemoglobin 8.9 14.0-18.0 g/dl Hematocrit 25.0 42.0-52.0 % Mean Corpuscular Volume 101.2 80.0-98.0 fL Mean Corpuscular Hemoglobin 36.0 27.0-33.0 pg Mean Corpuscular HGB Conc 35.6 31.0-36.0 g/dl Red Cell Distribution Width 14.2 11.0-16.0 % Platelet Count 127 160-400 X10*3/uL Mean Platelet Volume 10.0 9.4-12.4 fL Neutrophils Percent Auto 65.8 45-73 % Imm Gran Pct Auto 0.3 0.0-0.4 % Lymphocytes Percent Auto 19.7 20-40 % Monocytes Percent Auto 10.0 2-11 % Eosinophils Percent Auto 3.4 0-4 % Basophils Percent Auto 0.8 0-2 % NRBC Pct Auto 0.0 0.0-0.2 /100WBC Neutrophils Absolute Auto 2.5 2.0-8.3 x10*3/u L Imm Gran Abs Auto 0.01 0.00-0.03 X10*3/uL Lymphocytes Absolute Auto 0.8 1.2-4.9 X10*3/u L Monocytes Absolute Auto 0.4 0.1-1.2 X10*3/uL Eosinophils Absolute Auto 0.1 0.0-0.4 X10*3/u L Basophils Absolute Auto 0.0 0.0-0.2 X10*3/uL NRBC Abs Auto 0.000 0.0-0.012 X10*3/uL White Blood Count 3.8 4.8-10.8 X10*3/uL Red Blood Count 2.47 4.60-5.80 X10*6/uL Hemoglobin 8.9 14.0-18.0 g/dl Hematocrit 25.0 42.0-52.0 % Mean Corpuscular Volume 101.2 80.0-98.0 fL Mean Corpuscular Hemoglobin 36.0 27.0-33.0 pg Mean Corpuscular HGB Conc 35.6 31.0-36.0 g/dl Red Cell Distribution Width 14.2 11.0-16.0 % Platelet Count 127 160-400 X10*3/uL Mean Platelet Volume 10.0 9.4-12.4 fL Neutrophils Percent Auto 65.8 45-73 % Imm Gran Pct Auto 0.3 0.0-0.4 % Lymphocytes Percent Auto 19.7 20-40 % Monocytes Percent Auto 10.0 2-11 % Eosinophils Percent Auto 3.4 0-4 % Basophils Percent Auto 0.8 0-2 % NRBC Pct Auto 0.0 0.0-0.2 /100WBC Neutrophils Absolute Auto 2.5 2.0-8.3 x10*3/u L Imm Gran Abs Auto 0.01 0.00-0.03 X10*3/uL Lymphocytes Absolute Auto 0.8 1.2-4.9 X10*3/u L Monocytes Absolute Auto 0.4 0.1-1.2 X10*3/uL Eosinophils Absolute Auto 0.1 0.0-0.4 X10*3/u L Basophils Absolute Auto 0.0 0.0-0.2 X10*3/uL NRBC Abs Auto 0.000 0.0-0.012 X10*3/uL Prothrombin Time INR Reviewed date:12/27/2023 01:38:32 PM Interpretation: Performing Lab:[address] [phone] Notes/Report: Prothrombin Time 15.6 10.9-12.4 SEC INTERNATIONAL NORM RATIO 1.3 0.9-1.1 INTERNATIONAL NORMALIZED RATIO (INR) REFERENCE RANGES Reference Range For patients not on anticoagulant therapy: 0.9 - 1.1 INR ranges for oral anticoagulant therapy: For prevention and treatment of venous thrombosis and pulmonary embolism: 2.0 - 3.0 For acute myocardial infarction with aspirin therapy: 2.0 - 3.0 For acute myocardial infarction without aspirin therapy: 3.0 - 4.0 For patients with mechanical prosthetic heart valves: 2.5 - 3.5 Liver Panel Reviewed date:12/28/2023 08:14:44 PM Interpretation: Performing Lab:[facility], [address] [place] [phone] Notes/Report: Bilirubin Total 2.2 0.0-1.0 mg/dL Bilirubin Direct 1.6 0.0-0.5 mg/dL Aspartate Amino Transferase 64 5-37 U/L Alanine Aminotransferase 59 0-40 U/L Total Protein 6.5 6.5-8.0 g/dL Albumin Level 3.5 3.5-5.0 g/dL Alkaline Phosphatase 85 39-117 U/L Basic Metabolic Panel Reviewed date:12/28/2023 08:14:57 PM Interpretation: Performing Lab:[address] [phone] Notes/Report: Sodium 135 135-145 mmol/L Potassium 3.1 3.3-5.1 mmol/L Chloride 103 96-108 mmol/L Carbon Dioxide 21 22-29 mmol/L Anion Gap 14 12-20 Blood Urea Nitrogen 16 9-16 mg/dL Creatinine 1.19 0.5-1.4 mg/dL Creatinine Clr Calc Pharmacy 67.4 eGFR (calculated from the MDRD study equation) and eCrCl (calculated from the Cockcroft-Gault equation) are based on different parameters and may not yield comparable results. If eCrCl result is absurd, please check patient's height/weight. Estimated Glomerular Filt Rate > 60 NOTE: For -[place]uxembour[place] individuals, multiply the result by 1.210. Chronic Kidney Disease: Estimated GFR < 60 mL/min/1.73m2 Severe Kidney Disease: Estimated GFR < 15 mL/min/1.73m2 Glucose Random 101 60-115 mg/dL Calcium 9.1 8.4-10.2 mg/dL Phosphorus Reviewed date:12/28/2023 08:15:05 PM Interpretation: Performing Lab:[facility], [address] [place] [phone] Notes/Report: Phosphorus 3.1 2.7-4.5 mg/dL Magnesium Reviewed date:12/28/2023 08:15:16 PM Interpretation: Performing Lab:[facility], [address] [place] [phone] Notes/Report: Magnesium 1.6 1.6-2.6 mg/dL SLIDE REVIEW Reviewed date:12/28/2023 08:15:35 PM Interpretation: Performing Lab:[facility], [address] [place] [phone] Notes/Report: SLIDE REVIEW VERIFIED REASON FOR REFERRAL No Information MEDICATIONS Medication SIG (Take, Route, Frequency, Duration) Notes Start Date End Date Status Folic Acid 1 MG TAKE 1 TABLET BY SHANEKA TH EVERY DAY Oral for 90 Active Omeprazole 40 MG 1 capsule 30 minutes before morning meal Orally Once a day for 90 days 12/13/2023 Active B-12 1000 MCG Oral for 30 Acti ve Lisinopril 40 MG 1 tablet Orally Once a day Active Atenolol 100 MG TAKE 1 TABLET BY SHANEKA TH DAILY Oral for 90 Active Omeprazole 40 MG 1 capsule 30 minutes before morning meal Oral twice a day Active Ferrous Sulfate 325 (65 Fe) MG TAKE 1 TABLET ORALLY 2 TIMES A DAY Oral for 90 Active SOCIAL HISTORY Tobacco Use: Social History Observation Description Date Details (start date - stop date) Current Smoker NA - NA Sex Assigned At : Social History Observation Description Sex Assigned At Unknown Tobacco Use/Smoking Question Answer Notes Patient is a current smoker How many cigarettes a day do you smoke? 21-30 Alcohol Screen Question Answer Notes Did you have a drink contain ing alcohol in the past year? Yes How often did you have a dri nk containing alcohol in the past year? 4 or more times a week (4 points) How many drinks did you have on a typical day when you were drinking in the past year? 5 or 6 drinks (2 points) Points 6 Interpretation Positive PROBLEMS Problem Type ICD Code Onset Dates Problem Status W/U Status Risk SNOMED Code Notes Problem Gastroesophageal reflux disease, unspecified whether esophagitis present (K21.9) Active confirmed 269427114 Problem Abdominal pain, generalized (R10.84) Active confirmed 284379172 Problem Gastro-esophageal reflux disease without esophagitis (K21.9) Active confirmed Gastro-esophag eal reflux disease without esophagitis (512028359) Problem Gastritis (K29.70) Active confirmed Gas tritis (1995376) Problem 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) Active confirmed Benign neoplasm of stomach (41807472) Problem Alcoholic liver disease (K70.9) Active confirmed Alcoholic liver disease (57317219) Encounters Encounter Location Date Provider Diagnosis [facility] [address] [place] [phone] 06/19/2023 Ryan Norton [facility] [address] [place] [phone] 10/16/2023 Ryan Norton [facility] [address] [place] [phone] 06/19/2023 Ryan Cierra [facility] [address] [place] [phone] 10/16/2023 Ryan Norton [facility] [address] [place] [phone] 12/12/2023 Ryan Norton [facility] [address] [place] [phone] 01/27/2024 Ryan Norton PLAN OF TREATMENT Pending Test Test Name Order Date LIVER PROFILE 11/20/2022 CBC w DIFF 11/20/2022 Future Test Test Name Order Date UPPER GI ENDOSCOPY 11/20/2022 Next Appt Details Provider Name:Ryan Norton , 04/21/2024 01:20:00 PM, [address] [facility], [address], [place], [address], Insurance Providers Payer Name Payer Address Payer Phone Subscriber Number Group Number Insured Name Patient Relationship to Insured Coverage Start Date Coverage End Date Aetna (No Referra l) [address] [address] [place] [address] [id number] JOSE MARIA Self - patient is the insured MEDICAL (GENERAL) HISTORY Medical History History ICD Code PTSD Elevated LFTs Anemia Hemorrhoids Alcohol abuse Kidney stone Hypertension Denies MO,DM,CVA,Lung disease,renal dise ase Surgical History Surgery Date(Month/Year) Tonsillectomy
--- OUTSIDE RECORDS SUMMARY | 2024-03-11 23:08 | XMS_ITS ---
Author Organization [facility] Address [address] [place] [address] Care Team Providers Care Cloth Grader Name Role Phone Za Cotton MD Primary Care Provider Ryan Genao Unavailable [phone] REASON FOR VISIT different dosing of medication Encounters Encounter Location Date Provider Diagnosis [facility] [address] [address] [place] [address] 01/27/2024 Ryan Norton PLAN OF TREATMENT Next Appt Details Provider Name:Ryan Norton , 04/21/2024 01:20:00 PM, [address] [address] [facility], [address], [place], [address],
== END 2024-03-11 08:43 | disposition home or self-care (01) ==
LOC: HO.LAB 08:42
PROVIDERS: PCP Internal Medicine; Referring Provider Nurse Practitioner Family
DX: Z00.00 Encounter for general adult medical examination without abnormal findings (principal); Z12.5 Encounter for screening for malignant neoplasm of prostate; R97.20 Elevated prostate specific antigen [PSA]
CPT/HCPCS: 36415; 84153; 85025

== ENCOUNTER 2024-03-17 09:08 | Outpatient (AMB) | payer MEDICARE, SELFPAY ==
--- NOTE | 2024-03-17 09:13 | A.OFFPC_ITS ---
Vital Signs 03/17/24 09:15 Height 5 ft 8 in Weight 177 lb 8 oz BMI 27.0 BP 124/78 Blood Pressure Location Rt brachial Position Sitting Pulse 68 Pulse Source Pulse Oximeter Pulse Oximetry (%) 98 Oxygen Delivery Method Room Air Intake Visit Reasons: 2 Month F/U Intake Note: Patient is here to follow up on IGT, HTN, Hypercholesterolemia. Investment Banking Associate Required: No Christian Science Healer: Not Required per policy Accompanied by: Self / Same As Patient Allergies acetaminophen [From TYLENOL] Allergy (Intermediate, Verified 03/17/24 09:15) HIVES apple [APPLES] Allergy (Intermediate, Verified 03/17/24 09:15) HIVES Medication List - Last Reconciled 03/17/24 by Winsome Subramanian PA-C ascorbate calcium (vitamin C) 500 mg PO BID 30 days atenolol 100 mg PO DAILY blood pressure monitor As directed cyanocobalamin (vitamin B-12) 1,000 mcg PO DAILY ferrous sulfate 325 mg PO BID folic acid 1 mg PO DAILY hydrochlorothiazide 25 mg PO DAILY lisinopril 40 mg PO DAILY 90 days omeprazole 40 mg PO DAILY@0630 sulfamethoxazole-trimethoprim 800-160 mg (Bactrim DS) 1 tab PO BID 14 days Tobacco use date assessed: 03/17/24 Fall risk assessment: No Falls in past year Last assessed Fall Risk: 03/17/24 Dental Screening Dental Screen Date: 06/28/23 HPI 2 Month F/U HPI Details 63-year-old male with past medical histo ry of alcohol abuse, hypert ension, GERD, hypercholesterolemia, obesity, PTSD, anxiety and tobacco abuse last seen December 2023 coming in for follow up.? In review of the notes, patient was seen by [facility] 03/02/2024 plan to obtain retroperitoneal ultrasound and follow up in 1-2 months. Patient has noted 24 pound unintentional weight loss. Patient tells us today his ultrasound is scheduled for April and will have a follow up with urology after the US is completed. He also mentions having right foot pain and swelling on occasion most recently last week. The pain will start in the right big toe and radiate into the arch. He has been doing well with his drinking but does mention relapsing last week despite abstaining from alcohol since December 2023. [facility] Medical History Alcohol abuse Cholecystitis Impaired glucose tolerance Vitamin D deficiency Anxiety and depression Alcohol abuse Tobacco abuse Post traumatic stress disorder (PTSD) Obesity (BMI 30-39.9) Hypercholesterolemia GERD (gastroesophageal reflux disease) Hypertension Surgical History History of esophagogastroduodenoscopy (EGD) Hx of colonoscopy History of tonsillectomy Family History Father Renal cancer Other Substance use disorder Social History Household Members: None Housing: House Do you presently have visiting nurse or other home services: No Alcohol intake: current Alcohol intake frequency: a few times a month Alcohol type: hard liquor Patient Tobacco Use Status: Current everyday Tobacco user Tobacco use type: Cigarette Cigarette Packs Per Day: 1 Cigarettes Per Day: 20 Years Smoked: 50 e-Cigarette/Vaping Use: Never Used Second Hand Smoke Exposure: Yes Substance Use Type: Marijuana service: No Current occupational status: retired Cognitive needs: No Hearing needs: No Vision needs: Yes (Reading glasses) Questionnaire Thrive Questionnaire Date Thrive assessed: 12/23/23 OBINNA-7 AMB Questionnaire OBINNA-7 Date OBINNA - 7 assessed: 06/28/23 Source: Developed by Drs. Ryan Garnica, Kamala Loyola, Joshua Lopez and colleagues, with an educational bridgette from [employer]. Review of Systems Const Denies body aches, Reports chills, Reports fatigue, Denies fever(s), Denies headache(s), Denies poor appetite and Reports weight loss Eyes Reports no additional complaints ENT Denies dizziness and Denies headache(s) Card Denies chest pain, Denies syncope, Denies edema, Denies irregular heart rhythm, Denies lightheadedness and Denies dyspnea Resp Denies cough and Denies dyspnea GI Denies abdominal pain, Denies constipation, Denies diarrhea, Denies nausea and Denies vomiting Reports no additional complaints Musc Details: right foot and great toe pain Denies abnormal gait Skin/Breast Reports system reviewed and no additional complaints, except as documented Neuro Denies abnormal gait, Denies dizziness, Denies syncope and Denies headache(s) Psych Reports no additional complaints Endo Reports fatigue Physical exam (Primary Care) Vital Signs: Last Vital Signs Pulse 68 03/17/24 09:15 BP 124/78 03/17/24 09:15 Pulse Ox 98 03/17/24 09:15 Oxygen Delivery Method Room Air 03/17/24 09:15 BMI result Body Mass Index 27.0 Tobacco/Smoking Status: Tobacco use Status Tobacco use date assessed 03/17/24 03/17/24 09:21 Patient Tobacco Use Status Current everyday Tobacco 03/17/24 09:21 Tobacco use type Cigarette 03/17/24 09:21 e-Cigarette/Vaping Use Never Used 03/17/24 09:21 Thrive Assessment: Date of Thrive Assessment Date Thrive assessed 12/23/23 03/17/24 09:21 Const General: cooperative, healthy appearing, comfortable and no acute distress Orientation/consciousness: patient oriented x3 HENMT Head: Yes normocephalic Ears: hearing grossly normal bilaterally General nose exam: Normal external nose present Eyes General: appearance normal, both eyes and all related structures Conjunctivae: conjunctivae normal Neck Neck: Yes full ROM and Yes no lymphadenopathy Resp Effort & Inspection: normal respiratory effort Auscultation: clear to auscultation bilaterally, no crackles, no rales, no rhonchi and no wheezes Cardio Rate: regular rate Rhythm: regular rhythm Skin General skin exam: no rashes or lesions noted Neuro General: patient oriented x3 Gait exam (Neuro): Normal gait present Extrem General: Yes normal to inspection, Yes full ROM and No edema Psych Affect: normal affect Attitude: cooperative Insight: Good insight present (Psych) Judgement: Good judgement present (Psych) Coding Level of Care Code Est Pt Level 4 (58829) Diagnoses Elevated TSH R79.89 Right foot pain M79.671 Anemia D64.9 Weight loss R63.4 Assessment & Plan Assessment & Plan (1) Elevated TSH: Code(s): R79.89 - Other specified abnormal findings of blood chemistry Category: Medical Plan: TSH elevated on last labs will order for repeat labs to ensure the numbers have normalized. Consider levothyroxine if TSH remains elevated. (2) Right foot pain: Code(s): M79.671 - Pain in right foot Category: Medical Plan: Patient complaining of right foot pain history most consistent with gout. Ordered for uric acid level for further evaluation. No symptoms on exam today and no swelling, pain to palpation or warmth of the foot. Patient is no longer taking HCTZ. continue to monitor symptoms. (3) Anemia: Code(s): D64.9 - Anemia, unspecified Category: Medical Plan: Patient's anemia has been improving will continue to monitor with serial CBC. Seeing GI in April. (4) Weight loss: Code(s): R63.4 - Abnormal weight loss Category: Medical Plan: Patient having decreased appetite and weight loss over the last several months. Ordered for blood work, follow up with GI, follow with Urology and will refer back to lung cancer screening program. Plan This note was constructed using voice recognition software. While every effort has been made to ensure accuracy and line haul owner operator, still areas may have been included sometimes these areas may affect the content or meeting of the given symptoms. Total time spent caring for the patient today was 20 minutes. This includes time spent before the visit reviewing the chart, time spent during the visit, and time spent after the visit and documentation. Orders: Orders TSH reflex Free T4 03/17/24 Z00.00 - Encounter for general adult medical exam ination without abnormal findings, R79.89 - Other specified abnormal findings of blood chemistry Free T4 (Free Thyroxine) 03/17/24 Z00.00 - Encounter for general adult medical examination without abnormal findings, R79.89 - Other specified abnormal findings of blood chemistry Uric Acid 03/17/24 M79.671 - Pain in right foot Vitamin B12 and Folate 03/17/24 D64.9 - Anemia, unspecified Medications: On Hold hydrochlorothiazide Hold Comment: patient not taking 25 mg PO DAILY 90 tabs 1RF I10 - Essential (primary) hypertension
[2024-03-17 09:15] VITALS: BP 124/78; PULSE 68; O2SAT 98; BMI 27.0
--- OUTSIDE RECORDS SUMMARY | 2024-03-17 09:16 | XMS_ITS ---
Author Organization [facility] Address [address] [place] [address] Care Team Providers Care Marketing Ambassador Name Role Phone Za Cotton MD Primary Care Provider Ryan Genao Unavailable [phone] REASON FOR VISIT Patient presents today for GERD Encounters Encounter Location Date Provider Diagnosis [facility] [address] [facility] [address] [place] [address] 10/16/2023 Ryan Norton PLAN OF TREATMENT Next Appt Details Provider Name:Ryan Norton , 04/21/2024 01:20:00 PM, [address] [place] [address], [address], [place], [address],
--- OUTSIDE RECORDS SUMMARY | 2024-03-17 09:16 | XMS_ITS | Patient Health Record ---
Author Organization [facility] Address [address] [place] [address] Care Team Providers Care Distance Education Faculty Liaison Name Role Phone aZ Cotton MD Primary Care Provider Ryan Genao Unavailable [phone] ALLERGIES Allergen (clinical drug ingredient) Drug/Non Drug Allergy documented on EMR Reaction Allergy Type Onset Date Status acetaminophen Acetaminophen hives Drug Allergy Active apple allergenic extract Apple (Diagnostic) hives Drug Allergy Active RESULTS Component Value Reference Range Notes Complete Blood Count Auto Di ff Reviewed date:12/28/2023 08:15:26 PM Interpretation: Performing Lab:[facility], [address] [place] [phone] Notes/Report: White Blood Count 3.8 4.8-10.8 X10*3/uL [...] INR Reviewed date:12/27/2023 01:38:32 PM Interpretation: Performing Lab:[address] [phone] Notes/Report: Prothrombin Time 15.6 10.9-12.4 SEC INTERNATIONAL [...] Panel Reviewed date:12/28/2023 08:14:44 PM Interpretation: Performing Lab:[facility], [address] [place] [phone] Notes/Report: Bilirubin Total 2.2 0.0-1.0 mg/dL Bilirubin Direct 1.6 0.0-0.5 mg/dL Aspartate Amino Transferase 64 5-37 U/L Alanine Aminotransferase 59 0-40 U/L Total Protein 6.5 6.5-8.0 g/dL Albumin Level 3.5 3.5-5.0 g/dL Alkaline Phosphatase 85 39-117 U/L Basic Metabolic Panel Reviewed date:12/28/2023 08:14:57 PM Interpretation: Performing Lab:[address] [phone] Notes/Report: Sodium 135 135-145 mmol/L Potassium 3.1 [...] Glomerular Filt Rate > 60 NOTE: For -[place]ai[place]ese individuals, multiply the result by 1.210. Chronic Kidney Disease: Estimated GFR < 60 mL/min/1.73m2 Severe Kidney Disease: Estimated GFR < 15 mL/min/1.73m2 Glucose Random 101 60-115 mg/dL Calcium 9.1 8.4-10.2 mg/dL Phosphorus Reviewed date:12/28/2023 08:15:05 PM Interpretation: Performing Lab:[facility], [address] [place] [phone] Notes/Report: Phosphorus 3.1 2.7-4.5 mg/dL Magnesium Reviewed date:12/28/2023 08:15:16 PM Interpretation: Performing Lab:[facility], [address] [place] [phone] Notes/Report: Magnesium 1.6 1.6-2.6 mg/dL SLIDE REVIEW Reviewed date:12/28/2023 08:15:35 PM Interpretation: Performing Lab:[facility], [address] [place] [phone] Notes/Report: SLIDE REVIEW VERIFIED REASON FOR REFERRAL [...] unspecified whether esophagitis present (K21.9) Active confirmed 150748215 Problem Abdominal pain, generalized (R10.84) Active confirmed 628105955 Problem Gastro-esophageal reflux disease without esophagitis (K21.9) Active confirmed Gastro-esophag eal reflux disease without esophagitis (190744843) Problem Gastritis (K29.70) Active confirmed Gas tritis (8534613) Problem 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) Active confirmed Benign neoplasm of stomach (23968818) Problem Alcoholic liver disease (K70.9) Active confirmed Alcoholic liver disease (71015557) Encounters Encounter Location Date Provider Diagnosis [facility] [address] [place] [phone] 06/19/2023 Ryan Norton [facility] [address] [place] [phone] 10/16/2023 Ryan Norton [facility] [address] [place] [phone] 06/19/2023 Ryan Cierra [facility] [address] [place] [phone] 10/16/2023 Ryan Nroton [facility] [address] [place] [phone] 12/12/2023 Ryan Norton [facility] [address] [place] [phone] 01/27/2024 Ryan Norton PLAN OF TREATMENT Pending Test Test Name Order Date LIVER PROFILE 11/20/2022 CBC w DIFF 11/20/2022 Future Test Test Name Order Date UPPER GI ENDOSCOPY 11/20/2022 Next Appt Details Provider Name:Ryan Norton , 04/21/2024 01:20:00 PM, [address] [facility], [address], [place], [address], Insurance Providers Payer Name Payer Address Payer Phone Subscriber Number Group Number Insured Name Patient Relationship to Insured Coverage Start Date Coverage End Date Aetna (No Referra l) [address] [address] [place] [address] [id number] JOSE MARIA Self - patient is the insured MEDICAL (GENERAL) HISTORY Medical History History ICD Code PTSD Elevated LFTs Anemia Hemorrhoids Alcohol abuse Kidney stone Hypertension Denies HI,DM,CVA,Lung disease,renal dise ase Surgical History Surgery Date(Month/Year) Tonsillectomy
--- OUTSIDE RECORDS SUMMARY | 2024-03-17 09:16 | XMS_ITS ---
Author Organization [facility] Address [address] [place] [address] Care Team Providers Care Head Of Sales Promotion Name Role Phone Za Cotton MD Primary Care Provider Ryan Genao Unavailable [phone] REASON FOR VISIT different dosing of medication Encounters Encounter Location Date Provider Diagnosis [facility] [address] [place] [address] 01/27/2024 Ryan Norton PLAN OF TREATMENT Next Appt Details Provider Name:Ryan Norton , 04/21/2024 01:20:00 PM, [address], [address], [place], [address],
--- OUTSIDE RECORDS SUMMARY | 2024-03-17 09:16 | XMS_ITS ---
Author Organization [facility] Address [address] [place] [address] Care Team Providers Care Catalyst Recovery Operator Name Role Phone Za Cotton MD Primary Care Provider Ryan Genao [phone] REASON FOR VISIT refill ompeprazole MEDICATIONS Medication SIG (Take, Route, Fr equency, Duration) Notes Start Date End Date Status Omeprazole 40 MG 1 capsule 30 minutes before morning meal Orally Once a day for 90 days 12/13/2023 Active Encounters Encounter Location Date Provider Diagnosis [facility] [address] [place] [id number] 12/12/2023 Ryan Norton PLAN OF TREATMENT Medication Medication Name Sig Start Date Stop Date Notes Omeprazole 40 MG 1 capsule 30 minutes before morning meal Orally Once a day for 90 days 12/13/2023 Next Appt Details Provider Name:Ryan Norton , 04/21/2024 01:20:00 PM, [address], [address], [place], [address],
--- OUTSIDE RECORDS SUMMARY | 2024-03-17 09:17 | XMS_ITS | Clinical Summary ---
Author Organization Unknown Care Team Providers Care Security Intern Name Role Phone GHANSHYAM ROBERTSON, BERNADETTE Unavailable Unavailable RUTHY OT, JM Unavailable Unavailable LEANDRO RN, DOUG Unavailable Unavailable [place] ([facility]) [facility], [place] Unavailable Unavailable Payers Payer Name Policy Type Policy Number Effective Date Expira tion Date [employer]ZZ [employer] MEDICARE ADVANTAGE FFS [id number] MEDICARE - [facility] - [place] [id number] Problems Condition Name Condition Details Condition Category [...] 2023-04 00:00: 00 01-14 23:59 :00 No [id number] 1 tablet DAILY 1 tablet DAILY (route: oral) Med Classific ation: Cardiovas cular Therapy Agents furosemide 20 mg tablet 2023-04 00:00: 00 01-14 23:59 :00 No [id number] 1 tablet 2 TIMES DAILY 1 tablet 2 TIMES DAILY (route: oral) Med Classific ation: Cardiovas cular Therapy Agents potassium chloride ER 20 mEq tablet,exte nded release 2023-04 0-10 00:00: 00 01-13 00:00 :00 No [id number] 1 tablet DAILY 1 tablet DAILY (route: oral) Med Classific ation: Electroly te Balance-N utritiona l Products omeprazole 40 mg capsule,del ayed release - 00:00: 00 01-13 00:00 :00 No [id number] 1 capsule 2 TIMES DAILY 1 capsule 2 TIMES DAILY (route: oral) Med Classific ation: Gastroint estinal Therapy Agents ascorbic acid (vitamin C) 500 mg capsule 2023-04 00:00: 00 01-14 23:59 :00 No [id number] 1 capsule 2 TIMES DAILY 1 capsule 2 TIMES DAILY (route: oral) Med Classific ation: Electroly te Balance-N utritiona l Products cyanocobala min (vit B-12) 1,000 mcg tablet 2023-04 00:00: 00 Yes [id number] 1 tablet EVERY AM 1 tablet EVERY AM (route: oral) Med Classific ation: Electroly te Balance-N utritiona l Products lisinopril 40 mg tablet 2023-04 00:00: 00 Yes [id number] 1 tablet EVERY AM 1 tablet EVERY AM (route: oral) Med Classific ation: Cardiovas cular Therapy Agents ascorbic acid (vitamin C) 500 mg tablet 2023-0416 00:00: 00 Yes [id number] 1 tablet 2 TIMES DAILY 1 tablet 2 TIMES DAILY (route: oral) Med Classific ation: Electroly te Balance-N utritiona l Products atenolol 100 mg tablet 2023-0416 00:00: 00 Yes [id number] 1 tablet EVERY AM 1 tablet EVERY AM (route: oral) Med Classific ation: Cardiovas cular Therapy Agents midodrine 10 mg tablet 2023-0416 00:00: 00 Yes [id number] Give for SBP < 100 (hypotensio n). Sister to measure BP prior to administrat ion. 1 tablet EVERY 8 HOURS 1 tablet EVERY 8 HOURS (route: oral) Med Classific ation: Cardiovas cular Therapy Agents ferrous sulfate 325 mg (65 mg iron) tablet,jesica yed release 2023-04 016 00:00: 00 Yes [id number] 1 tablet 2 TIMES DAILY 1 tablet 2 TIMES DAILY (route: oral) Med Classific ation: Electroly te Balance-N utritiona l Products folic acid 1 mg tablet 2023-04 016 00:00: 00 Yes [id number] 1 tablet EVERY AM 1 tablet EVERY [...] SYMPTOMS OF SUBSTANCE USE INCLUDING PARTICIPATION IN [facility] SPECIALTY PROGRAM. NURSE TO COLLABORATE WITH PATIENT AND COMMUNITY PROVIDERS IN THE DEVELOPMENT AND IMPLEMENTATION OF A TARGETED RECOVERY PLAN. [code = SKILLED NURSE FOR O/A OF SIGNS AND SYMPTOMS OF SUBSTANCE USE INCLUDING PARTICIPATION IN [facility] SPECIALTY PROGRAM. NURSE TO COLLABORATE WITH PATIENT [...] FOR REFERRAL TO COMMUNITY RESOURCES. [code = ASSEMBLER RUBBER FOOTWEAR TO EVALUATE PATIENT FOR REFERRAL TO COMMUNITY [...] AWARENESS FOR SAFETY AND WILL NOTIFY CLINICAL SYSTEMS SUPPORT OFFICER AND PHYSICIAN/PROVIDER WITH ANY CHANGE IN CONDITION. [code = SKILLED NURSE WILL MAINTAIN SITUATIONAL AWARENESS FOR SAFETY AND WILL NOTIFY CLINICAL SYSTEMS SUPPORT OFFICER AND PHYSICIAN/PROVIDER WITH ANY CHANGE IN CONDITION.] Future Scheduled Test OCCUPATION AL THERAPY TO EVALUATE AND TREAT. OCCUPATIONAL THERAPY EVALUATION COMPLETED. NO ADDITIONAL VISITS RECOMMENDED AT THIS TIME. [code = OCCUPATIONAL THERAPY TO EVALUATE AND TREAT. OCCUPATIONAL THERAPY EVALUATION COMPLETED. NO ADDITIONAL VISITS RECOMMENDED AT THIS TIME.] Goal 2024-03-13 Patient Goal - W OULD LIKE TO GET SOCIAL ACTIVITY BACK, AND BECOME ACTIVE MEMBER OF COMMUNITY. Goal Provider Goal - A PLAN OF CARE WILL BE ESTABLISHED THAT MEETS PATIENT'S [facility] NEEDS AND INCLUDES PATIENT GOAL FOR HOME [...] THE PHYSICIANS SIGNATURE. Goal Provider Goal - ASSEMBLER RUBBER FOOTWEAR TO COMPLETE EVALUATION TO ADDRESS THE PATIENTS [...] HOME. HE RECEIVED REHAB SERVICES AT [facility] TO WEAKNESS, M[place]IP[place] FALLS, AND FEELING [...] TODAY AND THIS THERAPIST RECOMMENDED HE REQUEST CFD ENGINEER OR LAUNDRY SERVICES THROUGH [facility] AND SEE IF HE QUALIFIES. HE WAS ALSO EDUCATED ON ENERGY CONSERVATION STRATEGIES INCLUDING: COMPLETING SMALL LOADS OF LAUNDRY THROUGHOUT THE WEEK, USING A TEMPERATURE REGULATOR PYROMETER TO REDUCE THE AMOUNT OF BENDING, ETC. [...] WHERE HE CAN OBTAIN ONE FROM (LOCAL [facility] EQUIPMENT LOAN CLOSET CURRENT INSURANCE DOES NOT COVER IT). INDEPENDENT IN BED MOBILITY, SIT>STAND AND TOILET TRANSFERS. B UE STRENGTH INCLUDING CAREERS ADVISER STRENGTH AND AROM ARE WFL. [facility] ALSO WFL. ASSESSMENT/POC: OCCUPATIONAL THERAPY EVALUATION COMPLETED THIS DATE WITH NO FURTHER SKILLED OT SERVICES INDICATED AT THIS TIME ([id number]). PATIENT WOULD BENEFIT FROM CFD ENGINEER OR LAUNDRY SERVICES TO ASSIST WITH THIS AREA AND THIS IS HIS ONLY CONCERN AT THIS TIME AND WANTS TO RECEIVE CFD ENGINEER/LAUNDRY ASSISTANCE TO REDUCE BURDEN ON HIS FAMILY [...] HIS STATUS CHANGE. MD AWARE OF EVAL. Reason for Visit INDEPENDENT IN THE HOME Encounters Start Date/Time End Date/Time Encounter Type Admission Type Attending [facility] Care Department Encounter ID Discharge Date Discharge Status Discharge Condition Discharge Reason Percent Goals Met 2024-01-14 00:00:00 2024-03-13 00:00:00 Outpatient NEW ADMISSION D[facility] [id number] 2024-03-13 00:00:00 DISCHARGE TO HOME OR SELF CARE INDEPENDEN T IN THE HOME PER CLIENT REQUEST 28.81
--- OUTSIDE RECORDS SUMMARY | 2024-03-17 09:17 | XMS_ITS | Clinical Summary ---
Author Organization Unknown Care Team Providers Care Rectifying Operator Name Role Phone GHANSHYAM ROBERTSON, BERNADETTE Unavailable Unavailable RUTHY OT, JM Unavailable Unavailable LEANDRO RN, DOUG Unavailable Unavailable [place] ([facility]) [facility], [place] Unavailable Unavailable Payers Payer Name Policy Type Policy Number Effective Date Expira tion Date ZZZ [employer] MEDICARE ADVANTAGE FFS [id number] MEDICARE - [facility]/[place] - PD[place] [id number] Problems Condition Name Condition Details Condition Category [...] 2023-04 00:00: 00 01-14 23:59 :00 No [id number] 1 tablet DAILY 1 tablet DAILY (route: oral) Med Classific ation: Cardiovas cular Therapy Agents furosemide 20 mg tablet 2023-04 00:00: 00 01-14 23:59 :00 No [id number] 1 tablet 2 TIMES DAILY 1 tablet 2 TIMES DAILY (route: oral) Med Classific ation: Cardiovas cular Therapy Agents potassium chloride ER 20 mEq tablet,exte nded release 2023-04 0-10 00:00: 00 01-13 00:00 :00 No [id number] 1 tablet DAILY 1 tablet DAILY (route: oral) Med Classific ation: Electroly te Balance-N utritiona l Products omeprazole 40 mg capsule,del ayed release - 00:00: 00 01-13 00:00 :00 No [id number] 1 capsule 2 TIMES DAILY 1 capsule 2 TIMES DAILY (route: oral) Med Classific ation: Gastroint estinal Therapy Agents ascorbic acid (vitamin C) 500 mg capsule 2023-04 00:00: 00 01-14 23:59 :00 No [id number] 1 capsule 2 TIMES DAILY 1 capsule 2 TIMES DAILY (route: oral) Med Classific ation: Electroly te Balance-N utritiona l Products cyanocobala min (vit B-12) 1,000 mcg tablet 2023-04 00:00: 00 Yes [id number] 1 tablet EVERY AM 1 tablet EVERY AM (route: oral) Med Classific ation: Electroly te Balance-N utritiona l Products lisinopril 40 mg tablet 2023-04 00:00: 00 Yes [id number] 1 tablet EVERY AM 1 tablet EVERY AM (route: oral) Med Classific ation: Cardiovas cular Therapy Agents ascorbic acid (vitamin C) 500 mg tablet 2023-0416 00:00: 00 Yes [id number] 1 tablet 2 TIMES DAILY 1 tablet 2 TIMES DAILY (route: oral) Med Classific ation: Electroly te Balance-N utritiona l Products atenolol 100 mg tablet 2023-0416 00:00: 00 Yes [id number] 1 tablet EVERY AM 1 tablet EVERY AM (route: oral) Med Classific ation: Cardiovas cular Therapy Agents midodrine 10 mg tablet 2023-0416 00:00: 00 Yes [id number] Give for SBP < 100 (hypotensio n). Sister to measure BP prior to administrat ion. 1 tablet EVERY 8 HOURS 1 tablet EVERY 8 HOURS (route: oral) Med Classific ation: Cardiovas cular Therapy Agents ferrous sulfate 325 mg (65 mg iron) tablet,jesica yed release 2023-04 016 00:00: 00 Yes [id number] 1 tablet 2 TIMES DAILY 1 tablet 2 TIMES DAILY (route: oral) Med Classific ation: Electroly te Balance-N utritiona l Products folic acid 1 mg tablet 2023-04 016 00:00: 00 Yes [id number] 1 tablet EVERY AM 1 tablet EVERY [...] SYMPTOMS OF SUBSTANCE USE INCLUDING PARTICIPATION IN [facility] SPECIALTY PROGRAM. NURSE TO COLLABORATE WITH PATIENT AND COMMUNITY PROVIDERS IN THE DEVELOPMENT AND IMPLEMENTATION OF A TARGETED RECOVERY PLAN. [code = SKILLED NURSE FOR O/A OF SIGNS AND SYMPTOMS OF SUBSTANCE USE INCLUDING PARTICIPATION IN [facility] SPECIALTY PROGRAM. NURSE TO COLLABORATE WITH PATIENT [...] FOR REFERRAL TO COMMUNITY RESOURCES. [code = FACING BASTER JUMPBASTING TO EVALUATE PATIENT FOR REFERRAL TO COMMUNITY [...] AWARENESS FOR SAFETY AND WILL NOTIFY CLINICAL GREEN BUILDING MATERIALS DISTRIBUTOR AND PHYSICIAN/PROVIDER WITH ANY CHANGE IN CONDITION. [code = SKILLED NURSE WILL MAINTAIN SITUATIONAL AWARENESS FOR SAFETY AND WILL NOTIFY CLINICAL GREEN BUILDING MATERIALS DISTRIBUTOR AND PHYSICIAN/PROVIDER WITH ANY CHANGE IN CONDITION.] [...] CARE WILL BE ESTABLISHED THAT MEETS PATIENT'S LONGTERM NEEDS AND INCLUDES PATIENT GOAL FOR HOME [...] THE PHYSICIANS SIGNATURE. Goal Provider Goal - FACING BASTER JUMPBASTING TO COMPLETE EVALUATION TO ADDRESS THE PATIENTS [...] RETURNING HOME. HE RECEIVED REHAB SERVICES AT [facility] TO WEAKNESS, M[place]IPLE FALLS, AND FEELING [...] TODAY AND THIS THERAPIST RECOMMENDED HE REQUEST SENIOR RESIDENT CARE DIRECTOR OR LAUNDRY SERVICES THROUGH [facility] AND SEE IF HE QUALIFIES. HE WAS ALSO EDUCATED ON ENERGY CONSERVATION STRATEGIES INCLUDING: COMPLETING SMALL LOADS OF LAUNDRY THROUGHOUT THE WEEK, USING A UPSET OPERATOR TO REDUCE THE AMOUNT OF BENDING, ETC. [...] WHERE HE CAN OBTAIN ONE FROM (LOCAL [facility] EQUIPMENT LOAN CLOSET CURRENT INSURANCE DOES NOT COVER IT). INDEPENDENT IN BED MOBILITY, SIT>STAND AND TOILET TRANSFERS. B UE STRENGTH INCLUDING RADIOLOGY PHYSICIAN STRENGTH AND AROM ARE WFL. [facility] ALSO WFL. ASSESSMENT/POC: OCCUPATIONAL THERAPY EVALUATION COMPLETED THIS DATE WITH NO FURTHER SKILLED OT SERVICES INDICATED AT THIS TIME ([id number]). PATIENT WOULD BENEFIT FROM SENIOR RESIDENT CARE DIRECTOR OR LAUNDRY SERVICES TO ASSIST WITH THIS AREA AND THIS IS HIS ONLY CONCERN AT THIS TIME AND WANTS TO RECEIVE SENIOR RESIDENT CARE DIRECTOR/LAUNDRY ASSISTANCE TO REDUCE BURDEN ON HIS FAMILY [...] End Date/Time Encounter Type Admission Type Attending [facility] Care Department Encounter ID Discharge Date Discharge Status Discharge Condition Discharge Reason Percent Goals Met 2024-01-14 00:00:00 2024-03-13 00:00:00 Outpatient NEW ADMISSION DOUG REEVES [facility] [id number] 2024-03-13 00:00:00 DISCHARGE TO HOME OR SELF CARE INDEPENDEN T IN THE HOME PER CLIENT REQUEST 28.81
== END 2024-03-17 10:01 | disposition home or self-care (01) ==
PROVIDERS: PCP Internal Medicine
DX: R79.89 Other specified abnormal findings of blood chemistry (principal); M79.671 Pain in right foot; D64.9 Anemia, unspecified; R63.4 Abnormal weight loss

== ENCOUNTER → 2024-03-17 09:08 | Outpatient (BNVA) | payer MEDICARE, SELFPAY | PROVIDERS: PCP Internal Medicine | DX: R79.89 Other specified abnormal findings of blood chemistry (principal); M79.671 Pain in right foot; D64.9 Anemia, unspecified; R63.4 Abnormal weight loss | CPT/HCPCS: 99212 ==

== ENCOUNTER 2024-04-24 09:58 | Outpatient (REF) | payer MEDICARE, SELFPAY ==
--- NOTE | ~2024-04-24 | US_ITS ---
EXAMINATION: US RETROPERITONEUM LIMITED HISTORY: R97.20 - Elevated prostate specific antigen [PSA] TECHNIQUE: Real-time grayscale ultrasound imaging of the kidneys was performed and images were reviewed. COMPARISON: Correlation is made with a CT of the abdomen dated 12/24/2023. FINDINGS: Right kidney: The right kidney measures 10.0 x 4.5 x 5.3 cm. Renal parenchymal echotexture and thickness are normal. There are no masses. There is no hydronephrosis or renal calculi. Left Kidney: The left kidney measures 10.3 x 6.7 x 6.3 cm. Renal parenchymal echotexture and thickness are normal. There are no masses. There is no hydronephrosis or renal calculi. US/US retroperitoneal limited IMPRESSION: Unremarkable renal ultrasound. Electronically signed by: Ryan Rodriguez MD 04/24/2024 11:31 AM [facility]
[2024-04-24 11:57] LABS: Uric Acid 6.9 mg/dL (3.4-7.0)
[2024-04-24 12:09] LABS: PSA,Total (Free>4and<10) 13.89 ng/mL (0.00-4.00)
[2024-04-24 12:15] LABS: Free T4 (Free Thyroxine) 0.79 ng/dL (0.71-1.85); TSH reflex Free T4 3.37 uIU/mL (0.32-4.0)
[2024-04-24 12:25] LABS: Folate > 20.0 ng/mL (> or = 4.0); Vitamin B12 296 pg/mL (200-900)
== END 2024-04-24 09:59 | disposition home or self-care (01) ==
LOC: HO.US 09:58
PROVIDERS: PCP Internal Medicine; Visit Provider Nurse Practitioner Family
DX: Z00.00 Encounter for general adult medical examination without abnormal findings (principal); R79.89 Other specified abnormal findings of blood chemistry; D64.9 Anemia, unspecified; M79.671 Pain in right foot; R97.20 Elevated prostate specific antigen [PSA]; R39.12 Poor urinary stream; Z12.5 Encounter for screening for malignant neoplasm of prostate
CPT/HCPCS: 36415; 76775; 82607; 82746; 84153; 84439; 84443; 84550

== ENCOUNTER → 2024-04-24 10:07 | Outpatient (BNV) | payer MEDICARE, SELFPAY | PROVIDERS: PCP Internal Medicine; Visit Provider Radiology Diagnostic Radiology | DX: R97.20 Elevated prostate specific antigen [PSA] (principal) | CPT/HCPCS: 76775 ==

== ENCOUNTER → 2024-05-07 11:40 | Outpatient (REF) | payer MEDICARE, SELFPAY | END | disposition home or self-care (01) | LOC: HO.US 11:40 | PROVIDERS: PCP Internal Medicine; Visit Provider Nurse Practitioner Family | DX: R97.20 Elevated prostate specific antigen [PSA] (principal); R39.12 Poor urinary stream ==

== ENCOUNTER → 2024-05-07 11:43 | Outpatient (BNV) | payer MEDICARE, SELFPAY | PROVIDERS: PCP Internal Medicine; Visit Provider Specialist | DX: R97.20 Elevated prostate specific antigen [PSA] (principal); R39.12 Poor urinary stream | CPT/HCPCS: 76857 ==

== ENCOUNTER 2024-06-10 14:19 | Outpatient (AMB) | payer MEDICARE, SELFPAY ==
--- NOTE | 2024-06-10 14:20 | A.OFFVIS_ITS ---
Intake Visit Reasons: 1m/US/PSA Intake Note: Patient is present for 1M/US/PSA Urology Medication:VITAMIN B12 Antibiotic Allergy:NONE Blood Thinner:NONE Material Scheduler Required: No Allergies acetaminophen [From TYLENOL] Allergy (Intermediate, Verified 06/10/24 14:55) HIVES apple [APPLES] Allergy (Intermediate, Verified 06/10/24 14:55) HIVES Medication List - Last Reconciled 06/10/24 by YUDELKA Lemons ascorbate calcium (vitamin C) 500 mg PO BID 30 days atenolol 100 mg PO DAILY blood pressure monitor As directed cyanocobalamin (vitamin B-12) 1,000 mcg PO DAILY ferrous sulfate 325 mg PO BID folic acid 1 mg PO DAILY lisinopril 40 mg PO DAILY 90 days omeprazole 40 mg PO DAILY@0630 HPI Comments Details: Maurice is a 63-year-old male patient of Dr. Cotton. He has a past medical history of alcohol abuse, vitamin-D deficiency, anxiety, depression, nicotine dependence, PTSD, obesity, hypercholesteremia, GERD, and hypertension. He pr esents to the office today for follow-up. Of note, patient was seen approximately 3 months ago as a new patient for an elevated PSA at which time redraw of PSA and retroperitoneal ultrasound were ordered for further assessment evaluation. These results were reviewed with the patient today. Bilateral kidneys are normal in echotexture and thickness. There are no masses, renal calculi, and or hydronephrosis noted. The urinary bladder is unremarkable. Prostate measures approximately 32 mL. Recent PSA results reviewed with the patient today as noted and trended below. PSAs: 11/18 1.7, 04/22 3.5, 01/22 7.0, 02/22 10.6, 04/25 13.9 In office urinalysis results reviewed with the patient today. He otherwise denies any bothersome urinary issues or concerns. He does report noting weak urinary stream however does not find this bothersome. He denies urinary urgency, urinary frequency, incontinence, hematuria, dysuria, foul smelling urine, changes to urinary stream, flank pain, fever, and or chills. He is happy with his current voiding parameters. YAMEL offered however deferred. He reports having had YAMEL with PCP and does not feel this is necessary at this time. We discussed at length potential causes of elevated PSA as well as further interventions to include surveillance monitoring verses MRI of the prostate verses prostate biopsy. Risks and benefits of these interventions were discussed. All questions were answered. In office urinalysis results reviewed with the patient today. He otherwise offers no other issues or concerns at this time. [facility] Medical History Alcohol abuse Cholecystitis Impaired glucose tolerance Vitamin D deficiency Anxiety and depression Alcohol abuse Tobacco abuse Post traumatic stress disorder (PTSD) Obesity (BMI 30-39.9) Hypercholesterolemia GERD (gastroesophageal reflux disease) Hypertension Surgical History History of esophagogastroduodenoscopy (EGD) Hx of colonoscopy History of tonsillectomy Family History Father Renal cancer Other Substance use disorder Social History Household Members: None Housing: House Do you presently have visiting nurse or other home services: No Alcohol intake: current Alcohol intake frequency: a few times a month Alcohol type: hard liquor Patient Tobacco Use Status: Current everyday Tobacco user Tobacco use type: Cigarette Cigarette Packs Per Day: 1 Cigarettes Per Day: 20 Years Smoked: 50 e-Cigarette/Vaping Use: Never Used Second Hand Smoke Exposure: Yes Substance Use Type: Marijuana service: No Current occupational status: retired Cognitive needs: No Hearing needs: No Vision needs: Yes (Reading glasses) Review of Systems Eyes Reports no additional complaints ENT Reports no additional complaints Card Reports as per HPI Resp Reports as per HPI GI Reports as per HPI Reports as per HPI Musc Reports as per HPI Neuro Reports as per HPI Psych Reports as per HPI Endo Reports no additional complaints Nathaniel/Lymph Reports no additional complaints Aller/Immun Reports no additional complaints Physical Exam Const General: cooperative, comfortable, no acute distress, well developed, alert, awake and poor hygiene Orientation/consciousness: patient oriented x3 Limitations: no limitations HEENT Head: Yes normal to inspection, Yes normocephalic and Yes atraumatic Ears: hearing grossly normal bilaterally Eyes General: appearance normal, both eyes and all related structures Neck Neck: Yes normal visual inspection and Yes trachea midline Chest Chest palpation & inspection: normal inspection of the chest Resp Effort & Inspection: normal respiratory effort and able to speak in complete sentences Cardio Rate: regular rate GI Inspection: Yes normal to inspection General: Yes no CVA tenderness Back/Spine/Pelvis Back: no CVA tenderness Skin General skin exam: no rashes or lesions noted Neuro General: patient oriented x3 Extrem General: Yes normal to inspection Psych Appearance: grossly normal and well kempt Mental Status: mental status grossly normal Speech and movement: Normal speech and movement present and Clear speech present Affect: normal affect Attitude: cooperative Thought process: Normal thought process present Thought content: Normal thought content present Insight: Fair insight present (Psych) Judgement: Fair judgement present (Psych) Results AMB Urinalysis, Automated UA Leukoctes 0 Tito/uL Last Edit by GEO Jessica on 06/10/24 14:31 UA Nitrite Negative Last Edit by GEO Jessica on 06/10/24 14:31 UA Urobilinogen 3.5 mg/dL Last Edit by GEO Jessica on 06/10/24 14:3 1 UA Protein 0 mg/dL Last Edit by GEO Jessica on 06/10/24 14:31 UA pH 6.0 Last Edit by GEO Jessica on 06/10/24 14:31 UA Blood 0 Corky/uL Last Edit by GEO Jessica on 06/10/24 14:31 UA Specific [place] 1000 Last Edit by GEO Jessica on 06/10/24 14:3 1 UA Ketone Negative Last Edit by GEO Jessica on 06/10/24 14:31 UA Bilirubin 0 mg/dL Last Edit by GEO Jessica on 06/10/24 14:31 UA Glucose 0 mg/dL Last Edit by GEO Jessica on 06/10/24 14:31 Results Reviewed Results Reviewed: Laboratory Last Values Urine pH (Auto) 6.0 06/10/24 14:30 Specific [place] (Auto) 1000 06/10/24 14:30 Urine Protein (Auto) 0 mg/dL 06/10/24 14:30 Glucose (UA)(Auto) 0 mg/dL 06/10/24 14:30 Urine Ketones (Auto) Negative 06/10/24 14:30 Urine Blood (Auto) 0 Corky/uL 06/10/24 14:30 Urine Nitrite (Auto) Negative 06/10/24 14:30 Urine Bilirubin (Auto) 0 mg/dL 06/10/24 14:30 Urine Urobilinogen (Auto) 3.5 mg/dL 06/10/24 14:30 Leukocyte Esterase (Auto) 0 Tito/uL 06/10/24 14:30 Date of Service: 04/24/24 Procedure(s): US retroperitoneal limited FINDINGS: Right kidney: The right kidney measures 10.0 x 4.5 x 5.3 cm. Renal parenchymal echotexture and thickness are normal. There are no masses. There is no hydronephrosis or renal calculi. Left Kidney: The left kidney measures 10.3 x 6.7 x 6.3 cm. Renal parenchymal echotexture and thickness are normal. There are no masses. There is no hydronephrosis or renal calculi. IMPRESSION: Unremarkable renal ultrasound. Date of Service: 05/07/24 Procedure(s): US bladder Findings: The urinary bladder is unremarkable. Prevoid volume: 444 mLPostvoid volume: 20 mL Ureteral jets are visualized bilaterally. IMPRESSION: Normal urinary bladder Assessment & Plan Assessment & Plan (1) Weak urinary stream: Code(s): R39.12 - Poor urinary stream Category: Medical (2) Elevated PSA: Code(s): R97.20 - Elevated prostate specific antigen [PSA] Category: Medical Plan: Plan Risks and benefits regarding trans rectal ultrasound with prostate biopsy were discussed.? Options of continued surveillance, no treatment and biopsy were offered. The risks include but are not limited to, urinary tract infection, sepsis, difficulty urinating, bleeding into the rectum or bladder that requires intervention and transfusion,and failure to diagnose prostate cancer. The patient understands the options and the risks involved. They wish to proceed. Printed information was provided to ensure he remains off anticoagulation for the appropriate length of time. He may require cardiology or PCP clearance.? An antibiotic will be administered prior to, and following the procedure Plan In office urinalysis results reviewed the patient today; as noted above. Recent PSA results reviewed the patient today; as noted above. Recent renal and bladder ultrasound results reviewed with the patient today; as noted above. YAMEL offered however deferred. We discussed at length potential causes of elevated PSA as well as further interventions to include surveillance monitoring verses MRI of the prostate verses prostate biopsy; risks and benefits of these interventions were discussed at length. All questions were answered. Patient currently denies any bothersome urinary issues or concerns. He reports be happy with current voiding parameters. Will schedule for prostate biopsy Script provided for antibiotic therapy; we discussed specific instructions regarding medication. Follow-up per doctor's orders; or sooner with any issues, concerns, and or questions. Orders: Orders AMB Urinalysis Automated Today Z13.9 - Encounter for screening, unspecified Medications: New levofloxacin take 1 tablet day before procedure, 1 tablet day of procedure and 1 tablet day after procedure 500 mg PO daily 3 days 3 tabs 0RF Patient Instructions: The patient had an opportunity to ask questions regarding the treatment plan. All questions were answered. Physical exam, labs, and imaging were discussed and reviewed in detail. As well as risks, benefits, and discussion of treatment choices. No major barriers to understanding were identified. The patient expressed understanding and agreement with the above treatment plan. The patient was made aware they should contact our office by phone for worsening of their current condition, the appearance of new symptoms, or with any questions or concerns. Compliance is encouraged with any medications and follow up testing that is ordered. It is a privilege to be allowed the opportunity to participate in? your urological care.? Again, if you have any questions or concerns If you have any questions or concerns please do not hesitate to contact me. The office is [phone]. This note is constructed using voice recognition software. While every effort has been made to ensure accuracy rail car welder errors may have been included. Yours sincerely, YUDELKA Lemons Coding Level of Care Code Est Pt Level 4 (40875) Diagnoses Weak urinary stream R39.12 Elevated PSA R97.20
--- OUTSIDE RECORDS SUMMARY | 2024-06-10 16:53 | XMS_ITS | Patient Health Record ---
Author Organization [facility] Address [address] [place] [address] Care Team Providers Care Expediter Name Role Phone Za Cotton MD Primary Care Provider Ryan Genao Unavailable [phone] Allergies Allergen (clinical drug ingredient) Drug/Non Drug Allergy documented on EMR Reaction Allergy Type Onset Date Status acetaminophen Acetaminophen hives Drug Allergy Active apple allergenic extract Apple (Diagnostic) hives Drug Allergy Active Results Component Value Reference Range Notes Complete Blood Count Auto Di ff Reviewed date:12/28/2023 08:15:26 PM Interpretation: Performing Lab:[facility], [address] [place] [phone] Notes/Report: White Blood Count 3.8 4.8-10.8 X10*3/uL [...] X10*3/uL NRBC Abs Auto 0.000 0.0-0.012 X10*3/uL CORRECTED REPORT CORRECTED REPORT Prothrombin Time INR Reviewed date:12/27/2023 01:38:32 PM Interpretation: Performing Lab:[address] [phone] Notes/Report: Prothrombin Time 15.6 10.9-12.4 SEC [employer]NATIONAL [...] Panel Reviewed date:12/28/2023 08:14:44 PM Interpretation: Performing Lab:[facility], [address] [place] [phone] Notes/Report: Bilirubin Total 2.2 0.0-1.0 mg/dL Bilirubin Direct 1.6 0.0-0.5 mg/dL Aspartate Amino Transferase 64 5-37 U/L Alanine Aminotransferase 59 0-40 U/L Total Protein 6.5 6.5-8.0 g/dL Albumin Level 3.5 3.5-5.0 g/dL Alkaline Phosphatase 85 39-117 U/L Basic Metabolic Panel Reviewed date:12/28/2023 08:14:57 PM Interpretation: Performing Lab:[address] [phone] Notes/Report: Sodium 135 135-145 mmol/L Potassium 3.1 [...] Glomerular Filt Rate > 60 NOTE: For [place] individuals, multiply the result by 1.210. Chronic Kidney Disease: Estimated GFR < 60 mL/min/1.73m2 Severe Kidney Disease: Estimated GFR < 15 mL/min/1.73m2 Glucose Random 101 60-115 mg/dL Calcium 9.1 8.4-10.2 mg/dL Phosphorus Reviewed date:12/28/2023 08:15:05 PM Interpretation: Performing Lab:[address] [phone] Notes/Report: Phosphorus 3.1 2.7-4.5 mg/dL Magnesium Reviewed date:12/28/2023 08:15:16 PM Interpretation: Performing Lab:[address] [address] Notes/Report: Magnesium 1.6 1.6-2.6 mg/dL SLIDE REVIEW Reviewed date:12/28/2023 08:15:35 PM Interpretation: Performing Lab:[address] [address] Notes/Report: SLIDE REVIEW VERIFIED Reason For Referral No Information Medications Medication SIG (Take, Route, Frequency, Duration) Notes Start Date End Date Status Folic Acid 1 MG TAKE 1 TABLET BY SHANEKA TH EVERY DAY Oral for 90 Active B-12 1000 MCG Oral for 30 Acti ve Lisinopril 40 MG 1 tablet Orally Once a day Active Atenolol 100 MG TAKE 1 TABLET BY SHANEKA TH DAILY Oral for 90 Active Omeprazole 40 MG 1 capsule 30 minutes before morning meal Oral twice a day Active Omeprazole 40 MG 1 Orally Twice a day for 90 days 12/13/2023 Active Ferrous Sulfate 325 (65 Fe) MG TAKE 1 TABLET ORALLY 2 TIMES A DAY Oral for 90 Active Social History Tobacco Use: Social History Observation Description Date Details (start date - stop date) Current Smoker NA - NA Tobacco Use/Smoking Question Answer Notes Patient is a current smoker How many cigarettes a day do you smoke? Alcohol Screen Question Answer Notes Did you [...] drinks (2 points) Points 6 Interpretation Positive Section Notes: Uses up to 1 1/2 pints of vo dka per day as of the 10/2022 OV. Smoker. 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 Problem Alcoholic liver disease (97318620) Alcoholic liver disease (K70.9) Active confirmed Problem Gastritis (4480000) Gastritis (K29.70) Active confirmed Problem 662761336 Abdominal pain, generalized (R10.84) Active confirmed Problem 744094349 Gastroesophageal reflux disease, unspecified whether esophagitis present (K21.9) Active confirmed Encounters Encounter Location Date Provider Diagnosis [facility] [address] [place] [phone] 06/19/2023 Ryan Norton [facility] [address] [place] [phone] 10/16/2023 Ryan Norton [facility] [address] [place] [phone] 12/12/2023 Ryan Norton [facility] [address] [place] [phone] 01/27/2024 Ryan Norton [facility] [address] [place] [phone] 04/21/2024 Ryan Norton Plan Of Treatment Pending Test Test Name Order Date LIVER PROFILE 11/20/2022 CBC w DIFF 11/20/2022 Future Test Test Name Order Date UPPER GI ENDOSCOPY 11/20/2022 Next Appt Details Provider Name:Ryan Norton , 10/13/2024 09:30:00 AM, [address], [address], [place], [address], Insurance Providers Payer Name Payer Address Payer Phone Subscriber Number Group Number Insured Name Patient Relationship to Insured Coverage Start Date Coverage End Date [employer] (No Referra l) [address] [address] [place] [address] [id number] JOSE MARIA Self - patient is the insured Medical (General) History Medical History History ICD Code PTSD Elevated LFTs Anemia Hemorrhoids Alcohol abuse Kidney stone Hypertension Denies OR,DM,CVA,Lung disease,renal dise ase Surgical History Surgery Date(Month/Year) Tonsillectomy
--- OUTSIDE RECORDS SUMMARY | 2024-06-10 16:53 | XMS_ITS ---
Author Organization [facility] Address [address] [facility] [address] [place] [address] Care Team Providers Care Supervisor Residential Name Role Phone Za Cotton MD Primary Care Provider Ryan Genao [phone] REASON FOR VISIT Patient presents today for GERD Encounters Encounter Location Date Provider Diagnosis [facility] [address] [facility] [address] [place] [phone] 04/21/2024 Ryan Norton Plan Of Treatment Next Appt Details Provider Name:Ryan Norton , 10/13/2024 09:30:00 AM, [address] [facility], [address], [place], [address], Progress Notes * JOSE MARIADOB: (63 yo M)Acc No.[id number]:04/21/2024 Progress Notes Patient:?JOSE MARIA Provider:?Ryan Norton MD :1960???Age:63 Y???Sex:Male Bharathi e:04/21/2024 Address:[address] [place], [place] [id number] Pcp:Za Cotton MD Subjective: * Chief Complaints: * ???1. Patient presents today for GERD. * Medical History:? Objective: * Vitals:? Assessment: Plan: * Treatment: * * The named appointment provid er may or may not be the originator of this progress note, and it is not deemed complete until electronically signed by the appointment provider. Sign off status: Pending * Provider:?Ryan Norton MD Date:? 025 Generated for Ida mckeon/Linette/Tony on:?06/10/2024 04:53 PM EDT
--- OUTSIDE RECORDS SUMMARY | 2024-06-10 16:53 | XMS_ITS ---
Author Organization [facility] Address [address] [place] [phone] Care Team Providers Care Photo Stylist Name Role Phone Za Cotton MD Primary Care Provider Ryan Genao [phone] Encounters Encounter Location Date Provider Diagnosis [facility] [address] [place] [address] 04/21/2024 Ryan Norton Plan Of Treatment Next Appt Details Provider Name:Ryan Norton , 10/13/2024 09:30:00 AM, [address], [address], [place], [address], Progress Notes * JOSE MARIADOB: [birth year] (63 yo M)Acc No.[id number]:04/21/2024 Patient:?JOSE MARIA :1960???Age:63 Y???Sex:Male Address:[address] [place] [address], [address] * true * Date:? Generated for Jeradi linda/Linette/eTransmitting on:?06/10/2024 04:53 PM EDT
--- OUTSIDE RECORDS SUMMARY | 2024-06-10 16:53 | XMS_ITS ---
Author Organization [facility] Address [address] [facility] [address] [place] [phone] Care Team Providers Care Options Advisor Name Role Phone Za Cotton MD Primary Care Provider Ryan Genao [phone] REASON FOR VISIT different dosing of medication Medications Medication SIG (Take, Route, Fr equency, Duration) Notes Start Date End Date Status Omeprazole 40 MG 1 Orally Twice a day for 90 days 12/13/2023 Active Encounters Encounter Location Date Provider Diagnosis [facility] [address] [place] [address] [place] [phone] 01/27/2024 Ryan Norton Plan Of Treatment Medication Medication Name Sig Start Date Stop Date Notes Omeprazole 40 MG 1 Orally Twice a day for 90 days 12/13/19 24 Next Appt Details Provider Name:Ryan Norton , 10/13/2024 09:30:00 AM, [address] [place] [address], [address] [facility], [place], [address], Progress Notes * JOSE MARIADOB: (63 yo M)Acc No.[id number]:01/27/2024 Patient:?JOSE MARIA :1960???Age:63 Y???Sex:Male Address:[address] [place] [address], [address] * Refills? Refill Omeprazole Capsule Delayed Release, 40 MG, Orally, 180, 1, Twice a day, 90 days, Refills=3 * true * Date:? Generated for Ida mckeon/Linette/eTransmitting on:?06/10/2024 04:53 PM EDT
== END 2024-06-10 14:53 | disposition home or self-care (01) ==
LOC: HO.HUSH 14:20
PROVIDERS: PCP Internal Medicine; Visit Provider Nurse Practitioner Family
DX: R39.12 Poor urinary stream (principal); R97.20 Elevated prostate specific antigen [PSA]; Z13.9 Encounter for screening, unspecified
CPT/HCPCS: 99214

== ENCOUNTER → 2024-06-10 14:19 | Outpatient (BNVA) | payer MEDICARE, SELFPAY | PROVIDERS: PCP Internal Medicine; Visit Provider Nurse Practitioner Family | DX: R39.12 Poor urinary stream (principal); R97.20 Elevated prostate specific antigen [PSA] | CPT/HCPCS: 81003; 99212 ==

== ENCOUNTER 2024-07-07 07:33 | Outpatient (REF) | payer MEDICARE, SELFPAY ==
--- OUTSIDE RECORDS SUMMARY | 2024-07-07 07:36 | XMS_ITS ---
Author Organization [facility] Address [address] [place] [address] Care Team Providers Care Chucking Machine Set Up Operator Name Role Phone Za Cotton MD Primary Care Provider Ryan Genao [phone] Encounters Encounter Location Date Provider Diagnosis [facility] [address] [place] [address] 04/21/2024 Ryan Norton Plan Of Treatment Next Appt Details Provider Name:Ryan Norton , 10/13/2024 09:30:00 AM, [address], [address], [place], [address], Progress Notes * JOSE MARIADOB: [birth year] (63 yo M)Acc No.[id number]:04/21/2024 Patient:?JOSE MARIA :1960???Age:63 Y???Sex:Male Address:[address] [place] [address], [address] * true * Date:? Generated for Jeradi linda/Linette/eTransmitting on:?07/07/2024 07:36 AM EDT
--- OUTSIDE RECORDS SUMMARY | 2024-07-07 07:37 | XMS_ITS | Patient Health Record ---
Author Organization [facility] Address [address] [place] [address] Care Team Providers Care Rheumatologist Name Role Phone Za Cotton MD Primary Care Provider Ryan Genao Unavailable [phone] Allergies Allergen (clinical drug ingredient) Drug/Non Drug Allergy documented on EMR Reaction Allergy Type Onset Date Status acetaminophen Acetaminophen hives Drug Allergy Active apple allergenic extract Apple (Diagnostic) hives Drug Allergy Active Results Component Value Reference Range Notes Complete Blood Count Auto Di ff Reviewed date:12/28/2023 08:15:26 PM Interpretation: Performing Lab:[facility], [address] [place] [phone] Notes/Report: White Blood Count 3.8 4.8-10.8 X10*3/uL [...] INR Reviewed date:12/27/2023 01:38:32 PM Interpretation: Performing Lab:[address] [phone] Notes/Report: Prothrombin Time 15.6 10.9-12.4 SEC INTERNATIONAL [...] Panel Reviewed date:12/28/2023 08:14:44 PM Interpretation: Performing Lab:[facility], [address] [place] [phone] Notes/Report: Bilirubin Total 2.2 0.0-1.0 mg/dL Bilirubin Direct 1.6 0.0-0.5 mg/dL Aspartate Amino Transferase 64 5-37 U/L Alanine Aminotransferase 59 0-40 U/L Total Protein 6.5 6.5-8.0 g/dL Albumin Level 3.5 3.5-5.0 g/dL Alkaline Phosphatase 85 39-117 U/L Basic Metabolic Panel Reviewed date:12/28/2023 08:14:57 PM Interpretation: Performing Lab:[address] [phone] Notes/Report: Sodium 135 135-145 mmol/L Potassium 3.1 [...] Glomerular Filt Rate > 60 NOTE: For -[place] Island[place] individuals, multiply the result by 1.210. Chronic Kidney Disease: Estimated GFR < 60 mL/min/1.73m2 Severe Kidney Disease: Estimated GFR < 15 mL/min/1.73m2 Glucose Random 101 60-115 mg/dL Calcium 9.1 8.4-10.2 mg/dL Phosphorus Reviewed date:12/28/2023 08:15:05 PM Interpretation: Performing Lab:[address] [phone] Notes/Report: Phosphorus 3.1 2.7-4.5 mg/dL Magnesium Reviewed date:12/28/2023 08:15:16 PM Interpretation: Performing Lab:[address] [phone] Notes/Report: Magnesium 1.6 1.6-2.6 mg/dL SLIDE REVIEW Reviewed date:12/28/2023 08:15:35 PM Interpretation: Performing Lab:[address] [phone] Notes/Report: SLIDE REVIEW VERIFIED Reason For Referral [...] Problem Gastro-esophage al reflux disease without esophagitis (751985441) Gastro-esophageal reflux disease without esophagitis (K21.9) Active confirmed Problem Benign neoplasm of stomach (18111566) 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) Active confirmed Problem Alcoholic liver disease (29235556) Alcoholic liver disease (K70.9) Active confirmed Problem Gastritis (1328011) Gastritis (K29.70) Active confirmed Problem [id number] Abdominal pain, generalized (R10.84) Active confirmed Problem [id number] Gastroesophageal reflux disease, unspecified whether esophagitis present (K21.9) Active confirmed Encounters Encounter Location Date Provider Diagnosis [facility] [address] [facility] [address] [place] [phone] 10/16/2023 Ryan Norton [facility] [address] [place] [phone] 12/12/2023 Ryan Norton [facility] [address] [place] [phone] 01/27/2024 Ryan Norton [facility] [address] [facility] [address] [place] [phone] 04/21/2024 Ryan Norton Plan Of Treatment Pending Test Test Name Order Date LIVER PROFILE 11/20/2022 CBC w DIFF 11/20/2022 Future Test Test Name Order Date UPPER GI ENDOSCOPY 11/20/2022 Next Appt Details Provider Name:Ryan Norton , 10/13/2024 09:30:00 AM, [address], [address], [place], [address], Insurance Providers Payer Name Payer Address Payer Phone Subscriber Number Group Number Insured Name Patient Relationship to Insured Coverage Start Date Coverage End Date [employer] (No Referra l) [address] [address] [place] [address] [id number] JOSE MARIA Self - patient is the insured Medical (General) History Medical History History ICD Code PTSD Elevated LFTs Anemia Hemorrhoids Alcohol abuse Kidney stone Hypertension Denies [place],DM,CVA,Lung disease,renal dise ase Surgical History Surgery Date(Month/Year) Tonsillectomy
--- OUTSIDE RECORDS SUMMARY | 2024-07-07 07:37 | XMS_ITS ---
Author Organization [facility] Address [address] [facility] [address] [place] [phone] Care Team Providers Care Trucking Manager Name Role Phone Za Cotton MD Primary Care Provider Ryan Genao [phone] REASON FOR VISIT Patient presents today for GERD Encounters Encounter Location Date Provider Diagnosis [facility] [address] [facility] [address] [place] [phone] 04/21/2024 Ryan Norton Plan Of Treatment Next Appt Details Provider Name:Ryan Norton , 10/13/2024 09:30:00 AM, [address] [facility], [address], [place], [address], Progress Notes * JOSE MARIADOB: (63 yo M)Acc No.[id number]:04/21/2024 Progress Notes Patient:?JOSE MARIA Provider:?Ryan Norton MD :1960???Age:63 Y???Sex:Male Bharathi e:04/21/2024 Address:[address] [place], [place] [phone] Pcp:Za Cotton MD Subjective: * Chief Complaints: [...] MD Date:? 025 Generated for Ida mckeon/Linette/Tony on:?07/07/2024 07:36 AM EDT
--- OUTSIDE RECORDS SUMMARY | 2024-07-07 07:37 | XMS_ITS ---
Author Organization [facility] Address [address] [facility] [address] [place] [phone] Care Team Providers Care Razor Sharpener Name Role Phone Za Cotton MD Primary Care Provider Ryan Genao [phone] REASON FOR VISIT different dosing of medication Medications Medication SIG (Take, Route, Fr equency, Duration) Notes Start Date End Date Status Omeprazole 40 MG 1 Orally Twice a day for 90 days 12/13/2023 Active Encounters Encounter Location Date Provider Diagnosis [facility] [address] [place] [address] [place] [phone] 01/27/2024 Ryan Norton Plan Of Treatment Medication Medication Name Sig Start Date Stop Date Notes Omeprazole 40 MG 1 Orally Twice a day for 90 days 12/13/19 24 Next Appt Details Provider Name:Ryan Norton , 10/13/2024 09:30:00 AM, [address] [place] [address], Suite [facility], [place], [address], Progress Notes * JOSE MARIADOB: (63 yo M)Acc No.[id number]:01/27/2024 Patient:?JOSE MARIA :1960???Age:63 Y???Sex:Male Address:[address] [place] [address], [address] * Refills? Refill Omeprazole Capsule Delayed Release, 40 MG, Orally, 180, 1, Twice a day, 90 days, Refills=3 * true * Date:? Generated for Ida mckeon/Linette/eTransmitting on:?07/07/2024 07:37 AM EDT
[2024-07-07] MEDS: Lidocaine HCl 1 % MPF 5 ML VIAL 10 ML SUBCUT (08:34)
--- NOTE | 2024-07-07 08:44 | W.PM.OPN ---
Operative Note Operative Note Date of Service: 07/07/24 Narrative: Preoperative diagnosis: Elevated PSA Postoperative diagnosis: Elevated PSA Procedure: 1. transrectal ultrasound measurement of prostate 2. transrectal ultrasound-guided pudendal nerve block 3. transrectal ultrasound-guided prostate biopsy 12 core Surgeon: Dr. Luciano Don Anesthetic: 10cc 1% lidocaine Indications for procedure: Elevated PSA - 14 Counselling: Technical aspects, risks and benefits of proposed procedure were discussed in full. All questions have been answered, written consent has been obtained and patient agrees to proceed. Procedure: The patient was brought into the procedure area and placed in a left lateral decubitus position. Patient identity confirmed. Perioperative antibiotics confirmed. Safety pause time out performed. YAMEL was performed to dilate rectal sphincter Iodine 10cc with 60 cc gel was placed per rectum to reduce infection risk using a catheter tip syringe. 8 Hz Della rectal end-fire ultrasound probe was placed transrectally without difficulty. The prostate was visualized. Seminal vesicles were normal. Prostate margins were clearly demarcated. Bladder was seen superiorly. No cystic structures were noted Yes calcifications were noted at the surgical margin The prostate was otherwise heterogenous in nature The prostate was measured in 3 dimensions Prostatic Width: 4.9 cm Prostatic Height: 2.4 cm Urethral Length: 3.9 cm Total volume equals : 25 ml An ultrasound-guided pudendal nerve block was performed using a 22 gauge spinal needle in the sagittal plane. 4 cc of 1% lidocaine placed at the junction of each seminal vesicle and 2 cc placed at the apex of the prostate. A 12 core biopsy was performed with 6 cores each side using an 18 gauge prostate biopsy gun. Two cores each were taken at the prostate apex, mid and base on each side. Cores were spaced between lateral and medial aspects. Each core was examined as placed on specimen foam as part of quality management coordinator to ensure a minimum 1 cm of length and minimal discontinuity. He tolerated the procedure well with minimal rectal bleeding. Blood pressure remained stable following procedure. He was able to ambulate to bathroom after 5 minutes. Printed instructions regarding antibiotic use and common adverse events from the procedure such as low-grade temperature, potential infection and bleeding were given. He understands to call the office or go to an emergency room should any of these events arise. Pathology: 12 core prostate biopsy. CPT code 29936: Transrectal ultrasound; this is a diagnostic test for evaluation of the prostate and surrounding structures, looking for abnormalities or suspicious areas worrisome for cancer CPT code 76122: Biopsy, prostate; needle or punch, single or multiple, any approach CPT code 69328: Ultrasonic guidance for needle placement (eg, biopsy, aspiration, injection, localization device), imaging supervision and interpretation
== END 2024-07-07 07:34 | disposition home or self-care (01) ==
LOC: HO.US 07:33
PROVIDERS: PCP Internal Medicine; Visit Provider Urology
DX: R97.20 Elevated prostate specific antigen [PSA] (principal)
CPT/HCPCS: 55700; 76942; 88305; 88344; J2003

== ENCOUNTER → 2024-07-07 07:33 | Outpatient (BNV) | payer MEDICARE, SELFPAY ==
--- NOTE | 2024-07-07 10:44 | AM.OFFVISNUR ---
Intake Visit Reasons: ELEVATED PSA Allergies acetaminophen [From TYLENOL] Allergy (Intermediate, Verified 06/10/24 14:55) HIVES apple [APPLES] Allergy (Intermediate, Verified 06/10/24 14:55) HIVES Coding
== END ==
PROVIDERS: PCP Internal Medicine; Visit Provider Urology
DX: R97.20 Elevated prostate specific antigen [PSA] (principal)
CPT/HCPCS: 55700; 76872; 76942

== ENCOUNTER 2024-07-23 11:59 | Outpatient (AMB) | payer MEDICARE, SELFPAY ==
--- NOTE | 2024-07-23 11:59 | MHC.OFFVIS ---
Intake Visit Reasons: Prostate Biopsy results Intake Note: Patient is present via telehealth for prostate biopsy results Urology Medication:VITAMIN B12 Antibiotic Allergy:none Blood Thinner:none Analytical Technician Required: No Allergies acetaminophen [From TYLENOL] Allergy (Intermediate, Verified 07/23/24 12:00) HIVES apple [APPLES] Allergy (Intermediate, Verified 07/23/24 12:00) HIVES HPI Comments Details: Ramesh is a pleasant male. He is a patient of Dr. Rosas. He is seen for the following urologic conditions - elevated PSA Telemedicine Evaluation 15 min Consultation [employer] Basilia Video Recent prostate biopsy performed Minimal issues periprocedural. Discussed result which indicates prostate cancer Plan to complete imaging staging and follow-up appointment in office - plan PSMA PET-CT with prostate MRI Prostate cancer grade group 4, moderate volume Characteristics at biopsy TRUS volume 30 cc PT2a right-sided nodule PSAs: 11/18 1.7, 04/22 3.5, 01/22 7.0, 02/22 10.6, 04/25 13.9 Prostatic adenocarcinoma, acinar type Heather score: 8 (4+4) (right mid lateral and right apex lateral), 7 (4+3) (right mid medial and right apex medial) (right base medial tumor is too small to grade) - all cores over 50% Grade group: 4 and 3 Number cores positive: 5 Total number of cores: 16 % of tissue involved: 28% Periprostatic fat inv.: Not identified Seminal vesicle inv.: Not identified Perineural inv.: Not identified Lymphatic and/or vascular invasion: Not identified [employer] Medical History Alcohol abuse Cholecystitis Impaired glucose tolerance Vitamin D deficiency Anxiety and depression Alcohol abuse Tobacco abuse Post traumatic stress disorder (PTSD) Obesity (BMI 30-39.9) Hypercholesterolemia GERD (gastroesophageal reflux disease) Hypertension Surgical History History of esophagogastroduodenoscopy (EGD) Hx of colonoscopy History of tonsillectomy Family History Father Renal cancer Other Substance use disorder Social History Household Members: None Housing: House Do you presently have visiting nurse or other home services: No Alcohol intake: current Alcohol intake frequency: a few times a month Alcohol type: hard liquor Patient Tobacco Use Status: Current everyday Tobacco user Tobacco use type: Cigarette Cigarette Packs Per Day: 1 Cigarettes Per Day: 20 Years Smoked: 50 e-Cigarette/Vaping Use: Never Used Second Hand Smoke Exposure: Yes Substance Use Type: Marijuana service: No Current occupational status: retired Cognitive needs: No Hearing needs: No Vision needs: Yes (Reading glasses) Review of Systems Const All systems reviewed & are unremarkable except as noted in HPI and below Reports no additional complaints Resp Reports no additional complaints GI Reports no additional complaints Reports as per HPI Musc Reports no additional complaints Physical Exam Telemedicine evaluation Appropriate responses Regular breathing rate and rhythm HEENT Head: Yes normal to inspection Ears: hearing grossly normal bilaterally Eyes General: appearance normal, both eyes and all related structures Neck Neck: Yes normal visual inspection Chest Chest palpation & inspection: normal inspection of the chest Resp Effort & Inspection: normal respiratory effort and able to speak in complete sentences Telehealth Telehealth Telehealth Platform: [facility] Location of provider rendering services: practice address Location of patient: address on file Patient Identification confirmed using: Name, : Yes Telehealth method: video Patient verbally consented to treatment: Yes Patient verbally consented to billing insurance company: Yes Patient informed of any privacy concerns related to visit: Yes Assessment & Plan Assessment & Plan (1) Prostate cancer: Comment: June 2024 biopsy Code(s): C61 - Malignant neoplasm of prostate Category: Medical Plan Complete prostate cancer staging - imaging consisting of PET-CT and MRI - consideration for Genetics given Heather 8 disease Orders: Orders MR Prostate wo/w con Today C61 - Malignant neoplasm of prostate PET CT fusion skull to thigh Today C61 - Malignant neoplasm of prostate Medications: New diazepam Take medication after arrival at office 5 mg PO BID 1 day PRN 2 tabs 0RF anxiety C61 - Malignant neoplasm of prostate, R45.89 - Other symptoms and signs involving emotional state Patient Instructions: This note is constructed using voice recognition software. While every effort has been made to ensure accuracy fish farm laborer errors may have been included. Imaging studies, laboratory and physical exam results were discussed and reviewed in detail. No major barriers to patient understanding were identified. An opportunity to ask questions regarding the treatment plan was provided. All questions were answered. The patient expressed understanding and agreement with the above treatment plan. The patient is aware they should contact our office by phone for worsening of their current condition or the appearance of new urologic symptoms. Compliance is encouraged with any medications and followup testing that is ordered. It is a privilege to participate in the urologic care of your patient. If you have any questions or concerns regarding treatment for the above conditions, or other urologic issues, please do not hesitate to contact me. The office telephone contact is [phone]. Sincerely, Dr Luciano Don MD, [facility] - Urology Compassionate Specialist Care for the Genitourinary System Coding Level of Care Code Tele Est Pt Level 4 (14535) Complex EM visit Add On G2211 Diagnoses Prostate cancer C61
== END 2024-07-23 15:10 | disposition home or self-care (01) ==
LOC: HO.HUSH 11:59
PROVIDERS: PCP Internal Medicine; Visit Provider Urology
DX: C61 Malignant neoplasm of prostate (principal)
CPT/HCPCS: 99214; G2211

== ENCOUNTER → 2024-07-23 11:59 | Outpatient (BNVA) | payer MEDICARE, SELFPAY | PROVIDERS: PCP Internal Medicine; Visit Provider Urology ==

== ENCOUNTER → 2024-08-03 08:13 | Outpatient (BNV) | payer MEDICARE, SELFPAY | PROVIDERS: PCP Internal Medicine; Visit Provider Radiology Diagnostic Radiology | DX: C61 Malignant neoplasm of prostate (principal) | CPT/HCPCS: 72197 ==

== ENCOUNTER 2024-08-03 08:30 | Outpatient (REF) | payer MEDICARE, SELFPAY ==
--- NOTE | ~2024-08-03 | MR_ITS ---
EXAMINATION: MR PROSTATE WITHOUT THEN WITH IV CONTRAST HISTORY: C61 - Malignant neoplasm of prostate TECHNIQUE: 1.5T body coil survey of the pelvis was performed. Phase array coil imaging of the prostate was performed in multiplanar high resolution axial, coronal, sagittal fast spin echo T2 and axial T1 weighted imaging sequences. Axial diffusion imaging at intermediate and high field performed with ADC mapping. Next, mL Gadavist was given by intravenous infusion, and dynamic axial imaging performed. COMPARISON: There are no prior studies for comparison. CLINICAL DATA: Most recent PSA: 13.89 ng/mL on 04/24/2024 PSA Density: 0.51 ng/mL squared Prostate Biopsy: Positive biopsy on 07/07/2024 with a Aberdeen score 4+4 = 8. FINDINGS: Prostate size: 3.9 x 4.8 x 2.8 cm. Calculated prostate volume is 27.3 mL. Hemorrhage: None. Transitional Zone: There is mild heterogeneous nodular hypertrophy of the transitional zone. Peripheral Zone: There is a 2.1 x 1.7 x 2.0 cm area of interest in the right anterior and lateral peripheral zone in the mid gland extending to the apex (series 7, images 22-27) with imaging characteristics as follows: Lesion #1: DWI PI-RADS v2.1 score: 5 T2 PI-RADS v2.1 score: 5 DCE PI-RADS v2.1 score: + Overall PI-RADS v2.1 score: 5 Capsular contact: yes Extracapsular extension: No definite Seminal vesicle invasion: None Neurovascular bundle involvement: None Seminal Vesicles/Ejaculatory Ducts: Symmetric and normal in signal and caliber. Pelvic Lymph Nodes: No obturator or internal iliac lymph nodes meeting size criteria for adenopathy. Marrow Signal: Normal marrow signal and enhancement without focal lesion identified. There is severe osteoarthritis of the left hip with an associated large joint effusion. MR/MR Prostate wo/w con IMPRESSION: 2.1 x 1.7 x 2.0 cm mass in the right anterior and lateral peripheral zone in the mid gland extending to the apex, highly suspicious for clinically significant prostate carcinoma. PI-RADS 5: Very high (clinically significant cancer is highly likely to be present) PI-RADS Assessment Categories PI-RADS 1: Very low (clinically significant cancer is highly unlikely to be present) PI-RADS 2: Low (clinically significant cancer is unlikely to be present) PI-RADS 3: Intermediate (the presence of clinically significant cancer is equivocal) PI-RADS 4: High (clinically significant cancer is likely to be present) PI-RADS 5: Very high (clinically significant cancer is highly likely to be present) [employer]. MR Prostate Imaging Reporting and Data System version 2.1. [email or web address] Electronically signed by: Ryan Rodriguez MD 08/03/2024 10:54 AM EDT
[2024-08-03] MEDS: gadobutroL 10 ML VIAL IVPUSH (09:32)
== END 2024-08-03 08:31 | disposition home or self-care (01) ==
LOC: HO.MRI 08:30
PROVIDERS: PCP Internal Medicine; Visit Provider Urology
DX: C61 Malignant neoplasm of prostate (principal)
CPT/HCPCS: 72197; A9585

== ENCOUNTER 2024-08-20 13:57 | Outpatient (AMB) | payer MEDICARE, SELFPAY ==
--- NOTE | 2024-08-20 14:06 | A.OFFVIS_ITS ---
Intake Visit Reasons: 4w/PSMA/MRI Intake Note: Patient is present for 4W/PSMA/MRI Urology Medication:VITAMIN C,VITAMIN B12 Antibiotic Allergy:NONE Blood Thinner:NONE Manager Imaging Required: No Allergies acetaminophen [From TYLENOL] Allergy (Intermediate, Verified 08/20/24 14:07) HIVES apple [APPLES] Allergy (Intermediate, Verified 08/20/24 14:07) HIVES HPI Comments Details: Maurice is a pleasant male. He is a patient of Dr. Cotton. He is seen for the following urologic conditions - prostate cancer Follow-up imaging Accompanied by sisters Printed copies of biopsy and imaging staging results provided Prostate cancer grade group 4 MRI shows disease confined to the prostate with no evidence of liam or bony metastases PET-CT shows active prostate with 2 small intra liam abdominal areas. This is in contrast to MRI. Unlikely to have been detected on regular bone scan. We will organize radiation oncology evaluation. May still benefit from targeted therapy to prostate even with 2 small other areas as likely to have concurrent medium to long-term hormone therapy in addition to antiandrogens Start bicalutamide Organize GnRH Obtain radiation oncology evaluation Prostate cancer grade group 4, moderate volume Staging - PSMA-PET - 07/24 - Intense PSMA activity right prostate gland with a 2.3 cm lesion noted on PET measurements. 2 focal areas of PSMA activity in the right retroperitoneum midabdomen and right upper pelvis adjacent to right common iliac vein suspicious for lymph nodes. Punctate calcifications in the central gland prostate and linear vascular calcification in the penile structure. The periprostatic fat planes are preserved. 07/24 - MRI - 2.1 x 1.7 x 2.0 cm mass in the right anterior and lateral peripheral zone in the mid gland extending to the apex, highly suspicious for clinically significant prostate carcinoma. Characteristics at biopsy TRUS volume 30 cc PT2a right-sided nodule PSAs: 11/18 1.7, 04/22 3.5, 01/22 7.0, 02/22 10.6, 04/25 13.9 Prostatic adenocarcinoma, acinar type [facility] score: 8 (4+4) (right mid lateral and right apex lateral), 7 (4+3) (right mid medial and right apex medial) (right base medial tumor is too small to grade) - all cores over 50% Grade group: 4 and 3 Number cores positive: 5 Total number of cores: 16 % of tissue involved: 28% Periprostatic fat inv.: Not identified Seminal vesicle inv.: Not identified Perineural inv.: Not identified Lymphatic and/or vascular invasion: Not identified PFSH Medical History Alcohol abuse Cholecystitis Impaired glucose tolerance Vitamin D deficiency Anxiety and depression Alcohol abuse Tobacco abuse Post traumatic stress disorder (PTSD) Obesity (BMI 30-39.9) Hypercholesterolemia GERD (gastroesophageal reflux disease) Hypertension Surgical History History of esophagogastroduodenoscopy (EGD) Hx of colonoscopy History of tonsillectomy Family History Father Renal cancer Other Substance use disorder Social History Household Members: None Housing: House Do you presently have visiting nurse or other home services: No Alcohol intake: current Alcohol intake frequency: a few times a month Alcohol type: hard liquor Patient Tobacco Use Status: Current everyday Tobacco user Tobacco use type: Cigarette Cigarette Packs Per Day: 1 Cigarettes Per Day: 20 Years Smoked: 50 e-Cigarette/Vaping Use: Never Used Second Hand Smoke Exposure: Yes Substance Use Type: Marijuana service: No Current occupational status: retired Cognitive needs: No Hearing needs: No Vision needs: Yes (Reading glasses) Review of Systems Const Denies chills and Denies fever(s) Card Reports no additional complaints and Denies syncope Resp Denies cough GI Denies abdominal pain and Denies heartburn Reports as per HPI and Denies change in libido Neuro Denies syncope Psych Denies change in libido Endo Denies change in libido Physical Exam Const General: cooperative, healthy appearing, comfortable and no acute distress Orientation/consciousness: patient oriented x3 HEENT Face and sinus: Yes normal facial exam Mouth: moist mucous membranes Neck Neck: Yes normal visual inspection, Yes full ROM and Yes trachea midline Chest Chest palpation & inspection: normal inspection of the chest Resp Effort & Inspection: normal respiratory effort, able to speak in complete sentences and no respiratory distress GI Inspection: Yes normal to inspection Back/Spine/Pelvis Cervical Spine: normal cervical lordosis Thoracic/Lumbar Spine: thoracic and lumbar spine normal to inspection Skin General skin exam: no rashes or lesions noted Neuro General: patient oriented x3, gait normal, tone normal and moves all extremities Extrem General: Yes normal to inspection and Yes capillary refill normal Assessment & Plan Assessment & Plan (1) Prostate cancer: Comment: June 2024 biopsy Code(s): C61 - Malignant neoplasm of prostate Category: Medical (2) Nocturia: Code(s): R35.1 - Nocturia Category: Medical (3) Weak urinary stream: Code(s): R39.12 - Poor urinary stream Category: Medical Plan Bicalutamide Start GnRH Radiation oncology appointment 4-6 week follow-up Orders: Referrals Radiation Oncology Referral C61 - Malignant neoplasm of prostate Medications: New bicalutamide 50 mg PO TID 90 tabs 0RF 30 days C61 - Malignant neoplasm of prostate Patient Instructions: This note is constructed using voice recognition software. While every effort has been made to ensure accuracy firer portable boiler errors may have been included. Imaging studies, laboratory and physical exam results were discussed and reviewed in detail. No major barriers to patient understanding were identified. An opportunity to ask questions regarding the treatment plan was provided. All questions were answered. The patient expressed understanding and agreement with the above treatment plan. The patient is aware they should contact our office by phone for worsening of their current condition or the appearance of new urologic symptoms. Compliance is encouraged with any medications and followup testing that is ordered. It is a privilege to participate in the urologic care of your patient. If you have any questions or concerns regarding treatment for the above conditions, or other urologic issues, please do not hesitate to contact me. The office telephone contact is [phone]. Sincerely, Dr Luciano Don MD, [facility] - Urology Compassionate Specialist Care for the Genitourinary System Coding Level of Care Code Est Pt Level 4 (14673) Complex EM visit Add On G2211 Diagnoses Prostate cancer C61 Nocturia R35.1 Weak urinary stream R39.12
== END 2024-08-20 14:57 | disposition home or self-care (01) ==
LOC: HO.HUSH 13:57
PROVIDERS: PCP Internal Medicine; Visit Provider Urology
DX: C61 Malignant neoplasm of prostate (principal); R35.1 Nocturia; R39.12 Poor urinary stream
CPT/HCPCS: 99214; G2211

== ENCOUNTER → 2024-08-20 13:57 | Outpatient (BNVA) | payer MEDICARE, SELFPAY | PROVIDERS: PCP Internal Medicine; Visit Provider Urology | DX: C61 Malignant neoplasm of prostate (principal); R35.1 Nocturia; R39.12 Poor urinary stream | CPT/HCPCS: 99212 ==

== ENCOUNTER 2024-09-14 09:10 | Outpatient (AMB) | payer MEDICARE, SELFPAY ==
--- NOTE | 2024-09-14 09:20 | AM.OFFVISNUR ---
Intake Visit Reasons: [facility] Allergies acetaminophen [From TYLENOL] Allergy (Intermediate, Verified 08/20/24 14:07) HIVES apple [APPLES] Allergy (Intermediate, Verified 08/20/24 14:07) HIVES Office Meds Eligard (6 month) 45 mg (6 month) subcutaneous syringe Performing Provider: Luciano Don MD Performing [facility] [place] [facility] Administered by: Raffy Daigle LPN on 09/14/24 09:20 Dose Route Admin Location Dispensed Lot Number Expiration Date 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 Assessment & Plan Assessment & Plan Orders: Orders AMB Leuprolide Injection - Practice Supplied Today C61 - Malignant neoplasm of prostate Medications: New Eligard (6 month) (leuprolide acetate (6 month)) 45 mg subcut ONCE 1 ea 0RF NS C61 - Malignant neoplasm of prostate Coding
== END 2024-09-14 09:28 | disposition home or self-care (01) ==
LOC: HO.HUSH 09:11
PROVIDERS: PCP Internal Medicine; Visit Provider Urology
DX: C61 Malignant neoplasm of prostate (principal)

== ENCOUNTER → 2024-09-14 09:10 | Outpatient (BNVA) | payer MEDICARE, SELFPAY | PROVIDERS: PCP Internal Medicine; Visit Provider Urology | DX: C61 Malignant neoplasm of prostate (principal) | CPT/HCPCS: 96402; J9217 ==

== ENCOUNTER 2024-10-01 09:22 | Outpatient (AMB) | payer MEDICARE, SELFPAY ==
--- NOTE | 2024-10-01 09:25 | A.OFFVIS_ITS ---
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 He is a patient of Dr. Cotton. He is seen for the following urologic conditions - prostate cancer Follow-up from radiation oncology consult He has seen Dr. Monteiro Accompanied by his daughter Planned upcoming seed placement and SpaceOAR Questions answered 09/23 Prostate cancer grade group 4 MRI shows disease confined to the prostate with no evidence of liam or bony metastases May still benefit from targeted therapy to prostate even with 2 small other areas as likely to have concurrent medium to long-term hormone therapy in addition to antiandrogens GnRH administered Prostate cancer grade group 4, moderate volume Staging - PSMA-PET - 07/24 - Intense PSMA activity right prostate gland with a 2.3 cm lesion noted on PET measurements. 2 focal areas of PSMA activity in the right retroperitoneum midabdomen and right upper pelvis adjacent to right common iliac vein suspicious for lymph nodes. Punctate calcifications in the central gland prostate and linear vascular calcification in the penile structure. The periprostatic fat planes are preserved. 07/24 - MRI - 2.1 x 1.7 x 2.0 cm mass in the right anterior and lateral peripheral zone in the mid gland extending to the apex, highly suspicious for clinically significant prostate carcinoma. Characteristics at biopsy TRUS volume 30 cc PT2a right-sided nodule PSAs: 11/18 1.7, 04/22 3.5, 01/22 7.0, 02/22 10.6, 04/25 13.9 Prostatic adenocarcinoma, acinar type [place] score: 8 (4+4) (right mid lateral and right apex lateral), 7 (4+3) (right mid medial and right apex medial) (right base medial tumor is too small to grade) - all cores over 50% Grade group: 4 and 3 Number cores positive: 5 Total number of cores: 16 % of tissue involved: 28% Periprostatic fat inv.: Not identified Seminal vesicle inv.: Not identified Perineural inv.: Not identified Lymphatic and/or vascular invasion: Not identified [facility] Medical History Alcohol abuse Cholecystitis Impaired glucose tolerance Vitamin D deficiency Anxiety and depression Alcohol abuse Tobacco abuse Post traumatic stress disorder (PTSD) Obesity (BMI 30-39.9) Hypercholesterolemia GERD (gastroesophageal reflux disease) Hypertension Surgical History History of esophagogastroduodenoscopy (EGD) Hx of colonoscopy History of tonsillectomy Family History Father Renal cancer Other Substance use disorder Social History Household Members: None Housing: House Do you presently have visiting nurse or other home services: No Alcohol intake: current Alcohol intake frequency: a few times a month Alcohol type: hard liquor Patient Tobacco Use Status: Current everyday Tobacco user Tobacco use type: Cigarette Cigarette Packs Per Day: 1 Cigarettes Per Day: 20 Years Smoked: 50 e-Cigarette/Vaping Use: Never Used Second Hand Smoke Exposure: Yes Substance Use Type: Marijuana service: No Current occupational status: retired Cognitive needs: No Hearing needs: No Vision needs: Yes (Reading glasses) Review of Systems Const Denies chills and Denies fever(s) Card Reports no additional complaints and Denies syncope Resp Denies cough GI Denies abdominal pain and Denies heartburn Reports as per HPI and Denies change in libido Neuro Denies syncope Psych Denies change in libido Endo Denies change in libido Physical Exam Const General: cooperative, healthy appearing, comfortable and no acute distress Orientation/consciousness: patient oriented x3 HEENT Face and sinus: Yes normal facial exam Mouth: moist mucous membranes Neck Neck: Yes normal visual inspection, Yes full ROM and Yes trachea midline Chest Chest palpation & inspection: normal inspection of the chest Resp Effort & Inspection: normal respiratory effort, able to speak in complete sentences and no respiratory distress GI Inspection: Yes normal to inspection Back/Spine/Pelvis Cervical Spine: normal cervical lordosis Thoracic/Lumbar Spine: thoracic and lumbar spine normal to inspection Skin General skin exam: no rashes or lesions noted Neuro General: patient oriented x3, gait normal, tone normal and moves all extremities Extrem General: Yes normal to inspection and Yes capillary refill normal Assessment & Plan Assessment & Plan (1) Prostate cancer: Comment: June 2024 biopsy Code(s): C61 - Malignant neoplasm of prostate Category: Medical Plan Plan procedure Risks, benefits and alternatives to therapy were discussed. These include but are not limited to infection, bleeding, damage to local organs and tissues, need for further interventions. Anesthetic risks regarding cardiac arrhythmia, blood clots, and potential mortality were discussed. The patient understands the typical recovery time and the outpatient nature of the procedure. After consideration of these risks the patient gives full informed consent and they wish to move ahead with the procedure. Orders: Orders Prostate Specific Antigen 09/24/24 Z12.5 - Encounter for screening for malignant neoplasm of prostate Patient Instructions: This note is constructed using voice recognition software. While every effort has been made to ensure accuracy finance business manager errors may have been included. Imaging studies, laboratory and physical exam results were discussed and reviewed in detail. No major barriers to patient understanding were identified. An opportunity to ask questions regarding the treatment plan was provided. All questions were answered. The patient expressed understanding and agreement with the above treatment plan. The patient is aware they should contact our office by phone for worsening of their current condition or the appearance of new urologic symptoms. Compliance is encouraged with any medications and followup testing that is ordered. It is a privilege to participate in the urologic care of your patient. If you have any questions or concerns regarding treatment for the above conditions, or other urologic issues, please do not hesitate to contact me. The office telephone contact is [phone]. Sincerely, Dr Luciano Don MD, [facility] - Urology Compassionate Specialist Care for the Genitourinary System Coding Level of Care Code Est Pt Level 4 (86457) Diagnoses Prostate cancer C61
== END 2024-10-01 09:56 | disposition home or self-care (01) ==
LOC: HO.HUSH 09:23
PROVIDERS: PCP Internal Medicine; Visit Provider Urology
DX: C61 Malignant neoplasm of prostate (principal); Z13.9 Encounter for screening, unspecified
CPT/HCPCS: 99214

== ENCOUNTER → 2024-10-01 09:22 | Outpatient (BNVA) | payer MEDICARE, SELFPAY | PROVIDERS: PCP Internal Medicine; Visit Provider Urology | DX: C61 Malignant neoplasm of prostate (principal); Z12.5 Encounter for screening for malignant neoplasm of prostate | CPT/HCPCS: 81003; 99212 ==

== ENCOUNTER 2024-10-15 08:53 | Day surgery (SDC) | payer MEDICARE, SELFPAY ==
[2024-10-13 07:39] VITALS: BMI 26.9
--- NOTE | 2024-10-14 09:59 | P.CONAN_ITS ---
Documented by User: Jannette Stephen NP 10/14/24 10:06 HPI - Anesthesia Eval Consult details Narrative: 63yo M for Space OAR, prostate seed placement PMFSH Active Problems Active Problems: All Active Problems Chronic UTI (urinary tract infection) (Acute) Prostate cancer (Acute) Weight loss (Acute) Right foot pain (Acute) Elevated TSH (Acute) Nocturia (Acute) Weak urinary stream (Acute) Elevated PSA (Acute) Bilateral leg edema (Acute) Leg weakness, bilateral (Acute) Blister of right foot (Acute) Constipation (Acute) Hemorrhoid (Acute) Epistaxis (Acute) Alcohol abuse (Acute) Anemia (Acute) Elevated LFTs (Acute) Low vitamin D level (Acute) Palpitations (Acute) Impaired glucose tolerance (Acute) Tobacco abuse (Acute) Post traumatic stress disorder (PTSD) (Acute) Obesity (BMI 30-39.9) (Acute) Hypercholesterolemia (Acute) GERD (gastroesophageal reflux disease) (Acute) Hypertension (Acute) Past Medical History Medical History Alcohol abuse Cholecystitis Impaired glucose tolerance Vitamin D deficiency Anxiety and depression Alcohol abuse Tobacco abuse Post traumatic stress disorder (PTSD) Obesity (BMI 30-39.9) Hypercholesterolemia GERD (gastroesophageal reflux disease) Hypertension Family History Family History Father Renal cancer Other Substance use disorder Surgical History Surgical History History of esophagogastroduodenoscopy (EGD) Hx of colonoscopy History of tonsillectomy Social History Social History Household Members: None Housing: House Do you presently have visiting nurse or other home services: No Alcohol intake: current Alcohol intake frequency: a few times a month Alcohol type: hard liquor Patient Tobacco Use Status: Current everyday Tobacco user Tobacco use type: Cigarette Cigarette Packs Per Day: 1 Cigarettes Per Day: 20 Years Smoked: 50 e-Cigarette/Vaping Use: Never Used Second Hand Smoke Exposure: Yes Substance Use Type: Marijuana Advance Directives: No Advance Directives Information Provided: Yes service: No Current occupational status: retired Cognitive needs: No Hearing needs: No Vision needs: Yes (Reading glasses) Meds Allergies Allergy/AdvReac Type Severity Reaction Status Date / Time acetaminophen (From TYLENOL) Allergy Intermediate HIVES Verified 10/15/24 09:49 apple (APPLES) Allergy Intermediate HIVES Verified 10/15/24 09:49 Home Medications ?Medication ?Instructions ?Recorded ?Confirmed ?Last Taken ?Type omeprazole 40 mg capsule,delayed 40 mg PO DAILY@0630 0 12/21/23 03/17/24 12/20/23 History release Exam Height,Weight and Vital Signs: Height 5 ft 8 in Weight 80.286 kg Pertinent Lab Results Pertinent Lab Results: Laboratory Tests 01/31/24 03/11/24 10:54 09:04 WBC 9.6 Hgb 11.4 L D Hct 33.5 L D Plt Count 216 Sodium 135 Potassium 4.0 Chloride 101 Carbon Dioxide 24 BUN 5 L Creatinine 0.78 Narrative Narrative: EKG 12/2023 Vent. Rate : 050 BPM Atrial Rate : 050 BPM P-R Int : 242 ms QRS Dur : 094 ms QT Int : 464 ms P-R-T Axes : 037 013 011 degrees QTc Int : 423 ms Sinus bradycardia with marked sinus arrhythmia with 1st degree A-V block Otherwise normal ECG When compared with ECG of 20-DEC-2023 16:57, Nonspecific T wave abnormality, improved in Inferior leads Nonspecific T wave abnormality no longer evident in Anterolateral leads Assessment and Plan Assessment Anesthesia Assessment: Chart Reviewed Documented by User: Aravind Lockwood MD 10/15/24 10:30 [facility] Past Medical History Medical History Alcohol abuse Cholecystitis Impaired glucose tolerance Vitamin D deficiency Anxiety and depression Alcohol abuse Tobacco abuse Post traumatic stress disorder (PTSD) Obesity (BMI 30-39.9) Hypercholesterolemia GERD (gastroesophageal reflux disease) Hypertension Family History Family History Father Renal cancer Other Substance use disorder Family history of problems with anesthesia: No Surgical History Surgical History History of esophagogastroduodenoscopy (EGD) Hx of colonoscopy History of tonsillectomy History of Problems with Anesthesia: No Social History Social History Household Members: None Housing: House Do you presently have visiting nurse or other home services: No Alcohol intake: current Alcohol intake frequency: a few times a month Alcohol type: hard liquor Patient Tobacco Use Status: Current everyday Tobacco user Tobacco use type: Cigarette Cigarette Packs Per Day: 1 Cigarettes Per Day: 20 Years Smoked: 50 e-Cigarette/Vaping Use: Never Used Second Hand Smoke Exposure: Yes Substance Use Type: Marijuana Advance Directives: No Advance Directives Information Provided: Yes service: No Current occupational status: retired Cognitive needs: No Hearing needs: No Vision needs: Yes (Reading glasses) Meds Allergies Allergy/AdvReac Type Severity Reaction Status Date / Time acetaminophen (From TYLENOL) Allergy Intermediate HIVES Verified 10/15/24 09:49 apple (APPLES) Allergy Intermediate HIVES Verified 10/15/24 09:49 Home Medications ?Medication ?Instructions ?Recorded ?Confirmed ?Last Taken ?Type omeprazole 40 mg capsule,delayed 40 mg PO DAILY@0630 0 12/21/23 03/17/24 12/20/23 History release Exam Airway Mallampati Class: II TM Dist: <=3cm Neck ROM: Full Loose/Missing/Broken Teeth: Yes, Upper and Lower Heart: ok Lungs: ok Assessment and Plan Assessment Anesthesia Assessment: Anesthesia Plan Discussed Final Anesthetic Review Family History of Problems with Anesthesia: No History of Problems with Anesthesia: No NPO: Yes ASA Class: III Final Preanesthetic Review: No Changes in Pt Med Stat, Meds/Allgs Chart Reviewed, Consent Obtained/Reviewed and Anes Risks/Benef Reviewed Patient Risk: Intermediate Procedure Risk: Low Anesthetic Plan Anesthetic Plan: GA and Agree w/ Assess. and Plan Disposition: Standard PACU
--- NOTE | 2024-10-15 09:06 | ECG_ITS ---
Test Reason : pacu Blood Pressure : */* mmHG Vent. Rate : 65 BPM Atrial Rate : 65 BPM P-R Int : 190 ms QRS Dur : 86 ms QT Int : 434 ms P-R-T Axes : 34 0 20 degrees QTcB Int : 451 ms Normal sinus rhythm Normal ECG When compared with ECG of 21-Dec-2023 12:50, ME interval has decreased Referred By: Jannette Stephen Electronically Signed By: THIAGO ADRIAN
[2024-10-15 10:04] VITALS: BP 156/65; PULSE 65; RESP 16; TEMP 36.7; O2SAT 99; BMI 30.2
[2024-10-15] MEDS: Lactated Ringers 1,000 ML 100 ML IVCONT (10:09)
--- NOTE | 2024-10-15 11:23 | MHC.SHP ---
Pre-Procedural Eval Section A - 24 Hr Update-Section A only Date of Service: 10/15/24 The patient is an INPATIENT: No Changes since office visit: No Cold of Flu in the past 2 weeks, No New Medical Problems, No Changes in Medication and No Patient answered all questions The patient has been examined within 24 hours of the surgical procedure. The History & Physical has been completed within 30 days and I have reviewed it.: Yes Section B - Complete if H&P > 30 days Chief Complaint: Malignant neoplasm of prostate Details of Present Illness: space oar and seed placement Allergies: Allergies Allergy/AdvReac Type Severity Reaction Status Date / Time acetaminophen (From TYLENOL) Allergy Intermediate HIVES Verified 10/15/24 09:49 apple (APPLES) Allergy Intermediate HIVES Verified 10/15/24 09:49 Plan I have reviewed the history and physical and performed a pertinent physical examination on my patient. No changes have occurred unless specified. Time Spent With Patient Time: Total time managing care of this patient today ____ minutes.
[2024-10-15 12:13] VITALS: BP 149/86; PULSE 71; RESP 18; TEMP 36.2; O2SAT 99
[2024-10-15 12:15] VITALS: BP 134/89; PULSE 69; RESP 18; O2SAT 99
--- NOTE | 2024-10-15 12:19 | W.PM.OPN ---
Operative Note Operative Note Date of Service: 10/15/24 Narrative: Preoperative diagnosis: Prostate cancer Postoperative diagnosis: Prostate cancer Procedure: 1. Transrectal ultrasound-guided perineal visicoil marker seed placement 2. Transrectal ultrasound-guided perineal SpaceOAR gel placement Surgeon: Dr. Luciano Don Anesthetic: Sedation Indications for procedure: Prostate Cancer Procedure: After informed consent was verified, the patient was brought into the operating room and anesthesia was performed per protocol. The patient was placed in a modified dorsal lithotomy position. Anus was dilated with a finger. Gel was placed per rectum. Ultrasound probe was placed per rectum. The prostate was visualized in sagittal and transverse dimensions. Local anesthetic was infiltrated in the perineal area using 10 cc of lidocaine Visicoil seed markers were placed in a transperineal fashion using ultrasound guidance 1 on the right toward mid gland. 1 on the left at mid gland. Good deployment confirmed with ultrasound. The purpose is for target triangulation. The 2nd part of the procedure was placement of SpaceOAR gel to allow consolidation for radiation delivery. The kit was prepared on the backtable with assembly of the 2 part solution and syringe delivery system per kit instructions. The delivery needle was advanced bevel down in the midline under ultrasound guidance to the apex of the prostate. It was advanced in the plane the prostate from the rectum to the midpoint of the prostate. Location was reviewed using sagittal and transverse imaging. At the midpoint of the prostate 1 cc of saline was placed to confirm needle position. Further injection saline was placed to confirm spread toward the base of the prostate. Position was confirmed with sagittal and transverse imaging. The needle was confirmed to be free from tenting of the rectum. With the needle in the confirmed position 10 cc of gel mixture was injected. This was performed over a target time of 15-20 seconds to allow for adequate spread.. Good separation was seen of the rectum from the prostate space running in the midline from the base toward the apex of the prostate. Following completion of the procedure the probe was removed from the rectum. He tolerated the procedure well. He was extubated in the operating room and transferred in stable condition to the recovery area. Pathology none Drains none
[2024-10-15 12:20] VITALS: BP 179/86; PULSE 66; RESP 18; O2SAT 100
[2024-10-15 12:25] VITALS: BP 175/90; PULSE 62; RESP 18; O2SAT 100
[2024-10-15 12:40] VITALS: BP 182/83; PULSE 61; RESP 18; TEMP 36.2; O2SAT 100
== END 2024-10-15 13:19 | disposition home or self-care (01) ==
PROVIDERS: PCP Internal Medicine; Visit Provider Urology
PROC: (CPT 55874; principal; 2024-10-15 11:00)
DX: C61 Malignant neoplasm of prostate (principal); I10 Essential (primary) hypertension; E78.00 Pure hypercholesterolemia, unspecified; R73.02 Impaired glucose tolerance (oral); F32.A Depression, unspecified; F41.9 Anxiety disorder, unspecified; F43.10 Post-traumatic stress disorder, unspecified; Z79.899 Other long term (current) drug therapy; F10.10 Alcohol abuse, uncomplicated; F17.210 Nicotine dependence, cigarettes, uncomplicated; Z88.8 Allergy status to other drugs, medicaments and biological substances
CPT/HCPCS: 55874; 55876; 93005; A4648; C1889; J2003; J2704; J3010

== ENCOUNTER → 2024-10-15 08:53 | Outpatient (BNV) | payer MEDICARE, SELFPAY | PROVIDERS: PCP Internal Medicine; Visit Provider Urology | DX: C61 Malignant neoplasm of prostate (principal) | CPT/HCPCS: 55874; 55876; 76872 ==

== ENCOUNTER → 2024-10-15 09:06 | Outpatient (BNV) | payer MEDICARE, SELFPAY | PROVIDERS: PCP Internal Medicine; Visit Provider Internal Medicine | DX: Z48.812 Encounter for surgical aftercare following surgery on the circulatory system (principal) | CPT/HCPCS: 93010 ==

== ENCOUNTER 2025-01-11 23:10 | Inpatient (IN) | payer MEDICARE, SELFPAY ==
--- NOTE | 2025-01-11 | ECG_ITS ---
Test Reason : ETOH ABD PAIN Blood Pressure : */* mmHG Vent. Rate : 69 BPM Atrial Rate : 69 BPM P-R Int : 186 ms QRS Dur : 98 ms QT Int : 432 ms P-R-T Axes : 51 5 -7 degrees QTcB Int : 462 ms Normal sinus rhythm Nonspecific ST and T wave abnormality Abnormal ECG When compared with ECG of 15-Oct-2024 09:39, T wave inversion now evident in Anterior leads Referred By: Nyasia Sweeney Electronically Signed By: Arvind Jade
--- NOTE | ~2025-01-11 | US_ITS ---
EXAMINATION: US ABDOMEN LIMITED CLINICAL INFORMATION: Abnormal gallbladder on CT exam. COMPARISON: CT examination earlier same day. TECHNIQUE: Real-time imaging of the gallbladder and bile ducts was performed. FINDINGS: GALLBLADDER: Gallbladder demonstrates intraluminal sludge and gallstones. Mild wall thickening up to 4 mm. There is a small amount of pericholecystic fluid. Negative sonographic Miner's sign. COMMON BILE DUCT: Normal in caliber measuring 0.5 cm in diameter. FREE FLUID: None. US/US abdomen limited IMPRESSION: 1. Gallbladder demonstrating intraluminal sludge, gallstones, mild wall thickening, and trace pericholecystic fluid. Negative sonographic Miner's sign. 2. Normal common bile duct measuring 0.5 cm in diameter. (Please note, on the CT examination of earlier the same day, it measured up to 12 mm in diameter) Electronically signed by: Cornelio Chance MD 01/12/2025 01:32 PM EDT
--- NOTE | ~2025-01-11 | CT_ITS ---
CLINICAL HISTORY: abd pain, n v d CT abdomen and pelvis with contrast Comparison: None provided Findings: The lung bases are clear. The liver appears steatotic with a craniocaudal height of 19.8 cm. Sludge versus small stones within the gallbladder. The gallbladder appears moderately distended. There is biliary ductal dilation with the common duct measuring 13 mm. There appears to be a filling defect at the level of the ampulla best appreciated on image 45 of series 7 measuring a proximally 8 mm. Spleen, pancreas and adrenal glands are unremarkable. Bilateral perinephric stranding of unclear clinical significance. No stones or hydronephrosis. No bowel obstruction, pneumoperitoneum, or pneumatosis. Thin walled bladder. Fiducial markers within the prostate. Hyperdense material within the pre rectal space likely related to radiation treatment for prostate cancer. No fluid collections, adenopathy or vascular dilation. No acute fracture. Grade 1 anterolisthesis of L5 on S1 due to bilateral pars defects. IMPRESSION: Hepatic steatosis with hepatomegaly. Cholelithiasis with evidence of choledocholithiasis. No findings by CT to suggest acute cholecystitis. Bilateral perinephric stranding of unclear clinical significance. No stones or hydronephrosis. This document has been electronically signed by: Nita Chen MD on 01/12/2025 07:03:48
--- NOTE | ~2025-01-11 | MR_ITS ---
EXAMINATION: MRCP HISTORY: Jaundice, abnormal CT of bile ducts COMPARISON: Correlation is made with abdominal CT and ultrasound examinations performed earlier in the day. TECHNIQUE: Axial gradient echo in and out of phase T1, axial T2 and fat suppressed T2, and coronal haste T2 with fat saturation images were obtained through the abdomen. 3D MRCP Reconstructed images and thick slab imaging of the biliary tree were obtained. FINDINGS: There is diffuse loss of signal intensity within the liver on opposed phase imaging, consistent with steatosis. There is no intrahepatic biliary ductal dilatation. The gallbladder is distended and demonstrates multiple intraluminal calculi. There is pericholecystic fluid. The common bile duct measures up to 10 mm in diameter. No intraluminal filling defects are identified to suggest choledocholithiasis. The spleen and pancreas are unremarkable. The adrenals are unremarkable. There is perinephric fluid bilaterally. No retroperitoneal lymphadenopathy is identified in the upper abdomen. The visualized bones demonstrate normal marrow signal intensity. MR/MR MRCP IMPRESSION: 1. Distended gallbladder with cholelithiasis and pericholecystic fluid. 2. Mildly dilated common bile duct. No evidence of choledocholithiasis. 3. Hepatic steatosis. 4. Bilateral perinephric fluid of uncertain seconds. Electronically signed by: Ryan Rodriguez MD 01/12/2025 03:05 PM EDT
[2025-01-11 23:13] VITALS: BP 167/81; BP 202/128; PULSE 69; PULSE 71; RESP 25; O2SAT 96; O2SAT 99; BMI 31.6
--- NOTE | 2025-01-11 23:48 | PC.NURSE ---
pt tough stick at this time, x3 RN attempted unable to obtain access. MIHIR Parada at bedside to attempt US guided iv
[2025-01-11 23:57] LABS: Glucose, Whole Blood 150 mg/dL (60-115)
[2025-01-12] VITALS (10 sets, daily range): BP systolic 133–180; BP diastolic 64–96; PULSE 77–116; RESP 14–25; TEMP 36.6–39.7; O2SAT 97–99; BMI 33.2
--- NOTE | 2025-01-12 | PC.NURSE ---
pt biba from home a&ox4, respirations even and unlabored. pt reports sudden onset of nausea,vomiting diarrhea and abdominal pain. 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 on arrival, pt hyperventilating, tachycardic, and vomiting. MD Sweeney at bedside.
[2025-01-12] MEDS: Lactated Ringers 1,000 ML 999 ML IV (00:01)
--- OUTSIDE RECORDS SUMMARY | 2025-01-12 00:12 | XMS_ITS ---
Author Organization [facility] Care Team Providers Care Astrochemist Name Role Phone Maxi Jc Unavailable Unavailable Jennifer Reynolds Unavailable Unavailable Danni Caban Unavailable Allergies and adverse reactions Code CodeSystem Substance Reaction Severity StartDate Concern Status 161 RXNORM Acetaminophen Unknown 12/30/[address] Apples Unknown 12/30/2023 active Care Team Name Role Address Phone Organization Dates Maxi Jc PCP [address] [place] [id number], [facility] (Office): : [facility] 12/30/2023 - 01/09/2024 Jennifer Reynolds [address] [place] [id number], [facility] (Office): : [facility] 12/30/2023 - 01/09/2024 Danni Caban [address] [place] [id number], [facility] (Office): : [facility] 12/30/2023 - 01/09/2024 Immunizations Immunization Status Vaccine Details Vaccine Code CodeSystem Date Notes (Respiratory Syncytial Virus) Arexvy Adjuvant Vaccine completed Respiratory syncytial virus (RSV), vaccine, recombinant, protein subunit RSV prefusion F, adjuvant reconstituted, 0.5 mL, preservative free 303 CVX created date: 12/31/2023 administere d date: 02/08/2023 (COVID-19) [id number] Updated Pfizer Vaccine completed SARS-COV-2 (COVID-19) vaccine, mRNA, spike protein, LNP, preservative free, josiah-sucrose, 30 mcg/0.3 mL dose 309 CVX created date: 12/31/2023 administere d date: 02/08/2023 (Tetanus, Diphtheria, and Acellular Pertussis) Tdap completed tetanus toxoid, reduced diphtheria toxoid, and acellular pertussis vaccine, adsorbed 115 CVX created date: 12/31/2023 administere d date: 11/28/2021 (Pneumococcal) PCV20- Conjugate 20-valent Vaccine completed Pneumococcal conjugate vaccine 20-valent (PCV20), polysaccharide [id number] conjugate, adjuvant, preservative free 216 CVX created date: 12/31/2023 administere d date: 02/02/2022 (Influenza) FLUAD - Adjuvanted - High Dose - 65+ completed Influenza, adjuvanted, inactivated, trivalent, injectable, preservative free 168 CVX created date: 12/31/2023 administere d date: 12/21/2023 Mental Status Section Date Assessment Total Score Description 01/09/2024 BIMS 15 cognitively int act CAM 0 No delirium ind icated PHQ-9 00 01/06/2024 BIMS 15 cognitively int act CAM 0 No delirium ind icated PHQ-9 00 Insurance Providers Problems Problem # Description Date of onset Resolved Date Code CodeSystem Concern Status 1 ACUTE CHOLECYSTITIS [address] active 2 ACUTE KIDNEY FAILURE, UNSPECIFIED [address] active 3 ALCOHOL USE, UNSPECIFIED, UNCOMPLICATED [address] active 4 ANEMIA, UNSPECIFIED [address] active 5 ANXIETY DISORDER, UNSPECIFIED [address] active 6 [address]EM[address] active 7 ESSENTIAL (PRIMARY) HYPERTENSION [address] active 8 GASTRO-ESOPHAGEAL REFLUX DISEASE WITHOUT ESOPHAGITIS [address] active 9 HYPERLIPIDEMIA, UNSPECIFIED [address] active 10 KLEBSIELLA PNEUMONIAE [K. PNEUMONIAE] THE CAUSE OF DISEASES CLASSIFIED ELSEWHERE [address] active 11 POST-TRAUMATIC STRESS DISORDER, UNSPECIFIED [address] active 12 THROMBOCYTOPENIA, UNSPECIFIED [address] active Reason for Referral No Reasons for Referral Entered Social History Social History Observation Description Start Date End Date Code Code System Current Smoking Status Tobacco smoking consumption unknown 133819388 SNOMED CT Sex Assigned At Male 1960 34155-0 [facility] Gender Identity Sexual Orientation Vital Signs Code Code System Vitals Name Values and Units Timing Information 9279-1 [facility] Respiratory Rate Value=16.0 Units=/m in 01/09/2024 8462-4 [facility] Blood Pressure-Diastolic Value=69 Un its=mmHg 01/09/2024 8480-6 [facility] Blood Pressure-Systolic Kzhjw=129 Un its=mmHg 01/09/2024 8310-5 [facility] Body Temperature Value=98.0 Units= F 01/09/2024 8867-4 [facility] Heart rate Value=60.0 Units=/min 12/2023 39214-4 [facility] O2 % BldC Oximetry Value=90.0 Units= % 01/09/2024 85513-3 [facility] Pain Level Value=0.0 01/09/2024 25914-3 [facility] Weight Ugxpk=794.3 Units=Lbs 12/2023 8302-2 [facility] Height Value=72.0 Units=Inches 12/31/2023
[2025-01-12 00:20] LABS: MANUAL DIFF FLAG NO
[2025-01-12 00:22] LABS: Hematocrit 32.4 % (42.0-52.0); Hemoglobin 11.5 g/dl (14.0-18.0); Imm Gran Abs Auto 0.03 X10*3/uL (0.00-0.03); Imm Gran Pct Auto 0.4 % (0.0-0.4); Lymphocytes Absolute Auto 0.3 X10*3/uL (1.2-4.9); Mean Corpuscular HGB Conc 35.5 g/dl (31.0-36.0); Mean Corpuscular Hemoglobin 38.1 pg (27.0-33.0); Mean Corpuscular Volume 107.3 fL (80.0-98.0); NRBC Abs Auto 0.000 X10*3/uL (0.0-0.012); NRBC Pct Auto 0.0 /100WBC (0.0-0.2); Red Blood Count 3.02 X10*6/uL (4.60-5.80); White Blood Count 7.3 X10*3/uL (4.8-10.8)
[2025-01-12 00:24] LABS: Platelet Count 78 X10*3/uL (160-400)
[2025-01-12 00:41] LABS: Troponin-I High Sensitivity 54.7 ng/L (<3.5-35.0)
[2025-01-12 00:44] LABS: Alanine Aminotransferase 82 U/L (0-40); Albumin Level 3.8 g/dL (3.5-5.0); Alkaline Phosphatase 155 U/L (39-117); Anion Gap 22 (12-20); Aspartate Amino Transferase 244 U/L (5-37); Blood Urea Nitrogen 6 mg/dL (9-16); Calcium 8.8 mg/dL (8.4-10.2); Carbon Dioxide 19 mmol/L (22-29); Chloride 103 mmol/L (96-108); Creatinine Clr Calc Pharmacy 128.4; Estimated Glomerular Filt Rate > 60; Lipase 38 U/L (8-78); Magnesium 1.3 mg/dL (1.6-2.6); Potassium 2.7 mmol/L (3.3-5.1); Sodium 141 mmol/L (135-145); Total Protein 6.8 g/dL (6.5-8.0)
[2025-01-12] MEDS: Magnesium Sulfate/H2O 2 GM/50 ML PIGGYBACK IV (01:45)
[2025-01-12] MEDS: Potassium Chloride/H20 10 MEQ/100 ML PIGGYBACK 100 MEQ IV ×4 (01:45→06:25)
--- NOTE | 2025-01-12 02:48 | PC.NURSE ---
pt reports relief at this time and pt medicated per mar
[2025-01-12 04:50] LABS: Troponin-I High Sensitivity 48.9 ng/L (<3.5-35.0)
[2025-01-12] MEDS: iohexoL 350 MG/ML 100 ML INFUS..BTL 85 ML IV (04:57)
--- NOTE | 2025-01-12 05:35 | PC.NURSE ---
pyxis noted to not have potassium needed per may, Keyla RN Software Design Analyst contacted at this time for medication
[2025-01-12 06:01] LABS: Appearance Urine Clear; Glucose Urine UA Negative (Negative); PH 7.0 (5.0-9.0); Specific Gravity - Urine 1.010 (1.005-1.025); UMIC TRIGGER UACC YES
--- NOTE | 2025-01-12 06:47 | ED.ABDPAIN ---
HPI - Abdominal Pain General Chief Complaint: Abdominal Pain Stated Complaint: Ab pain hx stomach cancer Time Seen by Provider: 01/11/25 23:19 Source: patient, EMS, RN notes reviewed and old records reviewed Mode of arrival: EMS Limitations: altered mental status History of Present Illness ED Provider: Dr. Nyasia Sweeney HPI narrative: 64-year-old male with history of alcohol use disorder, prostate CA, PTSD, GERD, hypertension presenting with periumbilical abdominal pain, nausea, vomiting and diarrhea ongoing for the last 4 days or so. Patient is a rather poor historian. Admits he is currently intoxicated. Last drink was around 6 p.m. this evening. Describes nonbilious, nonbloody emesis that has been constant for 4 days. He is at the point where he has nothing left in his abdomen. Unable to hold anything down. Denies associated fever. No known sick contacts, questionable food intake or recent travel. Patient denies other illicit substance use. No history of bowel surgery. Related Data Home Medications ?Medication ?Instructions ?Recorded ?Confirmed omeprazole 40 mg capsule,delayed 40 mg PO DAILY@0630 12/21/23 03/17/24 release Previous Rx's ?Medication ?Instructions ?Recorded blood pressure monitor #1 ea 10/19/21 ascorbate calcium (vitamin C) 500 500 mg PO BID 30 days #180 tabs 01/15/22 mg tablet ferrous sulfate 325 mg (65 mg 325 mg PO BID #180 tabs 09/10/22 iron) tablet cyanocobalamin (vitamin B-12) 1,000 mcg PO DAILY #90 caps 02/22/23 1,000 mcg capsule lisinopril 40 mg tablet 40 mg PO DAILY 90 days #90 tabs 04/16/24 folic acid 1 mg tablet 1 mg PO DAILY #90 tabs 07/06/24 bicalutamide 50 mg tablet 50 mg PO TID 30 days #90 tabs 09/21/24 levofloxacin 500 mg tablet 500 mg PO DAILY 5 days #5 tabs 10/01/24 atenolol 100 mg tablet 100 mg PO DAILY #90 tabs 10/20/24 Allergies Allergy/AdvReac Type Severity Reaction Status Date / Time acetaminophen (From TYLENOL) Allergy Intermediate HIVES Verified 01/11/25 23:23 apple (APPLES) Allergy Intermediate HIVES Verified 01/11/25 23:23 Review of Systems Review of Systems As per HPI, full review of systems performed and negative but for the above mentioned pertinent positives and negatives. [facility] Past Medical History Medical History Alcohol abuse Cholecystitis Impaired glucose tolerance Vitamin D deficiency Anxiety and depression Alcohol abuse Tobacco abuse Post traumatic stress disorder (PTSD) Obesity (BMI 30-39.9) Hypercholesterolemia GERD (gastroesophageal reflux disease) Hypertension Surgical History History of esophagogastroduodenoscopy (EGD) Hx of colonoscopy History of tonsillectomy Family History Family History Father Renal cancer Other Substance use disorder Social History Social History Household Members: None Housing: House Are you a primary primary health care nurse to a significant other at home: No Do you presently have visiting nurse or other home services: No Alcohol intake: current Alcohol intake frequency: 3 or more drinks per day Alcohol type: hard liquor Patient Tobacco Use Status: Current everyday Tobacco user Tobacco use type: Cigarette Cigarette Packs Per Day: 1 Cigarettes Per Day: 20.0 Years Smoked: 50 Smoked in Last 30 Days: No e-Cigarette/Vaping Use: Never Used Second Hand Smoke Exposure: Yes Use of substances other than those prescribed or required for medical reasons: No Substance Use Type: Marijuana Advance Directives: No Advance Directives Information Provided: Yes service: No Current occupational status: retired Cognitive needs: No Hearing needs: No Vision needs: Yes (Reading glasses) Physical Exam ED Exam Exam: GENERAL: Appears intoxicated, GCS 13, eyes open to voice, slurred speech, patient appears uncomfortable, actively vomiting. SKIN: Pale, warm, dry, no rashes noted. HEENT: Normocephalic, atraumatic, no stridor, posterior oropharynx nonerythematous, dentition intact, EOMI, pupils are pinpoint bilaterally, reactive to light. NECK: Soft, supple, no step-offs, no deformities, no lymphadenopathy. CHEST: Heart regular tachycardia, no murmurs, symmetric chest rise and fall. PULMONARY: Clear to auscultation bilaterally, diminished at the bases, no labored breathing, no wheezes/rhales/rhonchi. ABDOMINAL: Softly distended, diffusely tender to palpation without rebound or guarding, no palpable mass, positive bowel sounds in all quadrants. : Deferred. MUSCULOSKELETAL: Normal tone, full range of motion, no deformities, no peripheral edema. NEURO: GCS 13, eyes open to voice, slightly slurred speech, CN II through XII intact, equal strength and sensation bilateral upper and lower extremities, no focal neurologic deficits. PSYCHIATRIC: Flat affect, poor eye contact. Vital Signs: Vital Signs - 24 hr 01/11/25 23:13 01/12/25 00:01 01/12/25 00:05 Temperature 98.1 F Pulse Rate 71 77 Respiratory Rate 25 H 25 H 25 H Blood Pressure 167/81 H Pulse Oximetry 99 99 Oxygen Delivery Method Room Air Room Air 01/12/25 02:44 01/12/25 06:25 01/12/25 06:47 Temperature 98.8 F 97.8 F 103.4 F H Pulse Rate 78 116 H Respiratory Rate 14 20 Blood Pressure 133/77 180/96 H Pulse Oximetry 99 98 Oxygen Delivery Method Room Air Room Air BMI result Body Mass Index 31.6 Medical Decision Making Medical Decision Making MDM Narrative: Patient presents today with a chief complaint of vomiting, diarrhea, generalized abdominal pain around the umbilicus ongoing for the last 4 days. Differential diagnosis includes surgical emergency such as obstruction or enteritis, as well as hyperglycemia, renal colic, acidosis, food or drug ingestion, pancreatitis, CVA, allergic reaction such as anaphylaxis, cannabis hyperemesis syndrome or cyclic vomiting syndrome, among many others. Patient is not showing signs of acute dehydration or hemodynamic instability. They are having associated generalized abdominal pain. Broad-based work-up was initiated based on above history and physical exam. 6:48 AM 01/12/2025 (Dr. Nyasia Sweeney, [place].) patient is now flagging for sepsis with a temperature of 102.3 rectally. His heart rate has been elevated since he has been here partly due to pain, partly due to hypomagnesemia, emesis and what I suspected to be just alcohol intoxication. That being said, his CT is showing evidence of stranding about the kidneys. He does not have an elevated white blood cell count. Lactic acid level is pending. Plan for broad-spectrum antibiotics, 30 cc/kg fluid bolus and likely admission for pyelonephritis. He is allergic to Tylenol so I will give him a dose of Motrin. He has had a dose of famotidine which should protect his stomach. Blood pressure remains slightly elevated. Awaiting final CT read from Radiology and final disposition. 7:37 AM 01/12/2025 (Dr. Nyasia Sweeney, D.O.) patient ultimately did spike a fever up to 103.2 degrees. Given a dose of Motrin since he is allergic to Tylenol. Also gave a dose of Rocephin and a 30 cc/kg fluid bolus Differential Diagnosis Differential Diagnoses: The differential diagnosis associated with the presentation includes (As above) Admission/Observation Consideration of admission/observation: Escalation of care including admission/observation considered Consult Healthcare Provider Management of the patient was discussed with: Hospitalist Lab Data MDM Lab Attestation statement: I reviewed the patient's lab results. 01/12/25 00:15 01/12/25 00:15 Labs: Lab Results 01/11/25 01/12/25 01/12/25 Range/Units 23:21 00:15 04:06 WBC 7.3 (4.8-10.8) X10*3/uL RBC 3.02 L (4.60-5.80) X10*6/uL Hgb 11.5 L (14.0-18.0) g/dl Hct 32.4 L (42.0-52.0) % MCV 107.3 H (80.0-98.0) fL MCH 38.1 H (27.0-33.0) pg MCHC 35.5 (31.0-36.0) g/dl RDW 13.0 (11.0-16.0) % Plt Count 78 L D (160-400) X10*3/uL MPV 9.9 (9.4-12.4) fL Immature Gran % (Auto) 0.4 (0.0-0.4) % Neut % (Auto) 87.4 H (45-73) % Lymph % (Auto) 4.1 L (20-40) % [place] % (Auto) 7.7 (2-11) % Eos % (Auto) 0.0 (0-4) % Baso % (Auto) 0.4 (0-2) % Lymph # (Auto) 0.3 L (1.2-4.9) X10*3/uL [place] # (Auto) 0.6 (0.1-1.2) X10*3/uL Eos # (Auto) 0.0 (0.0-0.4) X10*3/uL Baso # (Auto) 0.0 (0.0-0.2) X10*3/uL Abs Immat Gran (auto) 0.03 (0.00-0.03) X10*3/uL Absolute Neuts (auto) 6.4 (2.0-8.3) x10*3/uL Absolute Nucleated RBC 0.000 (0.0-0.012) X10*3/uL Nucleated RBC % (auto) 0.0 (0.0-0.2) /100WBC Sodium 141 (135-145) mmol/L Potassium 2.7 L* D (3.3-5.1) mmol/L Chloride 103 (96-108) mmol/L Carbon Dioxide 19 L (22-29) mmol/L Anion Gap 22 H (12-20) BUN 6 L (9-16) mg/dL Creatinine 0.63 (0.5-1.4) mg/dL Estim Creat Clear Calc 128.4 Estimated GFR > 60 POC Glucose 150 H (60-115) mg/dL Random Glucose 166 H (60-115) mg/dL Lactic Acid (0.5-2.0) mmol/L Calcium 8.8 D (8.4-10.2) mg/dL Magnesium 1.3 L* (1.6-2.6) mg/dL Total Bilirubin 4.6 H (0.0-1.0) mg/dL AST 244 H (5-37) U/L ALT 82 H (0-40) U/L Alkaline Phosphatase 155 H (39-117) U/L Troponin I High Sens 54.7 H D 48.9 H (<3.5-35.0) ng/L Total Protein 6.8 (6.5-8.0) g/dL Albumin 3.8 (3.5-5.0) g/dL Lipase 38 (8-78) U/L Urine Color Urine Appearance Urine pH (5.0-9.0) Ur Specific [place] (1.005-1.025) Urine Protein (Neg-Trace) mg/dL Urine Glucose (UA) (Negative) mg/dL Urine Ketones (Negative) mg/dL Urine Blood (Negative) Urine Nitrite (Negative) Ur Leukocyte Esterase (Negative) Urine RBC (0-2) /HPF Urine WBC (0-5) /HPF Ur Squamous Epith Cells (0-2) /HPF Urine Bacteria (None Seen) Hyaline Casts (0-2) /LPF Ethyl Alcohol 177 mg/dL 01/12/25 01/12/25 Range/Units 05:54 06:50 WBC (4.8-10.8) X10*3/uL RBC (4.60-5.80) X10*6/uL Hgb (14.0-18.0) g/dl Hct (42.0-52.0) % MCV (80.0-98.0) fL MCH (27.0-33.0) pg MCHC (31.0-36.0) g/dl RDW (11.0-16.0) % Plt Count (160-400) X10*3/uL MPV (9.4-12.4) fL Immature Gran % (Auto) (0.0-0.4) % Neut % (Auto) (45-73) % Lymph % (Auto) (20-40) % [place] % (Auto) (2-11) % Eos % (Auto) (0-4) % Baso % (Auto) (0-2) % Lymph # (Auto) (1.2-4.9) X10*3/uL [place] # (Auto) (0.1-1.2) X10*3/uL Eos # (Auto) (0.0-0.4) X10*3/uL Baso # (Auto) (0.0-0.2) X10*3/uL Abs Immat Gran (auto) (0.00-0.03) X10*3/uL Absolute Neuts (auto) (2.0-8.3) x10*3/uL Absolute Nucleated RBC (0.0-0.012) X10*3/uL Nucleated RBC % (auto) (0.0-0.2) /100WBC Sodium (135-145) mmol/L Potassium (3.3-5.1) mmol/L Chloride (96-108) mmol/L Carbon Dioxide (22-29) mmol/L Anion Gap (12-20) BUN (9-16) mg/dL Creatinine (0.5-1.4) mg/dL Estim Creat Clear Calc Estimated GFR POC Glucose (60-115) mg/dL Random Glucose (60-115) mg/dL Lactic Acid 3.2 H* (0.5-2.0) mmol/L Calcium (8.4-10.2) mg/dL Magnesium (1.6-2.6) mg/dL Total Bilirubin (0.0-1.0) mg/dL AST (5-37) U/L ALT (0-40) U/L Alkaline Phosphatase (39-117) U/L Troponin I High Sens (<3.5-35.0) ng/L Total Protein (6.5-8.0) g/dL Albumin (3.5-5.0) g/dL Lipase (8-78) U/L Urine Color Yellow Urine Appearance Clear Urine pH 7.0 (5.0-9.0) Ur Specific [place] 1.010 (1.005-1.025) Urine Protein Trace (Neg-Trace) mg/dL Urine Glucose (UA) Negative (Negative) mg/dL Urine Ketones 15 (Negative) mg/dL Urine Blood Trace H (Negative) Urine Nitrite Negative (Negative) Ur Leukocyte Esterase Negative (Negative) Urine RBC 6-10 H (0-2) /HPF Urine WBC 0-5 (0-5) /HPF Ur Squamous Epith Cells 0-2 (0-2) /HPF Urine Bacteria None Seen (None Seen) Hyaline Casts 0-2 (0-2) /LPF Ethyl Alcohol mg/dL Independent Interpretation I performed an independent interpretation of an: EKG Radiology Impression Discussion of test interpretation with radiology: I have reviewed the radiologist's reading. Radiologist Impression: CT abdomen and pelvis with contrast Comparison: None provided Findings: The lung bases are clear. The liver appears steatotic with a craniocaudal height of 19.8 cm. Sludge versus small stones within the gallbladder. The gallbladder appears moderately distended. There is biliary ductal dilation with the common duct measuring 13 mm. There appears to be a filling defect at the level of the ampulla best appreciated on image 45 of series 7 measuring a proximally 8 mm. Spleen, pancreas and adrenal glands are unremarkable. Bilateral perinephric stranding of unclear clinical significance. No stones or hydronephrosis. No bowel obstruction, pneumoperitoneum, or pneumatosis. Thin walled bladder. Fiducial markers within the prostate. Hyperdense material within the pre rectal space likely related to radiation treatment for prostate cancer. No fluid collections, adenopathy or vascular dilation. No acute fracture. Grade 1 anterolisthesis of L5 on S1 due to bilateral pars defects. IMPRESSION: Hepatic steatosis with hepatomegaly. Cholelithiasis with evidence of choledocholithiasis. No findings by CT to suggest acute cholecystitis. Bilateral perinephric stranding of unclear clinical significance. No stones or hydronephrosis. This document has been electronically signed by: Nita Chen MD on 01/12/2025 07:03:48 Independent Historian Clinical information obtained from an independent historian. History obtained from or confirmed by: EMS External Record Review External record reviewed: Inpatient record Chronic Conditions Patient?s care impacted by: Hypertension and Other (Alcohol use disorder) Social Determinants Patient?s care significantly limited by Social Determinants of Health including: Other Social Determinant of Health Medications Administered Discontinued Medications Generic Name Dose Route Start Last Admin Trade Name Freq PRN Reason Stop Dose Admin Ceftriaxone Sodium 1 gm 01/12/25 06:43 01/12/25 06:55 Ceftriaxone Sodium 1 Gm Vial IVPUSH 01/12/25 06:44 1 gm ONCE ONE Administration Famotidine 20 mg 01/11/25 23:27 01/12/25 00:01 Famotidine/Pf 20 Mg/2 Ml Vial IVPUSH 01/11/25 23:28 20 mg ONCE ONE Administration Lactated Ringer's 1,000 mls @ 999 mls/hr 01/11/25 23:27 01/12/25 01:38 Lr IV 01/12/25 00:27 Infused .Q1H1M ONE Infusion Magnesium Sulfate 2 gm in 50 mls @ 25 mls/hr 01/12/25 01:11 01/12/25 04:01 Magnesium Sulfate/H2o IV 01/12/25 03:10 Infused ONCE ONE Infusion Potassium Chloride 10 meq in 100 mls @ 100 mls/hr 01/12/25 01:15 01/12/25 06:25 Potassium Chloride/H20 IV 01/12/25 05:14 100 mls/hr Q1H CECI Administration Lactated Ringer's 2,826 mls @ 2,826 mls/hr 01/12/25 06:43 01/12/25 06:57 Lr 30 ml/kg infuse over 1 hr (2826 ml) 01/12/25 07:42 2,826 mls/hr IV Administration .Q1H ONE Ibuprofen 600 mg 01/12/25 06:43 01/12/25 06:57 Ibuprofen 600 Mg Tablet PO 01/12/25 06:44 600 mg ONCE ONE Administration Iohexol 85 ml 01/12/25 04:56 01/12/25 04:57 Iohexol 350 Mg/Ml 100 Ml Infus..Btl IV 01/12/25 04:57 85 ml ONCE ONE Administration Morphine Sulfate 4 mg 01/11/25 23:27 01/12/25 00:01 Morphine Sulfate 4 Mg/Ml Cartridge IVPUSH 01/11/25 23:28 4 mg ONCE ONE Administration Protocol Ondansetron HCl 4 mg 01/11/25 23:27 01/12/25 00:01 Ondansetron Hcl 4 Mg/2 Ml Vial IVPUSH 01/11/25 23:28 4 mg ONCE ONE Administration Prochlorperazine Edisylate 10 mg 01/12/25 01:11 01/12/25 01:40 Prochlorperazine Edisylate 10 Mg/2 Ml Vial IVPUSH 01/12/25 01:12 10 mg ONCE ONE Administration Critical Care Time Critical Care Time Critical Care Time: Yes Total Critical Care Time: 35 Attestation: CRITICAL CARE TIME: 35 minutes of critical care time was spent in direct patient care at the bedside or in the immediate area with this patient. Critical care was necessary to treat or prevent imminent or life-threatening deterioration of the following conditions severe sepsis with lactic acidosis due to pyelonephritis. This patient is high risk for decompensation and/or . This time was spent assessing and managing the patient, interpreting labs and imaging, coordinating care with other medical providers, gathering history from either the patient, their representatives, EMS or chart review, and discussing management with admitting team. Discharge Plan Discharge Patient Disposition: Admitted As Inpatient Print Language: Azeri
[2025-01-12] MEDS: LACTATED RINGERS 2826 ML IV (06:57)
--- NOTE | 2025-01-12 06:58 | PC.NURSE ---
ppt noted to have rectal temp of 103.2, MD Sweeney aware and at bedside. all labs obtained and pt medicated per mar
[2025-01-12 09:04] LABS: Reflex Lactate? Lactic Acid Added
[2025-01-12 09:37] LABS: ~Lactic Acid-LAB USE ONLY 2.2 mmol/L (0.5-2.0)
--- NOTE | 2025-01-12 09:44 | PM.IMHP ---
History of Present Illness Date of Service: 01/12/25 Chief Complaint: abdominal pain 64-year-old man presented to the ER with complaints of periumbilical abdominal pain with nausea, vomiting and diarrhea ongoing over the last 4-5 days. Patient also drinks alcohol daily stating he drinks at least a pt of vodka. He reported that the discomfort in his abdomen continued to get worse and that is why he decided to come in to be evaluated. He reported that he has had a very poor appetite and has been able to hold down anything. He reported that he felt like he was getting fevers and chills. He denied any sick contact, recent illness, recent travel. Abdominal pelvic CT showed hepatic steatosis with hepatomegaly and coli lithiasis with evidence of choledocholithiasis but no findings suggestive of acute cholecystitis. Lactic acid initially 3.2, alcohol level 177. In the ER, patient received 30 mL/kg IV fluid, Zofran, morphine, Pepcid, Compazine, IV magnesium, IV potassium, ibuprofen, Rocephin, thiamine. Review of Systems Review of Systems: Denies any recent fever chills or decrease in appetite respiratory denies any shortness of breath or cough cardiovascular denies chest pain gastrointestinal see HPI genitourinary denies any dysuria frequency or hematuria musculoskeletal denies any joint pain or swelling neuropsych denies any weakness or seizures all other systems reviewed are negative [facility] Medical History Alcohol abuse Cholecystitis Impaired glucose tolerance Vitamin D deficiency Anxiety and depression Alcohol abuse Tobacco abuse Post traumatic stress disorder (PTSD) Obesity (BMI 30-39.9) Hypercholesterolemia GERD (gastroesophageal reflux disease) Hypertension Family History Father Renal cancer Other Substance use disorder Surgical History History of esophagogastroduodenoscopy (EGD) Hx of colonoscopy History of tonsillectomy Social History Household Members: None Housing: House Are you a primary health care sanitary technician to a significant other at home: No Do you presently have visiting nurse or other home services: No Alcohol intake: current Alcohol intake frequency: 3 or more drinks per day Alcohol type: hard liquor Patient Tobacco Use Status: Current everyday Tobacco user Tobacco use type: Cigarette Cigarette Packs Per Day: 1 Cigarettes Per Day: 20.0 Years Smoked: 50 Smoked in Last 30 Days: No e-Cigarette/Vaping Use: Never Used Second Hand Smoke Exposure: Yes Use of substances other than those prescribed or required for medical reasons: No Substance Use Type: Marijuana Advance Directives: No Advance Directives Information Provided: Yes service: No Current occupational status: retired Cognitive needs: No Hearing needs: No Vision needs: Yes (Reading glasses) Meds Allergies Allergy/AdvReac Type Severity Reaction Status Date / Time acetaminophen (From TYLENOL) Allergy Intermediate HIVES Verified 01/11/25 23:23 apple (APPLES) Allergy Intermediate HIVES Verified 01/11/25 23:23 Home Medications ?Medication ?Instructions ?Recorded ?Confirmed ?Last Taken ?Type omeprazole 40 mg capsule,delayed 40 mg PO DAILY@0630 12/21/23 03/17/24 12/20/23 History release Physical Exam Vital Signs and Narrative: Vital Signs: Last Vital Signs Temp 103.4 F H 01/12/25 06:47 Pulse 109 H 01/12/25 08:00 Resp 20 01/12/25 08:00 BP 133/64 01/12/25 08:00 Pulse Ox 97 01/12/25 08:00 O2 Del Method Room Air 01/12/25 08:00 BMI result Body Mass Index 31.6 Appearing in no acute distress head is normocephalic atraumatic eyes pupils are PERRLA sclera is anicteric mouth throat mucous membranes are intact and moist neck is supple no lymphadenopathy, no JVD noted lung sounds are clear to auscultation heart regular rate rhythm, clear S1, S2 positive bowel sounds, abdomen is soft, nontender neuro patient is alert x3, no focal deficits Results Labs 01/12/25 00:15 01/12/25 10:23 Labs: Laboratory Results - last 24 hr 01/11/25 01/12/25 01/12/25 23:21 00:15 04:06 MCV 107.3 H MCH 38.1 H MCHC 35.5 RDW 13.0 Plt Count 78 L D MPV 9.9 Immature Gran % (Auto) 0.4 Neut % (Auto) 87.4 H Lymph % (Auto) 4.1 L [place] % (Auto) 7.7 Eos % (Auto) 0.0 Baso % (Auto) 0.4 Lymph # (Auto) 0.3 L [place] # (Auto) 0.6 Eos # (Auto) 0.0 Baso # (Auto) 0.0 Abs Immat Gran (auto) 0.03 Absolute Neuts (auto) 6.4 Absolute Nucleated RBC 0.000 Nucleated RBC % (auto) 0.0 Anion Gap 22 H Estim Creat Clear Calc 128.4 Estimated GFR > 60 POC Glucose 150 H Random Glucose 166 H Lactic Acid Lactic Acid F/U @ 2Hr Calcium 8.8 D Magnesium 1.3 L* Total Bilirubin 4.6 H AST 244 H ALT 82 H Alkaline Phosphatase 155 H Troponin I High Sens 54.7 H D 48.9 H Total Protein 6.8 Albumin 3.8 Lipase 38 Urine Color Urine Appearance Urine pH Ur Specific [place] Urine Protein Urine Glucose (UA) Urine Ketones Urine Blood Urine Nitrite Ur Leukocyte Esterase Urine RBC Urine WBC Ur Squamous Epith Cells Urine Bacteria Hyaline Casts Ethyl Alcohol 177 01/12/25 01/12/25 01/12/25 05:54 06:50 09:14 MCV MCH MCHC RDW Plt Count MPV Immature Gran % (Auto) Neut % (Auto) Lymph % (Auto) [place] % (Auto) Eos % (Auto) Baso % (Auto) Lymph # (Auto) [place] # (Auto) Eos # (Auto) Baso # (Auto) Abs Immat Gran (auto) Absolute Neuts (auto) Absolute Nucleated RBC Nucleated RBC % (auto) Anion Gap Estim Creat Clear Calc Estimated GFR POC Glucose Random Glucose Lactic Acid 3.2 H* Lactic Acid F/U @ 2Hr 2.2 H* Calcium Magnesium Total Bilirubin AST ALT Alkaline Phosphatase Troponin I High Sens Total Protein Albumin Lipase Urine Color Yellow Urine Appearance Clear Urine pH 7.0 Ur Specific [place] 1.010 Urine Protein Trace Urine Glucose (UA) Negative Urine Ketones 15 Urine Blood Trace H Urine Nitrite Negative Ur Leukocyte Esterase Negative Urine RBC 6-10 H Urine WBC 0-5 Ur Squamous Epith Cells 0-2 Urine Bacteria None Seen Hyaline Casts 0-2 Ethyl Alcohol Assessment and Plan (1) Acute alcohol intoxication: Status: Acute (2) Abdominal pain: Status: Acute Plan 64 year old man admitted with abdominal pain, nausea, vomiting and diarrhea over the last 4 days. Severe sepsis possibly secondary to acute choledocholithiasis Fever, tachycardia, elevated lactic acid Abdominal CT with cholelithiasis and possible choledocholithiasis Started IV Zosyn GI consultation Keep NPO for now Abdominal pain, nausea and vomiting Could possibly be secondary to choledocholithiasis versus gastritis from alcohol abuse Keep NPO for now Continue IV fluids Antiemetics IV Pepcid Alcohol abuse and intoxication Abdominal CT showing hepatic steatosis with hepatomegaly Alcohol level 177 Addiction Medicine consultation Phenobarbital protocol Folic acid, multivitamin and thiamine Hypokalemia Received IV potassium in the ER Resolved after repletion Hypomagnesemia Secondary to alcohol abuse and poor p.o. intake Replete with IV and oral magnesium Transaminitis Likely secondary to alcohol abuse AST 244/ALT 82/total bilirubin 4.6 Mildly elevated troponin Remains flat No ischemic changes noted on EKG Pancytopenia/thrombocytopenia Likely secondary to alcohol abuse and liver disease DVT prophylaxis with heparin Full code Patient will require at least 2 days of admission secondary to possible choledocholithiasis requiring specialty consultation and management as well as alcohol withdrawal treatment requiring medication and close monitoring. Patient is also noted to have multiple electrolyte abnormalities from alcohol abuse. Quality Stroke Does the patient have a stroke diagnosis?: No VTE Prior VTE?: No VTE Risk Level:: Medical - moderate - high VTE Device Contraindication: Treatment Not Indicated VTE Drug Contraindication: N/A - Med Ordered
[2025-01-12] MEDS: Thiamine HCL 100 MG in 0.9 % Sodium Chloride 100 ML 202 MG IV (10:24)
[2025-01-12 11:17] LABS: Reflex Lactate? 2 Y
[2025-01-12 11:26] LABS: Anion Gap 14 (12-20); Blood Urea Nitrogen 3 mg/dL (9-16); Calcium 8.1 mg/dL (8.4-10.2); Carbon Dioxide 26 mmol/L (22-29); Chloride 101 mmol/L (96-108); Creatinine Clr Calc Pharmacy 144.4; Estimated Glomerular Filt Rate > 60; Potassium 3.4 mmol/L (3.3-5.1); Sodium 138 mmol/L (135-145)
[2025-01-12] MEDS: KCl 40 mEq in 5% Dex/0.9% Sod 40 MEQ/1,000 ML IV.SOLN 100 MEQ IVCONT (11:39)
[2025-01-12 11:59] LABS: ~Lactic Acid-LAB USE ONLY 1.8 mmol/L (0.5-2.0)
--- NOTE | 2025-01-12 12:35 | PHA.MEDREC ---
Pharmacy Consult ? Medication Reconciliation Pharmacy has completed the medication reconciliation. Spoke with pt to confirm meds.
[2025-01-12 13:09] LABS: INTERNATIONAL NORM RATIO 1.2 (0.9-1.1); Prothrombin Time 13.9 SEC (10.9-12.4)
[2025-01-12 13:18] LABS: Alanine Aminotransferase 87 U/L (0-40); Albumin Level 3.2 g/dL (3.5-5.0); Alkaline Phosphatase 134 U/L (39-117); Aspartate Amino Transferase 260 U/L (5-37); Total Protein 5.8 g/dL (6.5-8.0)
[2025-01-12] MEDS: PHENobarbitaL sodium 130 MG/ML IM ONCE 273 MG IM (13:29)
[2025-01-12] MEDS: diazePAM 10 MG/2 ML CARTRIDGE 2.5 MG IVPUSH (13:39)
[2025-01-12] MEDS: PHENobarbitaL sodium 130 MG/ML VIAL IM Q3Hx2 208 MG IM ×2 (16:14→20:25)
--- NOTE | 2025-01-12 17:08 | HO.ADDICTCON ---
History of Present Illness Date of Service: 01/12/2025 Chief Complaint: alcohol intoxication, abdominal pain Reason for Consult: AUD Sources of Information: patient interviewed and chart reviewed HPI Narrative: Patient is a 64 year old male with AUD, who presented to [facility] c/o abdominal pain, n/v. Admitted with sepsis, electrolyte abnormalities and elevated liver enzymes. Phenobarbital protocol initiated in ED. Patient seen in ED while awaiting transfer to medical floor. He is awake, alert pleasant and engaged in interview. He reports that nausea and abdominal pain improving . Reports long history of alcohol use disorder, with increase in drinking over the past few years. Currently drinking a pint of vodka QD which he mixed with gingerale and drinks throughout the day. Reports history of treatment, including all medications for AUD Reports periods of abstinence ranging from several months to 5 years. He is very knowledgeable regarding recovery supports He appears comfortable overall, mild tremor felt. No diaphoresis or restlessness noted. Denies nausea/vomiting Medical Evaluation Reviewed: Yes Review of Systems Constitutional: Reports as per HPI Diagnostics Vital Signs (24Hr): Vital Signs - 24 hr 01/11/25 23:13 01/12/25 00:01 01/12/25 00:05 Temperature 98.1 F Pulse Rate 71 77 Respiratory Rate 25 H 25 H 25 H Blood Pressure 167/81 H Pulse Oximetry 99 99 Oxygen Delivery Method Room Air Room Air 01/12/25 02:44 01/12/25 06:25 01/12/25 06:47 Temperature 98.8 F 97.8 F 103.4 F H Pulse Rate 78 116 H Respiratory Rate 14 20 Blood Pressure 133/77 180/96 H Pulse Oximetry 99 98 Oxygen Delivery Method Room Air Room Air 01/12/25 08:00 01/12/25 10:00 01/12/25 10:18 Temperature 100.3 F Pulse Rate 109 H 105 H 101 H Respiratory Rate 20 18 20 Blood Pressure 133/64 151/80 H 142/75 H Pulse Oximetry 97 98 97 Oxygen Delivery Method Room Air Room Air Room Air Trach Collar 01/12/25 13:44 Temperature 98.2 F Pulse Rate 86 Respiratory Rate 18 Blood Pressure 153/90 H Pulse Oximetry 97 Oxygen Delivery Method Room Air BMI result Body Mass Index 31.6 Labs 01/12/25 00:15 01/12/25 10:23 Labs: Laboratory Results - last 48 hr 01/11/25 01/12/25 01/12/25 23:21 00:15 04:06 WBC 7.3 RBC 3.02 L Hgb 11.5 L Hct 32.4 L MCV 107.3 H MCH 38.1 H MCHC 35.5 RDW 13.0 Plt Count 78 L D MPV 9.9 Immature Gran % (Auto) 0.4 Neut % (Auto) 87.4 H Lymph % (Auto) 4.1 L Baldwin % (Auto) 7.7 Eos % (Auto) 0.0 Baso % (Auto) 0.4 Lymph # (Auto) 0.3 L Baldwin # (Auto) 0.6 Eos # (Auto) 0.0 Baso # (Auto) 0.0 Abs Immat Gran (auto) 0.03 Absolute Neuts (auto) 6.4 Absolute Nucleated RBC 0.000 Nucleated RBC % (auto) 0.0 PT INR Sodium 141 Potassium 2.7 L* D Chloride 103 Carbon Dioxide 19 L Anion Gap 22 H BUN 6 L Creatinine 0.63 Estim Creat Clear Calc 128.4 Estimated GFR > 60 POC Glucose 150 H Random Glucose 166 H Lactic Acid Lactic Acid F/U @ 2Hr Lactic Acid F/U @ 4Hr Calcium 8.8 D Magnesium 1.3 L* Total Bilirubin 4.6 H Direct Bilirubin AST 244 H ALT 82 H Alkaline Phosphatase 155 H Troponin I High Sens 54.7 H D 48.9 H Total Protein 6.8 Albumin 3.8 Lipase 38 Urine Color Urine Appearance Urine pH Ur Specific [place] Urine Protein Urine Glucose (UA) Urine Ketones Urine Blood Urine Nitrite Ur Leukocyte Esterase Urine RBC Urine WBC Ur Squamous Epith Cells Urine Bacteria Hyaline Casts Ethyl Alcohol 177 01/12/25 01/12/25 01/12/25 05:54 06:50 09:14 WBC RBC Hgb Hct MCV MCH MCHC RDW Plt Count MPV Immature Gran % (Auto) Neut % (Auto) Lymph % (Auto) Baldwin % (Auto) Eos % (Auto) Baso % (Auto) Lymph # (Auto) Baldwin # (Auto) Eos # (Auto) Baso # (Auto) Abs Immat Gran (auto) Absolute Neuts (auto) Absolute Nucleated RBC Nucleated RBC % (auto) PT INR Sodium Potassium Chloride Carbon Dioxide Anion Gap BUN Creatinine Estim Creat Clear Calc Estimated GFR POC Glucose Random Glucose Lactic Acid 3.2 H* Lactic Acid F/U @ 2Hr 2.2 H* Lactic Acid F/U @ 4Hr Calcium Magnesium Total Bilirubin Direct Bilirubin AST ALT Alkaline Phosphatase Troponin I High Sens Total Protein Albumin Lipase Urine Color Yellow Urine Appearance Clear Urine pH 7.0 Ur Specific [place] 1.010 Urine Protein Trace Urine Glucose (UA) Negative Urine Ketones 15 Urine Blood Trace H Urine Nitrite Negative Ur Leukocyte Esterase Negative Urine RBC 6-10 H Urine WBC 0-5 Ur Squamous Epith Cells 0-2 Urine Bacteria None Seen Hyaline Casts 0-2 Ethyl Alcohol 01/12/25 01/12/25 01/12/25 10:23 11:32 12:53 WBC RBC Hgb Hct MCV MCH MCHC RDW Plt Count MPV Immature Gran % (Auto) Neut % (Auto) Lymph % (Auto) Baldwin % (Auto) Eos % (Auto) Baso % (Auto) Lymph # (Auto) Baldwin # (Auto) Eos # (Auto) Baso # (Auto) Abs Immat Gran (auto) Absolute Neuts (auto) Absolute Nucleated RBC Nucleated RBC % (auto) PT 13.9 H INR 1.2 H Sodium 138 Potassium 3.4 D Chloride 101 Carbon Dioxide 26 Anion Gap 14 BUN 3 L Creatinine 0.56 Estim Creat Clear Calc 144.4 Estimated GFR > 60 POC Glucose Random Glucose 157 H Lactic Acid Lactic Acid F/U @ 2Hr Lactic Acid F/U @ 4Hr 1.8 Calcium 8.1 L D Magnesium Total Bilirubin 7.7 H Direct Bilirubin 5.5 H AST 260 H ALT 87 H Alkaline Phosphatase 134 H Troponin I High Sens Total Protein 5.8 L Albumin 3.2 L Lipase Urine Color Urine Appearance Urine pH Ur Specific [place] Urine Protein Urine Glucose (UA) Urine Ketones Urine Blood Urine Nitrite Ur Leukocyte Esterase Urine RBC Urine WBC Ur Squamous Epith Cells Urine Bacteria Hyaline Casts Ethyl Alcohol Imaging Radiology Impressions: ITS Impressions Abdomen Ultrasound 01/12/25 13:12 IMPRESSION: 1. Gallbladder demonstrating intraluminal sludge, gallstones, mild wall thickening, and trace pericholecystic fluid. Negative sonographic Miner's sign. 2. Normal common bile duct measuring 0.5 cm in diameter. (Please note, on the CT examination of earlier the same day, it measured up to 12 mm in diameter) Electronically signed by: Cornelio Chance MD 01/12/2025 01:32 PM EDT RP Cholangiopancreatography MRI 01/12/25 14:02 IMPRESSION: 1. Distended gallbladder with cholelithiasis and pericholecystic fluid. 2. Mildly dilated common bile duct. No evidence of choledocholithiasis. 3. Hepatic steatosis. 4. Bilateral perinephric fluid of uncertain seconds. Electronically signed by: Ryan Rodriguez MD 01/12/2025 03:05 PM EDT RP Mental Status Exam Mental Status Exam Level of Consciousness: Awake, Appropriate and Alert Patient Behavior: Appropriate, Talkative and Cooperative Mood Description: Calm Affect Description: Calm and Relaxed Speech Pattern: Clear Thought Process: Intact Thought Content: positive for Intact Judgement: Fair Medications Medications Current Medications Acetaminophen (Acetaminophen 325 Mg Tablet) 650 mg PO Q6H PRN PRN Reason: Pain, Mild 1-3,fever,headache Atenolol (Atenolol 100 Mg Tablet) 100 mg PO DAILY [facility]; Protocol Calcium Carbonate (Calcium Carbonate 750 Mg Tab.Chew) 750 mg PO Q4H PRN PRN Reason: Heartburn Famotidine (Famotidine/Pf 20 Mg/2 Ml Vial) 20 mg IVPUSH BID [facility] Folic Acid (Folic Acid 1 Mg Tablet) 1 mg PO DAILY [facility] Heparin Sodium (Porcine) (Heparin Sodium,Porcine 5,000 Unit/Ml Vial) 5,000 unit SUBCUT Q12H [facility] Last Admin: 01/12/25 10:24 Dose: 5,000 unit Piperacillin Sod/Tazobactam (Sod 4.5 gm/ Sodium Chloride) 100 mls @ 200 mls/hr IV Q6H [facility] Last Admin: 01/12/25 16:14 Dose: 200 mls/hr Potassium Chloride/Dextrose/Sod Cl (Kcl 40 Meq In 5% Dex/0.9% Sod) 40 meq in 1,000 mls @ 100 mls/hr IVCONT .Q10H [facility] Last Admin: 01/12/25 11:39 Dose: 100 mls/hr Thiamine HCl 100 mg/ Sodium (Chloride) 101 mls @ 202 mls/hr IV DAILY [facility] Last Infusion: 01/12/25 10:59 Dose: Infused Lisinopril (Lisinopril 40 Mg Tablet) 40 mg PO DAILY CECI; Protocol Magnesium Hydroxide (Milk Of Magnesia 30 Ml Oral.Susp) 30 ml PO DAILY PRN PRN Reason: Constipation Magnesium Oxide (Magnesium Oxide 400 Mg Tablet) 400 mg PO BIDPC [facility] Melatonin (Melatonin 3 Mg Tablet) 6 mg PO BEDTIME PRN PRN Reason: Insomnia Morphine Sulfate (Morphine Sulfate 4 Mg/Ml Cartridge) 2 mg IVPUSH Q4H PRN; Protocol PRN Reason: Pain, Severe (Pain Scale 7-10) Multivitamins/Vitamin C (Multivitamin Tablet) 1 tab PO DAILY [facility] Ondansetron HCl (Ondansetron Hcl 4 Mg/2 Ml Vial) 4 mg IVPUSH Q8H PRN PRN Reason: Nausea and Vomiting Pharmacy Consult (Consult Rx Etoh Phenob Im/Po) 1 each MISCELLANE ONCE PRN; Protocol PRN Reason: Consult order Phenobarbital (Phenobarbital 15 Mg Tablet) 45 mg PO BID [facility] Stop: 01/14/25 21:01 Phenobarbital (Phenobarbital 15 Mg Tablet) 15 mg PO BID [facility] Stop: 01/16/25 21:01 Phenobarbital (Phenobarbital 15 Mg Tablet) 15 mg PO DAILY [facility] Stop: 01/18/25 09:01 Phenobarbital Sodium (Phenobarbital Sodium 130 Mg/Ml Vial Im Q3hx2) 208 mg IM Q3H [facility] Stop: 01/12/25 19:01 Last Admin: 01/12/25 16:14 Dose: 208 mg Sodium Chloride (0.9 % Sodium Chloride Flush 3 Ml Syringe) 3 ml IVFLUSH QSHIFT [facility] Last Admin: 01/12/25 15:53 Dose: Not Given Allergies Allergies Allergy/AdvReac Type Severity Reaction Status Date / Time acetaminophen (From TYLENOL) Allergy Intermediate HIVES Verified 01/11/25 23:23 apple (APPLES) Allergy Intermediate HIVES Verified 01/11/25 23:23 Assessment & Plan Assessment & Plan (1) Alcohol use disorder, severe, dependence: Status: Acute Code(s): F10.20 - Alcohol dependence, uncomplicated Assessment and Plan: phenobarbital protocol in place -managing withdrawal sx continue thiamine and folic acid-encouraged to continue following discharge open to discussing resources with director of catering -at this time not conisdering restarting TOMY Total time managing care of this patient today __30__ minutes. PMFSH Past Medical History Medical History Alcohol abuse Cholecystitis Impaired glucose tolerance Vitamin D deficiency Anxiety and depression Alcohol abuse Tobacco abuse Post traumatic stress disorder (PTSD) Obesity (BMI 30-39.9) Hypercholesterolemia GERD (gastroesophageal reflux disease) Hypertension Family History Family History Father Renal cancer Other Substance use disorder Surgical History Surgical History History of esophagogastroduodenoscopy (EGD) Hx of colonoscopy History of tonsillectomy Social History Social History Household Members: None Housing: House Are you a primary daycare teacher to a significant other at home: No Do you presently have visiting nurse or other home services: No Alcohol intake: current Alcohol intake frequency: 3 or more drinks per day Alcohol type: hard liquor Patient Tobacco Use Status: Current everyday Tobacco user Tobacco use type: Cigarette Cigarette Packs Per Day: 1 Cigarettes Per Day: 20.0 Years Smoked: 50 Smoked in Last 30 Days: No e-Cigarette/Vaping Use: Never Used Second Hand Smoke Exposure: Yes Use of substances other than those prescribed or required for medical reasons: No Substance Use Type: Marijuana Advance Directives: No Advance Directives Information Provided: Yes service: No Current occupational status: retired Cognitive needs: No Hearing needs: No Vision needs: Yes (Reading glasses)
--- NOTE | 2025-01-12 18:04 | P.EN_ITS ---
Event Note Date of Service: 01/12/25 Event Note: GI Consult-Full note dictated Imp: 64 yo male with chronic daily EtOH abuse and s/p completion of XRT last week for prostate cancer presenting with several days of diffuse abdominal pain, N/V, and diarrhea. He denies any bleeding, antibiotic use, travel, or ill co ntacts. He thinks he may have had some bad takeout at the end of last week. He reports all of those symptoms have presently resolved and he is feeling much better. Initial w/u with CT raised a suspicion of a CBD stone, but U/S and MRCP are negative in that regard. He does have gallstones but no signs of cholecystitis on the imaging studies or by his present exam. His LFT's are c/w an EtOH-induced hepatitis, along with his detectable EtOH level as well. His presenting symptoms seem most c/w some type of gastroenteritis. I don't think he has any component of biliary disease or symptomatic gallstones at this time. Rec: Check stool specimens if they become available. Advance diet as tolerated. Supportive care. I do not think he needs any intervention such as ERCP or CCY in regard to the gallstones at this time. I do not think he needs prednisolone for the EtOH-hepatitis at this time. F/U labs. I advised him to avoid EtOH intermediate and he reports that he is aware of that. D/W patient in detail and he is comortable with this plan. Thanks Time Spent With Patient Time: Total time managing care of this patient today ____ minutes.
[2025-01-13 03:30] VITALS: BP 143/78; PULSE 75; RESP 18; TEMP 37.1; O2SAT 97
--- NOTE | 2025-01-13 04:23 | CONS_ITS ---
DATE OF SERVICE: 01/12/2025 REASON FOR CONSULTATION: Abdominal pain, diarrhea, vomiting, and elevated LFTs. HISTORY OF PRESENT ILLNESS: The patient is a 64-year-old male, well known to me with a history of alcohol abuse and elevated LFTs in the past. He unfortunately describes that he has continued to drink about 1 pint of vodka daily. He just completed radiation treatments last week for prostate cancer. He reports that he was doing well during the time with the radiation treatments, but over the past several days has been having episodes of diffuse abdominal pain, vomiting, and diarrhea. He relates this to what he thinks was eating some bad takeout. He denies any sign of hematemesis, coffee-ground emesis, hematochezia, or melena. He thinks he may have had a fever at home as well as some chills. He did have a temp as high as 103.4 in the ER this morning. He reports that since coming to the ER, he has been feeling much better. He denies any vomiting or diarrhea today. He is hungry. Aside from the history of having possibly had some spoiled food, he denies any ill contacts, travel, nor antibiotic use. He denies any dysuria nor hematuria. He denies any significant heartburn or dysphagia. Prior to the past few days, he had been feeling fairly well with good appetite. MEDICATIONS: At home included atenolol, iron, folic acid, lisinopril, omeprazole. His medications here in the hospital include acetaminophen, atenolol. He received 1 dose of ceftriaxone IV in the ER. Diazepam p.r.n. He received 1 dose of IV Pepcid. He is now on Pepcid 20 mg IV twice a day. He is on subcu heparin. Folic acid. Lisinopril. Magnesium oxide. Melatonin p.r.n. Morphine p.r.n. Milk of magnesia p.r.n. Zofran p.r.n. Phenobarbital orally. IV Zosyn. Thiamine. PAST MEDICAL HISTORY: Chronic alcohol abuse. PTSD. Anemia. Kidney stones. Hypertension. Prostate cancer. Colon polyps. Upper endoscopy in 2022 revealed a hiatal hernia with associated gastritis and reflux. There were no changes of Bell esophagus or H pylori. He has tonsillectomy. SOCIAL HISTORY: He is single. He lives by himself. He does smoke. Alcohol as above. FAMILY HISTORY: Noncontributory. REVIEW OF SYSTEMS: CONSTITUTIONAL: He had been feeling fairly well up until the past few days. SKIN: No rash. No pruritus. CARDIAC: No chest pain. PULMONARY: No cough. No hemoptysis. GI: As above. URINARY: No dysuria. No hematuria. NEUROLOGIC: No headache or seizures. PHYSICAL EXAMINATION: GENERAL: The patient is an alert, pleasant, comfortable-appearing male, in no distress. SKIN: Warm and dry. Anicteric sclerae. Moist mucous membranes. NECK: Supple. ABDOMEN: Soft. Normal bowel sounds. Nontender without organomegaly or mass. EXTREMITIES: Without edema. LABORATORY DATA: His initial CT scan raised a suspicion of a distal common bile duct stone at the level of the ampulla with a 13 mm bile duct. There was no sign of any other significant abnormalities other than some fatty liver, gallstones, and some stranding around the kidneys. There was no evidence of any cholecystitis. There was no splenomegaly nor pancreatic disease. There is no description of any significant ascites. A followup abdominal ultrasound described gallstones in the gallbladder and some mild wall thickening up to 4 mm, but without any definitive evidence of cholecystitis. The common bile duct measured only 5 mm. A MRI with MRCP described a distended gallbladder with gallstones and some small amount of surrounding fluid. There was no evidence of any choledocholithiasis. There was fatty liver. White blood cell count 7.3, hemoglobin 11.5, MCV 107, platelets 78,000. PT 13.9 with INR 1.2. Normal electrolytes, BUN 3 with creatinine 0.6. Initial total bilirubin was 4.6 and subsequently mac to 7.7 with a direct bilirubin of 5.5. AST 244, which mac to 260. ALT 82 with a followup of 87. Alkaline phosphatase 155 with a repeat of 134. He had a normal albumin and lipase level. IMPRESSION: In regard to the patient's presentation, this seems most consistent with that of a gastroenteritis, possibly in relation to a food-borne illness as he describes having possibly eaten some bad food. This seems to have run its course at this point, as he is now asymptomatic, has a benign abdomen and is hungry. In this regard, I would continue supportive care and then advance his diet as tolerated. I have ordered stool specimens in the event he has diarrhea again to rule out anything such as C difficile or other enteric infection. Based on the ultrasound and MRCP, I do not think there is any sign of choledocholithiasis at this time. His presentation again does not seem consistent with that, although he may very well have passed the stone based on the initial CT scan reading and then the resolution of his symptoms. He does have gallstones in the gallbladder as well. At this point, I do think the gallstones in the gallbladder are symptomatic as he has a benign abdominal exam and his pain was rather diffuse throughout the abdomen as opposed to located in the right upper quadrant. Given his current condition and what appears to be alcohol-induced hepatitis, I would not recommend cholecystectomy at this time. I do not think he needs an ERCP either. In regard to the elevated LFTs, this does seem consistent with alcohol-induced hepatitis based on his clinical history with an alcohol level of over 170. At this point, I would continue supportive care, follow stool specimen results if a specimen is sent off, and advance diet as tolerated. His LFTs do not seem particularly bad and I do not think he needs prednisolone at this time for the alcohol-induced hepatitis. I would follow his LFTs and PT with INR. He is aware that he needs to stay off all alcohol altogether and I reinforced that to him. This has all been discussed in detail with the patient and he is comfortable with the plan. MD CHOCO Ellison/ALTHEA / [id number] MTDD
[2025-01-13] MEDS: KCl 40 mEq in 5% Dex/0.9% Sod 40 MEQ/1,000 ML IV.SOLN 100 MEQ IVCONT ×2 (05:59→16:40)
--- NOTE | 2025-01-13 07:16 | P.PNIM_ITS ---
Subjective Subjective Date of Service: 01/13/25 Interval History: Patient was admitted for what we presumed to be an alcohol intake , and now he appears to have Gram-negative high-grade bacteremia, conjugated hyperbilirubinemia, SANCHEZ/liver cirrhosis, cholelithiasis without cholecystitis (GI evaluated the patient by MRCP) Patient reports I would like to go home , unfortunately has been known to be noncompliant with meds as soon as continuing to have ongoing alcohol use disorder. We will continue to repeat 2 sets of blood culture until he is negative Review of Systems Review of Systems: Yes all other systems are reviewed and are negative Physical Exam 2 Exam: Exam: General: AOx3, no acute distress Resp: CTA bilaterally CVS: S1, S2, RRR GI: +BS, NT, no distention Skin: Warm, dry Neuro: Cranial nerves II-XII grossly intact bilaterally. Motor grossly intact bilaterally Vital Signs: Vital Signs: Last Vital Signs Temp 98.7 F 01/13/25 03:30 Pulse 75 01/13/25 03:30 Resp 18 01/13/25 03:30 BP 143/78 H 01/13/25 03:30 Pulse Ox 97 01/13/25 03:30 O2 Del Method Room Air 01/13/25 03:30 BMI result Body Mass Index 33.2 Objective Data Active Medications Acetaminophen (Acetaminophen 325 Mg Tablet) 650 mg PO Q6H PRN PRN Reason: Pain, Mild 1-3,fever,headache Atenolol (Atenolol 100 Mg Tablet) 100 mg PO DAILY [facility]; Protocol Calcium Carbonate (Calcium Carbonate 750 Mg Tab.Chew) 750 mg PO Q4H PRN PRN Reason: Heartburn Famotidine (Famotidine/Pf 20 Mg/2 Ml Vial) 20 mg IVPUSH BID [facility] Last Admin: 01/12/25 20:24 Dose: 20 mg Documented By: KAMALJIT Folic Acid (Folic Acid 1 Mg Tablet) 1 mg PO DAILY [facility] Heparin Sodium (Porcine) (Heparin Sodium,Porcine 5,000 Unit/Ml Vial) 5,000 unit SUBCUT Q12H [facility] Last Admin: 01/12/25 22:31 Dose: 5,000 unit Documented By: PELON Piperacillin Sod/Tazobactam (Sod 4.5 gm/ Sodium Chloride) 100 mls @ 200 mls/hr IV Q6H [facility] Last Infusion: 01/13/25 05:55 Dose: Infused Documented By: ELMA Potassium Chloride/Dextrose/Sod Cl (Kcl 40 Meq In 5% Dex/0.9% Sod) 40 meq in 1,000 mls @ 100 mls/hr IVCONT .Q10H [facility] Last Admin: 01/13/25 05:59 Dose: 100 mls/hr Documented By: ELMA Thiamine HCl 100 mg/ Sodium (Chloride) 101 mls @ 202 mls/hr IV DAILY [facility] Last Infusion: 01/12/25 10:59 Dose: Infused Documented By: MIGUEL Influenza Virus Vaccine (Flu Vacc [id number](6mo Up)/Pf 0.5 Ml Syringe) 0.5 ml IM .ONCE ONE Stop: 01/14/25 09:01 Lisinopril (Lisinopril 40 Mg Tablet) 40 mg PO DAILY [facility]; Protocol Magnesium Hydroxide (Milk Of Magnesia 30 Ml Oral.Susp) 30 ml PO DAILY PRN PRN Reason: Constipation Magnesium Oxide (Magnesium Oxide 400 Mg Tablet) 400 mg PO BIDPC [facility] Last Admin: 01/12/25 17:32 Dose: 400 mg Documented By: MIGUEL Melatonin (Melatonin 3 Mg Tablet) 6 mg PO BEDTIME PRN PRN Reason: Insomnia Morphine Sulfate (Morphine Sulfate 4 Mg/Ml Cartridge) 2 mg IVPUSH Q4H PRN; Protocol PRN Reason: Pain, Severe (Pain Scale 7-10) Multivitamins/Vitamin C (Multivitamin Tablet) 1 tab PO DAILY [facility] Ondansetron HCl (Ondansetron Hcl 4 Mg/2 Ml Vial) 4 mg IVPUSH Q8H PRN PRN Reason: Nausea and Vomiting Pharmacy Consult (Consult Rx Etoh Phenob Im/Po) 1 each MISCELLANE ONCE PRN; Protocol PRN Reason: Consult order Phenobarbital (Phenobarbital 15 Mg Tablet) 45 mg PO BID [facility] Stop: 01/14/25 21:01 Phenobarbital (Phenobarbital 15 Mg Tablet) 15 mg PO BID [facility] Stop: 01/16/25 21:01 Phenobarbital (Phenobarbital 15 Mg Tablet) 15 mg PO DAILY [facility] Stop: 01/18/25 09:01 Sodium Chloride (0.9 % Sodium Chloride Flush 3 Ml Syringe) 3 ml IVFLUSH QSHIFT [facility] Last Admin: 01/12/25 22:31 Dose: Not Given Documented By: PELON Non-Admin Reason: IV Running Labs 01/13/25 06:42 01/13/25 06:42 Labs: Laboratory Results - last 24 hr 01/12/25 01/12/25 01/12/25 06:50 09:14 10:23 PT INR Anion Gap 14 Estim Creat Clear Calc 144.4 Estimated GFR > 60 Random Glucose 157 H Lactic Acid 3.2 H* Lactic Acid F/U @ 2Hr 2.2 H* Lactic Acid F/U @ 4Hr Calcium 8.1 L D Total Bilirubin Direct Bilirubin AST ALT Alkaline Phosphatase Total Protein Albumin 01/12/25 01/12/25 11:32 12:53 PT 13.9 H INR 1.2 H Anion Gap Estim Creat Clear Calc Estimated GFR Random Glucose Lactic Acid Lactic Acid F/U @ 2Hr Lactic Acid F/U @ 4Hr 1.8 Calcium Total Bilirubin 7.7 H Direct Bilirubin 5.5 H AST 260 H ALT 87 H Alkaline Phosphatase 134 H Total Protein 5.8 L Albumin 3.2 L Microbiology Microbiology Results: Microbiology 01/12/25 06:52 Blood Culture - Preliminary Blood - Venous Prelim: GNR Gram Stain only 01/12/25 06:50 Blood Culture - Preliminary Blood - Venous Prelim: GNR Gram Stain only Assessment and Plan (1) Gram-negative bacteremia: Status: Acute Plan Patient is a 64-year-old male with PMH notable for poor historian at baseline, noncompliant with medications, ongoing alcohol use disorder and recurrent frequent admissions due to alcohol withdrawal, prostate cancer, PTSD, GERD, HTN , morbid obesity, anxiety, depression, DM type 2, cholelithiasis who presented with periumbilical abdominal pain and was noted to have Gram-negative bacteremia, conjugated hyperbilirubinemia, started on phenobarb for alcohol withdrawal prophylaxis. Severe sepsis with multiorgan dysfunction secondary to Gram-negative bacteremia- likely GI source -patient is on Zosyn, fluids per sepsis protocol and maintenance to maintain hemodynamics Severe recurrent relapsing admissions for alcohol withdrawal-currently on phenobarb protocol. Addiction Medicine consulted, currently we will continue phenobarb protocol Severe conjugated hyperbilirubinemia, Elevated LFTs, pancytopenia, slightly impaired synthetic dysfunction, hypercalcemia HTN-patient appears hypertensive, likely secondary to stress reaction-we will continue to hold antihypertensives given severe sepsis, we will resume based on clinical condition cholelithiasis without cholecystitis-recommended outpatient management DM type 2-we will maintain on insulin sliding scale to maintain euglycemia PTSD, anxiety, depression-we will continue home meds Prostate cancer appears stable-outpatient management Obesity-advised the dietary management In my clinical judgment the patient needs ongoing medical management for severe sepsis secondary to Gram-negative bacteremia says requiring IV antibiotics and daily LFTs to prevent severe decompensation. This note is constructed using voice recognition software. While every effort has been made to ensure accuracy, stripping shovel operator errors may have been included. Quality Stroke Does the patient have a stroke diagnosis?: No VTE Prior VTE?: No VTE Risk Level:: Medical - moderate - high VTE Device Contraindication: Treatment Not Indicated VTE Drug Contraindication: N/A - Med Ordered
[2025-01-13 07:18] VITALS: BP 156/91; PULSE 81; RESP 20; TEMP 37.2; O2SAT 98
[2025-01-13 07:28] LABS: Hematocrit 27.4 % (42.0-52.0); Hemoglobin 9.7 g/dl (14.0-18.0); Mean Corpuscular HGB Conc 35.4 g/dl (31.0-36.0); Mean Corpuscular Hemoglobin 37.9 pg (27.0-33.0); Mean Corpuscular Volume 107.0 fL (80.0-98.0); NRBC Abs Auto 0.020 X10*3/uL (0.0-0.012); NRBC Pct Auto 0.5 /100WBC (0.0-0.2); Red Blood Count 2.56 X10*6/uL (4.60-5.80); White Blood Count 4.4 X10*3/uL (4.8-10.8)
[2025-01-13 07:31] LABS: Platelet Count 43 X10*3/uL (160-400)
[2025-01-13 07:36] LABS: INTERNATIONAL NORM RATIO 1.2 (0.9-1.1); Prothrombin Time 14.1 SEC (10.9-12.4)
[2025-01-13 07:52] LABS: Alanine Aminotransferase 91 U/L (0-40); Albumin Level 3.0 g/dL (3.5-5.0); Alkaline Phosphatase 113 U/L (39-117); Anion Gap 13 (12-20); Aspartate Amino Transferase 244 U/L (5-37); Blood Urea Nitrogen 6 mg/dL (9-16); Calcium 8.1 mg/dL (8.4-10.2); Carbon Dioxide 27 mmol/L (22-29); Chloride 103 mmol/L (96-108); Creatinine Clr Calc Pharmacy 127.5; Estimated Glomerular Filt Rate > 60; Magnesium 1.3 mg/dL (1.6-2.6); Potassium 3.4 mmol/L (3.3-5.1); Sodium 140 mmol/L (135-145); Total Protein 5.7 g/dL (6.5-8.0)
[2025-01-13] MEDS: Thiamine HCL 100 MG in 0.9 % Sodium Chloride 100 ML 202 MG IV (08:51)
[2025-01-13] MEDS: 0.9 % Sodium Chloride Flush 3 ML SYRINGE IVFLUSH ×2 (08:51→23:08)
[2025-01-13 10:50] LABS: CDiff Gene PCR POSITIVE (Negative)
[2025-01-13 11:21] VITALS: BP 147/78; PULSE 68; RESP 18; TEMP 37; O2SAT 99
[2025-01-13 11:22] LABS: CDiff Toxin Positive (Negative)
[2025-01-13 11:24] LABS: CDIFF Internal ctrl Dots and bkg OK (V)
--- NOTE | 2025-01-13 12:08 | MHC.RECOVRN ---
Consult placed for alcohol use on admission, subsequently, met with this commercial lines underwriter to discuss alcohol use and Recovery supports and options TW met with the patient to discuss current alcohol use and concerns related to increased risk of alcohol related problems. Patient reports consuming 1 pint of vodka daily for the past several years and states his urge to drink is stronger than his desire to quit although he reports several periods of abstinence in which he went cold turkey . Pt states TOMY doesn't work but did accept a referral for a school standards coach. Discussed how alcohol use has impacted health, including negative impact on mental health and overall physical well being. Discussed risk and reduction strategies including drinking below the recommended limit. Provided pt with written resources including information on inpatient and outpatient treatment, TOMY, harm reduction and recovery coaching. Pt declines intervention other than school standards coach referral at this time. Pt refuses TOMY, or outpatient appt for treatment related to AUD. Pt was provided with TW?s contact information if questions or concerns arise. Pt denies further questions or concerns at this time.
--- NOTE | 2025-01-13 13:37 | MHC.CM.PN ---
IMM 01/13/25 DELIVERED TO BEDSIDE, CM MET W/PT WHO REPORTS HE CURRENTLY LIVES ALONE D/T HIS BEING IN [place] AND CARING FOR HER MOTHER, PT IS INDEP W/ALL CARE, HAS A FWW AT HOME HOWEVER REPORTS HE DOESN'T NEED TO USE IT, PT DENIES HOME SERVICES, PT'S GOAL FOR DC IS HOME NO SERVICES. PT VERIFIES PCP/HCP ON FILE DP: HOME NO SERVICES W/FAMILY VS [facility] SHUTTLE FOR TRANSPORT
--- NOTE | 2025-01-13 13:59 | W.MHC.ACPN ---
Advanced Care Planning Note Advanced Care Planning Note Discussed with: patient Time spent (in minutes): 35 Narrative: As the patient about his code status, he said he did not want aggressive management and his daughter and son are the healthcare proxy. Advised the patient to confer with them and would then change his code status. Problems Discussed (1) Gram-negative bacteremia:
[2025-01-13 14:41] LABS: E. coli EAEC Not Detected (Not Detect.); E. coli EPEC Not Detected (Not Detect.); E. coli ETEC Not Detected (Not Detect.); E. coli STEC Not Detected (Not Detect.); Shigella sp./EIEC Not Detected (Not Detect.)
[2025-01-13 15:13] VITALS: BP 114/64; PULSE 75; RESP 20; TEMP 37.2; O2SAT 98
[2025-01-13 19:57] VITALS: BP 153/79; PULSE 73; RESP 18; TEMP 36.7; O2SAT 99
[2025-01-13 23:45] VITALS: BP 153/82; PULSE 71; RESP 18; TEMP 36.6; O2SAT 98
[2025-01-14] MEDS: KCl 40 mEq in 5% Dex/0.9% Sod 40 MEQ/1,000 ML IV.SOLN 100 MEQ IVCONT (03:12)
[2025-01-14 03:24] VITALS: BP 166/92; PULSE 72; RESP 18; TEMP 37.1; O2SAT 99
[2025-01-14 06:53] LABS: Hemoglobin 8.6 g/dl (14.0-18.0); NRBC Abs Auto 0.000 X10*3/uL (0.0-0.012); NRBC Pct Auto 0.0 /100WBC (0.0-0.2); PLT CLUMP 1; SCAN SMEAR FLAG 1
[2025-01-14 06:55] LABS: Hematocrit 24.5 % (42.0-52.0); Imm Gran Abs Auto 0.03 X10*3/uL (0.00-0.03); Imm Gran Pct Auto 0.8 % (0.0-0.4); Lymphocytes Absolute Auto 0.5 X10*3/uL (1.2-4.9); MANUAL DIFF FLAG SCAN; Mean Corpuscular HGB Conc 35.1 g/dl (31.0-36.0); Mean Corpuscular Hemoglobin 38.4 pg (27.0-33.0); Mean Corpuscular Volume 109.4 fL (80.0-98.0); Red Blood Count 2.24 X10*6/uL (4.60-5.80)
[2025-01-14 06:56] LABS: White Blood Count 3.8 X10*3/uL (4.8-10.8)
[2025-01-14 06:57] LABS: Platelet Count 52 X10*3/uL (160-400)
[2025-01-14 07:12] LABS: Alanine Aminotransferase 67 U/L (0-40); Albumin Level 2.7 g/dL (3.5-5.0); Alkaline Phosphatase 91 U/L (39-117); Anion Gap 11 (12-20); Aspartate Amino Transferase 119 U/L (5-37); Blood Urea Nitrogen 4 mg/dL (9-16); Calcium 7.7 mg/dL (8.4-10.2); Carbon Dioxide 23 mmol/L (22-29); Chloride 109 mmol/L (96-108); Creatinine Clr Calc Pharmacy 116.7; Estimated Glomerular Filt Rate > 60; Magnesium 1.5 mg/dL (1.6-2.6); Potassium 3.4 mmol/L (3.3-5.1); Sodium 140 mmol/L (135-145); Total Protein 5.3 g/dL (6.5-8.0)
--- NOTE | 2025-01-14 07:12 | P.PNIM_ITS ---
Subjective Subjective Date of Service: 01/14/25 Interval History: pt had q about abx and each of its SE and if thats the reason for his diarrhea. explained at length >45 mins in his room about why he nees c diff rx , abx for gnb, continued monitoring of labs given multiorgan dysfuntion in this pt Review of Systems Review of Systems: Yes all other systems are reviewed and are negative Physical Exam 2 Exam: Exam: General: AOx3, no acute distress , icteric Resp: CTA bilaterally CVS: S1, S2, RRR GI: +BS, NT, no distention, protuberant abdomen Skin: icteric Neuro: Motor grossly intact bilaterally Vital Signs: Vital Signs: Last Vital Signs Temp 98.7 F 01/14/25 03:24 Pulse 72 01/14/25 03:24 Resp 18 01/14/25 03:24 BP 166/92 H 01/14/25 03:24 Pulse Ox 99 01/14/25 03:24 O2 Del Method Room Air 01/14/25 03:24 BMI result Body Mass Index 33.2 Objective Data Active Medications Acetaminophen (Acetaminophen 325 Mg Tablet) 650 mg PO Q6H PRN PRN Reason: Pain, Mild 1-3,fever,headache Atenolol (Atenolol 100 Mg Tablet) 100 mg PO DAILY [facility]; Protocol Last Admin: 01/13/25 08:49 Dose: 100 mg Documented By: AILYN Calcium Carbonate (Calcium Carbonate 750 Mg Tab.Chew) 750 mg PO Q4H PRN PRN Reason: Heartburn Famotidine (Famotidine/Pf 20 Mg/2 Ml Vial) 20 mg IVPUSH BID [facility] Last Admin: 01/13/25 22:04 Dose: 20 mg Documented By: DOROTEO Folic Acid (Folic Acid 1 Mg Tablet) 1 mg PO DAILY [facility] Last Admin: 01/13/25 08:49 Dose: 1 mg Documented By: AILYN Heparin Sodium (Porcine) (Heparin Sodium,Porcine 5,000 Unit/Ml Vial) 5,000 unit SUBCUT Q12H [facility] Last Admin: 01/13/25 22:04 Dose: 5,000 unit Documented By: DOROTEO Piperacillin Sod/Tazobactam (Sod 4.5 gm/ Sodium Chloride) 100 mls @ 200 mls/hr IV Q6H [facility] Last Infusion: 01/14/25 04:57 Dose: Infused Documented By: DOROTEO Potassium Chloride/Dextrose/Sod Cl (Kcl 40 Meq In 5% Dex/0.9% Sod) 40 meq in 1,000 mls @ 100 mls/hr IVCONT .Q10H [facility] Last Admin: 01/14/25 03:12 Dose: 100 mls/hr Documented By: DOROTEO Thiamine HCl 100 mg/ Sodium (Chloride) 101 mls @ 202 mls/hr IV DAILY [facility] Last Infusion: 01/13/25 09:54 Dose: Infused Documented By: AILYN Influenza Virus Vaccine (Flu Vacc [id number](6mo Up)/Pf 0.5 Ml Syringe) 0.5 ml IM .ONCE ONE Stop: 01/14/25 09:01 Lisinopril (Lisinopril 40 Mg Tablet) 40 mg PO DAILY [facility]; Protocol Last Admin: 01/13/25 08:49 Dose: 40 mg Documented By: AILYN Magnesium Hydroxide (Milk Of Magnesia 30 Ml Oral.Susp) 30 ml PO DAILY PRN PRN Reason: Constipation Magnesium Oxide (Magnesium Oxide 400 Mg Tablet) 400 mg PO BIDPC [facility] Last Admin: 01/13/25 17:43 Dose: 400 mg Documented By: AILYN Melatonin (Melatonin 3 Mg Tablet) 6 mg PO BEDTIME PRN PRN Reason: Insomnia Morphine Sulfate (Morphine Sulfate 4 Mg/Ml Cartridge) 2 mg IVPUSH Q4H PRN; Protocol PRN Reason: Pain, Severe (Pain Scale 7-10) Multivitamins/Vitamin C (Multivitamin Tablet) 1 tab PO DAILY [facility] Last Admin: 01/13/25 08:50 Dose: 1 tab Documented By: AILYN Ondansetron HCl (Ondansetron Hcl 4 Mg/2 Ml Vial) 4 mg IVPUSH Q8H PRN PRN Reason: Nausea and Vomiting Pharmacy Consult (Consult Rx Etoh Phenob Im/Po) 1 each MISCELLANE ONCE PRN; Protocol PRN Reason: Consult order Phenobarbital (Phenobarbital 15 Mg Tablet) 45 mg PO BID [facility] Stop: 01/14/25 21:01 Last Admin: 01/13/25 22:04 Dose: 45 mg Documented By: DOROTEO Phenobarbital (Phenobarbital 15 Mg Tablet) 15 mg PO BID [facility] Stop: 01/16/25 21:01 Phenobarbital (Phenobarbital 15 Mg Tablet) 15 mg PO DAILY [facility] Stop: 01/18/25 09:01 Sodium Chloride (0.9 % Sodium Chloride Flush 3 Ml Syringe) 3 ml IVFLUSH QSHIFT [facility] Last Admin: 01/13/25 23:08 Dose: 3 ml Documented By: DOROTEO Vancomycin HCl (Vancomycin Hcl 125 Mg Capsule) 250 mg PO Q6H [facility] Last Admin: 01/14/25 04:59 Dose: 250 mg Documented By: DOROTEO Labs 01/14/25 06:19 01/14/25 06:19 Labs: Laboratory Results - last 24 hr 01/13/25 01/13/25 06:42 09:28 MCV 107.0 H MCH 37.9 H MCHC 35.4 RDW 13.1 Plt Count 43 L D MPV 11.2 Absolute Nucleated RBC 0.020 H Nucleated RBC % (auto) 0.5 H PT 14.1 H INR 1.2 H Anion Gap 13 Estim Creat Clear Calc 127.5 Estimated GFR > 60 Random Glucose 97 Calcium 8.1 L Magnesium 1.3 L* Total Bilirubin 6.8 H Direct Bilirubin 5.0 H AST 244 H ALT 91 H Alkaline Phosphatase 113 Total Protein 5.7 L Albumin 3.0 L Stl C. cayetanensis PCR Not Detected Stool Rotavirus A PCR Not Detected Stl Adenov F 40/41 PCR Not Detected Stool Astrovirus (PCR) Not Detected Stool Campylobacter PCR Not Detected Stool Cryptosporidium PCR Not Detected Stl Sh Tox Pr E STEC PCR Not Detected Stool E coli O157 PCR Not applicable Stl Enterotoxigenic E PCR Not Detected Stool EPEC (PCR) Not Detected Stool EAEC (PCR) Not Detected Stl E. histolytica PCR Not Detected Stool Giardia Lamblia PCR Not Detected Stl P. shigelloides PCR Not Detected Stool Salmonella PCR Not Detected Stool Sapovirus (PCR) Not Detected Stl Shigella/EIEC PCR Not Detected St Y.enterocolitica PCR Not Detected Stool Vibrio (PCR) Not Detected Stl Vibrio cholerae PCR Not Detected Stl Norovirus GI/GII PCR Not Detected C. difficile Tox B Gene POSITIVE A* C. difficile Toxin A&B Positive A* C. difficile Interpret SEE NOTE Microbiology Microbiology Results: Microbiology 01/12/25 06:52 Blood Culture - Preliminary Blood - Venous Gram negative tiffani 01/12/25 06:50 Blood Culture - Preliminary Blood - Venous Gram negative tiffani Assessment and Plan (1) Gram-negative bacteremia: Status: Acute Plan Patient is a 64-year-old male with PMH notable for poor historian at baseline, noncompliant with medications, ongoing alcohol use disorder and recurrent frequent admissions due to alcohol withdrawal, prostate cancer, PTSD, GERD, HTN , morbid obesity, anxiety, depression, DM type 2, cholelithiasis who presented with periumbilical abdominal pain and was noted to have Gram-negative bacteremia, Cdiff colitis, conjugated hyperbilirubinemia,phenobarb for alcohol withdrawal prophylaxis. Severe sepsis with multiorgan dysfunction secondary to Gram-negative bacteremia, C diff colitis -likely GI source -Cont Zosyn, fluids maintenance to maintain hemodynamics, f/up sepsis protocol Severe recurrent relapsing admissions for alcohol withdrawal-currently on phenobarb protocol. Addiction Medicine consulted, currently we will continue phenobarb protocol Severe conjugated hyperbilirubinemia, Elevated LFTs, pancytopenia, slightly impaired synthetic dysfunction, hypercalcemia HTN-patient appears hypertensive, likely secondary to stress reaction-we will continue to hold antihypertensives given severe sepsis, we will resume only based on clinical condition and clearance of bacteremia cholelithiasis without cholecystitis-recommended outpatient management DM type 2-we will maintain on insulin sliding scale to maintain euglycemia PTSD, anxiety, depression-we will continue home meds Prostate cancer appears stable-outpatient management Obesity-advised the dietary management In my clinical judgment the patient needs ongoing medical management for severe sepsis secondary to Gram-negative bacteremia says requiring IV antibiotics and daily LFTs to prevent severe decompensation. This note is constructed using voice recognition software. While every effort has been made to ensure accuracy, tobacco farmworker errors may have been included. Quality Stroke Does the patient have a stroke diagnosis?: No VTE Prior VTE?: No VTE Risk Level:: Medical - moderate - high VTE Device Contraindication: Treatment Not Indicated VTE Drug Contraindication: N/A - Med Ordered
[2025-01-14 07:19] LABS: INTERNATIONAL NORM RATIO 1.3 (0.9-1.1); Prothrombin Time 14.4 SEC (10.9-12.4)
[2025-01-14 07:26] VITALS: BP 159/93; PULSE 89; RESP 20; TEMP 36.8; O2SAT 100
[2025-01-14] MEDS: Flu Vacc TS2025-26(6mo up)/PF 0.5 ML SYRINGE IM (09:46)
[2025-01-14] MEDS: Thiamine HCL 100 MG in 0.9 % Sodium Chloride 100 ML 202 MG IV (09:48)
[2025-01-14] MEDS: 0.9 % Sodium Chloride Flush 3 ML SYRINGE IVFLUSH ×2 (09:49→16:50)
[2025-01-14 11:16] VITALS: BP 136/80; PULSE 64; RESP 20; TEMP 36.9; O2SAT 99
[2025-01-14 15:57] VITALS: BP 162/79; PULSE 67; RESP 17; TEMP 37.1; O2SAT 98
[2025-01-14 19:53] VITALS: BP 170/93; PULSE 69; RESP 18; TEMP 37.2; O2SAT 97
[2025-01-14 23:37] VITALS: BP 162/80; PULSE 70; RESP 18; TEMP 36.7; O2SAT 97
[2025-01-15] MEDS: 0.9 % Sodium Chloride Flush 3 ML SYRINGE IVFLUSH ×4 (00:06→21:07)
[2025-01-15 03:10] VITALS: BP 149/84; PULSE 64; RESP 18; TEMP 37; O2SAT 100
--- NOTE | 2025-01-15 07:15 | P.PNIM_ITS ---
Subjective Subjective Date of Service: 01/15/25 Interval History: Patient continues hospitalization to adequately clear Gram-negative bacteremia on repeat blood cultures, Cont same mx Reports dec stooling with rx Physical Exam 2 Exam: Exam: General: AOx3, no acute distress , icteric Resp: CTA bilaterally CVS: S1, S2, RRR GI: +BS, NT, no distention, protuberant abdomen Skin: icteric Neuro: Motor grossly intact bilaterally Vital Signs: Vital Signs: Last Vital Signs Temp 98.6 F 01/15/25 03:10 Pulse 64 01/15/25 03:10 Resp 18 01/15/25 03:10 BP 149/84 H 01/15/25 03:10 Pulse Ox 100 01/15/25 03:10 O2 Del Method Room Air 01/15/25 03:10 BMI result Body Mass Index 33.2 Objective Data Active Medications Acetaminophen (Acetaminophen 325 Mg Tablet) 650 mg PO Q6H PRN PRN Reason: Pain, Mild 1-3,fever,headache Atenolol (Atenolol 100 Mg Tablet) 100 mg PO DAILY [facility]; Protocol Last Admin: 01/14/25 09:49 Dose: 100 mg Documented By: TOMEKA Calcium Carbonate (Calcium Carbonate 750 Mg Tab.Chew) 750 mg PO Q4H PRN PRN Reason: Heartburn Famotidine (Famotidine/Pf 20 Mg/2 Ml Vial) 20 mg IVPUSH BID [facility] Last Admin: 01/14/25 21:34 Dose: 20 mg Documented By: SENAIT Folic Acid (Folic Acid 1 Mg Tablet) 1 mg PO DAILY [facility] Last Admin: 01/14/25 09:49 Dose: 1 mg Documented By: TOMEKA Heparin Sodium (Porcine) (Heparin Sodium,Porcine 5,000 Unit/Ml Vial) 5,000 unit SUBCUT Q12H [facility] Last Admin: 01/14/25 21:34 Dose: 5,000 unit Documented By: SENAIT Piperacillin Sod/Tazobactam (Sod 4.5 gm/ Sodium Chloride) 100 mls @ 200 mls/hr IV Q6H [facility] Last Admin: 01/15/25 04:42 Dose: 200 mls/hr Documented By: SENAIT Thiamine HCl 100 mg/ Sodium (Chloride) 101 mls @ 202 mls/hr IV DAILY [facility] Last Infusion: 01/14/25 10:36 Dose: Infused Documented By: TOMEKA Lisinopril (Lisinopril 40 Mg Tablet) 40 mg PO DAILY [facility]; Protocol Last Admin: 01/14/25 09:50 Dose: 40 mg Documented By: TOMEKA Magnesium Hydroxide (Milk Of Magnesia 30 Ml Oral.Susp) 30 ml PO DAILY PRN PRN Reason: Constipation Magnesium Oxide (Magnesium Oxide 400 Mg Tablet) 400 mg PO BIDPC [facility] Last Admin: 01/14/25 16:38 Dose: 400 mg Documented By: PAYAL Melatonin (Melatonin 3 Mg Tablet) 6 mg PO BEDTIME PRN PRN Reason: Insomnia Morphine Sulfate (Morphine Sulfate 4 Mg/Ml Cartridge) 2 mg IVPUSH Q4H [facility]N; Protocol PRN Reason: Pain, Severe (Pain Scale 7-10) Multivitamins/Vitamin C (Multivitamin Tablet) 1 tab PO DAILY [facility] Last Admin: 01/14/25 09:49 Dose: 1 tab Documented By: TOMEKA Ondansetron HCl (Ondansetron Hcl 4 Mg/2 Ml Vial) 4 mg IVPUSH Q8H PRN PRN Reason: Nausea and Vomiting Pharmacy Consult (Consult Rx Etoh Phenob Im/Po) 1 each MISCELLANE ONCE PRN; Protocol PRN Reason: Consult order Phenobarbital (Phenobarbital 15 Mg Tablet) 15 mg PO BID [facility] Stop: 01/16/25 21:01 Phenobarbital (Phenobarbital 15 Mg Tablet) 15 mg PO DAILY [facility] Stop: 01/18/25 09:01 Sodium Chloride (0.9 % Sodium Chloride Flush 3 Ml Syringe) 3 ml IVFLUSH QSHIFT [facility] Last Admin: 01/15/25 00:06 Dose: 3 ml Documented By: SENAIT Vancomycin HCl (Vancomycin Hcl 125 Mg Capsule) 250 mg PO Q6H [facility] Last Admin: 01/15/25 04:42 Dose: 250 mg Documented By: SENAIT Labs 01/15/25 06:57 01/15/25 06:57 Labs: Laboratory Results - last 24 hr 01/14/25 06:19 MCV 109.4 H MCH 38.4 H MCHC 35.1 RDW 13.2 Plt Count 52 L MPV 11.5 Immature Gran % (Auto) 0.8 H Neut % (Auto) 75.3 H Lymph % (Auto) 12.2 L [place] % (Auto) 9.0 Eos % (Auto) 1.9 Baso % (Auto) 0.8 Lymph # (Auto) 0.5 L [place] # (Auto) 0.3 Eos # (Auto) 0.1 Baso # (Auto) 0.0 Abs Immat Gran (auto) 0.03 Absolute Neuts (auto) 2.9 Absolute Nucleated RBC 0.000 Nucleated RBC % (auto) 0.0 Smear Tech's Comments VERIFIED PT 14.4 H INR 1.3 H Microbiology Microbiology Results: Microbiology 01/12/25 06:52 Blood Culture - Final Blood - Venous Klebsiella pneumoniae 01/12/25 06:50 Blood Culture - Preliminary Blood - Venous Klebsiella pneumoniae Assessment and Plan (1) Gram-negative bacteremia: Status: Acute Plan Patient is a 64-year-old male with PMH notable for poor historian at baseline, noncompliant with medications, ongoing alcohol use disorder and recurrent frequent admissions due to alcohol withdrawal, prostate cancer, PTSD, GERD, HTN , morbid obesity, anxiety, depression, DM type 2, cholelithiasis who presented with periumbilical abdominal pain and was noted to have Gram-negative bacteremia, Cdiff colitis, conjugated hyperbilirubinemia,phenobarb for alcohol withdrawal prophylaxis. Severe sepsis with multiorgan dysfunction secondary to Gram-negative bacteremia, C diff colitis -likely GI source -Cont Zosyn, fluids maintenance to maintain hemodynamics, f/up sepsis protocol . continuing daily to check vitals and titrating meds to prevent HD collapse. Severe recurrent relapsing admissions for alcohol withdrawal-currently on phenobarb protocol. Addiction Medicine consulted, currently we will continue phenobarb protocol Severe conjugated hyperbilirubinemia, Elevated LFTs, pancytopenia, slightly impaired synthetic dysfunction, hypercalcemia- improving with rx , will monitor LFTs , INR till downtitrating. HTN-patient appears hypertensive, likely secondary to stress reaction-we will continue to hold antihypertensives given severe sepsis, we will resume only based on clinical condition and clearance of bacteremia cholelithiasis without cholecystitis-recommended outpatient management DM type 2-we will maintain on insulin sliding scale to maintain euglycemia PTSD, anxiety, depression-we will continue home meds Prostate cancer appears stable-outpatient management Obesity-advised the dietary management In my clinical judgment the patient needs ongoing medical management for severe sepsis secondary to Gram-negative bacteremia says requiring IV antibiotics and daily LFTs to prevent severe decompensation. This note is constructed using voice recognition software. While every effort has been made to ensure accuracy, product safety coordinator errors may have been included. Quality Stroke Does the patient have a stroke diagnosis?: No VTE Prior VTE?: No VTE Risk Level:: Medical - moderate - high VTE Device Contraindication: Treatment Not Indicated VTE Drug Contraindication: N/A - Med Ordered
[2025-01-15 07:48] LABS: Hematocrit 28.8 % (42.0-52.0); Hemoglobin 10.0 g/dl (14.0-18.0); Imm Gran Abs Auto 0.03 X10*3/uL (0.00-0.03); Imm Gran Pct Auto 0.9 % (0.0-0.4); Lymphocytes Absolute Auto 0.5 X10*3/uL (1.2-4.9); MANUAL DIFF FLAG SCAN; Mean Corpuscular HGB Conc 34.7 g/dl (31.0-36.0); Mean Corpuscular Hemoglobin 38.0 pg (27.0-33.0); Mean Corpuscular Volume 109.5 fL (80.0-98.0); NRBC Abs Auto 0.000 X10*3/uL (0.0-0.012); NRBC Pct Auto 0.0 /100WBC (0.0-0.2); PLT CLUMP 1; Red Blood Count 2.63 X10*6/uL (4.60-5.80); SCAN SMEAR FLAG 1
[2025-01-15 07:50] VITALS: BP 164/93; PULSE 69; RESP 18; TEMP 36.3; O2SAT 99
[2025-01-15 07:55] LABS: INTERNATIONAL NORM RATIO 1.1 (0.9-1.1); Prothrombin Time 12.5 SEC (10.9-12.4)
[2025-01-15 08:04] LABS: Alanine Aminotransferase 67 U/L (0-40); Albumin Level 3.5 g/dL (3.5-5.0); Alkaline Phosphatase 109 U/L (39-117); Anion Gap 14 (12-20); Aspartate Amino Transferase 78 U/L (5-37); Blood Urea Nitrogen 4 mg/dL (9-16); Calcium 8.7 mg/dL (8.4-10.2); Carbon Dioxide 21 mmol/L (22-29); Chloride 106 mmol/L (96-108); Creatinine Clr Calc Pharmacy 118.4; Estimated Glomerular Filt Rate > 60; Magnesium 1.8 mg/dL (1.6-2.6); Potassium 3.1 mmol/L (3.3-5.1); Sodium 138 mmol/L (135-145); Total Protein 6.8 g/dL (6.5-8.0)
[2025-01-15 08:24] LABS: White Blood Count 3.4 X10*3/uL (4.8-10.8)
[2025-01-15 08:25] LABS: Platelet Count 74 X10*3/uL (160-400)
[2025-01-15] MEDS: Thiamine HCL 100 MG in 0.9 % Sodium Chloride 100 ML 202 MG IV (09:13)
--- NOTE | 2025-01-15 10:45 | MHC.CM.PN ---
CM met with Patient at bedside to discuss PT's recommendation for STR. Patient prefers to go home but he has been to [facility] in the past and is agreeable to a referral to [facility]. CM will follow.
[2025-01-15 12:00] VITALS: BP 145/75; PULSE 71; RESP 20; TEMP 36.3; O2SAT 98
[2025-01-15 16:00] VITALS: BP 161/94; PULSE 74; RESP 20; TEMP 36.4; O2SAT 97
[2025-01-15 19:29] VITALS: BP 162/85; PULSE 72; RESP 20; TEMP 37.1; O2SAT 97
[2025-01-15 23:30] VITALS: BP 154/89; PULSE 75; RESP 18; TEMP 36.4; O2SAT 99
[2025-01-16 04:00] VITALS: BP 159/82; PULSE 64; RESP 16; TEMP 36.3; O2SAT 98
[2025-01-16 07:02] LABS: MANUAL DIFF FLAG NO
[2025-01-16 07:09] LABS: Hematocrit 25.5 % (42.0-52.0); Hemoglobin 8.8 g/dl (14.0-18.0); Imm Gran Abs Auto 0.03 X10*3/uL (0.00-0.03); Imm Gran Pct Auto 1.0 % (0.0-0.4); Lymphocytes Absolute Auto 0.5 X10*3/uL (1.2-4.9); Mean Corpuscular HGB Conc 34.5 g/dl (31.0-36.0); Mean Corpuscular Hemoglobin 37.9 pg (27.0-33.0); Mean Corpuscular Volume 109.9 fL (80.0-98.0); NRBC Abs Auto 0.000 X10*3/uL (0.0-0.012); NRBC Pct Auto 0.0 /100WBC (0.0-0.2); Red Blood Count 2.32 X10*6/uL (4.60-5.80); White Blood Count 3.1 X10*3/uL (4.8-10.8)
[2025-01-16 07:11] LABS: Platelet Count 84 X10*3/uL (160-400)
[2025-01-16 07:14] LABS: INTERNATIONAL NORM RATIO 1.1 (0.9-1.1); Prothrombin Time 12.6 SEC (10.9-12.4)
[2025-01-16 07:15] VITALS: BP 162/101; PULSE 75; RESP 18; TEMP 36.3; O2SAT 100
[2025-01-16 07:44] LABS: Alanine Aminotransferase 45 U/L (0-40); Albumin Level 2.8 g/dL (3.5-5.0); Alkaline Phosphatase 96 U/L (39-117); Aspartate Amino Transferase 70 U/L (5-37); Blood Urea Nitrogen 4 mg/dL (9-16); Calcium 8.1 mg/dL (8.4-10.2); Creatinine Clr Calc Pharmacy 115.1; Estimated Glomerular Filt Rate > 60; Magnesium 1.7 mg/dL (1.6-2.6); Total Protein 5.8 g/dL (6.5-8.0)
--- NOTE | 2025-01-16 08:13 | P.PNIM_ITS ---
Subjective Subjective Date of Service: 01/16/25 Interval History: Repeating 2 sets of blood cultures to ensure clearance of bacteremia Patient appears to be hypotensive, and hemodynamically stable, with a SBP in the 160s and 170s, hence resuming his home meds His LFTs and organ dysfunction seems to be improving Discontinue CIWA Completed phenobarb protocol Patient we will likely need home with VNA which will likely happen on Saturday hence the delay in disposition Review of Systems Review of Systems: Yes all other systems are reviewed and are negative Physical Exam 2 Exam: Exam: General: AOx3, no acute distress , less icteric Resp: CTA bilaterally CVS: S1, S2, RRR GI: +BS, NT, no distention, protuberant abdomen Skin: icteric Neuro: Motor grossly intact bilaterally Vital Signs: Vital Signs: Last Vital Signs Temp 97.4 F 01/16/25 07:15 Pulse 75 01/16/25 07:15 Resp 18 01/16/25 07:15 BP 162/101 H 01/16/25 07:15 Pulse Ox 100 01/16/25 07:15 O2 Del Method Room Air 01/16/25 07:15 BMI result Body Mass Index 33.2 Objective Data Active Medications Acetaminophen (Acetaminophen 325 Mg Tablet) 650 mg PO Q6H PRN PRN Reason: Pain, Mild 1-3,fever,headache Atenolol (Atenolol 100 Mg Tablet) 100 mg PO DAILY [facility]; Protocol On Hold: 01/15/25 09:00 Last Admin: 01/14/25 09:49 Dose: 100 mg Documented By: TOMEKA Calcium Carbonate (Calcium Carbonate 750 Mg Tab.Chew) 750 mg PO Q4H PRN PRN Reason: Heartburn Famotidine (Famotidine/Pf 20 Mg/2 Ml Vial) 20 mg IVPUSH BID [facility] Last Admin: 01/15/25 20:54 Dose: 20 mg Documented By: WENDY Folic Acid (Folic Acid 1 Mg Tablet) 1 mg PO DAILY [facility] Last Admin: 01/15/25 09:14 Dose: 1 mg Documented By: LOYD Heparin Sodium (Porcine) (Heparin Sodium,Porcine 5,000 Unit/Ml Vial) 5,000 unit SUBCUT Q12H [facility] Last Admin: 01/15/25 20:54 Dose: 5,000 unit Documented By: WENDY Piperacillin Sod/Tazobactam (Sod 4.5 gm/ Sodium Chloride) 100 mls @ 200 mls/hr IV Q6H [facility] Last Infusion: 01/16/25 06:00 Dose: Infused Documented By: WENDY Thiamine HCl 100 mg/ Sodium (Chloride) 101 mls @ 202 mls/hr IV DAILY [facility] Last Infusion: 01/15/25 10:41 Dose: Infused Documented By: LOYD Lisinopril (Lisinopril 40 Mg Tablet) 40 mg PO DAILY [facility]; Protocol On Hold: 01/15/25 09:00 Last Admin: 01/14/25 09:50 Dose: 40 mg Documented By: TOMEKA Magnesium Hydroxide (Milk Of Magnesia 30 Ml Oral.Susp) 30 ml PO DAILY PRN PRN Reason: Constipation Magnesium Oxide (Magnesium Oxide 400 Mg Tablet) 400 mg PO BIDPC [facility] Last Admin: 01/15/25 17:07 Dose: 400 mg Documented By: LOYD Melatonin (Melatonin 3 Mg Tablet) 6 mg PO BEDTIME PRN PRN Reason: Insomnia Morphine Sulfate (Morphine Sulfate 4 Mg/Ml Cartridge) 2 mg IVPUSH Q4H PRN; Protocol PRN Reason: Pain, Severe (Pain Scale 7-10) Multivitamins/Vitamin C (Multivitamin Tablet) 1 tab PO DAILY [facility] Last Admin: 01/15/25 09:13 Dose: 1 tab Documented By: LOYD Ondansetron HCl (Ondansetron Hcl 4 Mg/2 Ml Vial) 4 mg IVPUSH Q8H PRN PRN Reason: Nausea and Vomiting Last Admin: 01/15/25 15:07 Dose: 4 mg Documented By: LOYD Pharmacy Consult (Consult Rx Etoh Phenob Im/Po) 1 each MISCELLANE ONCE PRN; Protocol PRN Reason: Consult order Phenobarbital (Phenobarbital 15 Mg Tablet) 15 mg PO BID [facility] Stop: 01/16/25 21:01 Last Admin: 01/15/25 20:55 Dose: 15 mg Documented By: WENDY Phenobarbital (Phenobarbital 15 Mg Tablet) 15 mg PO DAILY [facility] Stop: 01/18/25 09:01 Sodium Chloride (0.9 % Sodium Chloride Flush 3 Ml Syringe) 3 ml IVFLUSH QSHIFT [facility] Last Admin: 01/15/25 21:07 Dose: 3 ml Documented By: WENDY Vancomycin HCl (Vancomycin Hcl 125 Mg Capsule) 250 mg PO Q6H [facility] Last Admin: 01/16/25 04:53 Dose: 250 mg Documented By: WENDY Labs 01/16/25 06:42 01/16/25 06:42 Labs: Laboratory Results - last 24 hr 01/15/25 01/16/25 06:57 06:42 MCV 109.5 H 109.9 H MCH 38.0 H 37.9 H MCHC 34.7 34.5 RDW 13.1 13.2 Plt Count 74 L D 84 L MPV 12.0 11.5 Immature Gran % (Auto) 0.9 H 1.0 H Neut % (Auto) 68.1 66.7 Lymph % (Auto) 15.5 L 15.4 L Sterling % (Auto) 11.1 H 12.7 H Eos % (Auto) 3.2 2.9 Baso % (Auto) 1.2 1.3 Lymph # (Auto) 0.5 L 0.5 L Sterling # (Auto) 0.4 0.4 Eos # (Auto) 0.1 0.1 Baso # (Auto) 0.0 0.0 Abs Immat Gran (auto) 0.03 0.03 Absolute Neuts (auto) 2.3 2.0 Absolute Nucleated RBC 0.000 0.000 Nucleated RBC % (auto) 0.0 0.0 Smear Tech's Comments VERIFIED PT 12.6 H INR 1.1 Estim Creat Clear Calc 115.1 Estimated GFR > 60 Random Glucose 91 Calcium 8.1 L D Magnesium 1.7 Total Bilirubin 1.9 H AST 70 H ALT 45 H Alkaline Phosphatase 96 Total Protein 5.8 L Albumin 2.8 L Microbiology Microbiology Results: Microbiology 01/12/25 06:50 Blood Culture - Final Blood - Venous Klebsiella pneumoniae Assessment and Plan (1) Gram-negative bacteremia: Status: Acute Plan Patient is a 64-year-old male with PMH notable for poor historian at baseline, noncompliant with medications, ongoing alcohol use disorder and recurrent frequent admissions due to alcohol withdrawal, prostate cancer, PTSD, GERD, HTN , morbid obesity, anxiety, depression, DM type 2, cholelithiasis who presented with periumbilical abdominal pain and was noted to have Gram-negative bacteremia, Cdiff colitis, conjugated hyperbilirubinemia,phenobarb for alcohol withdrawal prophylaxis. Severe sepsis with multiorgan dysfunction secondary to Gram-negative bacteremia, C diff colitis -likely GI source - repeat 2 sets of blood cultures today, Cont Zosyn, fluids maintenance to maintain hemodynamics, f/up sepsis protocol . continuing daily to check vitals and titrating meds to prevent HD collapse. Severe recurrent relapsing admissions for alcohol withdrawal-, addiction med consulted, completed phenobarb protocol, can discontinue CIWA Likely a UD induced Severe conjugated hyperbilirubinemia, Elevated LFTs, pancytopenia, mildly impaired synthetic dysfunction, hypercalcemia- improving with rx , will monitor LFTs , INR till downtitrating. Advised the patient to refrain from alcohol HTN-patient appears hypertensive, given optimal response to antibiotics, we will resume home antihypertensives cholelithiasis without cholecystitis-recommended outpatient management DM type 2-we will maintain on insulin sliding scale to maintain euglycemia PTSD, anxiety, depression-we will continue home meds Prostate cancer appears stable-outpatient management Obesity-advised the dietary management In my clinical judgment the patient needs ongoing medical management for severe sepsis secondary to Gram-negative bacteremia says requiring IV antibiotics and daily LFTs to prevent severe decompensation. This note is constructed using voice recognition software. While every effort has been made to ensure accuracy, chief design engineer errors may have been included. Quality Stroke Does the patient have a stroke diagnosis?: No VTE Prior VTE?: No VTE Risk Level:: Medical - moderate - high VTE Device Contraindication: Treatment Not Indicated VTE Drug Contraindication: N/A - Med Ordered
[2025-01-16] MEDS: Thiamine HCL 100 MG in 0.9 % Sodium Chloride 100 ML 202 MG IV (09:10)
[2025-01-16] MEDS: 0.9 % Sodium Chloride Flush 3 ML SYRINGE IVFLUSH ×3 (09:11→23:44)
[2025-01-16 09:22] LABS: Anion Gap 15 (12-20); Carbon Dioxide 20 mmol/L (22-29); Chloride 107 mmol/L (96-108); Potassium 4.2 mmol/L (3.3-5.1); Sodium 138 mmol/L (135-145)
[2025-01-16 11:59] VITALS: BP 167/81; PULSE 68; RESP 18; TEMP 36.6; O2SAT 98
[2025-01-16 15:32] VITALS: BP 171/82; PULSE 66; RESP 18; TEMP 36.5; O2SAT 98
[2025-01-16 19:59] VITALS: BP 176/85; PULSE 71; RESP 16; TEMP 36.8; O2SAT 98
[2025-01-16 23:39] VITALS: BP 161/79; PULSE 66; RESP 16; TEMP 36.9; O2SAT 97
[2025-01-17] VITALS (10 sets, daily range): BP systolic 141–183; BP diastolic 67–88; PULSE 61–69; RESP 17–18; TEMP 36.3–36.9; O2SAT 98–99
[2025-01-17] MEDS: 0.9 % Sodium Chloride Flush 3 ML SYRINGE IVFLUSH ×3 (11:31→23:05)
--- NOTE | 2025-01-17 14:37 | P.PNIM_ITS ---
Subjective Subjective Date of Service: 01/17/25 Interval History: Seen and evaluated Looks better, feels better repeat blood cultures negative after 24 hours No signs of withdrawal Review of Systems Review of Systems: Yes all other systems are reviewed and are negative Physical Exam 2 Vital Signs: Vital Signs: Last Vital Signs Temp 97.8 F 01/17/25 11:43 Pulse 66 01/17/25 11:43 Resp 17 01/17/25 11:43 BP 163/76 H 01/17/25 11:43 Pulse Ox 99 01/17/25 11:43 O2 Del Method Room Air 01/17/25 11:43 BMI result Body Mass Index 33.2 Const: Other: Constitutional : interactive, not in distress Cardiovascular : no JVP, no lower extremity edema Respiratory : bilateral chest movement, not in resp distress Gastrointestinal: soft, lax, Non tender Skin : Warm, Dry Neurological : Alert & oriented , No focal deficit Objective Data Active Medications Acetaminophen (Acetaminophen 325 Mg Tablet) 650 mg PO Q6H PRN PRN Reason: Pain, Mild 1-3,fever,headache Amlodipine Besylate (Amlodipine Besylate 5 Mg Tablet) 5 mg PO DAILY [facility]; Protocol Last Admin: 01/17/25 11:35 Dose: 5 mg Documented By: KEHINDEDIAN Atenolol (Atenolol 100 Mg Tablet) 100 mg PO DAILY [facility]; Protocol Last Admin: 01/17/25 11:31 Dose: 100 mg Documented By: KEHINDEDIAN Calcium Carbonate (Calcium Carbonate 750 Mg Tab.Chew) 750 mg PO Q4H PRN PRN Reason: Heartburn Last Admin: 01/17/25 11:42 Dose: 750 mg Documented By: FIGDIAN Famotidine (Famotidine/Pf 20 Mg/2 Ml Vial) 20 mg IVPUSH BID [facility] Last Admin: 01/17/25 11:35 Dose: 20 mg Documented By: FIGDIAN Folic Acid (Folic Acid 1 Mg Tablet) 1 mg PO DAILY [facility] Last Admin: 01/17/25 11:35 Dose: 1 mg Documented By: KEHINDEDIAN Heparin Sodium (Porcine) (Heparin Sodium,Porcine 5,000 Unit/Ml Vial) 5,000 unit SUBCUT Q12H [facility] Last Admin: 01/17/25 11:35 Dose: 5,000 unit Documented By: FIGDIAN Lisinopril (Lisinopril 40 Mg Tablet) 40 mg PO DAILY [facility]; Protocol Last Admin: 01/17/25 11:35 Dose: 40 mg Documented By: ISSA.FIGDIAN Magnesium Hydroxide (Milk Of Magnesia 30 Ml Oral.Susp) 30 ml PO DAILY PRN PRN Reason: Constipation Magnesium Oxide (Magnesium Oxide 400 Mg Tablet) 400 mg PO BIDPC [facility] Last Admin: 01/17/25 11:35 Dose: 400 mg Documented By: ISSA.FIGDIAN Melatonin (Melatonin 3 Mg Tablet) 6 mg PO BEDTIME PRN PRN Reason: Insomnia Meropenem (Meropenem 1 Gm Vial) 1 gm IVPUSH Q8H [facility] Last Admin: 01/17/25 11:31 Dose: 1 gm Documented By: ISSA.FIGDIAN Multivitamins/Vitamin C (Multivitamin Tablet) 1 tab PO DAILY [facility] Last Admin: 01/17/25 11:35 Dose: 1 tab Documented By: ISSA.FIGDIAN Ondansetron HCl (Ondansetron Hcl 4 Mg/2 Ml Vial) 4 mg IVPUSH Q8H PRN PRN Reason: Nausea and Vomiting Last Admin: 01/15/25 15:07 Dose: 4 mg Documented By: ISSA[facility] [place] Pharmacy Consult (Consult Rx Etoh Phenob Im/Po) 1 each MISCELLANE ONCE PRN; Protocol PRN Reason: Consult order Phenobarbital (Phenobarbital 15 Mg Tablet) 15 mg PO DAILY [facility] Stop: 01/18/25 09:01 Last Admin: 01/17/25 11:35 Dose: 15 mg Documented By: ISSA.FIGDIAN Sodium Chloride (0.9 % Sodium Chloride Flush 3 Ml Syringe) 3 ml IVFLUSH QSHIFT [facility] Last Admin: 01/17/25 11:31 Dose: 3 ml Documented By: ISSA.FIGDIAN Thiamine HCl (Thiamine Hcl 100 Mg Tablet) 100 mg PO DAILY [facility] Last Admin: 01/17/25 11:34 Dose: 100 mg Documented By: ISSA.FIGDIAN Vancomycin HCl (Vancomycin Hcl 125 Mg Capsule) 250 mg PO Q6H [facility] Last Admin: 01/17/25 11:31 Dose: 250 mg Documented By: ISSA.FIGDIAN Labs 01/16/25 06:42 01/16/25 06:42 Microbiology Microbiology Results: Microbiology 01/16/25 11:33 Blood Culture - Preliminary Blood - Venous No growth after 24 hours. Blood Culture - Preliminary No growth after 24 hours. 01/16/25 11:33 Blood Culture - Preliminary Blood - Venous No growth after 24 hours. Assessment and Plan (1) Alcohol use disorder, severe, dependence: Status: Acute (2) Elevated LFTs: Status: Acute (3) Hypomagnesemia: Status: Acute (4) Gram-negative bacteremia: Status: Acute (5) Infection due to ESBL-producing Klebsiella pneumoniae: Status: Acute Plan Patient is a 64-year-old male with PMH notable for poor historian at baseline, noncompliant with medications, ongoing alcohol use disorder and recurrent frequent admissions due to alcohol withdrawal, prostate cancer, PTSD, GERD, HTN , morbid obesity, anxiety, depression, DM type 2, cholelithiasis who presented with periumbilical abdominal pain and was noted to have Gram-negative bacteremia, Cdiff colitis, conjugated hyperbilirubinemia,phenobarb for alcohol withdrawal prophylaxis. Severe sepsis secondary to ESBL Klebsiella bacteremia and C diff colitis repeat blood cultures pending Switched to Meropenem and PO Vancomycin Could be intraabdominal infection again (last admission had Cholecystitis) MRCP showed Distended gallbladder with cholelithiasis and pericholecystic fluid. Mildly dilated common bile duct. No evidence of choledocholithiasis. ID consult for Bacteremia eval and Abx recommendations get surgical evaluation for planing CCY in the near future in\outpatient Severe recurrent relapsing admissions for alcohol withdrawal addiction med consult complet phenobarb protocol Obstructive jaundice Likely on presentation with elevated direct bilirubin trending down , might have passed a stone already MRCP as described follow LFT advised abstinence from alcohol HTN resume home antihypertensives DM type 2 maintain on insulin sliding scale to maintain euglycemia PTSD, anxiety, depression continue home meds Prostate cancer appears stable-outpatient management Obesity advised the dietary management In my clinical judgment the patient needs ongoing medical management for severe sepsis secondary to ESBL Klebsiella bacteremia says requiring IV antibiotics and daily LFTs to prevent severe decompensation pending ID and surgery consults Quality Stroke Does the patient have a stroke diagnosis?: No VTE Prior VTE?: No VTE Risk Level:: Medical - moderate - high VTE Device Contraindication: Treatment Not Indicated VTE Drug Contraindication: N/A - Med Ordered
--- NOTE | 2025-01-17 22:20 | PC.NURSE ---
Blood pressure elevated 178/84, hr 69, rechecked manual 173/80, hr 64. Patient reports he didn't get his regular meds first couple days he was admitted but is now resumed on bp meds. On daily atenolol 100mg, daily lisinopril 40mg, and today started on daily norvasc 5 mg. Lexus Gan notified of elevated bp.
[2025-01-18 03:57] VITALS: BP 157/75; PULSE 65; RESP 18; TEMP 36.9; O2SAT 97
[2025-01-18 07:56] LABS: MANUAL DIFF FLAG NO
[2025-01-18] MEDS: 0.9 % Sodium Chloride Flush 3 ML SYRINGE IVFLUSH ×3 (07:56→20:44)
[2025-01-18 08:00] VITALS: BP 162/80; PULSE 61; RESP 18; TEMP 37.1; O2SAT 99
[2025-01-18 08:07] LABS: Hematocrit 26.6 % (42.0-52.0); Hemoglobin 9.1 g/dl (14.0-18.0); Imm Gran Abs Auto 0.04 X10*3/uL (0.00-0.03); Imm Gran Pct Auto 0.9 % (0.0-0.4); Lymphocytes Absolute Auto 0.5 X10*3/uL (1.2-4.9); Mean Corpuscular HGB Conc 34.2 g/dl (31.0-36.0); Mean Corpuscular Hemoglobin 38.1 pg (27.0-33.0); NRBC Abs Auto 0.000 X10*3/uL (0.0-0.012); NRBC Pct Auto 0.0 /100WBC (0.0-0.2); Platelet Count 147 X10*3/uL (160-400); Red Blood Count 2.39 X10*6/uL (4.60-5.80); White Blood Count 4.6 X10*3/uL (4.8-10.8)
[2025-01-18 08:11] LABS: Mean Corpuscular Volume 111.3 fL (80.0-98.0)
[2025-01-18 08:23] LABS: INTERNATIONAL NORM RATIO 1.1 (0.9-1.1); Prothrombin Time 12.5 SEC (10.9-12.4)
[2025-01-18 08:24] LABS: Alanine Aminotransferase 35 U/L (0-40); Albumin Level 3.0 g/dL (3.5-5.0); Alkaline Phosphatase 85 U/L (39-117); Anion Gap 14 (12-20); Aspartate Amino Transferase 57 U/L (5-37); Blood Urea Nitrogen 5 mg/dL (9-16); Calcium 8.5 mg/dL (8.4-10.2); Carbon Dioxide 24 mmol/L (22-29); Chloride 103 mmol/L (96-108); Creatinine Clr Calc Pharmacy 115.1; Estimated Glomerular Filt Rate > 60; Magnesium 1.7 mg/dL (1.6-2.6); Potassium 3.0 mmol/L (3.3-5.1); Sodium 138 mmol/L (135-145); Total Protein 5.9 g/dL (6.5-8.0)
--- NOTE | 2025-01-18 09:12 | P.CONGS_ITS ---
History of Present Illness Consult details Consult date: 01/18/25 <Saud Cline PA-C - Last Filed: 01/18/25 09:40> Narrative: 64-year-old male with a history of alcohol use disorder, prostate cancer, PTSD, GERD, hypertension, obesity, anxiety and depression, type 2 diabetes, cholelithiasis who presented to the ED with periumbilical abdominal pain found to have Gram-negative bacteremia secondary to ESBL Klebsiella, C diff colitis, hyperbilirubinemia. Patient has had MRCP showing distended gallbladder with cholelithiasis and pericholecystic fluid is mildly dilated common bile duct no evidence of choledocholithiasis. Currently he is denying pain, nausea, vomiting. Currently tolerating regular diet without return of symptoms. Bilirubin and liver enzymes currently trending down. Repeat blood cultures negative. He has had a previous admission in December 2023 with similar presentation, found to have Gram-negative bacteremia high-grade biliary obstruction with negative MRCP. Improved with conservative management. <Saud Cline PA-C - Last Filed: 01/18/25 09:40> Review of Systems 2 Review of Systems: Yes all other systems are reviewed and are negative < Saud Cline PA-C - Last Filed: 01/18/25 09:40> PMFSH Past Medical History Medical History: Medical History Alcohol abuse Cholecystitis Impaired glucose tolerance Vitamin D deficiency Anxiety and depression Alcohol abuse Tobacco abuse Post traumatic stress disorder (PTSD) Obesity (BMI 30-39.9) Hypercholesterolemia GERD (gastroesophageal reflux disease) Hypertension <Saud Cline PA-C - Last Filed: 01/18/25 09:40> Family History Family History: Family History Father Renal cancer Other Substance use disorder <VIVIANA Sadler Last Filed: 01/18/25 09:40> Surgical History Surgical History: Surgical History History of esophagogastroduodenoscopy (EGD) Hx of colonoscopy History of tonsillectomy <VIVIANA Sadler Last Filed: 01/18/25 09:40> Social History Social History: Social History Household Members: None Housing: House Are you a primary nurse wound care to a significant other at home: No Do you presently have visiting nurse or other home services: No Alcohol intake: current Alcohol intake frequency: 3 or more drinks per day Alcohol type: hard liquor Comment: refusing bed alarm Patient Tobacco Use Status: Current everyday Tobacco user Tobacco use type: Cigarette Cigarette Packs Per Day: 1 Cigarettes Per Day: 20.0 Years Smoked: 50 e-Cigarette/Vaping Use: Never Used Second Hand Smoke Exposure: Yes Substance Use Type: Marijuana service: No Current occupational status: retired Cognitive needs: No Hearing needs: No Vision needs: Yes (Reading glasses) <Saud Cline PA-C - Last Filed: 01/18/25 09:40> Meds Allergies/Adverse reactions: Allergies Allergy/AdvReac Type Severity Reaction Status Date / Time acetaminophen (From TYLENOL) Allergy Intermediate HIVES Verified 01/11/25 23:23 apple (APPLES) Allergy Intermediate HIVES Verified 01/11/25 23:23 <Saud Cline PA-C - Last Filed: 01/18/25 09:40> Active Medications: Current Medications Acetaminophen (Acetaminophen 325 Mg Tablet) 650 mg PO Q6H PRN PRN Reason: Pain, Mild 1-3,fever,headache Amlodipine Besylate (Amlodipine Besylate 5 Mg Tablet) 5 mg PO DAILY ON LICENSE OF [facility]; Protocol Last Admin: 01/18/25 07:57 Dose: 5 mg Atenolol (Atenolol 100 Mg Tablet) 100 mg PO DAILY [facility]; Protocol Last Admin: 01/18/25 07:57 Dose: 100 mg Calcium Carbonate (Calcium Carbonate 750 Mg Tab.Chew) 750 mg PO Q4H PRN PRN Reason: Heartburn Last Admin: 01/17/25 16:33 Dose: 750 mg Famotidine (Famotidine/Pf 20 Mg/2 Ml Vial) 20 mg IVPUSH BID [facility] Last Admin: 01/18/25 07:56 Dose: 20 mg Folic Acid (Folic Acid 1 Mg Tablet) 1 mg PO DAILY [facility] Last Admin: 01/18/25 07:57 Dose: 1 mg Heparin Sodium (Porcine) (Heparin Sodium,Porcine 5,000 Unit/Ml Vial) 5,000 unit SUBCUT Q12H [facility] Last Admin: 01/17/25 21:12 Dose: 5,000 unit Lisinopril (Lisinopril 40 Mg Tablet) 40 mg PO DAILY ON LICENSE OF [facility]; Protocol Last Admin: 01/18/25 07:56 Dose: 40 mg Magnesium Hydroxide (Milk Of Magnesia 30 Ml Oral.Susp) 30 ml PO DAILY PRN PRN Reason: Constipation Magnesium Oxide (Magnesium Oxide 400 Mg Tablet) 400 mg PO BIDPC ON LICENSE OF [facility] Last Admin: 01/18/25 07:56 Dose: 400 mg Melatonin (Melatonin 3 Mg Tablet) 6 mg PO BEDTIME PRN PRN Reason: Insomnia Last Admin: 01/17/25 21:15 Dose: 6 mg Meropenem (Meropenem 1 Gm Vial) 1 gm IVPUSH Q8H ON LICENSE OF [facility] Last Admin: 01/18/25 02:37 Dose: 1 gm Multivitamins/Vitamin C (Multivitamin Tablet) 1 tab PO DAILY ON LICENSE OF [facility] Last Admin: 01/18/25 07:56 Dose: 1 tab Ondansetron HCl (Ondansetron Hcl 4 Mg/2 Ml Vial) 4 mg IVPUSH Q8H PRN PRN Reason: Nausea and Vomiting Last Admin: 01/15/25 15:07 Dose: 4 mg Pharmacy Consult (Consult Rx Etoh Phenob Im/Po) 1 each MISCELLANE ONCE PRN; Protocol PRN Reason: Consult order Sodium Chloride (0.9 % Sodium Chloride Flush 3 Ml Syringe) 3 ml IVFLUSH QSHIFT ON LICENSE OF [facility] Last Admin: 01/18/25 07:56 Dose: 3 ml Thiamine HCl (Thiamine Hcl 100 Mg Tablet) 100 mg PO DAILY ON LICENSE OF [facility] Last Admin: 01/18/25 07:57 Dose: 100 mg Vancomycin HCl (Vancomycin Hcl 125 Mg Capsule) 250 mg PO Q6H ON LICENSE OF [facility] Last Admin: 01/18/25 05:05 Dose: 250 mg <Saud Cline PA-C - Last Filed: 01/18/25 09:40> Home medications: Home Medications ?Medication ?Instructions ?Recorded ?Confirmed ?Last Taken ?Type omeprazole 40 mg capsule,delayed 40 mg PO BID@0630,163 0 12/21/23 01/12/25 01/11/25 History release multivitamin 1 tab PO DAILY 01/12/2512/30 Unknown History <Saud Cline PA-C - Last Filed: 01/18/25 09:40> Physical Exam 2 Vital Signs: Vital Signs: Last Vital Signs Temp 98.8 F 01/18/25 08:00 Pulse 61 01/18/25 08:00 Resp 18 01/18/25 08:00 BP 162/80 H 01/18/25 08:00 Pulse Ox 99 01/18/25 08:00 O2 Del Method Room Air 01/18/25 08:00 BMI result Body Mass Index 33.2 <Saud Cline PA-C - Last Filed: 01/18/25 09:40> Const: General: comfortable and no acute distress <Saud Cline PA-C - Last Filed: 01/18/25 09:40> Orientation/consciousness: patient oriented x3 <Saud Cline PA-C - Last Filed: 01/18/25 09:40> Resp: Effort & Inspection: normal respiratory effort and able to speak in complete sentences <Saud Cline PA-C - Last Filed: 01/18/25 09:40> GI: Inspection: No distended and Yes obesity <Saud Cline PA-C - Last Filed: 01/18/25 09:40> Palpation (GI): Soft to palpation and nontender (Negative Miner's sign) < Saud Cline PA-C - Last Filed: 01/18/25 09:40> Neuro: General: patient oriented x3 <VIVIANA Sadler Last Filed: 01/18/25 09:40> Results Labs Result diagrams: 01/18/25 07:33 01/18/25 07:33 <VIVIANA Sadler Last Filed: 01/18/25 09:40> Labs: Abnormal lab results 01/18/25 Range/Units 07:33 WBC 4.6 L (4.8-10.8) X10*3/uL RBC 2.39 L (4.60-5.80) X10*6/uL Hgb 9.1 L (14.0-18.0) g/dl Hct 26.6 L (42.0-52.0) % MCV 111.3 H (80.0-98.0) fL MCH 38.1 H (27.0-33.0) pg Plt Count 147 L D (160-400) X10*3/uL Immature Gran % (Auto) 0.9 H (0.0-0.4) % Lymph % (Auto) 10.4 L (20-40) % [place] % (Auto) 13.2 H (2-11) % Lymph # (Auto) 0.5 L (1.2-4.9) X10*3/uL Abs Immat Gran (auto) 0.04 H (0.00-0.03) X10*3/uL PT 12.5 H (10.9-12.4) SEC Potassium 3.0 L D (3.3-5.1) mmol/L BUN 5 L (9-16) mg/dL Total Bilirubin 1.4 H (0.0-1.0) mg/dL AST 57 H (5-37) U/L Total Protein 5.9 L (6.5-8.0) g/dL Albumin 3.0 L (3.5-5.0) g/dL Short CBC 01/18/25 Range/Units 07:33 WBC 4.6 L (4.8-10.8) X10*3/uL Hgb 9.1 L (14.0-18.0) g/dl Hct 26.6 L (42.0-52.0) % Plt Count 147 L D (160-400) X10*3/uL BMP 01/18/25 07:33 Sodium 138 Potassium 3.0 L D Chloride 103 Carbon Dioxide 24 BUN 5 L Creatinine 0.72 Calcium 8.5 Liver Function 01/18/25 Range/Units 07:33 Total Bilirubin 1.4 H (0.0-1.0) mg/dL AST 57 H (5-37) U/L ALT 35 (0-40) U/L Alkaline Phosphatase 85 (39-117) U/L Albumin 3.0 L (3.5-5.0) g/dL Urine 01/12/25 Range/Units 05:54 Urine Color Yellow Urine Appearance Clear Urine pH 7.0 (5.0-9.0) Ur Specific [place] 1.010 (1.005-1.025) Urine Protein Trace (Neg-Trace) mg/dL Urine Glucose (UA) Negative (Negative) mg/dL All other labs normal. <Saud Cline PA-C - Last Filed: 01/18/25 09:40> Assessment and Plan (1) Elevated LFTs: Status: Acute <MIHIR Sadler-C - Last Filed: 01/18/25 09:40> (2) Abdominal pain: Qualifiers: Abdominal location: periumbilical Qualified Code(s): R10.33 - Periumbilical pain <Saud Cline VIVIANA - Last Filed: 01/18/25 09:40> Status: Acute <Saud Cline VIVIANA - Last Filed: 01/18/25 09:40> (3) Gram-negative bacteremia: Status: Acute <aSud Cline VIVIANA - Last Filed: 01/18/25 09:40> 64-year-old male with a history of alcohol use disorder, prostate cancer, PTSD, GERD, hypertension, obesity, anxiety and depression, type 2 diabetes, cholelithiasis who presented to the ED with periumbilical abdominal pain found to have Gram-negative bacteremia secondary to ESBL Klebsiella, C diff colitis, hyperbilirubinemia, seen in consult for possible acute cholecystitis. He looks well today. Denying pain, nausea or vomiting. Tolerating regular diet. Patient has had MRCP showing distended gallbladder with cholelithiasis and pericholecystic fluid is mildly dilated common bile duct no evidence of choledocholithiasis. His liver enzymes and bilirubin are trending down. Abdomen is soft and benign, negative Miner's sign. Repeat blood cultures negative after 24 hours. Was switched from meropenem to vancomycin. At this point though believe that this requires emergent surgery. Patient can likely follow up as an outpatient for cholecystectomy down the line. We will continue to trend LFTs and bilirubin while admitted. Patient agreeable to this plan. Once he is discharged should follow-up in the office for evaluation. Recommend low-fat diet Continue to trend liver enzymes, bilirubin Continue to follow blood cultures Continue PO vanco for C diff, meropenem for bacteremia We will continue to follow while inpatient <Saud Marlyn VIVIANA Shana Last Filed: 01/18/25 09:40> 64-year-old male with a history of alcohol use disorder, prostate cancer, PTSD, GERD, hypertension, obesity, anxiety and depression, type 2 diabetes, cholelithiasis who presented to the ED with periumbilical abdominal pain found to have Gram-negative bacteremia secondary to ESBL Klebsiella, C diff colitis, hyperbilirubinemia, seen in consult for possible acute cholecystitis. He looks well today. Denying pain, nausea or vomiting. Tolerating regular diet. Patient has had MRCP showing distended gallbladder with cholelithiasis and pericholecystic fluid is mildly dilated common bile duct no evidence of choledocholithiasis. His liver enzymes and bilirubin are trending down. Abdomen is soft and benign, negative Miner's sign. Repeat blood cultures negative after 24 hours. Was switched from meropenem to vancomycin. At this point though believe that this requires emergent surgery. Patient can likely follow up as an outpatient for cholecystectomy down the line. We will continue to trend LFTs and bilirubin while admitted. Patient agreeable to this plan. Once he is discharged should follow-up in the office for evaluation. Recommend low-fat diet Continue to trend liver enzymes, bilirubin Continue to follow blood cultures Continue PO vanco for C diff, meropenem for bacteremia We will continue to follow while inpatient Patient seen and examined independently and I agree with the above assessment and plan. Patient could follow up as an outpatient for elective cholecystectomy. <Ernst Anderson MD - Last Filed: 01/18/25 14:37> Procedures Date of Service Date of Service: 01/18/25 <Saud Cline PA-C - Last Filed: 01/18/25 09:40> 01/18/25 <Ernst Anderson MD - Last Filed: 01/18/25 14:37>
[2025-01-18 11:08] VITALS: PULSE 81; O2SAT 96
--- NOTE | 2025-01-18 11:56 | MHC.CM.PN ---
Addendum entered by Kayla Crawley RN 01/18/25 12:00: He is aware shuttle does not run on weekends. Original Note: Awaiting ID eval. Potential need for IV abx. PT now rec home w/ services. Referral to [facility] and [facility]. Patient admits to daily alcohol use, but no drug use. Will await answer from [facility]. If unable to have abx at home, is willing to come [place] [facility] [place] @ day stay. CM will continue to follow.
[2025-01-18 12:00] VITALS: BP 144/76; PULSE 65; RESP 16; TEMP 36.6; O2SAT 98
--- NOTE | 2025-01-18 14:56 | P.CNID_ITS ---
History of Present Illness Data of Consult Service Date: 01/18/25 Requesting physician: Barbara Lay Primary Care Provider: Za Cotton MD HPI Reason for consult: Klebsiella pneumonia bactermia He presents with nausea,vomiting and diarrhea for a day. He also had lower abdominal,6/10 discomfort. He has no fever or chills. Review of Systems 2 Review of Systems: Yes all other systems are reviewed and are negative PMFSH Past Medical History Medical History Alcohol abuse Cholecystitis Impaired glucose tolerance Vitamin D deficiency Anxiety and depression Alcohol abuse Tobacco abuse Post traumatic stress disorder (PTSD) Obesity (BMI 30-39.9) Hypercholesterolemia GERD (gastroesophageal reflux disease) Hypertension Family History Family History Father Renal cancer Other Substance use disorder Family history: reviewed and not pertinent Surgical History Surgical History History of esophagogastroduodenoscopy (EGD) Hx of colonoscopy History of tonsillectomy Social History Social History Household Members: None Housing: House Are you a primary respiratory care specialist to a significant other at home: No Do you presently have visiting nurse or other home services: No Alcohol intake: current Alcohol intake frequency: 3 or more drinks per day Alcohol type: hard liquor Comment: refusing bed alarm Patient Tobacco Use Status: Current everyday Tobacco user Tobacco use type: Cigarette Cigarette Packs Per Day: 1 Cigarettes Per Day: 20.0 Years Smoked: 50 e-Cigarette/Vaping Use: Never Used Second Hand Smoke Exposure: Yes Substance Use Type: Marijuana service: No Current occupational status: retired Cognitive needs: No Hearing needs: No Vision needs: Yes (Reading glasses) Meds Allergies Allergy/AdvReac Type Severity Reaction Status Date / Time acetaminophen (From TYLENOL) Allergy Intermediate HIVES Verified 01/11/25 23:23 apple (APPLES) Allergy Intermediate HIVES Verified 01/11/25 23:23 Active Medications: Current Medications Acetaminophen (Acetaminophen 325 Mg Tablet) 650 mg PO Q6H PRN PRN Reason: Pain, Mild 1-3,fever,headache Amlodipine Besylate (Amlodipine Besylate 5 Mg Tablet) 5 mg PO DAILY [facility]; Protocol Last Admin: 01/18/25 07:57 Dose: 5 mg Atenolol (Atenolol 100 Mg Tablet) 100 mg PO DAILY [facility]; Protocol Last Admin: 01/18/25 07:57 Dose: 100 mg Calcium Carbonate (Calcium Carbonate 750 Mg Tab.Chew) 750 mg PO Q4H PRN PRN Reason: Heartburn Last Admin: 01/17/25 16:33 Dose: 750 mg Famotidine (Famotidine/Pf 20 Mg/2 Ml Vial) 20 mg IVPUSH BID [facility] Last Admin: 01/18/25 07:56 Dose: 20 mg Folic Acid (Folic Acid 1 Mg Tablet) 1 mg PO DAILY [facility] Last Admin: 01/18/25 07:57 Dose: 1 mg Heparin Sodium (Porcine) (Heparin Sodium,Porcine 5,000 Unit/Ml Vial) 5,000 unit SUBCUT Q12H [facility] Last Admin: 01/18/25 10:28 Dose: 5,000 unit Lisinopril (Lisinopril 40 Mg Tablet) 40 mg PO DAILY [facility]; Protocol Last Admin: 01/18/25 07:56 Dose: 40 mg Magnesium Hydroxide (Milk Of Magnesia 30 Ml Oral.Susp) 30 ml PO DAILY PRN PRN Reason: Constipation Magnesium Oxide (Magnesium Oxide 400 Mg Tablet) 400 mg PO BIDPC [facility] Last Admin: 01/18/25 07:56 Dose: 400 mg Melatonin (Melatonin 3 Mg Tablet) 6 mg PO BEDTIME PRN PRN Reason: Insomnia Last Admin: 01/17/25 21:15 Dose: 6 mg Meropenem (Meropenem 1 Gm Vial) 1 gm IVPUSH Q8H [facility] Last Admin: 01/18/25 10:28 Dose: 1 gm Multivitamins/Vitamin C (Multivitamin Tablet) 1 tab PO DAILY [facility] Last Admin: 01/18/25 07:56 Dose: 1 tab Ondansetron HCl (Ondansetron Hcl 4 Mg/2 Ml Vial) 4 mg IVPUSH Q8H PRN PRN Reason: Nausea and Vomiting Last Admin: 01/15/25 15:07 Dose: 4 mg Pharmacy Consult (Consult Rx Etoh Phenob Im/Po) 1 each MISCELLANE ONCE PRN; Protocol PRN Reason: Consult order Sodium Chloride (0.9 % Sodium Chloride Flush 3 Ml Syringe) 3 ml IVFLUSH QSHIFT [facility] Last Admin: 01/18/25 07:56 Dose: 3 ml Thiamine HCl (Thiamine Hcl 100 Mg Tablet) 100 mg PO DAILY [facility] Last Admin: 01/18/25 07:57 Dose: 100 mg Vancomycin HCl (Vancomycin Hcl 125 Mg Capsule) 250 mg PO Q6H [facility] Last Admin: 01/18/25 10:28 Dose: 250 mg Home Medications ?Medication ?Instructions ?Recorded ?Confirmed ?Last Taken ?Type omeprazole 40 mg capsule,delayed 40 mg PO BID@0630,163 0 12/21/23 01/12/25 01/11/25 History release multivitamin 1 tab PO DAILY 01/12/2512/30 Unknown History Physical Exam 2 Vital Signs: Vital Signs: Last Vital Signs Temp 97.9 F 01/18/25 12:00 Pulse 65 01/18/25 12:00 Resp 16 01/18/25 12:00 BP 144/76 H 01/18/25 12:00 Pulse Ox 98 01/18/25 12:00 O2 Del Method Room Air 01/18/25 12:00 BMI result Body Mass Index 33.2 Const: General: cooperative HEENT: Head: Yes normal to inspection Face and sinus: Yes normal facial exam Mouth: Normal oral and palatal mucosa present Teeth and gingiva: d entition normal Eyes: General: appearance normal, both eyes and all related structures P upils: Equal, round and reactive pupils present Resp: Effort & Inspection: normal respiratory effort Cardio: Rate: regular rate Rhythm: regular rhythm GI: Other: mild abdominal discomfort Palpation (GI): Soft to palpation and nontender : General: Yes no CVA tenderness Back/Spine/Pelvis: Back: no CVA tenderness Skin: General skin exam: no rashes or lesions noted Neuro: General: moves all extremities Cranial nerves: Yes Equal, round and reactive pupils present Extrem: General: Yes normal to inspection Psych: Appearance: grossly normal Results Labs 01/18/25 07:33 01/18/25 07:33 Labs: Short CBC 01/18/25 Range/Units 07:33 WBC 4.6 L (4.8-10.8) X10*3/uL Hgb 9.1 L (14.0-18.0) g/dl Hct 26.6 L (42.0-52.0) % Plt Count 147 L D (160-400) X10*3/uL BMP 01/18/25 07:33 Sodium 138 Potassium 3.0 L D Chloride 103 Carbon Dioxide 24 BUN 5 L Creatinine 0.72 Calcium 8.5 Liver Function 01/18/25 Range/Units 07:33 Total Bilirubin 1.4 H (0.0-1.0) mg/dL AST 57 H (5-37) U/L ALT 35 (0-40) U/L Alkaline Phosphatase 85 (39-117) U/L Albumin 3.0 L (3.5-5.0) g/dL Microbiology Microbiology Results: Microbiology 01/16/25 11:33 Blood - Venous Blood Culture - Preliminary No growth after 48 hours. 01/16/25 11:33 Blood - Venous Blood Culture - Preliminary No growth after 48 hours. 01/16/25 11:33 Blood - Venous Blood Culture - Preliminary No growth after 48 hours. 01/12/25 06:50 Blood - Venous Blood Culture - Final Klebsiella pneumoniae 01/12/25 06:52 Blood - Venous Blood Culture - Final Klebsiella pneumoniae Assessment and Plan (1) Alcohol use disorder, severe, dependence: Status: Acute (2) Severe sepsis with lactic acidosis: Status: Acute (3) Infection due to ESBL-producing Klebsiella pneumoniae: Status: Acute Plan He should receive 14 d total antibiotics (Merem or Ertapenem) total . Check creatinine in a week.
[2025-01-18] MEDS: Potassium Chloride Packet 20 MEQ PACKET 40 MEQ PO (14:58)
[2025-01-18 15:50] VITALS: BP 144/80; PULSE 67; RESP 18; TEMP 36.6; O2SAT 98
--- NOTE | 2025-01-18 16:47 | P.PNIM_ITS ---
Subjective Subjective Date of Service: 01/18/25 Interval History: Diarrhea better Some lower abd pain and discomfort Has been tolerating solid diet No F/C, N/V Does not want to go to [facility] Review of Systems Review of Systems: Yes all other systems are reviewed and are negative Physical Exam 2 Exam: Exam: General: AOx3, no acute distress Resp: CTA bilaterally CVS: S1, S2, RRR GI: +BS, no distention, mild lower abd tenderness Skin: Warm, dry Neuro: Cranial nerves II-XII grossly intact bilaterally. Motor grossly intact bilaterally Extremities: No edema Psych: Appropriate affect Vital Signs: Vital Signs: Last Vital Signs Temp 97.8 F 01/18/25 15:50 Pulse 67 01/18/25 15:50 Resp 18 01/18/25 15:50 BP 144/80 H 01/18/25 15:50 Pulse Ox 98 01/18/25 15:50 O2 Del Method Room Air 01/18/25 15:50 BMI result Body Mass Index 33.2 Objective Data Active Medications Acetaminophen (Acetaminophen 325 Mg Tablet) 650 mg PO Q6H PRN PRN Reason: Pain, Mild 1-3,fever,headache Amlodipine Besylate (Amlodipine Besylate 5 Mg Tablet) 5 mg PO DAILY [facility]; Protocol Last Admin: 01/18/25 07:57 Dose: 5 mg Documented By: LINDA Atenolol (Atenolol 100 Mg Tablet) 100 mg PO DAILY [facility]; Protocol Last Admin: 01/18/25 07:57 Dose: 100 mg Documented By: LINDA Calcium Carbonate (Calcium Carbonate 750 Mg Tab.Chew) 750 mg PO Q4H PRN PRN Reason: Heartburn Last Admin: 01/18/25 15:10 Dose: 750 mg Documented By: NAYELI Famotidine (Famotidine/Pf 20 Mg/2 Ml Vial) 20 mg IVPUSH BID [facility] Last Admin: 01/18/25 07:56 Dose: 20 mg Documented By: LINDA Folic Acid (Folic Acid 1 Mg Tablet) 1 mg PO DAILY [facility] Last Admin: 01/18/25 07:57 Dose: 1 mg Documented By: LINDA Heparin Sodium (Porcine) (Heparin Sodium,Porcine 5,000 Unit/Ml Vial) 5,000 unit SUBCUT Q12H [facility] Last Admin: 01/18/25 10:28 Dose: 5,000 unit Documented By: LINDA Lisinopril (Lisinopril 40 Mg Tablet) 40 mg PO DAILY [facility]; Protocol Last Admin: 01/18/25 07:56 Dose: 40 mg Documented By: LINDA Magnesium Hydroxide (Milk Of Magnesia 30 Ml Oral.Susp) 30 ml PO DAILY PRN PRN Reason: Constipation Magnesium Oxide (Magnesium Oxide 400 Mg Tablet) 400 mg PO BIDPC [facility] Last Admin: 01/18/25 07:56 Dose: 400 mg Documented By: LINDA Melatonin (Melatonin 3 Mg Tablet) 6 mg PO BEDTIME PRN PRN Reason: Insomnia Last Admin: 01/17/25 21:15 Dose: 6 mg Documented By: KEE Meropenem (Meropenem 1 Gm Vial) 1 gm IVPUSH Q8H [facility] Last Admin: 01/18/25 10:28 Dose: 1 gm Documented By: LINDA Multivitamins/Vitamin C (Multivitamin Tablet) 1 tab PO DAILY [facility] Last Admin: 01/18/25 07:56 Dose: 1 tab Documented By: LINDA Ondansetron HCl (Ondansetron Hcl 4 Mg/2 Ml Vial) 4 mg IVPUSH Q8H PRN PRN Reason: Nausea and Vomiting Last Admin: 01/15/25 15:07 Dose: 4 mg Documented By: LOYD Pharmacy Consult (Consult Rx Etoh Phenob Im/Po) 1 each MISCELLANE ONCE PRN; Protocol PRN Reason: Consult order Sodium Chloride (0.9 % Sodium Chloride Flush 3 Ml Syringe) 3 ml IVFLUSH QSHIFT [facility] Last Admin: 01/18/25 15:02 Dose: 3 ml Documented By: NAYELI Thiamine HCl (Thiamine Hcl 100 Mg Tablet) 100 mg PO DAILY [facility] Last Admin: 01/18/25 07:57 Dose: 100 mg Documented By: LINDA Vancomycin HCl (Vancomycin Hcl 125 Mg Capsule) 250 mg PO Q6H [facility] Last Admin: 01/18/25 10:28 Dose: 250 mg Documented By: LINDA Labs 01/18/25 07:33 01/18/25 07:33 Labs: Laboratory Results - last 24 hr 01/18/25 07:33 MCV 111.3 H MCH 38.1 H MCHC 34.2 RDW 13.1 Plt Count 147 L D MPV 10.7 Immature Gran % (Auto) 0.9 H Neut % (Auto) 72.2 Lymph % (Auto) 10.4 L [place] % (Auto) 13.2 H Eos % (Auto) 2.2 Baso % (Auto) 1.1 Lymph # (Auto) 0.5 L [place] # (Auto) 0.6 Eos # (Auto) 0.1 Baso # (Auto) 0.1 Abs Immat Gran (auto) 0.04 H Absolute Neuts (auto) 3.4 Absolute Nucleated RBC 0.000 Nucleated RBC % (auto) 0.0 Smear Path Review SEE NOTE PT 12.5 H INR 1.1 Anion Gap 14 Estim Creat Clear Calc 115.1 Estimated GFR > 60 Random Glucose 106 Calcium 8.5 Magnesium 1.7 Total Bilirubin 1.4 H AST 57 H ALT 35 Alkaline Phosphatase 85 Total Protein 5.9 L Albumin 3.0 L Microbiology Microbiology Results: Microbiology 01/16/25 11:33 Blood Culture - Preliminary Blood - Venous No growth after 48 hours. 01/16/25 11:33 Blood Culture - Preliminary Blood - Venous No growth after 48 hours. Blood Culture - Preliminary No growth after 48 hours. Assessment and Plan (1) Acute hypokalemia: Status: Acute (2) Infection due to ESBL-producing Klebsiella pneumoniae: Status: Acute Plan Patient is a 64-year-old male with PMH notable for poor historian at baseline, noncompliant with medications, ongoing alcohol use disorder and recurrent frequent admissions due to alcohol withdrawal, prostate cancer, PTSD, GERD, HTN , morbid obesity, anxiety, depression, DM type 2, cholelithiasis who presented with periumbilical abdominal pain and was noted to have Gram-negative bacteremia, Cdiff colitis, conjugated hyperbilirubinemia,phenobarb for alcohol withdrawal prophylaxis. Severe sepsis secondary to ESBL Klebsiella bacteremia and C diff colitis Repeat blood cultures negative after 48 hours Switched to Meropenem and PO Vancomycin ID consulted, recommend ertapenem for a total of 14 days, set to finish on 01/[address] order for midline Cholelithiasis MRCP showed Distended gallbladder with cholelithiasis and pericholecystic fluid. Mildly dilated common bile duct. No evidence of choledocholithiasis. Pt with hx of Cholecystitis on last admission F/U outpatient with [facility] surgery for elective cholecystectomy Severe recurrent relapsing admissions for alcohol withdrawal addiction med consult competed phenobarb protocol Obstructive jaundice Likely on presentation with elevated direct bilirubin trending down , might have passed a stone already MRCP as described follow LFT advised abstinence from alcohol HTN resume home antihypertensives DM type 2 maintain on insulin sliding scale to maintain euglycemia PTSD, anxiety, depression continue home meds Prostate cancer appears stable-outpatient management Obesity advised the dietary management In my clinical judgment the patient needs ongoing medical management for severe sepsis secondary to ESBL Klebsiella bacteremia says requiring IV antibiotics and daily LFTs to prevent severe decompensation. Pt will need line placement for outpatient IV abx Quality Stroke Does the patient have a stroke diagnosis?: No VTE Prior VTE?: No VTE Risk Level:: Medical - moderate - high VTE Device Contraindication: Treatment Not Indicated VTE Drug Contraindication: N/A - Med Ordered
[2025-01-18 19:44] VITALS: BP 157/72; PULSE 64; RESP 18; TEMP 36.7; O2SAT 96
[2025-01-19 04:00] VITALS: BP 131/74; PULSE 65; RESP 18; TEMP 36.9; O2SAT 96
[2025-01-19 05:58] LABS: MANUAL DIFF FLAG NO
[2025-01-19 06:00] LABS: Hematocrit 29.5 % (42.0-52.0); Hemoglobin 10.0 g/dl (14.0-18.0); Imm Gran Abs Auto 0.03 X10*3/uL (0.00-0.03); Imm Gran Pct Auto 0.5 % (0.0-0.4); Lymphocytes Absolute Auto 0.7 X10*3/uL (1.2-4.9); Mean Corpuscular HGB Conc 33.9 g/dl (31.0-36.0); Mean Corpuscular Hemoglobin 38.3 pg (27.0-33.0); NRBC Abs Auto 0.000 X10*3/uL (0.0-0.012); NRBC Pct Auto 0.0 /100WBC (0.0-0.2); Platelet Count 183 X10*3/uL (160-400); Red Blood Count 2.61 X10*6/uL (4.60-5.80); White Blood Count 5.5 X10*3/uL (4.8-10.8)
[2025-01-19 06:15] LABS: Mean Corpuscular Volume 113.0 fL (80.0-98.0)
[2025-01-19 06:24] LABS: Alanine Aminotransferase 36 U/L (0-40); Albumin Level 3.6 g/dL (3.5-5.0); Alkaline Phosphatase 93 U/L (39-117); Anion Gap 11 (12-20); Aspartate Amino Transferase 59 U/L (5-37); Blood Urea Nitrogen 4 mg/dL (9-16); Calcium 9.3 mg/dL (8.4-10.2); Carbon Dioxide 24 mmol/L (22-29); Chloride 108 mmol/L (96-108); Creatinine Clr Calc Pharmacy 102.3; Estimated Glomerular Filt Rate > 60; Magnesium 1.9 mg/dL (1.6-2.6); Potassium 3.9 mmol/L (3.3-5.1); Sodium 139 mmol/L (135-145); Total Protein 7.0 g/dL (6.5-8.0)
[2025-01-19 06:43] LABS: INTERNATIONAL NORM RATIO 1.1 (0.9-1.1); Prothrombin Time 12.1 SEC (10.9-12.4)
[2025-01-19 07:56] VITALS: BP 171/76; PULSE 70; RESP 18; TEMP 36.4; O2SAT 99
[2025-01-19] MEDS: 0.9 % Sodium Chloride Flush 3 ML SYRINGE IVFLUSH (08:04)
--- NOTE | 2025-01-19 09:46 | HO.MIDLINE ---
Midline Insertion MIDLINE INSERTION Diagnosis: ESBL Bacteremia/UTI Indication: IV ABT Pertinent Labs: reviewed Technique: Using sterile technique including cap and mask, glove and drape, the right arm was prepped and draped in the usual sterile fashion of full barrier technique with CHG. Using ultrasound guidance, right basilic vein access was obtained . 4fr single lumen nonPASV midline catheter trimmed to 12cm was positioned. The procedure was performed in 7. Ultrasound was used to document vein patency and for needle entry. A formal ultrasound picture was recorded. Vascular Medical Liaison has released the line for use and it is currently dressed with a StatLock, Tegaderm, and CHG disc. Verification has been performed for blood return and line patency. Arm Circumference: 35cm Equipment: [employer] POWERMIDLINE catheter Catheter Type: 4FR single lumen PASV Lot #: [id number]
--- NOTE | 2025-01-19 11:42 | MHC.CM.PN ---
Midline in place. [facility] completed teach with patient and son. Son will assist daily. Medically cleared for dc home w/ 2 wks IV ertapenem. [facility] will deliver abx and [facility] will provide SN. Both are aware of dc. Son will transport home. IMM delivered.
--- NOTE | 2025-01-19 11:58 | W.MHC.F2F ---
Service Date Service Date: 01/19/25 Encounter Date of encounter: 01/19/25 Reasons for Services Signs and symptoms assessed: Generalized weakness from prolonged hospital stay. Has midline in place for home IV abx. Reason for penitentiary: administration of IV, SQ, or IM injection and medication management Reason for physical therapy: home safety and mobility Homebound: Leaving the home is medically contraindicated at this time without the asist of a device and/or another person due th the listed conditions above and below. Reason homebound: unsteady gait / fall risk, leg weakness and poor balance / fall risk Certification: Based on the above findings, I certify that this patient is confined to the home and needs intermittent penitentiary care, physical therapy and/or speech therapy, or continues to need occupational therapy. The patient is under my care, and I have initiated the establishment of the plan of care. The patient will be followed by a physician who will periodically review the plan of care. Time Spent With Patient Time: Total time managing care of this patient today ____ minutes.
--- NOTE | 2025-01-19 12:01 | PM.DS ---
DS: Providers Provider Date of Service: 01/19/25 Date of admission: 01/12/25 09:49 Date of discharge: 01/19/25 Primary care physician: Za Cotton MD Consults: 01/12/25 11:12 Consult to Gastroenterology Routine Consulting Provider: [facility] Reason for consultation: abd pain 01/12/25 11:51 Addiction Medicine Provider Routine Consulting Provider: [facility] Covering Reason for consultation: ETOH 01/17/25 08:29 Consult to Infectious Diseases Routine Consulting Provider: [facility] Reason for consultation: ESBL Klebsiella Bacteremia 01/17/25 15:05 Consult to General Surgery Routine Consulting Provider: [facility] Reason for consultation: recurrent bacteremia, concern of Gallbladder source. for CCY plan in\Outpat DS: Diagnosis Discharge Diagnosis (1) Acute hypokalemia: Status: Acute (2) Infection due to ESBL-producing Klebsiella pneumoniae: Status: Acute DS: Summary Hospital Course Hospital Course: From admission HPI: Date of Service: 01/12/25 Chief Complaint: abdominal pain 64-year-old man presented to the ER with complaints of periumbilical abdominal pain with nausea, vomiting and diarrhea ongoing over the last 4-5 days. Patient also drinks alcohol daily stating he drinks at least a pt of vodka. He reported that the discomfort in his abdomen continued to get worse and that is why he decided to come in to be evaluated. He reported that he has had a very poor appetite and has been able to hold down anything. He reported that he felt like he was getting fevers and chills. He denied any sick contact, recent illness, recent travel. Abdominal pelvic CT showed hepatic steatosis with hepatomegaly and coli lithiasis with evidence of choledocholithiasis but no findings suggestive of acute cholecystitis. Lactic acid initially 3.2, alcohol level 177. In the ER, patient received 30 mL/kg IV fluid, Zofran, morphine, Pepcid, Compazine, IV magnesium, IV potassium, ibuprofen, Rocephin, thiamine. Hospital course: Pt was initially admitted to the hospital for intractable N/V/D and abdominal pain concerning for acute choledocholithiasis. MRCP showed distended gallbladder with cholelithiasis and pericholecystic fluid, with mildly dilated CBD but no evidence of choledocholithiasis. Pt was seen and evaluated by GI who did not think that any acute intervention was necessary at this time. Pt was treated symptomatically and had additional workup including stool studies that were positive for C Diff colitis, and pt was started on p.o. vancomycin 125 mg q.6. For alcohol use disorder, pt completed phenobarb tapering as per protocol. Hospital stay was complicated by 2/2 blood cultures positive for ESBL Klebsiella bacteremia. pt was seen and evaluated by Infectious Disease and started on [place] panel. Pt had midline placed by IR on 01/19 and received a dose of ertapenem 1 g prior to discharge. Pt will be discharged on ertapenem 1 g IV daily times 11 days, ending on 01/29. For C diff colitis pt will take vancomycin 125 mg p.o. q.6 x4 days, ending on 01/23. For cholelithiasis, pt should follow up with General surgery outpatient for possible elective cholecystectomy. Pt is also strongly encouraged to abstain from alcohol use and to use whatever familial, social, and community support he can in order to maintain his sobriety. Pt should follow up with PCP in 1 week for routine post hospitalization visit. Pt should otherwise continue all of his other home medications. Additional details concerning hospital stay as indicated below. Severe sepsis secondary to ESBL Klebsiella bacteremia and C diff colitis 2/2 blood cultures on 01/12 positive for ESBL Klebsiella pneumoniae Repeat blood cultures negative after 48 hours Stool studies positive for C diff gene and toxin Switched to Meropenem and PO Vancomycin ID consulted, recommend ertapenem for a total of 14 days, set to finish on 01/29 PO vanc ends of 01/23 Midline placed by IR on 01/23 Cholelithiasis MRCP showed Distended gallbladder with cholelithiasis and pericholecystic fluid. Mildly dilated common bile duct. No evidence of choledocholithiasis. Pt with hx of Cholecystitis on last admission F/U outpatient with [facility] surgery for elective cholecystectomy Severe recurrent relapsing admissions for alcohol withdrawal addiction med consult competed phenobarb protocol Obstructive jaundice Likely on presentation with elevated direct bilirubin trending down , might have passed a stone already MRCP as described follow LFT advised abstinence from alcohol HTN resume home antihypertensives DM type 2 maintain on insulin sliding scale to maintain euglycemia PTSD, anxiety, depression continue home meds Prostate cancer appears stable-outpatient management Obesity advised the dietary management Time Attestation Discharge Coordination Time (in mins): 35 Quality: Safe Use of Opioids Does Pt have an Active Cancer Diagnosis on the Problem List?: No Quality: Stroke Does the patient have a stroke diagnosis?: No Physical Exam Exam: Exam: General: AOx3, no acute distress Resp: CTA bilaterally CVS: S1, S2, RRR GI: +BS, NT, no distention Skin: Warm, dry Neuro: Cranial nerves II-XII grossly intact bilaterally. Motor grossly intact bilaterally Extremities: No edema Psych: Appropriate affect Vital Signs: Vital Signs: Last Vital Signs Temp 97.5 F 01/19/25 07:56 Pulse 70 01/19/25 07:56 Resp 18 01/19/25 07:56 BP 171/76 H 01/19/25 07:56 Pulse Ox 99 01/19/25 07:56 O2 Del Method Room Air 01/19/25 07:56 BMI result Body Mass Index 33.2 DS: Data Data Completed and Pending Completed studies during hospitalization [Text1]: Procedures Detoxification Services for Substance Abuse Treatment (12/21/23) Introduction of Vasopressor into Peripheral Vein, Percutaneous Approach (12/21/23) Transfusion of Nonautologous Red Blood Cells into Peripheral Vein, Percutaneous Approach (12/21/23) Labs on day of discharge: Laboratory Results - last 24 hr 01/18/25 01/19/25 01/19/25 07:33 05:28 05:28 WBC Cancelled 5.5 RBC Cancelled Hgb Hct MCV MCH MCHC RDW Plt Count MPV Immature Gran % (Auto) Neut % (Auto) Lymph % (Auto) Carson % (Auto) Eos % (Auto) Baso % (Auto) Lymph # (Auto) Carson # (Auto) Eos # (Auto) Baso # (Auto) Abs Immat Gran (auto) Absolute Neuts (auto) Absolute Nucleated RBC Nucleated RBC % (auto) Smear Path Review SEE NOTE PT INR Sodium Potassium Chloride Carbon Dioxide Anion Gap BUN Creatinine Estim Creat Clear Calc Estimated GFR Random Glucose Calcium Magnesium Total Bilirubin AST ALT Alkaline Phosphatase Total Protein Albumin 01/19/25 01/19/25 01/19/25 05:28 05:28 05:28 WBC RBC 2.61 L Hgb Cancelled 10.0 L Hct Cancelled 29.5 L MCV Cancelled MCH MCHC RDW Plt Count MPV Immature Gran % (Auto) Neut % (Auto) Lymph % (Auto) Carson % (Auto) Eos % (Auto) Baso % (Auto) Lymph # (Auto) Carson # (Auto) Eos # (Auto) Baso # (Auto) Abs Immat Gran (auto) Absolute Neuts (auto) Absolute Nucleated RBC Nucleated RBC % (auto) Smear Path Review PT INR Sodium Potassium Chloride Carbon Dioxide Anion Gap BUN Creatinine Estim Creat Clear Calc Estimated GFR Random Glucose Calcium Magnesium Total Bilirubin AST ALT Alkaline Phosphatase Total Protein Albumin 01/19/25 01/19/25 01/19/25 05:28 05:28 05:28 WBC RBC Hgb Hct MCV 113.0 H MCH Cancelled 38.3 H MCHC Cancelled 33.9 RDW Cancelled Plt Count MPV Immature Gran % (Auto) Neut % (Auto) Lymph % (Auto) Carson % (Auto) Eos % (Auto) Baso % (Auto) Lymph # (Auto) Carson # (Auto) Eos # (Auto) Baso # (Auto) Abs Immat Gran (auto) Absolute Neuts (auto) Absolute Nucleated RBC Nucleated RBC % (auto) Smear Path Review PT INR Sodium Potassium Chloride Carbon Dioxide Anion Gap BUN Creatinine Estim Creat Clear Calc Estimated GFR Random Glucose Calcium Magnesium Total Bilirubin AST ALT Alkaline Phosphatase Total Protein Albumin 01/19/25 01/19/25 01/19/25 05:28 05:28 05:28 WBC RBC Hgb Hct MCV MCH MCHC RDW 13.2 Plt Count Cancelled 183 MPV Cancelled 10.7 Immature Gran % (Auto) Cancelled Neut % (Auto) Lymph % (Auto) Carson % (Auto) Eos % (Auto) Baso % (Auto) Lymph # (Auto) Carson # (Auto) Eos # (Auto) Baso # (Auto) Abs Immat Gran (auto) Absolute Neuts (auto) Absolute Nucleated RBC Nucleated RBC % (auto) Smear Path Review PT INR Sodium Potassium Chloride Carbon Dioxide Anion Gap BUN Creatinine Estim Creat Clear Calc Estimated GFR Random Glucose Calcium Magnesium Total Bilirubin AST ALT Alkaline Phosphatase Total Protein Albumin 01/19/25 01/19/25 01/19/25 05:28 05:28 05:28 WBC RBC Hgb Hct MCV MCH MCHC RDW Plt Count MPV Immature Gran % (Auto) 0.5 H Neut % (Auto) Cancelled 71.3 Lymph % (Auto) Cancelled 13.3 L Carson % (Auto) Cancelled Eos % (Auto) Baso % (Auto) Lymph # (Auto) Carson # (Auto) Eos # (Auto) Baso # (Auto) Abs Immat Gran (auto) Absolute Neuts (auto) Absolute Nucleated RBC Nucleated RBC % (auto) Smear Path Review PT INR Sodium Potassium Chloride Carbon Dioxide Anion Gap BUN Creatinine Estim Creat Clear Calc Estimated GFR Random Glucose Calcium Magnesium Total Bilirubin AST ALT Alkaline Phosphatase Total Protein Albumin 01/19/25 01/19/25 01/19/25 05:28 05:28 05:28 WBC RBC Hgb Hct MCV MCH MCHC RDW Plt Count MPV Immature Gran % (Auto) Neut % (Auto) Lymph % (Auto) Carson % (Auto) 11.6 H Eos % (Auto) Cancelled 2.0 Baso % (Auto) Cancelled 1.3 Lymph # (Auto) Cancelled Carson # (Auto) Eos # (Auto) Baso # (Auto) Abs Immat Gran (auto) Absolute Neuts (auto) Absolute Nucleated RBC Nucleated RBC % (auto) Smear Path Review PT INR Sodium Potassium Chloride Carbon Dioxide Anion Gap BUN Creatinine Estim Creat Clear Calc Estimated GFR Random Glucose Calcium Magnesium Total Bilirubin AST ALT Alkaline Phosphatase Total Protein Albumin 01/19/25 01/19/25 01/19/25 05:28 05:28 05:28 WBC RBC Hgb Hct MCV MCH MCHC RDW Plt Count MPV Immature Gran % (Auto) Neut % (Auto) Lymph % (Auto) Carson % (Auto) Eos % (Auto) Baso % (Auto) Lymph # (Auto) 0.7 L Carson # (Auto) Cancelled 0.6 Eos # (Auto) Cancelled 0.1 Baso # (Auto) Cancelled Abs Immat Gran (auto) Absolute Neuts (auto) Absolute Nucleated RBC Nucleated RBC % (auto) Smear Path Review PT INR Sodium Potassium Chloride Carbon Dioxide Anion Gap BUN Creatinine Estim Creat Clear Calc Estimated GFR Random Glucose Calcium Magnesium Total Bilirubin AST ALT Alkaline Phosphatase Total Protein Albumin 01/19/25 01/19/25 01/19/25 05:28 05:28 05:28 WBC RBC Hgb Hct MCV MCH MCHC RDW Plt Count MPV Immature Gran % (Auto) Neut % (Auto) Lymph % (Auto) Carson % (Auto) Eos % (Auto) Baso % (Auto) Lymph # (Auto) Carson # (Auto) Eos # (Auto) Baso # (Auto) 0.1 Abs Immat Gran (auto) Cancelled 0.03 Absolute Neuts (auto) Cancelled 3.9 Absolute Nucleated RBC Cancelled Nucleated RBC % (auto) Smear Path Review PT INR Sodium Potassium Chloride Carbon Dioxide Anion Gap BUN Creatinine Estim Creat Clear Calc Estimated GFR Random Glucose Calcium Magnesium Total Bilirubin AST ALT Alkaline Phosphatase Total Protein Albumin 01/19/25 01/19/25 05:28 05:28 WBC RBC Hgb Hct MCV MCH MCHC RDW Plt Count MPV Immature Gran % (Auto) Neut % (Auto) Lymph % (Auto) Carson % (Auto) Eos % (Auto) Baso % (Auto) Lymph # (Auto) Carson # (Auto) Eos # (Auto) Baso # (Auto) Abs Immat Gran (auto) Absolute Neuts (auto) Absolute Nucleated RBC 0.000 Nucleated RBC % (auto) Cancelled 0.0 Smear Path Review PT 12.1 INR 1.1 Sodium 139 Potassium 3.9 D Chloride 108 Carbon Dioxide 24 Anion Gap 11 L BUN 4 L Creatinine 0.81 Estim Creat Clear Calc 102.3 Estimated GFR > 60 Random Glucose 93 Calcium 9.3 D Magnesium 1.9 Total Bilirubin 1.6 H AST 59 H ALT 36 Alkaline Phosphatase 93 Total Protein 7.0 Albumin 3.6 Preliminary micro results at discharge 01/16/25 11:33 Blood Culture - Preliminary Blood - Venous No growth after 48 hours. 01/16/25 11:33 Blood Culture - Preliminary Blood - Venous No growth after 48 hours. Blood Culture - Preliminary No growth after 48 hours. Discharge Plan Discharge Anticipated Discharge Date/Time: 01/19/25 11:04 Patient Disposition: Home Health Service Discharge Diagnosis: ESBL Klebsiella bacteremia and C diff colitis severe sepsis Referrals: [facility] [Other] - 1 Day Referral Note: A referral has been sent on your behalf for a [facility]. They will be in contact to initiate services. Please feel free to follow up upon discharge. [facility] [Other] - 1 Day Referral Note: [facility] will deliver your IV antibiotics [facility] [Outside] - 3-5 Days Referral Note: [facility] will call you to schedule home nursing and physical therapy appointments. Nursing will see you tomorrow, and likely once a week while on IV antibiotics to assist with line dressing change and lab draws. Saud Cline PA-C [[employer] Representative, General Surgery] - 1 Week Referral Note: F/U for cholelithiasis, possible elective cholecystectomy Po,Za Boucher MD [Primary Care Provider, Internal Medicine] - 1 Week Discharge Medications: New vancomycin [Vancocin] 125 mg capsule 125 mg PO QID Qty: 19 0RF Rx Instructions: Take 1 capsule 4 times a day for the next 4 days, starting the afternoon of 01/19 and ending the evening of 01/23. Continued ascorbate calcium (vitamin C) 500 mg tablet 500 mg PO BID 30 Days Qty: 180 2RF ferrous sulfate 325 mg (65 mg iron) tablet 325 mg PO BID Qty: 180 0RF cyanocobalamin (vitamin B-12) 1,000 mcg capsule 1,000 mcg PO DAILY Qty: 90 1RF lisinopril 40 mg tablet 40 mg PO DAILY 90 Days Qty: 90 1RF folic acid 1 mg tablet 1 mg PO DAILY Qty: 90 0RF atenolol 100 mg tablet 100 mg PO DAILY Qty: 90 0RF omeprazole 40 mg capsule,delayed release(DR/EC) 40 mg PO BID@0630,1630 multivitamin Tablet 1 tab PO DAILY (DME) blood pressure monitor Kit See Rx Instructions .Route Qty: 1 0RF Rx Instructions: As directed Discharge Orders: Discharge Order (Routine); Ordered 01/19/25 Ordered By: Barbara Lay Activity on Discharge: As tolerated Stand Alone Forms: Patient Portal Discharge page Print Language: Spanish Care Plan Goals: See below Health Concerns: Bacteremia UTI C diff colitis Alcohol use disorder Cholelithiasis Plan of Treatment: You were admitted to the hospital for abdominal pain, nausea, vomiting, and diarrhea that was initially concerning for choledocholithiasis and alcohol withdrawal. You were seen and evaluated by GI who did not think your symptoms were secondary to biliary disease. For alcohol withdrawal you were treated with phenobarb as per protocol. Additional workup was positive for C diff colitis and you were started on p.o. vancomycin. Hospital stay was complicated by ESBL bacteremia. You were seen and evaluated by Infectious Disease and has been started on IV antibiotics for a total of 14 days. You had a midline placed by Interventional Radiology prior to discharge, and has been educated on how to administer a daily dose of IV antibiotics for the next 11 days. -- for ESBL bacteremia, you will be treated with ertapenem 1 g IV daily for the next 11 days, starting on 01/20 and ending on 01/29 -- for C diff colitis, take vancomycin 125 mg 4 times a day for the next 4 days, starting the afternoon on 01/19 and ending the night of 01/23 -- for gallstones, imaging showed distended gallbladder without acute infection. Recommend a low-fat diet. Follow up outpatient with General surgery for elective cholecystectomy -- for alcohol use disorder, your strongly encouraged to abstain from alcohol use. Use whatever social, familial, and community support you can in order to maintain your sobriety -- follow up outpatient with PCP in 1-2 weeks for routine post hospitalization visit -- Resume all of your other home medications Assessment: See discharge summary
== END 2025-01-19 12:25 | disposition home health service (06) | DRG 872 ==
LOC: HO.ED 01-12 08:40 → HO.EDOVER 01-12 09:56 → HO.IMC 01-12 19:53 → HO.S3 01-17 17:55
PROVIDERS: Internal Medicine; Student in an Organized Health Care Education/Training Program; Admitting Provider Nurse Practitioner Acute Care; Emergency Provider Emergency Medicine; PCP Internal Medicine; Visit Provider Student in an Organized Health Care Education/Training Program
DX: A41.59 Other Gram-negative sepsis (principal); A04.72 Enterocolitis due to Clostridium difficile, not specified as recurrent; Z16.12 Extended spectrum beta lactamase (ESBL) resistance; R65.20 Severe sepsis without septic shock; Z23 Encounter for immunization; Y90.6 Blood alcohol level of 120-199 mg/100 ml; K75.81 Nonalcoholic steatohepatitis (NASH); K80.20 Calculus of gallbladder without cholecystitis without obstruction; E11.9 Type 2 diabetes mellitus without complications; F41.9 Anxiety disorder, unspecified; C61 Malignant neoplasm of prostate; Z68.33 Body mass index [BMI] 33.0-33.9, adult; E66.01 Morbid (severe) obesity due to excess calories; Z71.3 Dietary counseling and surveillance; F32.A Depression, unspecified; B96.1 Klebsiella pneumoniae [K. pneumoniae] as the cause of diseases classified elsewhere; F43.10 Post-traumatic stress disorder, unspecified; E87.6 Hypokalemia; E83.42 Hypomagnesemia; I10 Essential (primary) hypertension; F10.229 Alcohol dependence with intoxication, unspecified; F17.210 Nicotine dependence, cigarettes, uncomplicated; Z91.148 Patient's other noncompliance with medication regimen for other reason; Z71.6 Tobacco abuse counseling; Z79.899 Other long term (current) drug therapy
CPT/HCPCS: 36410; 36415; 74177; 74181; 76705; 80048; 80053; 80076; 80307; 81001; 81003; 82248; 82947; 83605; 83690; 83735; 84484; 85025; 85027; 85610; 87040; 87077; 87186; 87205; 87324; 87493; 87507; 90656; 93005; 97116; 97162; 97530; 99285; C1751; J0696; J0737; J1308; J1335; J1644; J2185; J2270; J2405; J2543; J2560; J3360; J3411; J3475; J3480; J7120; Q9967; S9485

== ENCOUNTER → 2025-01-11 23:30 | Outpatient (BNV) | payer MEDICARE, SELFPAY | PROVIDERS: Admitting Provider Nurse Practitioner Acute Care; Emergency Provider Emergency Medicine; PCP Internal Medicine; Visit Provider Internal Medicine Cardiovascular Disease | DX: R94.31 Abnormal electrocardiogram [ECG] [EKG] (principal); R10.9 Unspecified abdominal pain | CPT/HCPCS: 93010 ==

== ENCOUNTER → 2025-01-12 04:29 | Outpatient (BNV) | payer MEDICARE, SELFPAY | PROVIDERS: Emergency Provider Emergency Medicine; PCP Internal Medicine; Visit Provider Radiology Diagnostic Radiology | DX: R16.0 Hepatomegaly, not elsewhere classified (principal); K76.0 Fatty (change of) liver, not elsewhere classified; K80.18 Calculus of gallbladder with other cholecystitis without obstruction | CPT/HCPCS: 74177; 74181; 76705 ==

== ENCOUNTER → 2025-01-12 09:49 | Outpatient (BNV) | payer MEDICARE, SELFPAY | PROVIDERS: Admitting Provider Nurse Practitioner Acute Care; Emergency Provider Emergency Medicine; PCP Internal Medicine | DX: R74.01 Elevation of levels of liver transaminase levels (principal); R10.33 Periumbilical pain; R78.81 Bacteremia | CPT/HCPCS: 99222 ==

== ENCOUNTER → 2025-01-12 09:49 | Outpatient (BNV) | payer MEDICARE, SELFPAY | PROVIDERS: Admitting Provider Nurse Practitioner Acute Care; Emergency Provider Emergency Medicine; PCP Internal Medicine; Visit Provider Internal Medicine | DX: F10.20 Alcohol dependence, uncomplicated (principal); A41.9 Sepsis, unspecified organism; E87.20 Acidosis, unspecified; R65.20 Severe sepsis without septic shock; A49.8 Other bacterial infections of unspecified site; Z16.12 Extended spectrum beta lactamase (ESBL) resistance | CPT/HCPCS: 99222 ==

== ENCOUNTER → 2025-01-12 09:49 | Outpatient (BNV) | payer MEDICARE, SELFPAY | PROVIDERS: Admitting Provider Nurse Practitioner Acute Care; Emergency Provider Emergency Medicine; PCP Internal Medicine; Visit Provider Nurse Practitioner Psychiatric/Mental Health | DX: F10.20 Alcohol dependence, uncomplicated (principal) | CPT/HCPCS: 99222 ==

== ENCOUNTER → 2025-01-12 09:49 | Outpatient (BNV) | payer MEDICARE, SELFPAY | PROVIDERS: Admitting Provider Nurse Practitioner Acute Care; Emergency Provider Emergency Medicine; PCP Internal Medicine; Visit Provider Student in an Organized Health Care Education/Training Program | DX: F10.929 Alcohol use, unspecified with intoxication, unspecified (principal); R10.9 Unspecified abdominal pain; R78.81 Bacteremia | CPT/HCPCS: 99223; 99232; 99497 ==

== ENCOUNTER 2025-01-25 13:36 | Outpatient (AMB) | payer MEDICARE, SELFPAY ==
--- NOTE | 2025-01-25 13:41 | A.OFFVIS_ITS ---
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 He has a history of resistant Klebsiella infection diagnosed during a previous hospital stay, which prompted the insertion of a PICC line for intravenous antibiotic administration. The patient is currently receiving a daily dose of ertapenem 1 g at home. He denies any ongoing symptoms such as diarrhea, rash, chills, or additional urinary issues, indicating the effectiveness of the current treatment plan. Review of Systems - General: Denies chills. - Skin: Denies rash. - Gastrointestinal: Denies diarrhea. - Genitourinary: Reports no further urinary symptoms. Physical Exam - Vital Signs- Stable. - Throat- Oropharynx clear. - Respiratory- Lungs clear. - Cardiovascular- Heart with regular rate and rhythm. - Abdomen- Soft and non-tender. - Skin- Clear. - Musculoskeletal- Nontender. Results Plan Patient was informed and verbally consented to the use of an ambient scribe for clinic note documentation during this visit. 1. Infection and inflammatory reaction due to indwelling urethral catheter, initial encounter T83.511A HCC 176 The patient is receiving treatment for a urinary tract infection, complicated by resistant Klebsiella bacteremia, with daily ertapenem 1 g via a PICC line. The antibiotic therapy is scheduled to continue until 01/29, after which the PICC line will be removed, and the intravenous antibiotics will be discontinued as planned. Discussion Notes We reviewed the patient's ongoing management for the resistant urinary tract infection. The patient was informed about the role of the PICC line in delivering the ertapenem and the plan to discontinue the antibiotic therapy after the scheduled completion date on 01/29. The advantages and importance of completing the ertapenem course were explained, alongside reassurance regarding the stability of his clinical status and absence of symptoms. Medical Decision Making The decision to continue ertapenem was based on the history of resistant Klebsiella bacteremia and the benefit of uninterrupted antibiotic therapy. As the patient shows no significant symptoms or complications, completing the ertapenem treatment as planned will effectively address the urinary tract infection. The expected outcome is resolution of the infection without recurrence, supported by the patient's stable condition and clear examinations. The PICC line removal is scheduled post-treatment to prevent potential complications from long-term placement. Patient Instructions - Continue to take your daily dose of ertapenem as prescribed until 01/29. - Ensure the PICC line site stays clean and dry. - Report any signs of redness, swelling, or pain at the PICC line site immediately. - Follow up with your healthcare provider as instructed. - Seek medical attention if you experience new symptoms such as fever or chills. PFS Medical History Alcohol abuse Cholecystitis Impaired glucose tolerance Vitamin D deficiency Anxiety and depression Alcohol abuse Tobacco abuse Post traumatic stress disorder (PTSD) Obesity (BMI 30-39.9) Hypercholesterolemia GERD (gastroesophageal reflux disease) Hypertension Surgical History History of esophagogastroduodenoscopy (EGD) Hx of colonoscopy History of tonsillectomy Family History Father Renal cancer Other Substance use disorder Social History Household Members: None Housing: House Are you a primary companion caregiver to a significant other at home: No Do you presently have visiting nurse or other home services: No Alcohol intake: current Alcohol intake frequency: 3 or more drinks per day Alcohol type: hard liquor Comment: pt refusing bed alarm Patient Tobacco Use Status: Current everyday Tobacco user Tobacco use type: Cigarette Cigarette Packs Per Day: 1 Cigarettes Per Day: 20.0 Years Smoked: 50 e-Cigarette/Vaping Use: Never Used Second Hand Smoke Exposure: Yes Substance Use Type: Marijuana service: No Current occupational status: retired Cognitive needs: No Hearing needs: No Vision needs: Yes (Reading glasses) Physical Exam Vital Signs: Last Vital Signs Pulse 92 01/25/25 13:53 Pulse Ox 98 01/25/25 13:53 Oxygen Delivery Method Room Air 01/25/25 13:53 BMI result Body Mass Index 31.9 Assessment & Plan Assessment & Plan (1) Severe sepsis with lactic acidosis: Code(s): A41.9 - Sepsis, unspecified organism; E87.20 - Acidosis, unspecified; R65.20 - Severe sepsis without septic shock Category: Medical Plan na Orders: Orders IR cvc remove any age Today A41.9 - Sepsis, unspecified organism, E87.20 - Acidosis, unspecified, R65.20 - Severe sepsis without septic shock Coding Level of Care Code Est Pt Level 3 (15528) Diagnoses Severe sepsis with lactic acidosis A41.9; E87.20; R65.20
[2025-01-25 13:53] VITALS: PULSE 92; O2SAT 98; BMI 31.9
== END 2025-01-25 14:03 | disposition home or self-care (01) ==
LOC: HO.HID 13:36
PROVIDERS: PCP Internal Medicine; Visit Provider Internal Medicine
DX: A41.9 Sepsis, unspecified organism (principal); E87.20 Acidosis, unspecified; R65.20 Severe sepsis without septic shock
CPT/HCPCS: 99213

== ENCOUNTER → 2025-01-25 13:36 | Outpatient (BNVA) | payer MEDICARE, SELFPAY | PROVIDERS: PCP Internal Medicine; Visit Provider Internal Medicine | DX: E87.20 Acidosis, unspecified (principal); A41.9 Sepsis, unspecified organism; R65.20 Severe sepsis without septic shock | CPT/HCPCS: 99212 ==

== ENCOUNTER 2025-01-26 13:35 | Outpatient (REF) | payer MEDICARE, SELFPAY ==
[2025-01-26 15:14] LABS: Estimated Glomerular Filt Rate > 60
== END 2025-01-26 13:36 | disposition home or self-care (01) ==
LOC: HO.HVNA 13:35
PROVIDERS: Visit Provider Internal Medicine
DX: N12 Tubulo-interstitial nephritis, not specified as acute or chronic (principal)
CPT/HCPCS: 36415; 82565

== ENCOUNTER 2025-01-29 08:33 | Outpatient (AMB) | payer MEDICARE, SELFPAY ==
[2025-01-29 08:40] VITALS: BP 150/90; PULSE 86; O2SAT 97; BMI 30.4
--- NOTE | 2025-01-29 08:40 | A.OFFPC_ITS ---
Vital Signs 3 01/29/25 08:40 Height 5 ft 8 in Weight 200 lb 2 oz BMI 30.4 BP 150/90 H Blood Pressure Location Lt brachial Position Sitting Pulse 86 Pulse Source Pulse Oximeter Pulse Oximetry (%) 97 Oxygen Delivery Method Room Air Intake Visit Reasons: [place] [facility] [place] ETOH Stock Checker Required: No Accompanied by: Self / Same As Patient Allergies acetaminophen (From TYLENOL) Allergy (Intermediate, Verified 01/29/25 08:41) HIVES apple (APPLES) Allergy (Intermediate, Verified 01/29/25 08:41) HIVES Tobacco use date assessed: 01/29/25 Fall risk assessment: 2 + Falls in past year Last assessed Fall Risk: 01/29/25 Dental Screening Dental Screen Date: 01/29/25 Did you have a dental visit in the last 12 months?: No Did you have a dental problem in the last 6 months where you did not have access to dental care?: No Was dental information given to patient?: No HPI TCM 2 TCM Information0 Date of Discharge 01/19/25 Discharged From [facility] Interactive Contact Date (Reference documentation from this date) 01/20/25 HPI Comments 2 History of Present Illness0 Details 64 y/o Male patient presents to the clin today for HDF. Past Medical History: Alcohol use disorder, prostate cancer, PTSD, GERD, hypertension. Patient was admitted to [facility] from 01/12 to 01/19 for evaluation of periumbilical abdominal pain associated with nausea, vomiting, and diarrhea for 4?5 days. He was diagnosed with acute choledocholithiasis. Imaging: MRCP revealed a distended gallbladder with cholelithiasis and pericholecystic fluid, with mild CBD dilation but no evidence of choledocholithiasis. Additional Findings: Stool studies were positive for C. difficile colitis. Hospital course was further complicated by ESBL Klebsiella bacteremia (2/2 positive blood cultures). ESBL bacteremia: Treated with Ertapenem 1 g IV daily for 11 days, initiated 01/20 and scheduled to complete today (01/29). [facility] Medical History (Updated 01/29/25 @ 09:56 by Alaina Odell NP) C. difficile colitis Alcohol abuse Cholecystitis Impaired glucose tolerance Vitamin D deficiency Anxiety and depression Alcohol abuse Tobacco abuse Post traumatic stress disorder (PTSD) Obesity (BMI 30-39.9) Hypercholesterolemia GERD (gastroesophageal reflux disease) Hypertension Surgical History History of esophagogastroduodenoscopy (EGD) Hx of colonoscopy History of tonsillectomy Family History Father Renal cancer Other Substance use disorder Social History Household Members: None Housing: House Are you a primary point of care specialist to a significant other at home: No Do you presently have visiting nurse or other home services: No Alcohol intake: current Alcohol intake frequency: 3 or more drinks per day Alcohol type: hard liquor Comment: pt refusing bed alarm Patient Tobacco Use Status: Current everyday Tobacco user Tobacco use type: Cigarette Cigarette Packs Per Day: 1 Cigarettes Per Day: 20.0 Years Smoked: 50 Packs Per Year: 50 Packs per year/per ci.00 e-Cigarette/Vaping Use: Never Used Second Hand Smoke Exposure: Yes Substance Use Type: Marijuana service: No Current occupational status: retired Cognitive needs: No Hearing needs: No Vision needs: Yes (Reading glasses) Questionnaire PHQ-9 Over the last 2 weeks, how often have you been bothered by any of the following problems? 1. Little interest or pleasure in doing things: not at all 2. Feeling down, depressed, or hopeless: not at all 3. Trouble falling or staying asleep, or sleeping too much: not at all 4. Feeling tired or having little energy: not at all 5. Poor appetite or overeating: not at all 6. Feeling bad about yourself - or that you are a failure or have let yourself or your family down: not at all 7. Trouble concentrating on things, such as reading the newspaper or watching television: not at all 8. Moving or speaking so slowly that other people could have noticed. Or the opposite - being so fidgety or restless that you have been moving around a lot more than usual: not at all 9. Thoughts that you would be better off or of hurting yourself in some way: not at all Total score: 0 Depression Screening Interpretation: Negative Depression Screening Done: Yes 27125 - PHQ-9 Billing: Yes Source: Developed by Drs. Ryan Garnica, Kamala Loyola, Joshua Lopez and colleagues, with an educational bridgette from [employer]. Thrive Questionnaire Date Thrive assessed: 01/29/25 I am a: Patient What is your living situation today?: I have a steady place to live Within the past 12 months, did the food you bought not last and you didn't have the money to get more?: Never true Within the past 12 months, did you worry whether your food would run out before you got money to buy more?: Never true Do you have trouble paying for medicines?: No Do you have trouble getting transportation to medical appointments?: No Do you have trouble paying your heating and electricity bill?: No Do you have trouble taking care of your child, family member or friend?: No Do you have trouble with day-to-day activities such as bathing, preparing meals, shopping, managing finances, etc.?: No Are you currently unemployed and looking for a job?: No Are you interested in more education?: No Please select the resources that you would like help with: None Currently or been in a relationship where the following occur: No concerns reported THRIVE Score: 0 AUDIT C Alcohol Use Questionnaire (AUDIT-C) 1. How often do you have a drink containing alcohol?: 4 or more times a week 2. How many drinks containing alcohol do you have on a typical day when you are drinking?: 1 or 2 3. How often do you have six or more drinks on one occasion?: Never Total Score: 4 Score Reviewed/Action Taken: No OBINNA-7 AMB Questionnaire OBINNA-7 Date OBINNA - 7 assessed: 01/29/25 Feeling nervous, anxious, or on edge: 0 = Not at all Not being able to stop or control worryin = Not at all Worrying too much about different things: 0 = Not at all Trouble relaxin = Not at all Being so restless that it is hard to sit still: 0 = Not at all Becoming easily annoyed or irritable: 0 = Not at all Feeling afraid as if something awful might happen: 0 = Not at all Total OBINNA-7 score (0-4 normal; 5-9 mild; 10-14 moderate; 15-21 severe): 0 Source: Developed by Kamala Jose B.W. Nir, Joshua Lopez and colleagues, with an educational bridgette from [employer]. Review of Systems Const All systems reviewed & are unremarkable except as noted in HPI and below Physical exam (Primary Care) Vital Signs: Last Vital Signs Pulse 86 01/29/25 08:40 BP 150/90 H 01/29/25 08:40 Pulse Ox 97 01/29/25 08:40 Oxygen Delivery Method Room Air 01/29/25 08:40 BMI result Body Mass Index 30.4 Tobacco/Smoking Status: Tobacco use Status Tobacco use date assessed 01/29/25 01/29/25 08:48 Patient Tobacco Use Status Current everyday Tobacco 01/29/25 08:48 Tobacco use type Cigarette 01/29/25 08:48 e-Cigarette/Vaping Use Never Used 01/29/25 08:48 PHQ-9: PHQ-9 Score PHQ-9: Total score 0 01/29/25 08:49 Depression Screening Interpretation: Negative Thrive Assessment: Date of Thrive Assessment Date Thrive assessed 01/29/25 01/29/25 08:48 Currently or been in a relationship where the following occur: No concerns reported Const General: no acute distress and lethargic Orientation/consciousness: patient oriented x3 and lethargic Resp Effort & Inspection: normal respiratory effort Auscultation: clear to auscultation bilaterally Cardio Heart sounds: S1 normal heart sound present and S2 normal heart sound present Skin Full body images: 2 1. Midline present - dry skin. Mild Redness. Neuro General: patient oriented x3, gait normal and moves all extremities Coding Level of Care Code TCM Mod MDM <= 14 Days Diagnoses Infection due to ESBL-producing Klebsiella pneumoniae A49.8; Z16.12 C. difficile colitis A04.72 Additional Codes PHQ-9 - 88532 - PHQ-9 Billing: Yes ([id number]) Time Spent (min) 20 Assessment & Plan Assessment & Plan (1) Infection due to ESBL-producing Klebsiella pneumoniae: Code(s): A49.8 - Other bacterial infections of unspecified site; Z16.12 - Extended spectrum beta lactamase (ESBL) resistance Category: Medical Plan: ESBL bacteremia: Treated with Ertapenem 1 g IV daily ? 11 days, started 01/20, last dose today (01/29). (2) C. difficile colitis: Code(s): A04.72 - Enterocolitis due to Clostridium difficile, not specified as recurrent Category: Medical Plan: C. difficile colitis: Treated with Vancomycin 125 mg PO QID ? 4 days, completed 01/23. Currently asymptomatic.
== END 2025-01-29 09:00 | disposition home or self-care (01) ==
LOC: HO.HMCH 08:34
PROVIDERS: PCP Internal Medicine; Visit Provider Nurse Practitioner Family
DX: A49.8 Other bacterial infections of unspecified site (principal); Z16.12 Extended spectrum beta lactamase (ESBL) resistance; A04.72 Enterocolitis due to Clostridium difficile, not specified as recurrent

== ENCOUNTER → 2025-01-29 08:33 | Outpatient (BNVA) | payer MEDICARE, SELFPAY | PROVIDERS: PCP Internal Medicine; Visit Provider Nurse Practitioner Family | DX: A04.72 Enterocolitis due to Clostridium difficile, not specified as recurrent (principal); A49.8 Other bacterial infections of unspecified site; Z16.12 Extended spectrum beta lactamase (ESBL) resistance | CPT/HCPCS: 96127; 99495 ==

== ENCOUNTER 2025-02-12 13:31 | Outpatient (AMB) | payer MEDICARE, SELFPAY ==
--- NOTE | 2025-02-12 13:32 | A.OFFVIS_ITS ---
Intake Visit Reasons: Prostate Cancer/Space Oar/PVR follow up Intake Note: Patient is present for Post Op Urology Med: None Antibiotic Allergy: None Blood Thinner: None Last PSA 13.89 04/24/2024 PVR:123ml Entertainment Usher Required: No Accompanied by: Self / Same As Patient Allergies acetaminophen (From TYLENOL) Allergy (Intermediate, Verified 02/12/25 13:36) HIVES apple (APPLES) Allergy (Intermediate, Verified 02/12/25 13:36) HIVES HPI Comments Details: Maurice is a pleasant male. He is a patient of Dr. Cotton. He is seen for the following urologic conditions - prostate cancer 02/23 - he will need nursing visit mid March for GnRH placement - follow-up mid May with lab work - no lab work concurrently 10/23 space oar and targeting seed placement 09/23 Prostate cancer grade group 4 MRI shows disease confined to the prostate with no evidence of liam or bony metastases May still benefit from targeted therapy to prostate even with 2 small other areas as likely to have concurrent medium to long-term hormone therapy in addition to antiandrogens GnRH administered GnRH 09/14/24 Prostate cancer grade group 4, moderate volume - initial therapy 11/23 Dr. Monteiro [facility] external beam radiation with 18 months hormone Staging - PSMA-PET - 07/24 - Intense PSMA activity right prostate gland with a 2.3 cm lesion noted on PET measurements. 2 focal areas of PSMA activity in the right retroperitoneum midabdomen and right upper pelvis adjacent to right common iliac vein suspicious for lymph nodes. Punctate calcifications in the central gland prostate and linear vascular calcification in the penile structure. The periprostatic fat planes are preserved. 07/24 - MRI - 2.1 x 1.7 x 2.0 cm mass in the right anterior and lateral peripheral zone in the mid gland extending to the apex, highly suspicious for clinically significant prostate carcinoma. Characteristics at biopsy TRUS volume 30 cc PT2a right-sided nodule PSAs: 11/18 1.7, 04/22 3.5, 01/22 7.0, 02/22 10.6, 04/25 13.9 Prostatic adenocarcinoma, acinar type [place] score: 8 (4+4) (right mid lateral and right apex lateral), 7 (4+3) (right mid medial and right apex medial) (right base medial tumor is too small to grade) - all cores over 50% Grade group: 4 and 3 Number cores positive: 5 Total number of cores: 16 % of tissue involved: 28% Periprostatic fat inv.: Not identified Seminal vesicle inv.: Not identified Perineural inv.: Not identified Lymphatic and/or vascular invasion: Not identified PFSH Medical History C. difficile colitis Alcohol abuse Cholecystitis Impaired glucose tolerance Vitamin D deficiency Anxiety and depression Alcohol abuse Tobacco abuse Post traumatic stress disorder (PTSD) Obesity (BMI 30-39.9) Hypercholesterolemia GERD (gastroesophageal reflux disease) Hypertension Surgical History History of esophagogastroduodenoscopy (EGD) Hx of colonoscopy History of tonsillectomy Family History Father Renal cancer Other Substance use disorder Social History Household Members: None Housing: House Are you a primary insurance healthcare consultant to a significant other at home: No Do you presently have visiting nurse or other home services: No Alcohol intake: current Alcohol intake frequency: 3 or more drinks per day Alcohol type: hard liquor Comment: pt refusing bed alarm Patient Tobacco Use Status: Current everyday Tobacco user Tobacco use type: Cigarette Cigarette Packs Per Day: 1 Cigarettes Per Day: 20.0 Years Smoked: 50 e-Cigarette/Vaping Use: Never Used Second Hand Smoke Exposure: Yes Substance Use Type: Marijuana service: No Current occupational status: retired Cognitive needs: No Hearing needs: No Vision needs: Yes (Reading glasses) Review of Systems Const Denies chills and Denies fever(s) Card Reports no additional complaints and Denies syncope Resp Denies cough GI Denies abdominal pain and Denies heartburn Reports as per HPI and Denies change in libido Neuro Denies syncope Psych Denies change in libido Endo Denies change in libido Physical Exam Const General: cooperative, healthy appearing, comfortable and no acute distress Orientation/consciousness: patient oriented x3 HEENT Face and sinus: Yes normal facial exam Mouth: moist mucous membranes Neck Neck: Yes normal visual inspection, Yes full ROM and Yes trachea midline Chest Chest palpation & inspection: normal inspection of the chest Resp Effort & Inspection: normal respiratory effort, able to speak in complete sentences and no respiratory distress GI Inspection: Yes normal to inspection Back/Spine/Pelvis Cervical Spine: normal cervical lordosis Thoracic/Lumbar Spine: thoracic and lumbar spine normal to inspection Skin General skin exam: no rashes or lesions noted Neuro General: patient oriented x3, gait normal, tone normal and moves all extremities Extrem General: Yes normal to inspection and Yes capillary refill normal Office Procedures Post Void Residual Post Residual Void Post Void Residual (PVR): 123 [id number] Void Residual by ultrasound Assessment & Plan Assessment & Plan (1) Prostate cancer: Comment: June 2024 biopsy Code(s): C61 - Malignant neoplasm of prostate Category: Medical Plan GnRH next month Four-month follow-up lab work office Orders: Orders Prostate Specific Antigen 4 Months C61 - Malignant neoplasm of prostate AMB Post Void Residual by ultrasound Today N39.0 - Urinary tract infection, site not specified Testosterone, Total 4 Months C61 - Malignant neoplasm of prostate Patient Instructions: This note is constructed using voice recognition software. While every effort has been made to ensure accuracy life enrichment specialist errors may have been included. Imaging studies, laboratory and physical exam results were discussed and reviewed in detail. No major barriers to patient understanding were identified. An opportunity to ask questions regarding the treatment plan was provided. All questions were answered. The patient expressed understanding and agreement with the above treatment plan. The patient is aware they should contact our office by phone for worsening of their current condition or the appearance of new urologic symptoms. Compliance is encouraged with any medications and followup testing that is ordered. It is a privilege to participate in the urologic care of your patient. If you have any questions or concerns regarding treatment for the above conditions, or other urologic issues, please do not hesitate to contact me. The office telephone contact is [phone]. Sincerely, Dr Luciano Don MD, [facility] - Urology Compassionate Specialist Care for the Genitourinary System Coding Level of Care Code Est Pt Level 3 (02664) Complex EM visit Add On G2211 Diagnoses Prostate cancer C61 CPT Codes Post Residual Void - PVR CPT Code: 63811-Bdxe Void Residual by ultrasound ([id number])
== END 2025-02-12 14:20 | disposition home or self-care (01) ==
LOC: HO.HUSH 13:31
PROVIDERS: PCP Internal Medicine; Visit Provider Urology
DX: C61 Malignant neoplasm of prostate (principal)
CPT/HCPCS: 99213; G2211

== ENCOUNTER → 2025-02-12 13:31 | Outpatient (BNVA) | payer MEDICARE, SELFPAY | PROVIDERS: PCP Internal Medicine; Visit Provider Urology | DX: C61 Malignant neoplasm of prostate (principal) | CPT/HCPCS: 51798; 99212 ==

== ENCOUNTER 2025-03-19 09:23 | Outpatient (AMB) | payer MEDICARE, SELFPAY ==
--- NOTE | 2025-03-19 09:49 | AM.OFFVISNUR ---
Intake Visit Reasons: GnRH Allergies acetaminophen (From TYLENOL) Allergy (Intermediate, Verified 02/12/25 13:36) HIVES apple (APPLES) Allergy (Intermediate, Verified 02/12/25 13:36) HIVES Office Meds Eligard (6 month) 45 mg (6 month) subcutaneous syringe Performing Provider: Luciano Don MD [facility] Administered by: Raffy Daigle LPN on 03/19/25 09:50 Dose Route Admin Location Dispensed Lot Number Expiration Date [facility] [place] [employer] 45 mg subcut left arm 45 mg [id number] 07/30/25 39456-937-67 [employer] Total Dispensed Waste 45 mg 0 % Assessment & Plan Assessment & Plan Orders: Orders AMB Leuprolide Injection - Practice Supplied Today C61 - Malignant neoplasm of prostate Coding
== END 2025-03-19 10:51 | disposition home or self-care (01) ==
LOC: HO.HUSH 09:23
PROVIDERS: PCP Internal Medicine; Visit Provider Urology
DX: C61 Malignant neoplasm of prostate (principal)

== ENCOUNTER → 2025-03-19 09:23 | Outpatient (BNVA) | payer MEDICARE, SELFPAY | PROVIDERS: PCP Internal Medicine; Visit Provider Urology | DX: C61 Malignant neoplasm of prostate (principal) | CPT/HCPCS: 96402; J9217 ==

== ENCOUNTER 2025-03-24 09:41 | Outpatient (AMB) | payer MEDICARE, SELFPAY ==
--- NOTE | 2025-03-24 09:43 | A.OFFVIS_ITS ---
Vital Signs 03/24/25 09:54 Height 5 ft 8 in Weight 189 lb BMI 28.7 BP 143/93 H Blood Pressure Location Lt brachial Position Sitting Pulse 118 H Intake Visit Reasons: cholelithiasis Intake Note: Patient is seen in office for ER follow up visit, following for cholelithiasis. 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 He has occasional diarrhea. Denies nausea or vomiting. He has been trying to keep to a low fat diet. This has been going pretty well. He does report that he has reduced his drinking but drinks at least 3 days per week, about a pint of vodka when he drinks. He has no interest in going to a rehab facility to withdraw from alcohol. He has had seizures related to alcohol withdrawal in the past. [facility] Medical History C. difficile colitis Alcohol abuse Cholecystitis Impaired glucose tolerance Vitamin D deficiency Anxiety and depression Alcohol abuse Tobacco abuse Post traumatic stress disorder (PTSD) Obesity (BMI 30-39.9) Hypercholesterolemia GERD (gastroesophageal reflux disease) Hypertension Surgical History History of esophagogastroduodenoscopy (EGD) Hx of colonoscopy History of tonsillectomy Family History Father Renal cancer Other Substance use disorder Social History Household Members: None Housing: House Are you a primary resident care manager rn to a significant other at home: No Do you presently have visiting nurse or other home services: No Alcohol intake: current Alcohol intake frequency: 3 or more drinks per day Alcohol type: hard liquor Comment: pt refusing bed alarm Patient Tobacco Use Status: Current everyday Tobacco user Tobacco use type: Cigarette Cigarette Packs Per Day: 1 Cigarettes Per Day: 20.0 Years Smoked: 50 e-Cigarette/Vaping Use: Never Used Second Hand Smoke Exposure: Yes Substance Use Type: Marijuana service: No Current occupational status: retired Cognitive needs: No Hearing needs: No Vision needs: Yes (Reading glasses) Physical Exam Vital Signs: Last Vital Signs Pulse 118 H 03/24/25 09:54 BP 143/93 H 03/24/25 09:54 BMI result Body Mass Index 28.7 Const General: comfortable and no acute distress Orientation/consciousness: patient oriented x3 GI Inspection: No distended and Yes obesity Palpation (GI): Soft to palpation and nontender Neuro General: patient oriented x3 Assessment & Plan Assessment & Plan (1) Cholelithiasis: Code(s): K80.20 - Calculus of gallbladder without cholecystitis without obstruction Category: Medical Qualifiers: Cholelithiasis location: gallbladder Cholecystitis presence: without cholecystitis Biliary obstruction: without biliary obstruction Qualified Code(s): K80.20 - Calculus of gallbladder without cholecystitis without obstruction Plan 64-year-old male with a history of alcohol use disorder, prostate cancer, PTSD, GERD, hypertension, obesity, anxiety and depression, type 2 diabetes, cholelithiasis, recently admitted to the hospital found to have Gram-negative b acteremia secondary to ESBL Klebsiella, C diff colitis, hyperbilirubinemia, had MRCP showing distended gallbladder with cholelithiasis and pericholecystic fluid and mildly dilated common bile duct no evidence of choledocholithiasis. We had recommended that patient follow up as an outpatient for cholecystectomy. He continued to recover while admitted and was later discharged home. He returns to the office today to discuss a plan for surgery. He reports he continues to have vague lower abdominal pain, episodes of nausea and vomiting in the morning. Symptoms are unrelated to food. Additionally he does continue to drink though he states he has cut down he drinks at least 3 days a week, 1 pt of vodka when he does drink. His abdomen in the office today was soft and benign, negative Miner's sign I discussed this case with Dr. Glynn who had seen the patient inpatient last year. He related his elevated liver enzymes and imaging findings likely to chronic liver disease secondary to alcohol use and recommended that the patient abstain from alcohol prior to pursuing surgery. Patient understands and states that he will stop drinking on his own. However he has had seizures due to alcohol withdrawal in the past and I recommended that he seek treatment to withdraw from alcohol he had already short term detox or as an outpatient at a addiction medicine facility. He states he has been to these before and does not want to do this. I again reiterated the importance of supervised withdrawal from alcohol as this could result in seizures and ultimately if he does not have the proper supervision. He is to make an appointment for a few months with Dr. Glynn to discuss future intervention. Coding Level of Care Code Est Pt Level 4 (28625) Diagnoses Calculus of gallbladder without cholecystitis without obstruction K80.20 Cholelithiasis location: gallbladder Cholecystitis presence: without cholecystitis Biliary obstruction: without biliary obstruction
[2025-03-24 09:54] VITALS: BP 143/93; PULSE 118; BMI 28.7
== END 2025-03-24 10:15 | disposition home or self-care (01) ==
LOC: HO.HGS 09:42
PROVIDERS: PCP Internal Medicine
DX: K80.20 Calculus of gallbladder without cholecystitis without obstruction (principal)
CPT/HCPCS: 99214

== ENCOUNTER → 2025-03-24 09:41 | Outpatient (BNVA) | payer MEDICARE, SELFPAY | PROVIDERS: PCP Internal Medicine | DX: K80.20 Calculus of gallbladder without cholecystitis without obstruction (principal); R74.01 Elevation of levels of liver transaminase levels; R10.30 Lower abdominal pain, unspecified; R11.2 Nausea with vomiting, unspecified | CPT/HCPCS: 99212 ==